=== PATIENT | female | born 1950 | race Caucasian/White ===

== ENCOUNTER 2017-06-19 20:39 | Emergency (ER) | payer MEDICARE ==
[~2017-06-19] VITALS: Ht 167.6 cm; Wt 98.0 kg
[2017-06-19 20:50] VITALS: BP 155/84
[2017-06-19] MEDS ORDERED: LACTATED RINGERS 1,000 ML IV ONE (21:12)
[2017-06-19] MEDS ORDERED: KETOROLAC 30 MG/ML VIAL IVP ONE (21:15)
[2017-06-19] MEDS ORDERED: ONDANSETRON 4 MG/2 ML (SDV) Z0FRAN IVP ONE (21:15)
--- NOTE | 2017-06-19 21:28 | ED Back Pain ---
General Chief Complaint: Back Problems Stated Complaint: MUSCLE SPASMS IN BACK Nursing Triage Note: PT REPORTS MUSCLE SPASMS TO R POSTERIOR RIBS THAT IS WORSE WITH INSPIRATION. SHE DENIES ANY INJURY OR ANY OTHER S/S. SHE STATES SHE TOOK 400 MG IBUPROFEN AND 5 MG FLEXERIL AT APPROX 1500 WITH NO RELIEF. Nursing Sepsis Screen: No Definite Risk Source of Information: Patient Exam Limitations: No Limitations History of Present Illness Date Seen by Provider: Jun 19, 2017 Time Seen by Provider: 21:00 Initial Comments Patient presents to the ER by private conveyance with her significant other and a chief complaint that this morning she started having some back pain in the right low back that is radiating around to her right flank. She does not have dysuria or fever she has had some chills. She has a little nausea but no vomiting. No diarrhea skin rash. She's never had kidney stones before. She has had multiple surgeries on her abdomen including gallbladder or appendix hysterectomy. She used 2 tablets of ibuprofen and a cyclobenzaprine 5 mg and it did not help her pain. Several years ago she had a kyphoplasty. She has no recent trauma to her back. Allergies and Home Medications Allergies Coded Allergies: lincomycin (Verified Allergy, Unknown, 06/19/17) nitrofurantoin (Unverified Allergy, Unknown, 06/19/17) propoxyphene (Unverified Allergy, Unknown, 06/19/17) Uncoded Allergies: "PRECIOUS" (Allergy, Unknown, 06/19/17) PENICILLIN (Allergy, Unknown, 06/19/17) SULFA (Allergy, Unknown, 06/19/17) Patient Home Medication List Home Medication List Reviewed: Yes Constitutional: chills, No diaphoresis, No fever, No malaise EENTM: No hearing loss, No ear pain Respiratory: No cough, No phlegm Cardiovascular: No chest pain, No palpitations Gastrointestinal: No abdominal pain, No constipation, No diarrhea, nausea Genitourinary: No discharge, No dysuria, No hematuria : No Musculoskeletal: see HPI, back pain Past Tacwloy-Anpowy-Jmqbtq Hx Patient Social History Alcohol Use: Denies Use Recreational Drug Use: No Smoking Status: Never a Smoker 2nd Hand Smoke Exposure: No Recent Foreign Travel: No Contact w/Someone Who Travel: No Recent Infectious Disease Expo: No Recent Hopitalizations: No Seasonal Allergies Seasonal Allergies: No Surgeries History of Surgeries: Yes (KYPHOPLASTY) Surgeries: Adenoidectomy, Appendectomy, Eye Surgery, Gallbladder, Joint Replacement, Orthopedic, Tonsillectomy, Tubal Ligation Respiratory History of Respiratory Disorde: No Cardiovascular History of Cardiac Disorders: Yes Cardiac Disorders: High Cholesterol Neurological History of Neurological Disord: No Genitourinary History of Genitourinary Disor: Yes Gastrointestinal History of Gastrointestinal Di: No Musculoskeletal History of Musculoskeletal Dis: No Endocrine History of Endocrine Disorders: Yes Endocrine Disorders: Hypothyroidsim HEENT History of HEENT Disorders: No Cancer History of Cancer: No Psychosocial History of Psychiatric Problem: Yes Behavioral Health Disorders: Sleep Difficulties, Anxiety, Depression Physical Exam Vital Signs Vital Signs - First Documented 06/19/17 20:50 Temp 98.1 Pulse 74 Resp 16 B/P (MAP) 155/84 (107) Pulse Ox 96 O2 Delivery Room Air Capillary Refill : Less Than 3 Seconds General Appearance: Mild Distress, Obese HEENT: PERRL/EOMI, Pharynx Normal (oral mucosa is dry) Neck: Full Range of Motion, Supple Cardiovascular: Regular Rate, Rhythm, No Murmur, Normal Peripheral Pulses Respiratory: Chest Non Tender, Lungs Clear, Normal Breath Sounds Peripheral Pulses: 2+ Radial Pulses (R), 2+ Radial Pulses (L) Gastrointestinal: Normal Bowel Sounds, Non Tender, Soft Back: Normal Inspection, CVA Tenderness (R), Vertebral Tenderness (low back right side) Extremity: Normal Capillary Refill, Normal Inspection Neurologic/Psychiatric: Alert, Oriented x3, No Motor/Sensory Deficits Skin: Normal Color, Warm/Dry Progress/Results/Core Measures Results/Orders Lab Results Laboratory Tests Test 06/19/17 21:36 06/19/17 21:38 Range/Units White Blood Count 8.1 4.3-11.0 10^3/uL Red Blood Count 4.98 4.35-5.85 10^6/uL Hemoglobin 15.4 11.5-16.0 G/DL Hematocrit 45 35-52 % Mean Corpuscular Volume 91 80-99 FL Mean Corpuscular Hemoglobin 31 25-34 PG Mean Corpuscular Hemoglobin Concent 34 32-36 G/DL Red Cell Distribution Width 13.0 10.0-14.5 % Platelet Count 276 130-400 10^3/uL Mean Platelet Volume 9.6 7.4-10.4 FL Neutrophils (%) (Auto) 54 42-75 % Lymphocytes (%) (Auto) 31 12-44 % Monocytes (%) (Auto) 11 0-12 % Eosinophils (%) (Auto) 4 0-10 % Basophils (%) (Auto) 1 0-10 % Neutrophils # (Auto) 4.4 1.8-7.8 X 10^3 Lymphocytes # (Auto) 2.5 1.0-4.0 X 10^3 Monocytes # (Auto) 0.9 0.0-1.0 X 10^3 Eosinophils # (Auto) 0.3 0.0-0.3 10^3/uL Basophils # (Auto) 0.1 0.0-0.1 10^3/uL Sodium Level 140 135-145 MMOL/L Potassium Level 4.0 3.6-5.0 MMOL/L Chloride Level 105 98-107 MMOL/L Carbon Dioxide Level 26 21-32 MMOL/L Anion Gap 9 5-14 MMOL/L Blood Urea Nitrogen 20 H 7-18 MG/DL Creatinine 0.92 0.60-1.30 MG/DL Estimat Glomerular Filtration Rate > 60 BUN/Creatinine Ratio 22 Glucose Level 97 70-105 MG/DL Calcium Level 9.3 8.5-10.1 MG/DL Total Bilirubin 0.4 0.1-1.0 MG/DL Aspartate Amino Transf (AST/SGOT) 20 5-34 U/L Alanine Aminotransferase (ALT/SGPT) 35 0-55 U/L Alkaline Phosphatase 62 40-136 U/L Total Protein 7.3 6.4-8.2 GM/DL Albumin 4.3 3.2-4.5 GM/DL Urine Color YELLOW Urine Clarity SLIGHTLY CLOUDY Urine pH 6 5-9 Urine Specific [place] 1.020 1.016-1.022 Urine Protein NEGATIVE NEGATIVE Urine Glucose (UA) NEGATIVE NEGATIVE Urine Ketones NEGATIVE NEGATIVE Urine Nitrite NEGATIVE NEGATIVE Urine Bilirubin NEGATIVE NEGATIVE Urine Urobilinogen 1 NORMAL MG/DL Urine Leukocyte Esterase 1+ H NEGATIVE Urine RBC (Auto) NEGATIVE NEGATIVE Urine RBC NONE /HPF Urine WBC 0-2 /HPF Urine Squamous Epithelial Cells 0-5 /HPF Urine Crystals NONE /LPF Urine Bacteria NEGATIVE /HPF Urine Casts NONE /LPF Urine Mucus SMALL H /LPF Urine Culture Indicated NO My Orders Orders - ANA PICKARD Cbc With Automated Diff (3/10/18 21:12) Comprehensive Metabolic Panel (06/19/17 21:12) Ua Culture If Indicated (06/19/17 21:12) Saline Lock/Iv-Start (06/19/17 21:12) Lactated Ringers (Lr 1000 Ml Iv Solution (06/19/17 21:12) Ketorolac Injection (Toradol Injection) (06/19/17 21:15) Ondansetron Injection (Zofran Injectio (06/19/17 21:15) Fentanyl Injection (Sublimaze Injection (06/19/17 22:00) Ct Abd/Pelvis Wo(Kidney Stone) (06/19/17 22:14) Fentanyl Injection (Sublimaze Injection (06/19/17 22:30) Medications Given in ED Current Medications Medications Dose Ordered Sig/Heather Route Start Time Stop Time Status Last Admin Dose Admin Fentanyl Citrate 50 mcg ONCE ONCE IVP 06/19/17 22:00 06/19/17 22:01 DC 06/19/17 21:59 50 MCG Fentanyl Citrate 50 mcg ONCE ONCE IVP 06/19/17 22:30 06/19/17 22:31 DC 06/19/17 22:28 50 MCG Ketorolac Tromethamine 15 mg ONCE ONCE IVP 06/19/17 21:15 06/19/17 21:18 DC 06/19/17 21:25 15 MG Lactated Ringer's 1,000 ml @ 0 mls/hr Q0M ONCE IV 06/19/17 21:12 06/19/17 21:17 DC 06/19/17 21:25 0 MLS/HR Ondansetron HCl 4 mg ONCE ONCE IVP 06/19/17 21:15 06/19/17 21:18 DC 06/19/17 21:25 4 MG Vital Signs/I&O Vital Sign - Last 12Hours 06/19/17 20:50 Temp 98.1 Pulse 74 Resp 16 B/P (MAP) 155/84 (107) Pulse Ox 96 O2 Delivery Room Air Blood Pressure Mean: 107 Progress Note : Time: 21:30 Progress Note Concern for kidney stone versus other. Possible pyelonephritis or just lumbago. Diagnostic Imaging Diagonstic Imaging: CT Plain Films/CT/US/NM/MRI: abdomen, pelvis Comments No acute findings there is some L4-L5 grade 1 anterolisthesis secondary to bilateral L4 pars defect. The kyphoplasty changes present at T11. No kidney stones noted. No free air or free fluid. Reviewed: Reviewed Night Hawk Study, Reviewed by Me Departure Impression Impression: Primary Impression: Lumbago Qualified Codes: M54.5 - Low back pain Disposition: 01 HOME, SELF-CARE Condition: Improved Departure-Patient Inst. Decision time for Depature: 00:03 Referrals: NO,LOCAL PHYSICIAN (PCP) Primary Care Physician Patient Instructions: Low Back Pain (DC) Add. Discharge Instructions: Establish care with a primary care physician to consider further workup and management of your back pain. Use ibuprofen 800 mg every 8 hours as needed as well as Tylenol 1000 mg every 6 hours. You can use icy hot or similar creams. Use heating pads and obtain a back brace to wear on the days that it helps with your posture. No lifting over 20 pounds for the next 2 weeks. If your pain is intolerable despite these interventions you can use one tablet of the hydrocodone every 6 hours to help take the edge off. If is not improving over the next few weeks he should follow-up with your primary care physician and look into physical therapy or other management. All discharge instructions reviewed with patient and/or family. Voiced understanding. Scripts Hydrocodone Bit/Acetaminophen (Hydrocodone/Acetaminophen 5/325mg Tablet) 1 Tab Tab 1-2 EACH PO Q6H Y for BREAKTHROUGH PAIN, #15 TAB 0 Refills Prov: ANA PICKARD 06/20/17 ANA PICKARD Jun 19, 2017 21:28
[2017-06-19 21:44] LABS: BILIRUBIN,URINE NEGATIVE (NEGATIVE); CLARITY,URINE SLIGHTLY CLOUDY; COLOR,URINE YELLOW; GLUCOSE, URINE (UA) NEGATIVE (NEGATIVE); KETONES,URINE NEGATIVE (NEGATIVE); LEUKOCYTE ESTERASE ,URINE 1+ (NEGATIVE); NITRITE,URINE NEGATIVE (NEGATIVE); PH,URINE 6 (5-9); PROTEIN,URINE NEGATIVE (NEGATIVE); UROBILINOGEN,URINE 1 MG/DL (NORMAL)
[2017-06-19 21:45] LABS: BASOPHILS # (AUTO) 0.1 10^3/uL (0.0-0.1); BASOPHILS % (AUTO) 1 % (0-10); EOSINOPHILS # (AUTO) 0.3 10^3/uL (0.0-0.3); EOSINOPHILS % (AUTO) 4 % (0-10); HEMATOCRIT 45 % (35-52); HEMOGLOBIN 15.4 G/DL (11.5-16.0); LYMPHOCYTES # (AUTO) 2.5 X 10^3 (1.0-4.0); LYMPHOCYTES % (AUTO) 31 % (12-44); MEAN CORPUSCULAR HEMOGLOBIN 31 PG (25-34); MEAN CORPUSCULAR HGB CONC 34 G/DL (32-36); MEAN CORPUSCULAR VOLUME 91 FL (80-99); MEAN PLATELET VOLUME 9.6 FL (7.4-10.4); MONOCYTES # (AUTO) 0.9 X 10^3 (0.0-1.0); MONOCYTES % (AUTO) 11 % (0-12); NEUTROPHILS # (AUTO) 4.4 X 10^3 (1.8-7.8); NEUTROPHILS % (AUTO) 54 % (42-75); PLATELET COUNT 276 10^3/uL (130-400); RED BLOOD COUNT 4.98 10^6/uL (4.35-5.85); WHITE BLOOD COUNT 8.1 10^3/uL (4.3-11.0)
[2017-06-19] MEDS ORDERED: fentaNYL INJECTION 100 MCG/2 ML AMP IVP ONE ×2 (22:00→22:30)
[2017-06-19 22:01] LABS: ALANINE AMINOTRANSFERASE 35 U/L (0-55); ALBUMIN 4.3 GM/DL (3.2-4.5); ALKALINE PHOSPHATASE 62 U/L (40-136); BILIRUBIN,TOTAL 0.4 MG/DL (0.1-1.0); BUN/CREATININE RATIO 22; CALCIUM 9.3 MG/DL (8.5-10.1); CARBON DIOXIDE 26 MMOL/L (21-32); CHLORIDE 105 MMOL/L (98-107); CREATININE SERUM 0.92 MG/DL (0.60-1.30); GFR ESTIMATED > 60; GLUCOSE 97 MG/DL (70-105); SODIUM 140 MMOL/L (135-145); TOTAL PROTEIN 7.3 GM/DL (6.4-8.2)
[2017-06-19 22:07] LABS: BACTERIA,URINE NEGATIVE /HPF; SQUAMOUS EPITHELIAL CELL,UR 0-5 /HPF; WBC,URINE 0-2 /HPF
[2017-06-20] MEDS ORDERED: ACHD5005 PO (00:05)
[2017-06-20] MEDS ORDERED: DEXAMETHASONE 10 MG/ML (DECADRON) 1 ML VIAL IV ONE (00:15)
[2017-06-20] MEDS ORDERED: RX-HYDROCODONE/APAP 5/325 MG #4 TAB PK PO PRN (00:15)
--- NOTE | 2017-06-20 08:44 | Diagnostic Imaging Report ---
PROCEDURE: CT urinary tract, rule out kidney stone. TECHNIQUE: Multiple contiguous axial images were obtained through the abdomen and pelvis without the use of intravenous contrast. INDICATION: Back pain and spasms COMPARISON: None available FINDINGS: The visualized lung bases are clear. The liver is diffusely heterogeneous and hypodense, suggesting underlying fatty infiltration. No definite focal hepatic mass. The unenhanced spleen is unremarkable. The adrenal glands are unremarkable. The pancreas is unremarkable. The gallbladder is not visualized. The unenhanced kidneys and ureters are unremarkable. Mild vascular calcifications without aneurysmal dilatation of the abdominal aorta. Tiny fat-containing umbilical hernia. The urinary bladder is unremarkable. The uterus and adnexal structures are unremarkable for age. No evidence of acute appendicitis. No bowel obstruction or pneumatosis. No significant adenopathy, free air, or free fluid within the abdomen or pelvis. Grade 1 anterolisthesis of L4 on L5 secondary to bilateral pars interarticularis defects of L4. Vertebroplasty changes within the lower thoracic line. Scattered osseous degenerative changes. No acute osseous abnormality. IMPRESSION: No acute abnormality identified. Fatty infiltration of the liver. Grade 1 anterolisthesis of L4 on L5 secondary to bilateral pars interarticularis defects of L4. Additional findings as above. Agree with preliminary interpretation. Dictated by: Dictated on workstation # [id number]
--- OUTSIDE RECORDS SUMMARY | 2017-06-20 14:14 | XMS REPORT | CCD ---
Author Author MAHSA DENT Unknown Address [address] [facility] [address] [place] [address] Care Team Providers Care Private Investigator Surveillance Name Role Phone HERMAN MITCHELL, SONU Casas Attphys E., NICHOL NASST G., RICKEY NASST B., AKASH NASST S., MJ ROSA NASST F., SUSIE NASST M., MARY Wood NASST S., RON NASST F., MARQUISE Robles NASST K., JESSE Wood NASST O., JOANA Reid NASST G., LALY NASST Allergies Allergy Code Allergy Type Reaction Status PCN (penicillin) 0 Drug allergy RASH Active PRECIOUS {Clinical monitoring unavailable} 0 Drug allergy BRUISING/SWELLING Active DARVON {Clinical monitoring unavailable} 0 Drug allergy NAUSEA Active SULFA (sulfonamide) 0 Drug allergy NAUSEA Active MACRODANTIN 964347 Drug allergy KNOT AT INJECTION SITE. Active LIDOCAINE 9063 Drug allergy KNOT AT INJECTION SITE. Active Active Medications Medication Code Dose Units Frequency Route Modification Start Date/Time Aspirin Low Dose 81MG Oral Tablet [id number] 81 MILLIGRAMS DAILY ORAL 08/06/2016 07:26 Prescription Detail 81 MILLIGRAMS ORAL DAILY Boniva 150MG Oral Tablet [id number] 150 MILLIGRAMS MONTHLY ORAL 08/06/2016 07:26 Prescription Detail 150 MILLIGRAMS ORAL MONTHLY buPROPion Hydrochloride SR 150MG Oral Tablet, Extended Release, 12 HR [id number] 150 MILLIGRAMS TWO TIMES A DAY ORAL 08/06/2016 07:26 Prescription Detail 150 MILLIGRAMS ORAL TWO TIMES A DAY Calcium 1200 w/Vitamin D 600 MG-100 IU Oral Capsule, Liquid Filled [id number] 1 EACH DAILY ORAL 2016 07:26 Prescription Detail 1 EACH ORAL DAILY Multivitamin Oral Tablet 7671391 1 EACH DAILY ORAL 08/06/2016 07:26 Prescription Detail 1 EACH ORAL DAILY Niacin 500MG Oral Tablet [id number] 500 MILLIGRAMS DAILY ORAL 08/06/2016 07:26 Prescription Detail 500 MILLIGRAMS ORAL DAILY Outpatient Therapy 0 1 <OTHER> WEEKLY <OTHER > 08/06/2016 07:26 Prescription Detail 3 times WEEKLY. NWB to LEFT UE. Total Shoulder Protocol, Modalities prnDx: s/p Lt. TSA Oxybutynin Chloride 5MG Oral Tablet, Extended Release [id number] 5 MILLIGRAMS DAILY ORAL 08/06/2016 07:26 Prescription Detail 5 MILLIGRAMS ORAL DAILY oxyCODONE HCl 5MG Oral Tablet 5985078 1 TABLET NEEDED EVERY 4 HR BY MOUTH FOR PAIN 08/06/2016 07:26 Prescription Detail 1 TABLET BY MOUTH NEEDED EVERY 4 HR FOR PAIN SLOW-FE 0 1 EACH DAILY ORAL 08/06/2016 07:26 Prescription Detail 1 EACH ORAL DAILY Synthroid 137MCG Oral Tablet 769392 137 MCG DAILY ORAL 08/06/2016 07:26 Prescription Detail 137 MCG ORAL DAILY Vitamin C 500MG Oral Tablet 055174 500 MILLIGRAMS DAILY ORAL 08/06/2016 07:26 Prescription Detail 500 MILLIGRAMS ORAL DAILY VITAMIN D 0 3000 INTERNATIONAL UNIT DAILY ORAL 08/06/2016 07:26 Prescription Detail 3000 INTERNATIONAL UNIT ORAL DAILY Vitamin E 400IU Oral Capsule, Liquid Filled 457758 400 INTERNATIONAL UNITS DAILY ORAL 08/06/2016 07:26 Prescription Detail 400 INTERNATIONAL UNITS ORAL DAILY Zetia 10MG Oral Tablet 060046 10 MILLIGRAMS AT BEDTIME ORAL 08/06/2016 07:26 Prescription Detail 10 MILLIGRAMS ORAL AT BEDTIME Zolpidem 10MG Oral Tablet 567966 10 MILLIGRAMS AT BEDTIME ORAL 08/06/2016 07:26 Prescription Detail 10 MILLIGRAMS ORAL AT BEDTIME Problems Problem Code Start Date Resolved Date Status Primary osteoarthritis of left shoulder [id number] Active Post op pain 410349239 08/04/2016 Active Status post shoulder replacement 13273286 08/04/2016 Active Procedures Procedure Code Procedure Type Date Replacement of Left Shoulder Joint with Synthetic Substitute, Open Approac [id number] ICD-10 PCS 08/04/2016 OT THERAPEUTIC EXERCISES [address] 2016 OT ADL TRAINING/POSITIONING EA 15MIN 122890406 SNOMED CT 08/06/2016 OT THERAPEUTIC EXERCISES [address] 2016 PT GAIT TRAINING/STAIRS EA [address] 08/05 OT ADL TRAINING/POSITIONING EA 15MIN 260898101 SNOMED CT 08/05/2016 OT THERAPEUTIC EXERCISES [address] 2016 OT THERAPEUTIC ACT. ONE ON ONE EA [address] 08/05/2016 OT EVAL; LOW 329908127 SNOMED CT 08/05/2016 PT THERAPEUTIC ACT. ONE ON ONE EA [address] 08/04/2016 PT EVALUATION; LOW 782095868 SNOMED CT 08/04/2016 SHOULDER [address] 08/04/2016 BASIC METABOLIC PANEL 002424222 SNOMED CT 08/06/2016 BASIC METABOLIC PANEL 254297780 SNOMED CT 08/05/2016 CBC W/ AUTO DIFF (RFLX MAN DIFF IF IND) 0315458 SNOMED CT 08/06/2016 CBC W/ AUTO DIFF (RFLX MAN DIFF IF IND) 1349577 SNOMED CT 08/05/2016 INCENTIVE SPIROMETRY EA [address] ^CBC W/AUTO DIFF 4604880 SNOMED CT 08/06/2016 ^CBC W/AUTO DIFF 6865137 SNOMED CT 08/05/2016 BAN AERO ECLIPSE TREATMENT 09647724 SNOMED CT 08/06/2016 BAN AERO ECLIPSE TREATMENT 53035770 SNOMED CT 08/05/2016 BAN AERO ECLIPSE TREATMENT 51579774 SNOMED CT 08/05/2016 BAN AERO ECLIPSE TREATMENT 13552153 SNOMED CT 08/05/2016 BAN AERO ECLIPSE TREATMENT 73627467 SNOMED CT 08/04/2016 BAN AERO ECLIPSE TREATMENT 34463478 SNOMED CT 08/04/2016 Results BASIC METABOLIC PANEL - Collect Date/Time: 08/06/2016 05:45 Test Name Code Test Result Test Units Test Ref Range GLUCOSE 2345-7 84 MG/DL L=70 H=100 SODIUM 2951-2 139 MEQ/L L=135 H=148 POTASSIUM 2823-3 4.4 MEQ/L L=3.5 H=5.3 CHLORIDE 2075-0 105 MEQ/L L=96 H=110 CO2 2028-9 25 MEQ/L L=22 H=29 BUN 3094-0 15 MG/DL L=8 H=22 CREATININE 2160-0 0.7 MG/DL L=0.6 H=1.6 CALCIUM 69345-1 8.7 MG/DL L=8.2 H=10.6 AGE 9[birth year]-1 66 yrs GFR NonAA 13681-3 83 GFR AA 80382-6 101 eGFR 43286-6 >60 N/A eGFR AA* 64904-5 >60 N/A BASIC METABOLIC PANEL - Collect Date/Time: 08/05/2016 06:20 Test Name Code Test Result Test Units Test Ref Range GLUCOSE 2345-7 121 MG/DL L=70 H=100 SODIUM 2951-2 138 MEQ/L L=135 H=148 POTASSIUM 2823-3 4.4 MEQ/L L=3.5 H=5.3 CHLORIDE 2075-0 107 MEQ/L L=96 H=110 CO2 2028-9 22 MEQ/L L=22 H=29 BUN 3094-0 16 MG/DL L=8 H=22 CREATININE 2160-0 0.7 MG/DL L=0.6 H=1.6 CALCIUM 78019-8 8.7 MG/DL L=8.2 H=10.6 AGE 92427-9 66 yrs GFR NonAA 89279-9 83 GFR AA 56317-5 101 eGFR 66745-8 >60 N/A eGFR AA* 16465-7 >60 N/A CBC W/ AUTO DIFF (RFLX MAN DIFF IF IND) - Collect Date/Time: 08/06/2016 05:45 Test Name Code Test Result Test Units Test Ref Range WBC 25115-1 8.3 TH/CMM L=4.5 H=10.8 RBC 789-8 4.08 ML/CMM L=4.20 H=5.40 HGB 718-7 12.4 G/DL L=12.0 H=16.0 HCT 4544-3 38.6 % L=37.0 H=47.0 MCV 55539-7 95 FL L=81 H=99 MCH 50753-6 30.4 PG L=27.0 H=33.0 MCHC 78506-3 32.1 G/DL L=31.0 H=36[place]0 [place] [address]-1 44 FL L=36 H=50 [place] [address]-1 12.8 % L=0.0 H=14.8 MPV 47256-4 9.8 FL L=9.3 H=12.5 PLT 777-3 258 TH/CMM L=130 H=440 NRBC# 83847-1 0.00 TH/CMM L=0.00 H=0.00 NRBC% 44681-0 0.0 /100WBC L=0.0 H=2.0 %NEUT 23399-4 55.8 % %LYMP 92297-8 27.3 % %MONO 68490-2 8.4 % %EOS 61848-3 6.8 % %BASO 66483-2 1.1 % #NEUT 78913-9 4.61 TH/CMM L=2.10 H=8.20 #LYMP 58959-9 2.25 TH/CMM L=0.90 H=5.20 #MONO 51054-5 0.69 TH/CMM L=0.16 H=1.00 #EOS 93978-8 0.56 TH/CMM L=0.00 H=0.80 #BASO 05282-9 0.09 TH/CMM L=0.00 H=0.20 MANUAL DIFF 90476-8 NOT IND N/A CBC W/ AUTO DIFF (RFLX MAN DIFF IF IND) - Collect Date/Time: 08/05/2016 06:20 Test Name Code Test Result Test Units Test Ref Range WBC 60953-2 11.0 TH/CMM L=4.5 H=10.8 RBC 789-8 3.58 ML/CMM L=4.20 H=5.40 HGB 718-7 11.1 G/DL L=12.0 H=16.0 HCT 4544-3 33.5 % L=37.0 H=47.0 MCV 05845-0 94 FL L=81 H=99 MCH 24133-1 31.0 PG L=27.0 H=33.0 MCHC 80042-4 33.1 G/DL L=31.0 H=36[place]0 [place] [address]-9 44 FL L=36 H=50 [place] [address]-3 12.7 % L=0.0 H=14.8 MPV 93757-3 9.6 FL L=9.3 H=12.5 PLT 777-3 224 TH/CMM L=130 H=440 NRBC# 15122-3 0.00 TH/CMM L=0.00 H=0.00 NRBC% 92113-5 0.0 /100WBC L=0.0 H=2.0 %NEUT 53616-9 78.3 % %LYMP 99954-6 12.2 % %MONO 67960-6 8.8 % %EOS 53824-9 0.1 % %BASO 33531-1 0.2 % #NEUT 35804-3 8.60 TH/CMM L=2.10 H=8.20 #LYMP 06498-9 1.34 TH/CMM L=0.90 H=5.20 #MONO 42573-6 0.97 TH/CMM L=0.16 H=1.00 #EOS 72080-3 0.01 TH/CMM L=0.00 H=0.80 #BASO 02318-6 0.02 TH/CMM L=0.00 H=0.20 MANUAL DIFF 31376-4 NOT IND N/A Function Status Unknown or Not Available. History of Immunizations Immunization Code Date influenza, split (incl. purified surface antigen) 15 03/19/2005 influenza, split (incl. purified surface antigen) 15 03/10/2006 influenza, split (incl. purified surface antigen) 15 02/25/2007 Novel [id number] 127 03/27/2009 Plan of Treatment Unknown or Not Available. Social History Smoking Status Code Start Date End Date Never smoker [id number] Vital Signs Vital Sign Value Unit Date/Time Recent/Initial? BP Systolic 147 mm[Hg] 07/06/2016 10:50 Initial VS BP Diastolic 81 mm[Hg] 07/06/2016 10:50 Initial VS Respiratory Rate 16 /min 07/06/2016 10:50 Initial VS Heart Rate 80 /min 07/06/2016 10:50 Initial VS O2 % BldC Oximetry 98 % 07/06/2016 10:50 Initial VS BMI (Body Mass Index) 45.19 kg/m2 07/09/2016 10:23 Initial VS Weight Measured 280 [lb_av] 07/09/2016 10:23 Initial VS Height 66 [in_i] 07/09/2016 10:23 Initial VS BSA (Body Surface Area) 2.43 m2 07/09/2016 10:23 Initial VS Body Temperature 96.2 [degF] 08/04/2016 11:10 Initial VS BP Systolic 138 mm[Hg] 08/06/2016 11:11 Most Recent VS BP Diastolic 84 mm[Hg] 08/06/2016 11:11 Most Recent VS Respiratory Rate 20 /min 08/06/2016 11:11 Most Recent VS Heart Rate 90 /min 08/06/2016 11:11 Most Recent VS O2 % BldC Oximetry 98 % 08/06/2016 11:11 Most Recent VS Body Temperature 98.1 [degF] 08/06/2016 11:11 Most Recent VS Function Status Unknown or Not Available. Goals Unknown or Not Available. ASSESSMENTS Unknown or Not Available. Health Concerns Section Unknown or Not Available.
--- OUTSIDE RECORDS SUMMARY | 2017-06-20 14:15 | XMS REPORT ---
Author Author Gladys Angeles Organization [facility] Address [address] [place], [place] [address] Care Team Providers Care Package Crimper Name Role Phone Gladys Angeles PCP Unavailable Allergies and Adverse Reactions Name Reaction Notes PENICILLINS rash Macrodantin Darvon nausea SULFA (SULFONAMIDES) nausea Lidocaine knot at injection Plan of Treatment Not available. Medications Active Name Start Date Estimated Completion Date SIG Comments Boniva 150 mg oral tablet Synthroid 137 mcg oral tablet take 1 tablet (137 mcg) by oral route once daily bupropion HCl 150 mg oral tablet extended release 24 hr take 1 tablet ( 150 mg) by oral route once daily Oxytrol 3.9 mg/24 hr transdermal patch semiweekly Zetia 10 mg oral tablet take 1 tablet (10 mg) by oral route once daily zolpidem 10 mg oral tablet take 1 tablet (10 mg) by oral route once daily at bedtime Aspir-81 81 mg oral tablet,delayed release (DR/EC) take 1 tablet (81 mg ) by oral route once daily Puja-D 12 Hour 60-120 mg oral tablet extended release 12 hr 09/02/2015 take 1 tablet by oral route 2 times per day Flonase Allergy Relief 50 mcg/actuation nasal spray,suspension 09/02/2015 inhale 1 spray (50 mcg) in each nostril by intranasal route once daily Problem List Not available. Vital Signs Date Time BP-Sys(mm[Hg] BP-Alondra(mm[Hg]) HR(bpm) RR(rpm) Temp WT HT HC BMI BSA BMI Percentile O2 Sat(%) 09/02/2015 1:38:00 PM 136 mmHg 74 mmHg 86 bpm 18 rpm 98.6 F 295.125 lbs 66 in 47.63 kg/m2 2.50 m2 97 % Social History Name Description Comments denies alcohol use Tobacco Never smoker 09/02/2015 - History of Procedures Date Ordered Description Order Status 09/02/2015 12:00 AM Decadron, Per 1 Mg [facility]# [id number] Reviewed 09/02/2015 12:00 AM Depo-Medrol 40mg Reviewed Results Summary Not available. History Of Immunizations Not available. History of Past Illness Name Date of Onset Comments Acute maxillary sinusitis, recurrence not specified Sep 02 2015 1:41PM Payers Insurance Name Company Name Plan Name Plan Number Policy Number Policy Group Number Start Date Medicare Part A Medicare RHC [id number] Tuesday, 2013 AARP AARP [id number] Tuesday, 2013 Medicare Part A Medicare - Lab/Xray [id number] Tuesday, March 12, 2013 [facility] [id number] Monday, March 122012 Medicare Part B Medicare Of [place] [id number] N/A AAR AARP [id number] N/A History of Encounters Visit Date Visit Type Provider 09/02/2015 Office visit Gladys Angeles JUNIOR BUYER 06/04/2014 [facility] Aziza Villegas MD
--- OUTSIDE RECORDS SUMMARY | 2017-06-20 14:15 | XMS REPORT | Continuity of Care Document ---
Author Author [facility] Organization [facility] Address Unknown Phone Unavailable Allergies There is no data. Medications There is no data. Problems There is no data. Procedures There is no data. Results There is no data. Encounters ACCT No. Visit Date/Time Discharge Status Pt. Type Provider Facility Loc./Unit Complaint [id number] 09/16/2016 16:17:34 09/16/2016 23:59:59 CLS Outpatient Aziza Villegas [id number] 11/19/2014 21:44:55 11/19/2014 23:59:59 CLS Outpatient Aziza Villegas
== END 2017-06-20 00:20 | disposition home or self-care (01) ==
LOC: EDUNIT# 20:39 → ER 20:42
DX: M54.5 Low back pain (principal); F41.9 Anxiety disorder, unspecified; F32.9 Major depressive disorder, single episode, unspecified; E03.9 Hypothyroidism, unspecified; G47.9 Sleep disorder, unspecified; E78.00 Pure hypercholesterolemia, unspecified; Z90.49 Acquired absence of other specified parts of digestive tract; Z98.51 Tubal ligation status; Z88.0 Allergy status to penicillin; Z88.1 Allergy status to other antibiotic agents; Z88.2 Allergy status to sulfonamides; Z88.6 Allergy status to analgesic agent
CPT/HCPCS: 36415; 74176; 80053; 81000; 85025

== ENCOUNTER 2019-01-14 09:56 | Inpatient (IN) | payer MEDICARE ==
[~2019-01-14] VITALS: Ht 167.7 cm; Wt 127.0 kg
[~2019-01-14 09:56] MED LIST: ACHD5005 PO
--- NOTE | 2019-01-14 10:24 | ED Trauma-Vehiclar ---
General Chief Complaint: Trauma-Non Activation Stated Complaint: FALL Time Seen by MD: 10:14 Source: patient Exam Limitations: no limitations History of Present Illness Date Seen by Provider: Jan 14, 2019 Time Seen by Provider: 10:21 Initial Comments To ER with reports of a fall at the [employer] game this morning. She was what new tennis shoes that somehow got caught up using her to trip. Her right knee which was replaced in 2014 was twisted awkwardly and is now painful,, she complains of some pain beneath the left breast. She did not hit her head, no neck pain. No upper extremity pain no hip pain. Her only complaints of pain are behind the left breast and left knee. Occurred: just prior to arrival Severity: moderate Injury/Pain Location: chest, lower extremity Modifying Factors: Worse With Movement Loss of Consciousness: no loss of consciousness Allergies and Home Medications Allergies Coded Allergies: lincomycin (Verified Allergy, Unknown, 06/19/17) nitrofurantoin (Unverified Allergy, Unknown, 06/19/17) propoxyphene (Unverified Allergy, Unknown, 06/19/17) Uncoded Allergies: "PRECIOUS" (Allergy, Unknown, 06/19/17) PENICILLIN (Allergy, Unknown, 06/19/17) SULFA (Allergy, Unknown, 06/19/17) Home Medications Hydrocodone Bit/Acetaminophen 1 Tab Tab, 1-2 EACH PO Q6H PRN for BREAKTHROUGH PAIN Prescribed by: ANA PICKARD on 06/20/17 0005 Patient Home Medication List Home Medication List Reviewed: Yes Review of Systems Review of Systems Constitutional: see HPI Eyes: No Symptoms Reported Ears: No Symptoms Reported Nose: No Symptoms Reported Mouth: No Symptoms Reported Throat: No Symptoms to Report Respiratory: no symptoms reported Cardiovascular: No Symptoms Reported Genitourinary: no symptoms reported Musculoskeletal: see HPI Skin: no symptoms reported Psychiatric/Neurological: No Symptoms Reported Past Ekwmaks-Babqrx-Ckidbe Hx Patient Social History 2nd Hand Smoke Exposure: No Recent Hopitalizations: No Seasonal Allergies Seasonal Allergies: No Past Medical History Surgeries: Yes (KYPHOPLASTY) Adenoidectomy, Appendectomy, Eye Surgery, Gallbladder, Joint Replacement, Orthopedic, Tonsillectomy, Tubal Ligation Respiratory: No Cardiac: Yes High Cholesterol Neurological: No Genitourinary: Yes Gastrointestinal: No Musculoskeletal: No Endocrine: Yes Hypothyroidsim HEENT: No Cancer: No Psychosocial: Yes Sleep Difficulties, Anxiety, Depression Physical Exam Vital Signs Vital Signs - First Documented 01/14/19 09:56 Temp 36.2 Pulse 82 Resp 18 B/P (MAP) 120/82 (95) Capillary Refill : Height, Weight, BMI Height: 5'6.00" Weight: 216lbs. oz. 97.366167ho; BMI Method:Stated General Appearance: WD/WN, no apparent distress, obese HEENT: PERRL/EOMI, normal ENT inspection Respiratory: no respiratory distress, no accessory muscle use Gastrointestinal: normal bowel sounds, non tender, soft Extremities: other (left knee is difficult to evaluate for any swelling due to body habitus. He is no abrasion laceration or erythema. Dorsalis pedis pulse is +2 in strength bilaterally.) Neurologic/Psychiatric: alert, normal mood/affect, oriented x 3 Skin: normal color, warm/dry Justine Coma Score Best Eye Response: (4) Open Spontaneously Best Verbal Response: (5) Oriented Best Motor Response: (6) Obeys Commands Lakin Total: 15 Progress/Results/Core Measures Results/Orders Lab Results Laboratory Tests Test 01/14/19 11:20 Range/Units My Orders Orders - HEATH ALMENDAREZ APRN Fentanyl Injection (Sublimaze Injection (01/14/19 10:30) Knee, Right, 3 Views (01/14/19 10:20) Chest Pa/Lat (2 View) (01/14/19 10:20) Ct Chest Wo (01/14/19 10:32) Fentanyl Injection (Sublimaze Injection (01/14/19 10:45) Cbc With Automated Diff (01/14/19 10:58) Comprehensive Metabolic Panel (01/14/19 10:58) Ua Culture If Indicated (01/14/19 10:58) Berg Cath (01/14/19 10:58) Protime With Inr (01/14/19 10:58) Partial Thromboplastin Time (01/14/19 10:58) Hydromorphone Injection (Dilaudid Inject (01/14/19 11:15) Knee Immobilizer (01/14/19 11:11) Femur, Right, 2 Views (01/14/19 11:12) Medications Given in ED Current Medications Medications Dose Ordered Sig/Heather Route Start Time Stop Time Status Last Admin Dose Admin Fentanyl Citrate 50 mcg ONCE ONCE IVP 01/14/19 10:30 01/14/19 10:31 DC 01/14/19 10:22 50 MCG Fentanyl Citrate 50 mcg ONCE ONCE IVP 01/14/19 10:45 01/14/19 10:46 DC 01/14/19 11:01 50 MCG Hydromorphone HCl 1 mg ONCE ONCE IV 01/14/19 11:15 01/14/19 11:16 DC 01/14/19 11:23 1 MG Vital Signs/I&O 01/14/19 09:56 Temp 36.2 Pulse 82 Resp 18 B/P (MAP) 120/82 (95) Diagnostic Imaging Diagonstic Imaging: CT Comments NAME: RADHA NAJERA MED REC#: [id number] PT STATUS: REG ER : 1950 PHYSICIAN: HEATH ALMENDAREZ APRN ADMIT DATE: 01/14/19/ER Draft Date of Exam:01/14/19 CT CHEST WO PROCEDURE: CT chest without contrast. TECHNIQUE: Multiple contiguous axial images were obtained through the chest without the use of intravenous contrast. Auto Exposure Controls were utilized during the CT exam to meet ALARA standards for radiation dose reduction. INDICATION: Anterior left chest pain after a fall on bleachers this morning, dyspnea. COMPARISON: None. DISCUSSION: Anterior nondisplaced left 4th and 5th rib fractures. No pneumothorax. No focal consolidation. T11 cement augmentation. No other acute compression fracture identified. The sternum is intact. 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 No focal consolidation or suspicious pulmonary lesion. Normal heart size. No pleural or pericardial fluid. The upper abdomen is unremarkable. No pathologically enlarged lymph nodes are identified. IMPRESSION: 1. Nondisplaced anterior left 4th and 5th rib fractures. No pneumothorax. Dictated on workstation # [id number] Dict: 01/14/19 1100 Trans: 01/14/19 1104 [facility] [id number] Interpreted by: MARQUES HORNER MD Electronically signed by: Departure Communication (Admissions) [id number]-discussed the case with Dr. Bassett who is on-call for orthopedics here, recommends discussing with Dr. Mclean who did the patient's initial knee replacement in 2014, if Dr. Mclean is able to take care of this patient should be transferred there. I then spoke with on-call orthopedist from [place] who is actually Dr. Quesada, recommends keeping the patient here. Dr. Bassett updated, we'll admit to medicine consult him. 11:15-discussed the case with Dr. Bonilla on-call for trauma today since this patient has more than 2 fractures. He agrees to consult. Impression Primary Impression: Femoral distal fracture Qualified Codes: S72.401A - Unspecified fracture of lower end of right femur, initial encounter for closed fracture Disposition: ADMITTED INPATIENT Condition: Stable Admissions Decision to Admit Reason: Admit from ER (General) Decision to Admit/Date: Jan 14, 2019 Time/Decision to Admit Time: 10:56 Departure-Patient Inst. Referrals: NO,LOCAL PHYSICIAN (PCP/Family) Primary Care Physician Images Torso/Trunk 1 - HEATH ALMENDAREZ APRN Jan 14, 2019 10:24
[2019-01-14] MEDS ORDERED: fentaNYL INJECTION 100 MCG/2 ML AMP IVP ONE ×2 (10:30→10:45)
--- NOTE | 2019-01-14 11:04 | Diagnostic Imaging Report ---
PROCEDURE: CT chest without contrast. TECHNIQUE: Multiple contiguous axial images were obtained through the chest without the use of intravenous contrast. Auto Exposure Controls were utilized during the CT exam to meet ALARA standards for radiation dose reduction. INDICATION: Anterior left chest pain after a fall on bleachers this morning, dyspnea. COMPARISON: None. DISCUSSION: Anterior nondisplaced left 4th and 5th rib fractures. No pneumothorax. No focal consolidation. T11 cement augmentation. No other acute compression fracture identified. The sternum is intact. 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 No focal consolidation or suspicious pulmonary lesion. Normal heart size. No pleural or pericardial fluid. The upper abdomen is unremarkable. No pathologically enlarged lymph nodes are identified. IMPRESSION: 1. Nondisplaced anterior left 4th and 5th rib fractures. No pneumothorax. Dictated by: Dictated on workstation # [id number]
--- NOTE | 2019-01-14 11:10 | Diagnostic Imaging Report ---
Indication: Fall with right knee pain. Comparison: None. Discussion: Three views of the right knee were obtained. Total right knee arthroplasty is present. There is a comminuted displaced fracture involving the distal shaft of the right femur, incompletely viewed on the lateral view. There is foreshortening and displacement medially and laterally of the fracture fragments. The knee joint remains normally located. There is soft tissue swelling present. Impression: 1. Significantly comminuted foreshortened fracture of the distal shaft of the right femur. Dictated by: Dictated on workstation # [id number]
[2019-01-14] MEDS ORDERED: HYDROmorphone 2 MG/ML VIAL (DILAUDID) IV ONE ×2 (11:15→12:15)
[2019-01-14 11:29] LABS: BASOPHILS % (AUTO) 0 % (0-10); EOSINOPHILS # (AUTO) 0.1 10^3/uL (0.0-0.3); EOSINOPHILS % (AUTO) 1 % (0-10); HEMATOCRIT 43 % (35-52); HEMOGLOBIN 14.5 G/DL (11.5-16.0); LYMPHOCYTES # (AUTO) 0.9 X 10^3 (1.0-4.0); LYMPHOCYTES % (AUTO) 8 % (12-44); MEAN CORPUSCULAR HEMOGLOBIN 30 PG (25-34); MEAN CORPUSCULAR HGB CONC 34 G/DL (32-36); MEAN CORPUSCULAR VOLUME 89 FL (80-99); MEAN PLATELET VOLUME 9.9 FL (7.4-10.4); MONOCYTES # (AUTO) 0.6 X 10^3 (0.0-1.0); MONOCYTES % (AUTO) 5 % (0-12); NEUTROPHILS # (AUTO) 10.4 X 10^3 (1.8-7.8); NEUTROPHILS % (AUTO) 86 % (42-75); PLATELET COUNT 219 10^3/uL (130-400); RED CELL DISTRIBUTION WIDTH 13.1 % (10.0-14.5); WHITE BLOOD COUNT 12.1 10^3/uL (4.3-11.0)
[2019-01-14 11:42] LABS: INR 1.1 (0.8-1.4); PROTHROMBIN TIME PATIENT 14.2 SEC (12.2-14.7)
[2019-01-14 11:48] LABS: ALANINE AMINOTRANSFERASE 28 U/L (0-55); ALBUMIN 4.3 GM/DL (3.2-4.5); ALKALINE PHOSPHATASE 56 U/L (40-136); BILIRUBIN,TOTAL 0.6 MG/DL (0.1-1.0); BUN/CREATININE RATIO 24; CALCIUM 8.9 MG/DL (8.5-10.1); CARBON DIOXIDE 23 MMOL/L (21-32); CHLORIDE 106 MMOL/L (98-107); CREATININE SERUM 0.71 MG/DL (0.60-1.30); GFR ESTIMATED > 60; GLUCOSE 109 MG/DL (70-105); POTASSIUM 4.3 MMOL/L (3.6-5.0); SODIUM 139 MMOL/L (135-145); TOTAL PROTEIN 7.3 GM/DL (6.4-8.2)
[2019-01-14] MEDS ORDERED: LEVO137T2 PO (12:04)
[2019-01-14] MEDS ORDERED: SERT50TA9 PO (12:04)
[2019-01-14] MEDS ORDERED: ZOLP10TA5 PO (12:04)
[2019-01-14] MEDS ORDERED: EZET10TA49 PO (12:04)
[2019-01-14 12:05] LABS: BAND NEUTROPHILS 4 %; EOSINOPHILS % (MANUAL) 2 %; LYMPHOCYTES % (MANUAL) 9 %; MONOCYTES % (MANUAL) 8 %; NEUTROPHILS % (MANUAL) 77 %
[2019-01-14 12:06] LABS: RBC MORPH NORMAL
--- NOTE | 2019-01-14 12:31 | Diagnostic Imaging Report ---
Indication: Follow-up right femoral fracture. Comparison: Right knee earlier today. Discussion: Five views of the right femur were obtained. Exam is somewhat limited due to patient body habitus. There is a comminuted fracture involving the distal shaft of the right femur with fracture line extending to the right knee arthroplasty. There are several fragments displaced medially and laterally. There is foreshortening of the femoral shaft of at least 4-5 cm. Soft tissue swelling is noted. Impression: 1. Comminuted foreshortened fracture of the distal right femur. Dictated by: Dictated on workstation # [id number]
--- NOTE | 2019-01-14 12:52 | NUR ---
KNEE IMMOBLIZER TO SMALLTO PLACE ON PATIENT R LEG SPLINT MADE TO SUPUPORT IN PLACE OF KNEE IMMOBLIZER CHECKED BY Shavon ALMENDAREZ APRN AND OK
[2019-01-14 12:58] LABS: BILIRUBIN,URINE NEGATIVE (NEGATIVE); CLARITY,URINE CLEAR; COLOR,URINE YELLOW; GLUCOSE, URINE (UA) NEGATIVE (NEGATIVE); KETONES,URINE 1+ (NEGATIVE); LEUKOCYTE ESTERASE ,URINE 1+ (NEGATIVE); NITRITE,URINE NEGATIVE (NEGATIVE); PH,URINE 6.5 (5-9); PROTEIN,URINE 2+ (NEGATIVE); UROBILINOGEN,URINE 4 MG/DL (NORMAL)
[2019-01-14 13:08] LABS: BACTERIA,URINE FEW /HPF
--- NOTE | 2019-01-14 13:26 | History & Physical-Surgical ---
[facility]ERNIE [facility]ED[facility] 01/14/19 1326: History of Present Illness History of Present Illness Reason for visit/HPI Fracture distal femur, Fractured 2 ribs, Fall Patient was walking up stairs when she tripped, causing her to fall onto fence. She states that her right leg was twisted and had pain in her upper anterior left chest. She could not move her ankle. She did not hit her head. Did not lose consciousness. Deep breaths make her chest pain worse. Has not eaten today. Chest and abdomen CT showed nondisplaced anterior left 4th and 5th rib fractures. No pneumothorax. Femur x-ray showed distal comminuted femur fracture. Date of Admission Jan 14, 2019 at 11:00 Date Seen by a Provider: Jan 14, 2019 Time Seen by a Provider: 13:00 I consulted on this patient on 01/14/19 13:20 Attending Physician Myrna Wolfe MD Admitting Physician No,Local Physician Consult Allergies and Home Medications Allergies Coded Allergies: lincomycin (Verified Allergy, Unknown, 06/19/17) nitrofurantoin (Unverified Allergy, Unknown, 06/19/17) propoxyphene (Unverified Allergy, Unknown, 06/19/17) Uncoded Allergies: "PRECIOUS" (Allergy, Unknown, 06/19/17) PENICILLIN (Allergy, Unknown, 06/19/17) SULFA (Allergy, Unknown, 06/19/17) Home Medications Hydrocodone Bit/Acetaminophen 1 Tab Tab, 1-2 EACH PO Q6H PRN for BREAKTHROUGH PAIN Prescribed by: ANA PICKARD on 06/20/17 0005 Past Ypskeju-Wgpocy-Frwtyw Hx Patient Social History Alcohol Use: Denies Use Recreational Drug Use: No Smoking Status: Never a Smoker 2nd Hand Smoke Exposure: No Recent Foreign Travel: No Contact w/Someone Who Travel: No Recent Infectious Disease Expo: No Recent Hopitalizations: No Seasonal Allergies Seasonal Allergies: No Surgeries History of Surgeries: Yes (KYPHOPLASTY) Surgeries: Adenoidectomy, Appendectomy, Eye Surgery, Gallbladder, Joint Replacement, Orthopedic, Tonsillectomy, Tubal Ligation Respiratory History of Respiratory Disorde: No Cardiovascular History of Cardiac Disorders: Yes Cardiac Disorders: High Cholesterol Neurological History of Neurological Disord: No Genitourinary History of Genitourinary Disor: Yes Gastrointestinal History of Gastrointestinal Di: No Musculoskeletal History of Musculoskeletal Dis: No Endocrine History of Endocrine Disorders: Yes Endocrine Disorders: Hypothyroidsim HEENT History of HEENT Disorders: No Cancer History of Cancer: No Psychosocial History of Psychiatric Problem: Yes Behavioral Health Disorders: Sleep Difficulties, Anxiety, Depression Review of Systems Constitutional: No chills, No fever Respiratory: No cough, No short of breath; other (Pain on Inhalation) Cardiovascular: No chest pain, No palpitations Gastrointestinal: No abdominal pain Musculoskeletal: see HPI; No back pain, No neck pain Physical Exam Vital Signs Vital Signs - First Documented 01/14/19 01/14/19 01/14/19 09:56 12:09 13:10 Temp 36.2 Pulse 82 Resp 18 B/P (MAP) 120/82 (95) Pulse Ox 100 O2 Delivery Nasal Cannula O2 Flow Rate 2.00 Capillary Refill : Less Than 3 Seconds Height, Weight, BMI Height: 5'6.00" Weight: 216lbs. oz. 97.968825qb; 43.00 BMI Method:Stated General Appearance: No Apparent Distress Eyes: Bilateral Eye Normal Inspection HEENT: Normal ENT Inspection, Pharynx Normal, Other (Dry mucos membranes) Respiratory: No Accessory Muscle Use, No Respiratory Distress, Other (Chest tender on the left side with inhalation.) Extremity: Other (Right lower extremitiy tender to palpation and movement.) Neurologic/Psychiatric: Alert, Oriented x3, No Motor/Sensory Deficits, film spooler II- XII Norm as Tested Comments 2/4 dorsalis pedis pulse b/l. Data Review Labs Laboratory Tests 01/14/19 11:20: White Blood Count 12.1H, Red Blood Count 4.82, Hemoglobin 14.5, Hematocrit 43, Mean Corpuscular Volume 89, Mean Corpuscular Hemoglobin 30, Mean Corpuscular Hemoglobin Concent 34, Red Cell Distribution Width 13.1, Platelet Count 219, Mean Platelet Volume 9.9, Neutrophils (%) (Auto) 86H, Lymphocytes (%) (Auto) 8L, Monocytes (%) (Auto) 5, Eosinophils (%) (Auto) 1, Basophils (%) (Auto) 0, Neutrophils # (Auto) 10.4H, Lymphocytes # (Auto) 0.9L, Monocytes # (Auto) 0.6, Eosinophils # (Auto) 0.1, Basophils # (Auto) 0.0, Neutrophils % (Manual) 77, Lymphocytes % (Manual) 9, Monocytes % (Manual) 8, Eosinophils % (Manual) 2, Band Neutrophils 4, Blood Morphology Comment NORMAL, Prothrombin Time 14.2, INR Comment 1.1, Activated Partial Thromboplast Time 28, Sodium Level 139, Potassium Level 4.3, Chloride Level 106, Carbon Dioxide Level 23, Anion Gap 10, Blood Urea Nitrogen 17, Creatinine 0.71, Estimat Glomerular Filtration Rate > 60, BUN/Creatinine Ratio 24, Glucose Level 109H, Calcium Level 8.9, Corrected Calcium 8.7, Total Bilirubin 0.6, Aspartate Amino Transf (AST/SGOT) 24, Alanine Aminotransferase (ALT/SGPT) 28, Alkaline Phosphatase 56, Total Protein 7.3, Albumin 4.3 01/14/19 12:37: Urine Color YELLOW, Urine Clarity CLEAR, Urine pH 6.5, Urine Specific Warren 1.015L, Urine Protein 2+H, Urine Glucose (UA) NEGATIVE, Urine Ketones 1+H, Urine Nitrite NEGATIVE, Urine Bilirubin NEGATIVE, Urine Urobilinogen 4H, Urine Leukocyte Esterase 1+H, Urine RBC (Auto) NEGATIVE, Urine RBC NONE, Urine WBC NONE, Urine Crystals NONE, Urine Bacteria FEWH, Urine Casts NONE, Urine Mucus NEGATIVE, Urine Culture Indicated NO Assessment/Plan Assessment/Plan Admission Diagonsis Right femur fracture. Left 4th and 5th rib fracture Assessment/Plan Right femur fracture Left 4th and 5th rib fracture osteoporosis Obesity Pain control for bone pain Consult Orthopedic surgery for distal femur fracture Use incentive spirometer to prevent pneumonia. Final Diagnosis Fracture of the right femur with fractures in the left 4th and 5th rib MARCEL PARKER DO 01/14/191950: History of Present Illness History of Present Illness Reason for visit/HPI CC: FAll, seen and evaluated in ED. Patient is a 68 year old female who was walking up bleachers earlier today when the sole of her shoe caused her right lower extremity to twist causing her to fall down a few stairs and striking her left chest on the rail. She was having pain to the left chest and right lower extremity. She did not strike her head or have any loss of consciousness. Patient having moderate to severe pain, with her right leg and left chest. Deep breath makes worse. Not moving makes a little better. Patient had ct chest/abd demonstrating left 4/5 anterior nondisplaced fractures. She also had right femur x rays showing distal femur fracture and right knee xrays demonstrating femur fractures as well. Allergies and Home Medications Allergies Coded Allergies: lincomycin (Verified Allergy, Unknown, 06/19/17) nitrofurantoin (Unverified Allergy, Unknown, 06/19/17) propoxyphene (Unverified Allergy, Unknown, 06/19/17) Uncoded Allergies: "PRECIOUS" (Allergy, Unknown, 06/19/17) PENICILLIN (Allergy, Unknown, 06/19/17) SULFA (Allergy, Unknown, 06/19/17) Home Medications Hydrocodone Bit/Acetaminophen 1 Tab Tab, 1-2 EACH PO Q6H PRN for BREAKTHROUGH PAIN Prescribed by: ANA PICKARD on 06/20/17 0005 Patient Home Medication List Home Medication List Reviewed: Yes Past Xtbmlxa-Ilmzwn-Xdbezw Hx Patient Social History Alcohol Use: Denies Use Smoking Status: Never a Smoker Surgeries Surgeries: Adenoidectomy, Appendectomy, Eye Surgery, Gallbladder, Joint Replacement, Orthopedic, Tonsillectomy, Tubal Ligation Cardiovascular Cardiac Disorders: High Cholesterol Endocrine Endocrine Disorders: Hypothyroidsim Psychosocial Behavioral Health Disorders: Sleep Difficulties, Anxiety, Depression Family Medical History Significant Family History: No Pertinent Family Hx Review of Systems Constitutional: no symptoms reported EENTM: no symptoms reported Respiratory: see HPI Gastrointestinal: no symptoms reported Genitourinary: no symptoms reported Musculoskeletal: see HPI Skin: no symptoms reported Psychiatric/Neurological: No Symptoms Reported Physical Exam General Appearance: No Apparent Distress (laying in bed) HEENT: PERRL/EOMI, Normal ENT Inspection, Pharynx Normal Neck: Full Range of Motion, Normal Inspection, Non Tender, Supple Respiratory: No Accessory Muscle Use, No Respiratory Distress, Other (Chest tender on the left side chest wall) Cardiovascular: Regular Rate, Rhythm Gastrointestinal: No Organomegaly, No Pulsatile Mass, Non Tender, Soft Back: Normal Inspection, No CVA Tenderness Extremity: Other (Right lower extremitiy tender to palpation and movement in brace with slihgt deformity, distal extremity palpable pulses b/l) Neurologic/Psychiatric: Alert, Oriented x3, No Motor/Sensory Deficits, film spooler II- XII Norm as Tested Skin: Normal Color, Warm/Dry Lymphatic: No Adenopathy Assessment/Plan Assessment/Plan Admission Diagonsis fall right distal femur fracture left 4 and 5 nondisplaced rib fracture consult Dr. Wolfe for medical management consult Dr. Bassett for Orthopaedic Pain control likely to OR tomorrow with Dr. Bassett for surgical intervention Admission Status: Inpatient Order (span 2 midnights) Reason for Inpatient Admission: patient with fall and several injuries, will need surgical intervention by Ortho and postoperative care this will exceed 2 midnights Assessment/Plan fall right distal femur fracture left 4 and 5 nondisplaced rib fracture consult Dr. Wolfe for medical management consult Dr. Bassett for Orthopaedic Pain control likely to OR tomorrow with Dr. Bassett for surgical intervention IS Supervisory-Addendum Brief Verification & Attestation Participated in pt care: history, MDM, physical Personally performed: exam, history, MDM, supervision of care Care discussed with: Medical Student Procedures: n/a Results interpretation: Verified all documentation Verification and Attestation of Medical Student E/M Service A medical student performed and documented this service in my presence. I reviewed and verified all information documented by the medical student and made modifications to such information, when appropriate. I personally performed the physical exam and medical decision making. Marcel Parker, Jan 14, 2019,19:57 [facility] Jan 14, 2019 13:26 MARCEL PARKER DO Jan 14, 2019 19:51
[2019-01-14 13:31] VITALS: BP 97/67
[2019-01-14] MEDS ORDERED: ONDANSETRON 4 MG/2 ML (SDV) Z0FRAN IVP PRN (14:45)
[2019-01-14] MEDS ORDERED: METOCLOPRAMIDE INJ 10 MG/2 ML (REGLAN) IVP PRN (14:45)
[2019-01-14] MEDS ORDERED: diphenhydrAMINE 50 MG/ML INJ (BENADRYL) IVP PRN (14:45)
[2019-01-14] MEDS: LACTATED RINGERS 1,000 ML IV SCH ×2 (15:00→23:37)
[2019-01-14] MEDS: fentaNYL PCA 1,000 MCG/NS 80 ML (TOTAL VOLUME 100 ML) INJ SCH ×2 (15:04)
[2019-01-14 16:00] VITALS: BP 128/79
[2019-01-14] MEDS ORDERED: BISACODYL 5 MG (DULCOLAX) TABLET PO PRN (18:15)
[2019-01-14] MEDS ORDERED: MELATONIN 3 MG TABLET PO PRN (18:15)
[2019-01-14] MEDS ORDERED: ONDANSETRON 4 MG (ZOFRAN) ORAL DISSOLVE TAB PO PRN (18:15)
[2019-01-14] MEDS ORDERED: POLYETHYLENE GLYCOL 17 GM (MIRALAX) PACK PO PRN (18:15)
[2019-01-14] MEDS ORDERED: ACETAMINOPHEN 325 MG TABLET PO PRN (18:15)
--- NOTE | 2019-01-14 18:20 | Consultation - Hospitalist ---
HPI History of Present Illness: HPI/Chief Complaint Lupe Branch is a 68yoF with PMH hypothyroidism, osteoarthritis s/p right total knee arthroplasty, depression, insomnia, hyperlipidemia, who presented with a mechanical fall down stairs. She fell while climbing the bleachers at [employer]. She went down about four stairs. She hit her left side on the rail. She twisted her leg when she fell. She denies any recent fever, chills, chest pain, dyspnea, cough, abdominal pain, nausea, vomiting, diarrhea, constipation, or dysuria. Source: patient Exam Limitations: no limitations Date Seen 01/14/19 Attending Physician Myrna Berman MD PCP No,Local Physician Referring Physician Date of Admission Jan 14, 2019 at 11:00 Home Medications & Allergies Home Medications Reviewed patient Home Medication Reconciliation performed by pharmacy medication reconciliations field service technician poultry and/or nursing. Patients Allergies have been reviewed. Allergies Allergies Coded Allergies lincomycin (Verified Allergy, Unknown, 06/19/17) nitrofurantoin (Unverified Allergy, Unknown, 06/19/17) propoxyphene (Unverified Allergy, Unknown, 06/19/17) Uncoded Allergies "PRECIOUS" ( Allergy, Unknown, 06/19/17) PENICILLIN ( Allergy, Unknown, 06/19/17) SULFA ( Allergy, Unknown, 06/19/17) Past Nxlxlnt-Mksiqb-Rftlsi Hx Past Med/Social Hx: Reviewed Nursing Past Med/Soc Hx Patient Social History Alcohol Use: Denies Use Recreational Drug Use: No Smoking Status: Never a Smoker 2nd Hand Smoke Exposure: No Recent Foreign Travel: No Contact w/other who traveled: No Recent Hopitalizations: No Recent Infectious Disease Expo: No Seasonal Allergies Seasonal Allergies: No Past Medical History Surgeries: Adenoidectomy, Appendectomy, Eye Surgery, Gallbladder, Joint Replacement, Orthopedic, Tonsillectomy, Tubal Ligation Cardiac: High Cholesterol Endocrine: Hypothyroidsim Psychosocial: Sleep Difficulties, Anxiety, Depression Review of Systems Constitutional: no symptoms reported, see HPI EENTM: no symptoms reported Respiratory: no symptoms reported Cardiovascular: chest pain Gastrointestinal: no symptoms reported Genitourinary: no symptoms reported Musculoskeletal: joint pain (right knee) Skin: no symptoms reported Psychiatric/Neurological: No Symptoms Reported Physical Exam Physical Exam Vital Signs Vital Signs - First Documented 01/14/19 01/14/19 01/14/19 09:56 12:09 13:10 Temp 36.2 Pulse 82 Resp 18 B/P (MAP) 120/82 (95) Pulse Ox 100 O2 Delivery Nasal Cannula O2 Flow Rate 2.00 Capillary Refill : Less Than 3 Seconds Height, Weight, BMI Height: 5'6.00" Weight: 216lbs. oz. 97.196630bi; 45.15 BMI Method:Stated General Appearance: No Apparent Distress, WD/WN, Obese Eyes: Bilateral Eye Normal Inspection HEENT: PERRL/EOMI, Pharynx Normal Neck: Normal Inspection, Supple Respiratory: No Chest Non Tender; Lungs Clear, Normal Breath Sounds, No Respiratory Distress Cardiovascular: Regular Rate, Rhythm, No Edema, No Murmur Gastrointestinal: Normal Bowel Sounds, Non Tender, Soft Extremity: No Pedal Edema, Other (Right knee tenderness) Neurologic/Psychiatric: Alert, Oriented x3, No Motor/Sensory Deficits, Normal Mood/Affect Skin: Normal Color, Warm/Dry Lymphatic: No Adenopathy Results Results/Procedures Labs Laboratory Tests 01/14/19 11:20 Patient resulted labs reviewed. Imaging: Reviewed Imaging Report Assessment/Plan Assessment and Plan Assess & Plan/Chief Complaint Comminuted fracture of right distal femur Rib fractures Fall down stairs -XR revealed femur fracture -CT showed left rib fractures -Trauma Surgery primary -Orthopedic Surgery consulted, Dr. Bassett planning for surgery tomorrow -Pain regimen ordered -Bowel regimen ordered -Incentive spirometer ordered -NPO at midnight -Hold DVT prophylaxis for surgery -PT/OT following surgery Hypothyroidism -Continue levothyroxine HLD -Hold Zetia Depression -Continue sertraline Insomnia -Continue zolpidem Diagnosis/Problems Diagnosis/Problems (1) Fracture of femur, right, closed Status: Acute Qualifiers: Encounter type: initial encounter Femur location: shaft Fracture morphology: comminuted (2) Rib fractures Status: Acute Qualifiers: Encounter type: initial encounter Rib fracture type: multiple ribs Fracture type: closed Laterality: left Qualified Codes: S22.42XA - Multiple fractures of ribs, left side, initial encounter for closed fracture (3) Hypothyroidism Status: Chronic (4) Depression Status: Chronic (5) Insomnia Status: Chronic (6) HLD (hyperlipidemia) Status: Chronic (7) Fall down stairs Status: Acute Qualifiers: Encounter type: initial encounter Qualified Codes: W10.8XXA - Fall (on) (from) other stairs and steps, initial encounter MYRNA BERMAN MD Jan 14, 2019 18:20
[2019-01-14] MEDS: DOCUSATE SODIUM 100 MG (COLACE) CAP PO SCH (20:18)
[2019-01-14 20:20] VITALS: BP 121/69
[2019-01-14] MEDS ORDERED: ZOLPIDEM 5 MG (AMBIEN) TAB PO SCH (21:00)
[2019-01-15] VITALS (13 sets, daily range): BP systolic 110–157; BP diastolic 59–87
[2019-01-15] MEDS: LEVOTHYROXINE 25 MCG (LEVOTHROID) TAB PO SCH (05:29)
[2019-01-15] MEDS: LACTATED RINGERS 1,000 ML IV SCH ×2 (07:52→14:46)
[2019-01-15] MEDS ORDERED: ONDANSETRON 4 MG/2 ML (SDV) Z0FRAN IVP PRN (08:15)
[2019-01-15] MEDS ORDERED: fentaNYL INJECTION 100 MCG/2 ML AMP IVP ONE (08:15)
[2019-01-15] MEDS ORDERED: MEPERIDINE (DEMEROL) INJ 50 MG/ML IVP ONE (08:15)
[2019-01-15] MEDS ORDERED: morphine INJ 10 MG/ML 1ML (SYR OR VIAL) IVP ONE (08:15)
[2019-01-15] MEDS: SENNA W/DOCUSATE (SENOKOT S) TABLET PO SCH (08:27)
[2019-01-15] MEDS: SERTRALINE 50 MG (ZOLOFT) TABLET PO SCH (08:27)
[2019-01-15] MEDS: DOCUSATE SODIUM 100 MG (COLACE) CAP PO SCH ×2 (08:27→21:05)
[2019-01-15] MEDS ORDERED: MIDAZOLAM 2 MG/2 ML (VERSED) VIAL ONE (08:34)
[2019-01-15] MEDS ORDERED: LACTATED RINGERS 1,000 ML IV PRN (09:21)
[2019-01-15] MEDS: LACTATED RINGERS 1,000 ML IV PRN ×2 (09:24→11:15)
[2019-01-15] MEDS ORDERED: ceFAZolin INJECTION 0 MG ONE (09:30)
--- NOTE | 2019-01-15 09:33 | Consultation ---
History of Present Illness History of Present Illness Patient Consulted On(vicky/time) 01/15/19 09:27 Date Seen by Provider: Jan 15, 2019 Time Seen by Provider: 09:27 Reason for Visit: Right leg injury History of Present Illness Patient a 68 y/o female that presents with CC of acute onset of severe Right leg pain that began subsequent to a GLF. Imaging of the Right femur demonstrated a displaced, comminuted periprosthetic fracture of the distal femur. Orthopedic service consulted for definitive management of her injury. She denies head trauma/LOC, denies neck pain, denies other associated musculoskeletal injuries. She has no additional complaints. Allergies and Home Medications Allergies Coded Allergies: lincomycin (Verified Allergy, Unknown, 06/19/17) nitrofurantoin (Unverified Allergy, Unknown, 06/19/17) propoxyphene (Unverified Allergy, Unknown, 06/19/17) Uncoded Allergies: "PRECIOUS" (Allergy, Unknown, 06/19/17) PENICILLIN (Allergy, Unknown, 06/19/17) SULFA (Allergy, Unknown, 06/19/17) Home Medications Hydrocodone Bit/Acetaminophen 1 Tab Tab, 1-2 EACH PO Q6H PRN for BREAKTHROUGH PAIN Prescribed by: ANA PICKARD on 06/20/17 0005 Patient Home Medication List Home Medication List Reviewed: Yes Past Uvitigt-Sfqbev-Brsbkc Hx Past Med/Social Hx: Reviewed Nursing Past Med/Soc Hx Patient Social History Alcohol Use: Denies Use Recreational Drug Use: No Smoking Status: Never a Smoker 2nd Hand Smoke Exposure: No Recent Foreign Travel: No Contact w/Someone Who Travel: No Recent Infectious Disease Expo: No Recent Hopitalizations: No Immunizations Up To Date Date of Pneumonia Vaccine: Jul 15, 2018 Date of Influenza Vaccine: Jan 09, 2019 Seasonal Allergies Seasonal Allergies: No Past Medical History Surgeries: Yes (KYPHOPLASTY) Adenoidectomy, Appendectomy, Eye Surgery, Gallbladder, Joint Replacement, Orthopedic, Tonsillectomy, Tubal Ligation Respiratory: No Cardiac: Yes High Cholesterol Neurological: No Genitourinary: Yes Gastrointestinal: No Musculoskeletal: No Endocrine: Yes Hypothyroidsim HEENT: No Cancer: No Psychosocial: Yes Sleep Difficulties, Anxiety, Depression Family Medical History No Pertinent Family Hx Review of Systems-General Constitutional: no symptoms reported EENTM: no symptoms reported Respiratory: no symptoms reported Cardiovascular: no symptoms reported Gastrointestinal: no symptoms reported Genitourinary: no symptoms reported Musculoskeletal: joint pain Skin: no symptoms reported Psychiatric/Neurological: No Symptoms Reported Physical Exam-General Problems Physical Exam Vital Signs Vital Signs - First Documented 01/14/19 01/14/19 01/14/19 09:56 12:09 13:10 Temp 36.2 Pulse 82 Resp 18 B/P (MAP) 120/82 (95) Pulse Ox 100 O2 Delivery Nasal Cannula O2 Flow Rate 2.00 Capillary Refill : NONELess Than 3 Seconds Eyes: Bilateral Eye Normal Inspection, Bilateral Eye PERRL, Bilateral Eye EOMI HEENT: PERRL/EOMI, normal ENT inspection Neck: non-tender, full range of motion, supple, normal inspection Respiratory: chest non-tender, no respiratory distress, no accessory muscle use Cardiovascular: normal peripheral pulses, regular rate, rhythm, no edema Peripheral Pulses: 2+ Dorsalis Pedis (R), 2+ Left Dors-Pedis (L) Gastrointestinal: non tender, soft, no organomegaly Extremities: no pedal edema, no calf tenderness, normal capillary refill, other (RLE: +edema Right knee, motor/sensation grossly intact, skin intact, no open wounds, foot well perfused, all compartments soft) Neurologic/Psychiatric: personal injury law specialist II-XII nml as tested, no motor/sensory deficits, alert, normal mood/affect, oriented x 3 Skin: normal color, warm/dry Assessment/Plan Assessment/Plan Admission Diagnosis/Plan Displaced, comminuted periprosthetic fracture Right distal femur. Plan for ORIF today. All questions addressed/answered. Informed written consent obtained. Admission Status: Inpatient Order (span 2 midnights) Vitals Signs Source: Temporal, Heart Rate: 84, Respiratory Rate: 20, BP: 110/77, Pulse Oximetry: 95, Weight: 127.0 Laboratory Tests 01/14/19 11:20 Clinical Quality Measures DVT/VTE Risk/Contraindication: Risk Factor Score Per Nursin RFS Level Per Nursing on Admit: 4+=Very High MAGUE CABALLERO DO Jan 15, 2019 09:33
--- NOTE | 2019-01-15 09:37 | NUR ---
patient to surgery with surgical staff at this time, via cart. Addendum: 01/15/19 at 0938 by MARISA ARNETT RN [employer] ABATEMENT WORKER disconnected prior to leaving 4th floor per surgical staff request.
[2019-01-15] MEDS ORDERED: CLINDAMYCIN 900 MG/50 ML IVPB 50 ML IV ONE (10:00)
[2019-01-15] MEDS ORDERED: proPOfol 200 MG/20 ML (DIPRIVAN) VIAL IV ONE (10:09)
[2019-01-15] MEDS ORDERED: ROCURONIUM 10 MG/ML 5 ML SYRINGE IV ONE ×2 (10:09→11:37)
[2019-01-15] MEDS ORDERED: diphenhydrAMINE 50 MG/ML INJ (BENADRYL) ONE (10:09)
[2019-01-15] MEDS ORDERED: LIDOCAINE PF 2% 5 ML (XYLOCAINE) VIAL ONE (10:09)
[2019-01-15] MEDS ORDERED: PHENYLEPHRINE 100 MCG/ML 10 ML (ANESTHESIA) SYR ONE (10:09)
[2019-01-15] MEDS ORDERED: SUCCINYLCHOLINE INJ 100 MG/5 ML SYR ONE (10:09)
[2019-01-15] MEDS ORDERED: SEVOFLURANE (ULTANE) 15 ML INHAL SOLN ONE ×12 (10:09→14:15)
--- NOTE | 2019-01-15 10:22 | Progress Note - Surgery ---
Subjective Date Seen by a Provider: Jan 15, 2019 Time Seen by a Provider: 10:19 Subjective/Events-last exam Patient pain controlled. NPO. Planning surgery today for right femur. Breathing okay. Denies n/v fever sweats chills shortness of breath or chest painn. No new complaints. Objective Exam Vital Signs Date Time Temp Pulse Resp B/P (MAP) Pulse Ox O2 Delivery O2 Flow Rate FiO2 01/15/19 08:08 36.6 84 20 110/77 (88) 95 Room Air 01/15/19 07:00 78 01/15/19 04:12 36.3 77 20 116/64 (81) 94 Room Air 01/15/19 01:00 79 01/15/19 00:20 36.9 74 20 112/65 (81) 95 Room Air 01/14/19 21:45 Room Air 01/14/19 20:20 36.9 81 20 121/69 (86) 95 Room Air 01/14/19 20:00 Room Air 01/14/19 19:00 78 01/14/19 16:00 36.7 65 20 128/79 (95) 93 Room Air 01/14/19 14:37 72 01/14/19 13:31 36.4 64 18 97/67 (77) 98 Room Air 01/14/19 13:31 36.4 64 18 97/67 98 Room Air 01/14/19 13:10 68 18 125/66 100 Nasal Cannula 2.00 01/14/19 12:09 Nasal Cannula 2.00 I & O 01/15/19 07:00 Intake Total 1620 ml Output Total 1400 ml Balance 220 ml Capillary Refill : NONELess Than 3 Seconds General Appearance: No Apparent Distress (laying in bed) HEENT: PERRL/EOMI, Normal ENT Inspection, Pharynx Normal Neck: Full Range of Motion, Normal Inspection, Non Tender, Supple Respiratory: No Accessory Muscle Use, No Respiratory Distress, Other (Chest tender on the left side chest wall) Cardiovascular: Regular Rate, Rhythm Peripheral Pulses: 2+ Dorsalis Pedis (R), 2+ Left Dors-Pedis (L) Gastrointestinal: non tender, soft, no organomegaly Extremity: Other (Right lower extremitiy tender to palpation and movement in brace with slight deformity, distal extremity palpable pulses b/l) Neurologic/Psychiatric: Alert, Oriented x3, No Motor/Sensory Deficits, sanitation supervisor II- XII Norm as Tested Skin: Normal Color, Warm/Dry Lymphatic: No Adenopathy Results Lab Laboratory Tests 01/14/19 11:20: White Blood Count 12.1H, Red Blood Count 4.82, Hemoglobin 14.5, Hematocrit 43, Mean Corpuscular Volume 89, Mean Corpuscular Hemoglobin 30, Mean Corpuscular Hemoglobin Concent 34, Red Cell Distribution Width 13.1, Platelet Count 219, Mean Platelet Volume 9.9, Neutrophils (%) (Auto) 86H, Lymphocytes (%) (Auto) 8L, Monocytes (%) (Auto) 5, Eosinophils (%) (Auto) 1, Basophils (%) (Auto) 0, Neutrophils # (Auto) 10.4H, Lymphocytes # (Auto) 0.9L, Monocytes # (Auto) 0.6, Eosinophils # (Auto) 0.1, Basophils # (Auto) 0.0, Neutrophils % (Manual) 77, Lymphocytes % (Manual) 9, Monocytes % (Manual) 8, Eosinophils % (Manual) 2, Band Neutrophils 4, Blood Morphology Comment NORMAL, Prothrombin Time 14.2, INR Comment 1.1, Activated Partial Thromboplast Time 28, Sodium Level 139, Potassium Level 4.3, Chloride Level 106, Carbon Dioxide Level 23, Anion Gap 10, Blood Urea Nitrogen 17, Creatinine 0.71, Estimat Glomerular Filtration Rate > 60, BUN/Creatinine Ratio 24, Glucose Level 109H, Calcium Level 8.9, Corrected Calcium 8.7, Total Bilirubin 0.6, Aspartate Amino Transf (AST/SGOT) 24, Alanine Aminotransferase (ALT/SGPT) 28, Alkaline Phosphatase 56, Total Protein 7.3, Albumin 4.3 01/14/19 12:37: Urine Color YELLOW, Urine Clarity CLEAR, Urine pH 6.5, Urine Specific [place] 1.015L, Urine Protein 2+H, Urine Glucose (UA) NEGATIVE, Urine Ketones 1+H, Urine Nitrite NEGATIVE, Urine Bilirubin NEGATIVE, Urine Urobilinogen 4H, Urine Leukocyte Esterase 1+H, Urine RBC (Auto) NEGATIVE, Urine RBC NONE, Urine WBC NONE, Urine Crystals NONE, Urine Bacteria FEWH, Urine Casts NONE, Urine Mucus NEGATIVE, Urine Culture Indicated NO Assessment/Plan Assessment/Plan Assessment/Plan Displaced, comminuted periprosthetic fracture Right distal femur. left 4 and 5 nondisplaced rib fractures Plan for ORIF today. Continue to use IS Discussed with Dr. Wolfe will transfer to his service. will sign off call if needed. Clinical Quality Measures DVT/VTE Risk/Contraindication: Risk Factor Score Per Nursin RFS Level Per Nursing on Admit: 4+=Very High MARCEL PARKER DO Jan 15, 2019 10:22
--- NOTE | 2019-01-15 10:28 | Progress Note - Surgery ---
Subjective Date Seen by a Provider: Jan 15, 2019 Time Seen by a Provider: 08:40 Subjective/Events-last exam Patient is doing fine. Will be going to surgery this morning. Does still complain of pain while breathing. Consulted patient on continued use of incentive spirometer. After surgery, will need DVT prevention and continued pneumonia and/or atelectasis prevention. Will transfer care to Dr. Wolfe. Review of Systems General: No Chills, No Other (Fever) Pulmonary: No Cough; Other (Chest Pain during respiration) Gastrointestinal: No: Nausea, Vomiting, Abdominal Pain Musculoskeletal: leg pain (Right Femur Pain); No: neck pain, back pain Objective Exam Vital Signs Date Time Temp Pulse Resp B/P (MAP) Pulse Ox O2 Delivery O2 Flow Rate FiO2 01/15/19 08:08 36.6 84 20 110/77 (88) 95 Room Air 01/15/19 07:00 78 01/15/19 04:12 36.3 77 20 116/64 (81) 94 Room Air 01/15/19 01:00 79 01/15/19 00:20 36.9 74 20 112/65 (81) 95 Room Air 01/14/19 21:45 Room Air 01/14/19 20:20 36.9 81 20 121/69 (86) 95 Room Air 01/14/19 20:00 Room Air 01/14/19 19:00 78 01/14/19 16:00 36.7 65 20 128/79 (95) 93 Room Air 01/14/19 14:37 72 01/14/19 13:31 36.4 64 18 97/67 (77) 98 Room Air 01/14/19 13:31 36.4 64 18 97/67 98 Room Air 01/14/19 13:10 68 18 125/66 100 Nasal Cannula 2.00 01/14/19 12:09 Nasal Cannula 2.00 I & O 01/15/19 07:00 Intake Total 1620 ml Output Total 1400 ml Balance 220 ml General Appearance: No Apparent Distress (laying in bed) HEENT: PERRL/EOMI, Normal ENT Inspection, Pharynx Normal Neck: Full Range of Motion, Normal Inspection, Non Tender, Supple Respiratory: No Accessory Muscle Use, No Respiratory Distress, Other (Chest tender on the left side chest wall) Cardiovascular: Regular Rate, Rhythm Peripheral Pulses: 2+ Dorsalis Pedis (R), 2+ Left Dors-Pedis (L) Gastrointestinal: non tender, soft, no organomegaly Extremity: Other (Right lower extremitiy tender to palpation and movement in br kathy with slihgt deformity, distal extremity palpable pulses b/l) Neurologic/Psychiatric: Alert, Oriented x3, No Motor/Sensory Deficits, design supervisor II- XII Norm as Tested Skin: Normal Color, Warm/Dry Lymphatic: No Adenopathy Results Lab Laboratory Tests 01/14/19 11:20: White Blood Count 12.1H, Red Blood Count 4.82, Hemoglobin 14.5, Hematocrit 43, Mean Corpuscular Volume 89, Mean Corpuscular Hemoglobin 30, Mean Corpuscular Hemoglobin Concent 34, Red Cell Distribution Width 13.1, Platelet Count 219, Mean Platelet Volume 9.9, Neutrophils (%) (Auto) 86H, Lymphocytes (%) (Auto) 8L, Monocytes (%) (Auto) 5, Eosinophils (%) (Auto) 1, Basophils (%) (Auto) 0, Neutrophils # (Auto) 10.4H, Lymphocytes # (Auto) 0.9L, Monocytes # (Auto) 0.6, Eosinophils # (Auto) 0.1, Basophils # (Auto) 0.0, Neutrophils % (Manual) 77, Lymphocytes % (Manual) 9, Monocytes % (Manual) 8, Eosinophils % (Manual) 2, Band Neutrophils 4, Blood Morphology Comment NORMAL, Prothrombin Time 14.2, INR Comment 1.1, Activated Partial Thromboplast Time 28, Sodium Level 139, Potassium Level 4.3, Chloride Level 106, Carbon Dioxide Level 23, Anion Gap 10, Blood Urea Nitrogen 17, Creatinine 0.71, Estimat Glomerular Filtration Rate > 60, BUN/Creatinine Ratio 24, Glucose Level 109H, Calcium Level 8.9, Corrected Calcium 8.7, Total Bilirubin 0.6, Aspartate Amino Transf (AST/SGOT) 24, Alanine Aminotransferase (ALT/SGPT) 28, Alkaline Phosphatase 56, Total Protein 7.3, Albumin 4.3 01/14/19 12:37: Urine Color YELLOW, Urine Clarity CLEAR, Urine pH 6.5, Urine Specific [place] 1.015L, Urine Protein 2+H, Urine Glucose (UA) NEGATIVE, Urine Ketones 1+H, Urine Nitrite NEGATIVE, Urine Bilirubin NEGATIVE, Urine Urobilinogen 4H, Urine Leukocyte Esterase 1+H, Urine RBC (Auto) NEGATIVE, Urine RBC NONE, Urine WBC NONE, Urine Crystals NONE, Urine Bacteria FEWH, Urine Casts NONE, Urine Mucus NEGATIVE, Urine Culture Indicated NO Assessment/Plan Assessment/Plan Assessment/Plan Displaced, comminuted periprosthetic fracture Right distal femur. ORIF of Right Distal Femur Jan 15 with consent. All questions addressed/answered. Transfer care to Dr. Wolfe Begin DVT prophylaxis after surgery Continue Use of Incentive Spirometry for prevention of pneumonia or atelectasis Clinical Quality Measures DVT/VTE Risk/Contraindication: Risk Factor Score Per Nursin RFS Level Per Nursing on Admit: 4+=Very High FERNIE MEREDITH MED STUDEN Jan 15, 2019 10:28
[2019-01-15] MEDS ORDERED: morphine INJ 10 MG/ML 1ML (SYR OR VIAL) ONE ×2 (10:31→13:22)
[2019-01-15] MEDS ORDERED: BUPIVACAINE 0.25% 30 ML (SENSORCAINE) VIAL ONE ×2 (11:06→14:07)
[2019-01-15] MEDS ORDERED: GLYCOPYRROLATE 0.2 MG/ML (ROBINUL) 2 ML VIAL ONE (13:17)
[2019-01-15] MEDS ORDERED: NEOSTIGMINE 3 MG/3 ML VIAL ONE (13:17)
--- NOTE | 2019-01-15 13:44 | Progress Note - Hospitalist ---
Subjective HPI/CC On Admission Date Seen by Provider: Jan 15, 2019 Time Seen by Provider: 13:39 fall down stairs Subjective/Events-last exam She was seen in recovery. She is still sedated. According to anesthesia, the procedure went as expected without complications. Objective Exam Vital Signs Vital Signs Date Time Temp Pulse Resp B/P (MAP) Pulse Ox O2 Delivery O2 Flow Rate FiO2 01/15/19 08:08 36.6 84 20 110/77 (88) 95 Room Air 01/14/19 13:10 2.00 Capillary Refill : NONELess Than 3 Seconds General Appearance: No Apparent Distress, WD/WN, Obese Respiratory: Lungs Clear, Normal Breath Sounds, No Respiratory Distress Cardiovascular: Regular Rate, Rhythm, No Edema, No Murmur Gastrointestinal: Normal Bowel Sounds, Soft Extremity: Other (brace in place on right lower extremity) Neurologic/Psychiatric: Other (lethargic) Skin: Normal Color, Warm/Dry Results/Procedures Lab Patient resulted labs reviewed. Imaging: Reviewed Imaging Report Assessment/Plan Assessment and Plan Assess & Plan/Chief Complaint Comminuted fracture of right distal femur Rib fractures Fall down stairs -XR revealed femur fracture -CT showed left rib fractures -Orthopedic Surgery consulted, Dr. Bassett took to surgery this morning -Pain regimen ordered -Bowel regimen ordered -Incentive spirometer ordered -DVT prophylaxis held for surgery, resume when ok with Ortho -PT/OT ordered Hypothyroidism -Continue levothyroxine HLD -Hold Zetia Depression -Continue sertraline Insomnia -Continue zolpidem DVT Prophylaxis: SCDs Diagnosis/Problems Diagnosis/Problems (1) Fracture of femur, right, closed Status: Acute Qualifiers: Encounter type: initial encounter Femur location: shaft Fracture morphology: comminuted (2) Rib fractures Status: Acute Qualifiers: Encounter type: initial encounter Rib fracture type: multiple ribs Fracture type: closed Laterality: left Qualified Codes: S22.42XA - Multiple fractures of ribs, left side, initial encounter for closed fracture (3) Hypothyroidism Status: Chronic (4) Depression Status: Chronic (5) Insomnia Status: Chronic (6) HLD (hyperlipidemia) Status: Chronic (7) Fall down stairs Status: Acute Qualifiers: Encounter type: initial encounter Qualified Codes: W10.8XXA - Fall (on) (from) other stairs and steps, initial encounter Clinical Quality Measures DVT/VTE Risk/Contraindication: Risk Factor Score Per Nursin RFS Level Per Nursing on Admit: 4+=Very High LORRAINE BERMAN MD Jan 15, 2019 13:44
--- NOTE | 2019-01-15 13:59 | Diagnostic Imaging Report ---
INDICATION: Fracture. Fluoroscopy is utilized, 234 seconds during ORIF of comminuted femoral fractures. IMPRESSION: Fluoroscopy utilized during orthopedic surgery. Dictated by: Dictated on workstation # [id number]
[2019-01-15] MEDS ORDERED: NS IV 1000 ML 1,000 ML IV SCH (14:25)
--- NOTE | 2019-01-15 14:25 | Progress Note-Post Operative ---
Post-Operative Progess Note Surgeon (s)/Puppy Walker (s) Surgeon MAGUE CABALLERO DO Puppy Walker: None Pre-Operative Diagnosis Periprosthetic fracture Right distal femur Post-Operative Diagnosis Same Procedure & Operative Findings Date of Procedure 01/15/19 Procedure Performed/Findings ORIF periprosthetic fracture Right distal femur Stable prosthesis Substantial extraarticular comminution Poor bone quality Anesthesia Type GETA Estimated Blood Loss Estimated blood loss (mL): 300mL Specimens/Packing Specimens Removed None Packing: No packing Drains: none Complications: none Disposition: tolerated the procedure well; transferred to PACU in stable condition MAGUE CABALLERO DO Jan 15, 2019 14:25
[2019-01-15] MEDS: KETOROLAC 30 MG/ML VIAL IV SCH ×2 (18:16→23:39)
[2019-01-15] MEDS: ENOXAPARIN 40 MG/0.4 ML (LOVENOX) SYR SC SCH (21:05)
[2019-01-15] MEDS: ZOLPIDEM 5 MG (AMBIEN) TAB PO PRN (22:58)
[2019-01-16 00:17] VITALS: BP 116/56
[2019-01-16] MEDS ORDERED: VANCOMYCIN INJECTION 1,000 MG in NS (IVPB) 250 ML IV NR (02:30)
[2019-01-16] MEDS: morphine INJ 4 MG/ML 1 ML (VIAL/SYRINGE) IVP PRN ×3 (03:34→14:59)
[2019-01-16 04:35] VITALS: BP 118/68
[2019-01-16 06:05] LABS: BASOPHILS % (AUTO) 1 % (0-10); EOSINOPHILS # (AUTO) 0.1 10^3/uL (0.0-0.3); EOSINOPHILS % (AUTO) 2 % (0-10); HEMATOCRIT 27 % (35-52); HEMOGLOBIN 8.8 G/DL (11.5-16.0); LYMPHOCYTES # (AUTO) 1.4 X 10^3 (1.0-4.0); LYMPHOCYTES % (AUTO) 21 % (12-44); MEAN CORPUSCULAR HEMOGLOBIN 30 PG (25-34); MEAN CORPUSCULAR HGB CONC 32 G/DL (32-36); MEAN CORPUSCULAR VOLUME 93 FL (80-99); MEAN PLATELET VOLUME 10.2 FL (7.4-10.4); MONOCYTES # (AUTO) 0.9 X 10^3 (0.0-1.0); MONOCYTES % (AUTO) 13 % (0-12); NEUTROPHILS # (AUTO) 4.2 X 10^3 (1.8-7.8); NEUTROPHILS % (AUTO) 63 % (42-75); PLATELET COUNT 175 10^3/uL (130-400); RED CELL DISTRIBUTION WIDTH 12.8 % (10.0-14.5); WHITE BLOOD COUNT 6.6 10^3/uL (4.3-11.0)
[2019-01-16] MEDS: fentaNYL PCA 1,000 MCG/NS 80 ML (TOTAL VOLUME 100 ML) INJ SCH ×2 (06:13)
[2019-01-16] MEDS: KETOROLAC 30 MG/ML VIAL IV SCH ×2 (06:19→12:18)
[2019-01-16] MEDS: LEVOTHYROXINE 25 MCG (LEVOTHROID) TAB PO SCH (06:22)
[2019-01-16] MEDS: LACTATED RINGERS 1,000 ML IV SCH ×2 (06:22→19:41)
[2019-01-16 06:36] LABS: BUN/CREATININE RATIO 14; CARBON DIOXIDE 25 MMOL/L (21-32); CHLORIDE 103 MMOL/L (98-107); CREATININE SERUM 0.73 MG/DL (0.60-1.30); POTASSIUM 4.1 MMOL/L (3.6-5.0); SODIUM 134 MMOL/L (135-145)
[2019-01-16 06:37] LABS: CALCIUM 7.7 MG/DL (8.5-10.1); GFR ESTIMATED > 60; GLUCOSE 117 MG/DL (70-105)
--- NOTE | 2019-01-16 06:45 | Anesthesia-General Post-Op ---
General Patient Condition Mental Status/LOC: Same as Preop Cardiovascular: Satisfactory Nausea/Vomiting: Absent Respiratory: Satisfactory Pain: Controlled Complications: Absent Post Op Complications Complications None Follow Up Care/Instructions Patient Instructions None needed. Anesthesia/Patient Condition Patient Condition Patient is doing well, no complaints, stable vital signs, no apparent adverse anesthesia problems. No complications reported per nursing. LALA MILLER CRNA Jan 16, 2019 06:45
[2019-01-16 08:00] VITALS: BP 105/57
[2019-01-16] MEDS ORDERED: COLE1TAB PO (08:37)
[2019-01-16] MEDS ORDERED: BUPR150T14 PO (08:37)
[2019-01-16] MEDS ORDERED: HYDR453.3 TOP (08:37)
[2019-01-16] MEDS ORDERED: VALA500T PO (08:37)
[2019-01-16] MEDS ORDERED: OXYB5TAB9 PO (08:37)
[2019-01-16] MEDS ORDERED: MELO15TA39 PO (08:37)
[2019-01-16] MEDS: DOCUSATE SODIUM 100 MG (COLACE) CAP PO SCH ×2 (08:41→21:38)
[2019-01-16] MEDS ORDERED: ASPI-983 PO (08:41)
[2019-01-16] MEDS ORDERED: VITA400C60 PO (08:41)
[2019-01-16] MEDS: SENNA W/DOCUSATE (SENOKOT S) TABLET PO SCH (08:41)
[2019-01-16] MEDS ORDERED: MULT1TAB69 PO (08:41)
[2019-01-16] MEDS ORDERED: ASCO-262 PO (08:41)
[2019-01-16] MEDS ORDERED: FERR160T6 PO (08:41)
[2019-01-16] MEDS ORDERED: CHOL10007 PO (08:41)
[2019-01-16] MEDS: SERTRALINE 50 MG (ZOLOFT) TABLET PO SCH (08:41)
[2019-01-16] MEDS ORDERED: TIZA4TAB4 PO (08:41)
[2019-01-16] MEDS: ENOXAPARIN 40 MG/0.4 ML (LOVENOX) SYR SC SCH ×2 (08:41→21:37)
--- NOTE | 2019-01-16 08:43 | NUR ---
SPOKE WITH THE PATIENT ABOUT HER MEDICATIONS. SHE HAD A LIST WITH HER, WE ALSO WENT OVER THE EXT MED HX AND SHE VERIFIED HOW SHE TAKES THEM. OTC MEDS: SLO IRON DAILY VITAMIN E DAILY MTV DAILY VITAMIN C DAILY VITAMIN D DAILY ASPIRIN 81MG DAILY
--- NOTE | 2019-01-16 10:42 | NUR ---
CM/SS spoke with the patient about next steps after surgery. The patient states that she was independent before the fall. The patient states that she is to be non weight bearing on her leg for a duration of 6 weeks. The patient states that the care plan is to go to a rehab facility for her leg or other skilled facility. The patient states that she is the primary field care advocate for her at this time and may possibly be getting him OT. Will continue to follow. Addendum: 01/16/19 at 1106 by CHEMA GRIFFIN Visited patient with student, reviewed/approved.
--- NOTE | 2019-01-16 12:04 | Physical Therapy Evaluation ---
PT Evaluation-General Medical Diagnosis Admission Date Jan 14, 2019 at 11:00 Medical Diagnosis: right distal femur fracture Onset Date: Jan 14, 2019 Therapy Diagnosis Therapy Diagnosis: debility/weakness Height/Weight Height (Feet): 5 Height (Inches): 6.00 Weight (Pounds): 216 Precautions Precautions/Isolations: Fall Prevention, Standard Precautions Weight Bear Status Right Lower Extremity: Right Non Weight Bearing Left Lower Extremity: Left Full Weight Bearing NWB right shoulder per patient report Referral Physician: Serjio Reason for Referral: Evaluation/Treatment Medical History Pertinent Medical History: Hypothroidism Additional Medical History right TKR/morbid obesity Current History fall at ball game/ s/p ORIF Reviewed History: Yes Social History Home: Single Level Current Living Status: Spouse Prior Prior Level of Function Therapy Quality Codes: 6 Independent with activity with or without an assistive device 5 Patient requires set up or clean up by helper. Patient completes activity by themselves 4 Supervision or touching assist (CGA). [place] provide cues , steadying assist 3 The helper provides less than half the effort to complete the activity 2 The helper provides more than half the effort to complete the activity 1 Dependent. The helper does all the effort to complete an activity 7 Patient refused to complete or attempt activity 9 The patient did not perform the activity before the current illness or injury 88 Not attempted due to Medical conditions or safety concerns Bed Mobility: 6 Transfers (B,C,W/C): 6 Gait: 6 Indoor Mobility (Ambulation): Independent Prior Devices Use: None PT Evaluation-Current Subjective Patient agrees to PT. Pain Numeric Pain Scale: 5-Moderate Pain Location: Right, Distal Location Body Site: Knee (distal femur) Pain Description: Acute Objective Patient Orientation: Normal For Age Problem Solving: Fair Attachments: IV ROM/Strength ROM Lower Extremities right LE immobilized in hinged knee brace locked in extension/left LE WFL Strength Lower Extremities right LE NT/left 3-/5 grossly Integumentary/Posture Integumentary refer to nursing notes Bowel Incontinence: No Bladder Incontinence: No Posture trunk flexed posture Neuromuscular (Tone, Coordination, Reflexes) grossly intact Sensory Vision: Functional Hearing: Functional Sensation Right Lower Extremit: Intact Sensation Left Lower Extremity: Intact Transfers Roll Left to Right (QC): 1 Sit to Lying (QC): 1 Lying to Sitting/Side of Bed(Q: 1 Sit to Stand (QC): 1 Chair/Rom-hu-Wqcod Xfer(QC): 1 Gait Anticipated Mode of Locomotion: Wheelchair Balance Sitting Static: Fair Sitting Dynamic: Fair Standing Static: Poor Standing Dynamic: Poor Assessment/Needs 68 y.o. female,will benefit from skilled PT to address functional strength and mobility. Patient is NWB right LE and UE and is dependent assist x 2 with all bed mobility and SPT bed to commode to recliner. From a PT standpoint, patient will require extended time to heal and extended time to recover fully and would benefit from extended care facility. Rehab Potential: Fair PT Fpc Goals Fpc Goals PT Fpc Goals Time Frame: Feb 04, 2019 Sit to Lying (QC): 3 Lying-Sitting on Side/Bed(QC): 3 Sit to Stand (QC): 2 Roll Left to Right (QC): 3 Chair/Yys-ti-Xewod Xfer(): 2 PT Plan Problem List Problem List: Activity Tolerance, Functional Strength, Balance, Transfer, Bed Mobility Treatment/Plan Treatment Plan: Continue Plan of Care Treatment Plan: Bed Mobility, Education, Functional Activity Mabel, Functional Strength, Safety, Therapeutic Exercise, Transfers Treatment Duration: Feb 04, 2019 Frequency: 11 times per week Estimated Hrs Per Day: .5 hour per day Patient and/or Family Agrees t: Yes Discharge Recommendations Therapy Discharge Recommendati: Other, See Comments (senior care facility for extended care due to NWB right LE and UE) Time/GCodes Time In: 1055 Time Out: 1128 Total Billed Treatment Time: 33 Total Billed Treatment 1 visit EVModC 20 min FA 13 min NAY BARRERA PT Jan 16, 2019 12:04
--- NOTE | 2019-01-16 12:59 | Progress Note - Hospitalist ---
Subjective HPI/CC On Admission Date Seen by Provider: Jan 16, 2019 Time Seen by Provider: 12:54 fall down stairs Subjective/Events-last exam Pt reports doing well. Pain controlled. Objective Exam Vital Signs Vital Signs Date Time Temp Pulse Resp B/P (MAP) Pulse Ox O2 Delivery O2 Flow Rate FiO2 01/16/19 09:00 Room Air 01/16/19 08:00 36.8 102 20 105/57 (73) 93 01/15/19 14:48 3 Capillary Refill : NONELess Than 3 Seconds General Appearance: No Apparent Distress, WD/WN, Obese Cardiovascular: Regular Rate, Rhythm, No Murmur Gastrointestinal: Normal Bowel Sounds, Non Tender, Soft Neurologic/Psychiatric: Alert, Oriented x3 Results/Procedures Lab Laboratory Tests 01/16/19 05:30 Patient resulted labs reviewed. Imaging: Reviewed Imaging Report Assessment/Plan Assessment and Plan Assess & Plan/Chief Complaint Comminuted fracture of right distal femur Rib fractures Fall down stairs -Orthopedic Surgery consulted -POD #1 -On [employer]- pain well controlled -Bowel regimen ordered -Incentive spirometer ordered -DVT prophylaxis: Lovenox- weight based dosing -PT/OT ordered -IRU consulted Hypothyroidism -Continue levothyroxine HLD -Hold Zetia Depression -Continue sertraline Insomnia -Continue zolpidem DVT Prophylaxis: Lovenox Diagnosis/Problems Diagnosis/Problems (1) Fracture of femur, right, closed Status: Acute Qualifiers: Encounter type: initial encounter Femur location: shaft Fracture morphology: comminuted (2) HLD (hyperlipidemia) Status: Chronic (3) Rib fractures Status: Acute Qualifiers: Encounter type: initial encounter Rib fracture type: multiple ribs Frac ture type: closed Laterality: left Qualified Codes: S22.42XA - Multiple fractures of ribs, left side, initial encounter for closed fracture (4) Hypothyroidism Status: Chronic (5) Depression Status: Chronic (6) Insomnia Status: Chronic Clinical Quality Measures DVT/VTE Risk/Contraindication: Risk Factor Score Per Nursin RFS Level Per Nursing on Admit: 4+=Very High VENKAT DALLAS MD Jan 16, 2019 12:59
--- NOTE | 2019-01-16 13:23 | Physician Query Clarification ---
PQ-Further Specificity Admission/Discharge Admission Date: Jan 14, 2019 at 11:00 Discharge Date: The medical record reflects the following clinical scenario: History/Risk Factors: Fall down bleacher steps Osteoporosis Poor bone quality documented on post op note. Clinical Findings:Comminuted displaced fracture involving the distal shaft of the right femur and anterior nondisplaced left 4th and 5th rib fractures. Treatment:ORIF periprosthetic fracture right distal femur. Question: Can you further specify the etiology of the fractures per the clinical indicators above? Please document a response in the Progress Notes or Discharge Summary. 1. Comminuted displaced fracture of the distal shaft of the right femur and anterior nondisplaced left 4th and 5th rib fractures pathologic due to osteoporosis. 2. Comminuted displaced fracture of the distal shaft of the right femur and anterior nondisplaced left 4th and 5th rib fractures traumatic due to fall. 3. Other, with explanation of the clinical findings. 4. Clinically undetermined, no explanation for the clinical findings. PHYSICIAN RESPONSE Can you specify per above: 2 Please remember a lack of response to the above will prompt a phone page by CDI/Coding staff. In responding to this query, please exercise your independent professional judgment. The purpose of this communication is to more accurately reflect the complexity of your patients condition. The fact that a question is asked does not imply that any particular answer is desired or expected. Thank you for your timely response to this clarification. Requestors name: Rosario Davis [facility] Phone # ext [phone] or [phone] THIS PHYSICIAN QUERY FORM IS A PERMANENT PART OF THE MEDICAL RECORD ROSARIO DAVIS Jan 16, 2019 13:23 MAGUE CABALLERO DO Jan 16, 2019 21:16
--- NOTE | 2019-01-16 13:50 | NUR ---
Pastoral Care Visit.
--- NOTE | 2019-01-16 13:57 | Physical Therapy Daily Note ---
PT Daily Note-Current Subjective Patient request return to bed. Pain Numeric Pain Scale: 5-Moderate Pain Location: Right Location Body Site: Thigh Pain Description: Acute Mental Status Patient Orientation: Normal For Age Attachments: IV Transfers SCALE: Activities may be completed with or without assistive devices. 3-Rjhorxjooe-bxrzfla completes the activity by him/herself with no assistance from a helper. 5-Set-up or Clean-up Assistance-helper sets up or cleans up; patient completes activity. [place] assists only prior to or following the activity. 4-Supervision or Touching Assistance-helper provides verbal cues and/or touching/steadying and/or contact guard assistance as patient completes activity. Assistance may be provided throughout the activity or intermittently. 3-Partial/Moderate Assistance-helper does LESS THAN HALF the effort. [place] lifts, holds or supports trunk or limbs, but provides less than half the effort. 2-Substantial/Maximal Assistance-helper does MORE THAN HALF the effort. [place] lifts or holds trunk or limbs and provides more than half the effort. 3-Andzlzigw-qyciak does ALL the effort. Patient does none of the effort to complete the activity. Or, the assistance of 2 or more helpers is required for the patient to complete the activity. If activity was not attempted, code reason: 7-Patient Refused. 9-Not Applicable-not attempted and the patient did not perform the activity before the current illness, exacerbation or injury. 10-Not Attempted due to Environmental Limitations-(lack of equipment, weather restraints, etc.). 88-Not Attempted due to Medical Conditions or Safety Concerns. Roll Left to Right (QC): 1 Sit to Lying (QC): 1 Sit to Stand (QC): 1 Chair/Zdk-jc-Kdwlc Xfer(QC): 1 Bed to/from Chair: 1 dependent assist x 2 with sit to stand with lift chair and gait belt/patient unable to pivot requiring dependent assist x 2 with this task and with all bed mobility. Weight Bearing Right Lower Extremity: Right Non Weight Bearing Left Lower Extremity: Left Full Weight Bearing NWB right shoulder per patient report Exercises Supine Ex: Ankle pumps, Quad Set, Heel Slides, Straight leg raise Supine Reps: 10 (left LE only) Assessment Patient tolerates minimal activity and returned to bed with needs met. PT to increase activity as tolerated by patient. PT Halfway Goals Halfway Goals PT Halfway Goals Time Frame: Feb 04, 2019 Sit to Lying (QC): 3 Lying-Sitting on Side/Bed(QC): 3 Sit to Stand (QC): 2 Roll Left to Right (QC): 3 Chair/Sce-hh-Raazi Xfer(QC): 2 PT Plan Treatment/Plan Treatment Plan: Continue Plan of Care Treatment Plan: Bed Mobility, Education, Functional Activity Mabel, Functional Strength, Safety, Therapeutic Exercise, Transfers Treatment Duration: Feb 04, 2019 Frequency: 11 times per week Estimated Hrs Per Day: .5 hour per day Patient and/or Family Agrees t: Yes Time/GCodes Time In: 1310 Time Out: 1323 Total Billed Treatment Time: 13 Total Billed Treatment 1 visit FA 13 min NAY BARRERA PT Jan 16, 2019 13:57
[2019-01-16 16:00] VITALS: BP 117/66
--- NOTE | 2019-01-16 16:09 | Occupational Therapy Eval ---
OT Evaluation-General/PLF Medical Diagnosis Admission Date Jan 14, 2019 at 11:00 Medical Diagnosis: right distal femur fracture/ORIF Onset Date: Jan 14, 2019 Therapy Diagnosis Therapy Diagnosis: Weakness Height/Weight Height (Feet): 5 Height (Inches): 6.00 Weight (Pounds): 216 Precautions Precautions/Isolations: Fall Prevention, Standard Precautions Safety Interventions: None Weight Bear Status Weight Bearing Restriction: Non Weight Bearing Location Restriction: R LE Brace locked in extension at all times. Referral Physician: Serjio Referral Reason: Activity Tolerance, Self Care, Evaluation/Treatment, Strengthening/ROM Medical History Pertinent Medical History: Hypothroidism Additional Medical History bilateral shoulder replacement, kyphoplasty, eye surgery. Current History Pt. fell in bleachers at [employer]. Reviewed History: Yes Social History Home: Single Level Current Living Status: Spouse Entry Into Home: Level Entry ADL-Prior Level of Function SCALE: Activities may be completed with or without assistive devices. 9-Gxugnrcveo-wkcgqhg completes the activity by him/herself with no assistance from a helper. 5-Set-up or Clean-up Assistance-helper sets up or cleans up; patient completes activity. [place] assists only prior to or following the activity. 4-Supervision or Touching Assistance-helper provides verbal cues and/or touching/steadying and/or contact guard assistance as patient completes activity. Assistance may be provided throughout the activity or intermittently. 3-Partial/Moderate Assistance-helper does LESS THAN HALF the effort. [place] li fts, holds or supports trunk or limbs, but provides less than half the effort. 2-Substantial/Maximal Assistance-helper does MORE THAN HALF the effort. [place] lifts or holds trunk or limbs and provides more than half the effort. 1-Cipsqadat-llnmdy does ALL the effort. Patient does none of the effort to complete the activity. Or, the assistance of 2 or more helpers is required for the patient to complete the activity. If activity was not attempted, code reason: 7-Patient Refused. 9-Not Applicable-not attempted and the patient did not perform the activity before the current illness, exacerbation or injury. 10-Not Attempted due to Environmental Limitations-(lack of equipment, weather restraints, etc.). 88-Not Attempted due to Medical Conditions or Safety Concerns. ADL PLOF Comments Pt. was independent with daily tasks prior to this hospitalization. Self Care: Independent Functional Cognition: Independent DME/Equipment: Bath Chair, Shower DME/Equipment Comments Pt. has walker. 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 does not report pain at this time. Appearance Pt. is up in chair. Has just transferred with PT. Mental Status/Objective Patient Orientation: Person, Place, Time, Situation Current Upper Extremity ROM Pt. has limited shoulder ROM. Has had both shoulders replaced. Had surgery for acromial fx in right shoulder. Pt. reports that she has a "screw loose" in shoulder and is to not put weight through it. Upper Extremity Coordination intact Upper Extremity Sensation intact ADL-Treatment Eating (QC): 6 Lower Body Dressing (QC): 2 On/Off Footwear (QC): 2 Other Treatments Pt. has just transferred to chair from bed. States that she needed a lot of assist and declines standing at this time. Unable to doff socks at chair level. Pt. is educated regarding OT goals and ADL equipment. Pt. has questions regarding brace. OT answers questions. Pt.'s meal arrives and pt. is able to set tray up. All needs met up in chair. Education OT Patient Education: Correct positioning, Modified ADL techniques, Progress toward Goal/Update tx plan, Purpose of tx/functional activities, Reviewed precautions, Rehab process, Transfer techniques, Use of adapted equipment Teaching Recipient: Patient Teaching Methods: Demonstration, Discussion Response to Teaching: Verbalize Understanding, Return Demonstration OT Short Term Goals Short Term Goals Time Frame: Jan 30, 2019 Eating(FIM): 6 Grooming(FIM): 5 Bathing(FIM): 4 Upper Body Dressing(FIM): 5 Lower Body Dressing(FIM): 4 Toileting(FIM): 5 Transfers (B,C,W/C) (FIM): 4 Toilet/Commode Transfer(FIM): 4 Shower Transfer(FIM): 3 Additional Short Term Goals: 1-Demonstrate ADL Tasks, 2-Verbalize Understanding, 3-ImproveStrength/Mabel 1=Demonstrate adherence to instructed precautions during ADL tasks. 2=Patient will verbalize/demonstrate understanding of assistive devices/modifications for ADL. 3=Patient will improve strength/tolerance for activity to enable patient to perform ADL's. OT Detention Goals Detention Goals Time Frame: Feb 06, 2019 Eating (QC): 6 Oral Hygiene (QC): 6 Shower/Bathe Self (QC): 5 Upper Body Dressing (QC): 6 Lower Body Dressing (QC): 6 On/Off Footwear (QC): 6 Toileting Hygiene (QC): 6 Toilet/Commode Transfer (QC): 6 Additional Goals: 1-Demonstrate ADL Tasks, 2-Verbalize Understanding, 3- ImproveStrength/Mabel 1=Demonstrate adherence to instructed precautions during ADL tasks. 2=Patient will verbalize/demonstrate understanding of assistive devices/modifications for ADL. 3=Patient will improve strength/tolerance for activity to enable patient to perform ADL's. OT Education/Plan Problem List/Assessment Assessment: Decreased Activ Tolerance, Decreased UE Strength, Dependent Transfers, Impaired Bed Mobility, Impaired Funct Balance, Impaired I ADL's, Impaired Self-Care Skills, Restricted Funct UE ROM Discharge Recommendations Plan/Recommendations: Continue POC Therapy Discharge Recommendati: Post Acute OT Comment Equipment needs and discharge location to be determined. Treatment Plan/Plan of Care Treatment,Training & Education: Yes Patient would benefit from OT for education, treatment and training to promote independence in ADL's, mobility, safety and/or upper extremity function for ADL's. Plan of Care: ADL Retraining, Functional Mobility, UE Funct Exercise/Act Treatment Duration: Feb 06, 2019 Frequency: 5 times per week Estimated Hrs Per Day: .5 hour per day Agreement: Yes Rehab Potential: Fair Time/GCodes Start Time: 11:40 Stop Time: 12:03 Total Time Billed (hr/min): 23 Billed Treatment Time 1, EVH x 10minutes, ADL x 13minutes SONALI HAYWOOD OT Jan 16, 2019 16:09
--- NOTE | 2019-01-16 21:21 | Progress Note ---
Standard Progress Note Progress Notes/Assess & Plan Time Seen by a Provider: 00:00 Progress/Assessment & Plan POD #1 s/p ORIF Right distal femur fracture. Continue PT/OT, strict NWB RLE; hinged brace Right knee locked in extension at all times. Lovenox/SCDs. Current pain control regimen. OK to d/c to inpatient rehab from ortho standpoint. Vitals Signs Source: Temporal, Heart Rate: 82, Respiratory Rate: 18, BP: 117/66, Pulse Oximetry: 91, Weight: 127.0 Laboratory Tests 01/16/19 05:30 MAGUE CABALLERO DO Jan 16, 2019 21:21
[2019-01-16] MEDS: OXYBUTYNIN (DITROPAN) 5 MG TAB PO SCH (21:37)
[2019-01-16] MEDS: buPROPion SR 150 MG (WELLBUTRIN SR) TAB PO SCH (21:38)
[2019-01-16] MEDS: ZOLPIDEM 5 MG (AMBIEN) TAB PO PRN (22:57)
[2019-01-17] VITALS: BP 126/58
[2019-01-17] MEDS ORDERED: LEVOTHYROXINE 112 MCG (LEVOTHROID) TAB PO SCH (06:30)
[2019-01-17] MEDS ORDERED: LEVOTHYROXINE 25 MCG (LEVOTHROID) TAB PO SCH (06:30)
[2019-01-17 06:39] LABS: BASOPHILS % (AUTO) 1 % (0-10); EOSINOPHILS # (AUTO) 0.1 10^3/uL (0.0-0.3); EOSINOPHILS % (AUTO) 1 % (0-10); HEMATOCRIT 23 % (35-52); HEMOGLOBIN 7.4 G/DL (11.5-16.0); LYMPHOCYTES # (AUTO) 1.2 X 10^3 (1.0-4.0); LYMPHOCYTES % (AUTO) 19 % (12-44); MEAN CORPUSCULAR HEMOGLOBIN 30 PG (25-34); MEAN CORPUSCULAR HGB CONC 32 G/DL (32-36); MEAN CORPUSCULAR VOLUME 92 FL (80-99); MONOCYTES # (AUTO) 0.7 X 10^3 (0.0-1.0); MONOCYTES % (AUTO) 12 % (0-12); NEUTROPHILS # (AUTO) 4.3 X 10^3 (1.8-7.8); NEUTROPHILS % (AUTO) 68 % (42-75); PLATELET COUNT 175 10^3/uL (130-400); RED CELL DISTRIBUTION WIDTH 12.9 % (10.0-14.5); WHITE BLOOD COUNT 6.3 10^3/uL (4.3-11.0)
[2019-01-17 06:54] LABS: BUN/CREATININE RATIO 11; CALCIUM 7.9 MG/DL (8.5-10.1); CARBON DIOXIDE 26 MMOL/L (21-32); CHLORIDE 104 MMOL/L (98-107); CREATININE SERUM 0.63 MG/DL (0.60-1.30); GFR ESTIMATED > 60; GLUCOSE 108 MG/DL (70-105); POTASSIUM 4.2 MMOL/L (3.6-5.0); SODIUM 137 MMOL/L (135-145)
[2019-01-17 08:00] VITALS: BP 117/70
[2019-01-17] MEDS ORDERED: VALACYCLOVIR 500 MG TAB (VALTREX) PO SCH (09:45)
[2019-01-17] MEDS: LACTATED RINGERS 1,000 ML IV SCH ×2 (09:48→10:18)
[2019-01-17] MEDS: SERTRALINE 50 MG (ZOLOFT) TABLET PO SCH (10:05)
[2019-01-17] MEDS: ENOXAPARIN 40 MG/0.4 ML (LOVENOX) SYR SC SCH (10:05)
[2019-01-17] MEDS: DOCUSATE SODIUM 100 MG (COLACE) CAP PO SCH (10:05)
[2019-01-17] MEDS: buPROPion SR 150 MG (WELLBUTRIN SR) TAB PO SCH (10:05)
[2019-01-17] MEDS: OXYBUTYNIN (DITROPAN) 5 MG TAB PO SCH (10:05)
[2019-01-17] MEDS: SENNA W/DOCUSATE (SENOKOT S) TABLET PO SCH (10:05)
--- NOTE | 2019-01-17 10:14 | Discharge Inst-Simple/Standard ---
Discharge Inst-Standard Patient Instructions/Follow Up Plan of Care/Instructions/FU: Please continue to take your medications as written. Activity as Tolerated: Yes Discharge Diet: No Restrictions VENKAT DALLAS MD Jan 17, 2019 10:14
--- NOTE | 2019-01-17 10:19 | Discharge Summary ---
Diagnosis/Chief Complaint Date of Admission Jan 14, 2019 at 11:00 Date of Discharge Discharge Date: Jan 17, 2019 Primary Care No,Local Physician Discharge Diagnosis (1) Fracture of femur, right, closed Status: Acute (2) HLD (hyperlipidemia) Status: Chronic (3) Rib fractures Status: Acute (4) Hypothyroidism Status: Chronic (5) Depression Status: Chronic (6) Insomnia Status: Chronic Discharge Summary Procedures/Consulations Dr Bassett- Ortho Discharge Physical Exam Allergies: Coded Allergies: Penicillins (Unverified Allergy, Unknown, 01/17/19) Sulfa (Sulfonamide Antibiotics) (Unverified Allergy, Unknown, 01/17/19) lincomycin (Verified Allergy, Unknown, 06/19/17) nitrofurantoin (Unverified Allergy, Unknown, 06/19/17) propoxyphene (Unverified Allergy, Unknown, 06/19/17) Uncoded Allergies: "PRECIOUS" (Allergy, Unknown, 06/19/17) Vitals & I&Os Vital Signs Date Time Temp Pulse Resp B/P (MAP) Pulse Ox O2 Delivery O2 Flow Rate FiO2 01/17/19 08:00 38.0 92 18 117/70 (86) 92 Room Air General Appearance: No Apparent Distress, WD/WN, Obese Cardiovascular: Regular Rate, Rhythm, No Murmur Neurologic/Psychiatric: Alert, Oriented x3, Normal Mood/Affect Hospital Course Pt is a 68CF who was admitted due to a right femur fracture after a fall at a local football game. She underwent operative repair and did well postoperatively with pain control and PT/OT. She was evaluated by ARU and was discharged there for continued intensive therapy to assist with recovery. Labs (last 24 hrs) Microbiology 01/15/19 MRSA Screen - Final, Complete MRSA not isolated Patient resulted labs reviewed. Pending Labs Imaging: Reviewed Imaging Report Discussion & Recommendations Discharge Planning: <30 minutes discharge planning Discharge Home Medications: Active Scripts Active Reported Aspirin EC (Aspirin) 81 Mg Tablet.dr 81 Mg PO DAILY Vitamin D3 (Cholecalciferol (Vitamin D3)) 1,000 Unit Capsule 1,000 Unit PO DAILY Vitamin C (Ascorbate Calcium) 500 Mg Tablet 500 Mg PO DAILY Multivitamins (Multivitamin) 1 Each Tablet 1 Tab PO DAILY Vitamin E (Vitamin E Acetate) 400 Unit Capsule 400 Unit PO DAILY Slow Release Iron (Ferrous Sulfate, Dried) 160 Mg Tablet.er 160 Mg PO DAILY Tizanidine HCl 4 Mg Tablet 2-4 Mg PO TID PRN TAKES 1/2 TO 1 (4MG) TABLET Valacyclovir (Valacyclovir HCl) 500 Mg Tablet 500 Mg PO BID PRN Bupropion HCl Sr (Bupropion HCl) 150 Mg Tablet.er 150 Mg PO BID Meloxicam 15 Mg Tablet 15 Mg PO DAILY Oxybutynin Chloride 5 Mg Tablet 5 Mg PO BID Hydrocortisone 453.6 Gm Cream..g. TOP BID Colestipol HCl 1 Gm Tablet 1 Gm PO BID PRN Sertraline HCl 50 Mg Tablet 50 Mg PO DAILY Zolpidem Tartrate 10 Mg Tablet 10 Mg PO HS Ezetimibe 10 Mg Tablet 10 Mg PO HS Levothyroxine Sodium 137 Mcg Tablet 137 Mcg PO DAILY Instructions to patient/family Please see electronic discharge instructions given to patient. Clinical Quality Measures DVT/VTE Risk/Contraindication: Risk Factor Score Per Nursin RFS Level Per Nursing on Admit: 4+=Very High Problem Qualifiers (1) Fracture of femur, right, closed: Encounter type: initial encounter Femur location: shaft Fracture morphology: comminuted (2) HLD (hyperlipidemia): Hyperlipidemia type: mixed hyperlipidemia Qualified Codes: E78.2 - Mixed hyperlipidemia (3) Rib fractures: Encounter type: initial encounter Rib fracture type: multiple ribs Fracture type: closed Laterality: left Qualified Codes: S22.42XA - Multiple fract ures of ribs, left side, initial encounter for closed fracture (4) Hypothyroidism: Hypothyroidism type: unspecified Qualified Codes: E03.9 - Hypothyroidism, unspecified (5) Depression: Depression Type: unspecified Qualified Codes: F32.9 - Major depressive disorder, single episode, unspecified (6) Insomnia: Insomnia type: unspecified Qualified Codes: G47.00 - Insomnia, unspecified VENKAT DALLAS MD Jan 17, 2019 10:19
--- NOTE | 2019-01-17 10:34 | Physical Therapy Progress Note ---
Therapy Progress Note Patient declined PT this a.m. stating, "I just don't feel like it. I'm exhausted and its easier to stay in bed. I hurt all over." PT attempted to educate patient on importance of participating with therapy to prevent possible negative side effects, however, patient continued to decline. Physician notified. 1 ref ([phone]) NAY BARRERA PT Jan 17, 2019 10:34
[2019-01-18] MEDS ORDERED: VALACYCLOVIR 500 MG TAB (VALTREX) PO SCH (09:00)
--- NOTE | 2019-01-20 18:43 | OPERATIVE REPORT ---
DATE OF SERVICE: 01/15/2019 PREPROCEDURE DIAGNOSIS: Closed, comminuted, extraarticular periprosthetic fracture of right distal femur. POSTPROCEDURE DIAGNOSIS: Closed, comminuted, extraarticular periprosthetic fracture of right distal femur. PROCEDURE: Open reduction and internal fixation of periprosthetic fracture of right distal femur. FINDINGS: 1. Stable total knee prosthesis. 2. Substantial extraarticular distal femoral comminution. 3. Poor bone quality. IMPLANT: DePuy Synthes variable angle periarticular distal femur plate, 14-hole. ATTENDING SURGEON: Mague Caballero MD ANESTHESIA: General endotracheal. ESTIMATED BLOOD LOSS: 250 mL. COMPLICATIONS: None. SPECIMENS: None. DRAINS: None. FLUIDS: Per anesthesia record. BRIEF HISTORY AND INDICATIONS: The patient is a pleasant 68-year-old female who sustained a mechanical ground level fall, landing on her right knee on 01/14/2019. She subsequently had severe right knee pain and an inability to bear weight or ambulate on her right lower extremity. She was subsequently transferred to the [facility] Emergency Department for evaluation and treatment. Upon presentation, plain radiographs of the patient's right knee and femur demonstrated a displaced, comminuted periprosthetic fracture of the right distal femur. Orthopedic service was consulted for definitive management of her injury. The patient denied having sustained additional associated musculoskeletal injuries, she denied head trauma, loss of consciousness, syncope, neck pain or other complaints. On exam, the patient's right lower extremity was otherwise stable, all compartments were soft and compressible, the skin was intact, there were no open wounds, motor and sensory function was grossly intact and the foot was well perfused. Given the nature of her injury, I explained to the patient that surgical fixation was indicated. I discussed the treatment plan with the patient in detail including the risks, benefits, potential complications, expected outcomes, indications and alternatives. The risks that were discussed included, but were not limited to significant bleeding, infection, damage to surrounding neurovascular and soft tissue structures, hardware irritation and/or failure, nonunion, malunion, potential serious reactions to anesthesia, and potential need for secondary surgical procedures. The patient gave informed written consent to proceed as planned after all of her questions were addressed and answered to her satisfaction. PROCEDURE NOTE: After correctly identifying the patient in the preoperative holding area and after her right lower extremity was appropriately marked, she was transferred to the operating room. Once in the operating room, she had successful induction of general endotracheal anesthesia and she was transferred to a radiolucent OR table and placed in the supine position. All bony prominences were meticulously padded. A soft bump was placed underneath the ipsilateral right hip to maintain neutral rotation of the extremity. The right leg was then prepped and draped in the routine sterile fashion. Prior to beginning the case, we completed an operating room timeout with all parties involved in the case and agreement and verified appropriate infusion of prophylactic antibiotics. In order to maintain adequate length and rotation of the fracture, a temporary knee spanning external fixator was applied to beginning of the case. A 5 mm self-drilling, self-tapping Schanz pin was applied to the proximal femoral shaft as well as to the mid tibial shaft. This was followed by constructing a uniplanar external fixator in standard fashion. Manual traction was then applied to the extremity so as to achieve appropriate length of the fracture and this was followed by tightening of the external fixator in standard fashion in order to maintain that length and rotation throughout the remainder of the case. A standard lateral incision over the distal femur was then completed after infusion of local anesthetic, incising through the skin and subcutaneous tissue with a 10 blade scalpel. This incision was approximately 8 cm in length. Bovie cautery was then used to dissect through the lateral portion of the IT band and the capsule as well as the fascia of the vastus lateralis. The fracture was then encountered and debrided in standard fashion using blunt and sharp techniques so as to minimize periosteal stripping. Of note, there was a significant amount of extraarticular metadiaphyseal comminution at the fracture site. The main medial distal fragment was reduced anatomically and this was followed by placement of a 3.5 mm cortical lag screw to achieve primary fixation of this fragment to stabilize the distal block. At this point, an appropriate sized Synthes variable angle distal femoral periarticular plate was applied submuscularly and placed on the lateral femur into the appropriate position so as to span and bridge the metadiaphyseal comminution. Once C-arm fluoroscopy confirmed that the fracture was acceptably reduced in the AP and lateral planes and that the plate was confirmed to be in an appropriate position, temporary fixation was applied through the plate in standard fashion with the guide pins both distally and proximally. Once again AP and lateral C-arm fluoroscopy confirmed that the fracture was acceptably aligned and reduced and the plate was in appropriate position, fixation was then applied through the plate in standard fashion with a series of locking screws distally and locking screws proximally in a minimally invasive way using the external aiming arm. Once fixation was applied to the plate, AP and lateral C-arm fluoroscopy once again confirmed that the fracture was acceptably aligned in both the AP and lateral planes and that the hardware was in appropriate position. This completed our fixation. The wound was then irrigated with copious amounts of sterile saline and meticulous hemostasis was achieved prior to closure. Closure was completed using Stratafix suture for the knee capsule and IT band followed by 0 Vicryl for the deeper subcutaneous tissue, 2-0 Vicryl for the more superficial subcutaneous tissue and susu for the skin. The patient then had a sterile dressing applied followed by a hinged knee brace locked in extension. She was then awakened and extubated in the operating room without incident and then transferred to the PACU in stable condition. She tolerated the procedure quite well without complications. All counts were correct at the end of the case. Job ID: [id number] DocumentID: [id number] Dictated Date: 01/20/2019 10:31:17 Oracle Technical Architect Date: 01/20/2019 18:42:05 Dictated By: MAGUE CABALLERO
== END 2019-01-17 11:00 | DRG 481 ==
LOC: EDUNIT# 09:56 → ER 09:57 → 4TH 11:00
PROVIDERS: ADMIT Internal Medicine; ATTEND Internal Medicine
PROC: 0QSB04Z Reposition Right Lower Femur with Internal Fixation Device, Open Approach (ICD-10-PCS; principal; 2019-01-15 09:29)
DX: S72.351A Displaced comminuted fracture of shaft of right femur, initial encounter for closed fracture (principal); M97.11XA Periprosthetic fracture around internal prosthetic right knee joint, initial encounter; S22.42XA Multiple fractures of ribs, left side, initial encounter for closed fracture; Z68.42 Body mass index [BMI] 45.0-49.9, adult; M81.0 Age-related osteoporosis without current pathological fracture; M19.91 Primary osteoarthritis, unspecified site; G47.00 Insomnia, unspecified; E66.9 Obesity, unspecified; E78.2 Mixed hyperlipidemia; E03.9 Hypothyroidism, unspecified; F41.9 Anxiety disorder, unspecified; F32.9 Major depressive disorder, single episode, unspecified; W10.8XXA Fall (on) (from) other stairs and steps, initial encounter; Y93.82 Activity, spectator at an event; Y92.39 Other specified sports and athletic area as the place of occurrence of the external cause
CPT/HCPCS: 29515; 36415; 51702; 71250; 73552; 73562; 80048; 80053; 81000; 83735; 85007; 85025; 85027; 85610; 85730; 87081; 94664; 96374; 96375; 96376

== ENCOUNTER 2019-01-17 10:43 | Inpatient (IN) | payer MEDICARE ==
[~2019-01-17] VITALS: Ht 176 cm; Wt 127.9 kg
[~2019-01-17 10:43] MED LIST changes: +ASCO-262 PO; +ASPI-983 PO; +BUPR150T14 PO; +CHOL10007 PO; +COLE1TAB PO; +EZET10TA49 PO; +FERR160T6 PO; +HYDR453.3 TOP; +LEVO137T2 PO; +MELO15TA39 PO; +MULT1TAB69 PO; +OXYB5TAB9 PO; +SERT50TA9 PO; +TIZA4TAB4 PO; +VALA500T PO; +VITA400C60 PO; +ZOLP10TA5 PO
--- NOTE | 2019-01-17 11:14 | NUR ---
RADHA MAGDYAUBREE admitted to room 223, with an admitting diagnosis of FRACTURE OF FEMUR, RIGHT, CLOSED, on 01/17/19 from MED/SURG via WHEELCHAIR, accompanied by PHYSICAL THERAPY STAFF. RADHA NAJERA introduced to surroundings, call light, bed controls, phone, TV, temperature control, lights, meal times, smoking policy, visitor policy, side rail policy, bathrooms and showers. Patient Rights given to patient in the handbook.RADHA NAJERA verbalizes understanding that [facility] is not responsible for the loss or damage to any personal effects or valuables that are kept in the patients possession during their hospitalization. The following Patient Care Plans were discussed with the PATIENT: Discharge Planning, FRACTURE, PHYSICAL/OCCUPATIONAL THERAPY, and KNOWLEDGE DEFICIT. RADHA NAJERA verbalizes understanding of Interdisciplinary Patient Education. Patient and/or family were informed about the Rapid Response Team and its purpose. Patient received Patient Rights Booklet, which includes Privacy Act Statement and Data Collection Information Summary.
[2019-01-17] MEDS ORDERED: IRON SUCROSE 200 MG/10 ML (VENOFER) VIAL IV NR (11:15)
[2019-01-17] MEDS ORDERED: SENNA W/DOCUSATE (SENOKOT S) TABLET PO SCH (11:15)
[2019-01-17 11:30] VITALS: BP 116/95
[2019-01-17] MEDS ORDERED: CATHETER FLUSH 10 ML SYR IV PRN (11:30)
--- NOTE | 2019-01-17 11:49 | Physical Therapy Evaluation ---
PT Evaluation-General Medical Diagnosis Admission Date Jan 17, 2019 at 11:14 Medical Diagnosis: right distal femur fracture Onset Date: Jan 14, 2019 Therapy Diagnosis Therapy Diagnosis: impaired mobility, strength, endurance Height/Weight Height (Feet): 5 Height (Inches): 6.00 Weight (Pounds): 216 Weight Bear Status Right Lower Extremity: Right Non Weight Bearing Left Lower Extremity: Left Full Weight Bearing Patient states she is not supposed to bear weight on her right arm due to shoulder issues. 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 She states that she doesn't know when asked if she will have any assistance available for her at home. Prior Prior Level of Function SCALE: Activities may be completed with or without assistive devices. 2-Wgvabsblew-jsltccf completes the activity by him/herself with no assistance from a helper. 5-Set-up or Clean-up Assistance-helper sets up or cleans up; patient completes activity. [place] assists only prior to or following the activity. 4-Supervision or Touching Assistance-helper provides verbal cues and/or touching/steadying and/or contact guard assistance as patient completes activity. Assistance may be provided throughout the activity or intermittently. 3-Partial/Moderate Assistance-helper does LESS THAN HALF the effort. [place] lifts, holds or supports trunk or limbs, but provides less than half the effort. 2-Substantial/Maximal Assistance-helper does MORE THAN HALF the effort. [place] lifts or holds trunk or limbs and provides more than half the effort. 2-Evekewfxa-beppnz does ALL the effort. Patient does none of the effort to complete the activity. Or, the assistance of 2 or more helpers is required for the patient to complete the activity. If activity was not attempted, code reason: 7-Patient Refused. 9-Not Applicable-not attempted and the patient did not perform the activity before the current illness, exacerbation or injury. 10-Not Attempted due to Environmental Limitations-(lack of equipment, weather restraints, etc.). 88-Not Attempted due to Medical Conditions or Safety Concerns. Bed Mobility: 6 Transfers (B,C,W/C): 6 Gait: 6 Indoor Mobility (Ambulation): Independent Prior Device Use: none PT Evaluation-Current Subjective Patient in bed pre tx, has pain of 8/10 in right leg, agrees to PT, going to rehab, will be co-treating with OT due to poor patient mobility, only 2 available limbs that can bear weight, poor strength, endurance, the need to unit coordinator rdinate UE and LE during activity. Pt/Family Goals to be independent at home Objective Patient Orientation: Normal For Age right knee immobilizer ROM/Strength ROM Lower Extremities limited generally in BLE due to morbid obesity and knee immobilizer on the right side Strength Lower Extremities LLE 3/5 gross Sensory Vision: Functional Hearing: Functional Sensation Right Lower Extremit: Intact Sensation Left Lower Extremity: Intact Transfers Roll Left to Right (QC): 1 Sit to Lying (QC): 1 Lying to Sitting/Side of Bed(Q: 1 Sit to Stand (QC): 1 Chair/Kii-uu-Dksjz Xfer(QC): 1 Car Transfer (QC): 88 Patient is dependent for bed mobility and supine <-> sit and sit <-> stand and transfers. Patient needs cues for hand placement and positioning and safety. Gait Does the Patient Walk?: No and Walking Goal NOT indicated Mode of Locomotion: Wheelchair Anticipated Mode of Locomotion: Wheelchair Walk 10 feet (QC): 88 Walk 50 ft with 2 Turns(QC): 88 Walk 150 ft (QC): 88 Walking 10ft/uneven surface-QC: 88 Wheelchair Training Does the Pt Use a Wheelchair?: Yes Wheel 50 ft with 2 turns (QC): 1 Wheel 150 ft (QC): 1 Type of Wheelchair: Manual Stairs 1 Step (curb) (QC): 88 4 Steps (QC): 88 12 Steps (QC): 88 Balance Sitting Static: Fair Sitting Dynamic: Fair Standing Static: Poor Standing Dynamic: Poor Treatment Patient was transferred to [facility] from the wheelchair to urinate (dependent for wiping which OT did), and then transferred to bed. She had to roll several times to each side for placing pads beneath her. Assessment/Needs Patient has impaired mobility, strength, endurance. She cannot bear weight on her right leg and arm. She cannot stand using her left leg and arm due to weakness and morbid obesity and she has a hard time propelling a manual wheelchair due to her size. Patient will most likely be dependent for mobility until her weight bearing status changes and she will be WC dependent. Rehab Potential: Poor PT Short Term Goals Short Term Goals Time Frame: Jan 24, 2019 Wheelchair Distance: 50' Wheelchair Level of Assist: 5 Additional Short Term Goals bed mobility mod assist PT Catering Truck Driver Goals Catering Truck Driver Goals PT Custodial Goals Time Frame: Feb 07, 2019 Sit to Lying (QC): 3 (min assist) Lying-Sitting on Side/Bed(QC): 3 (min assist) Sit to Stand (QC): 3 (mod assist) Roll Left to Right (QC): 3 (min assist) Chair/Kum-ry-Coktr Xfer(QC): 3 (mod assist) Car Transfer (QC): 3 (mod assist) Distance: 150' Wheel 50 feet with 2 turns (QC: 4 (SBA) PT Plan Problem List Problem List: Activity Tolerance, Functional Strength, Safety, Balance, Gait, Transfer, Bed Mobility, ROM Treatment/Plan Treatment Plan: Continue Plan of Care Treatment Plan: Bed Mobility, Concurrent Therapy, Education, Functional Activity Mabel, Functional Strength, Group Therapy, Safety, Therapeutic Exerci se, Transfers Treatment Duration: Feb 07, 2019 Frequency: At least 5 of 7 days/Wk (IRF) Estimated Hrs Per Day: 1.5 hours per day Patient and/or Family Agrees t: Yes Safety Risks/Education Patient Education: Transfer Techniques, Correct Positioning, W/C Management, Safety Issues Teaching Recipient: Patient Teaching Methods: Demonstration, Discussion Response to Teaching: Reinforcement Needed Discharge Recommendations Plan Patient will perform bed mobility and transfer training, balance and endurance training, functional strengthening, WC mobility training, and education, to improve functional mobility and independence at home. Therapy Discharge Recommendati: Other, See Comments (home with family or NH) Time/GCodes Time In: 1055 Time Out: 1140 Total Billed Treatment Time: 35 Total Billed Treatment 1 visit EVM 10' FA 25' PT eval from 2956-9155, OT eval from 2746-1251, co-treat from [id number]. PT performed bed mobility and transfers and assist with rolling and positioning, OT worked on UE positioning, assist with transfers, changed bedding and cleaned patient. ANTONI TRAORE PT Jan 17, 2019 11:48
--- NOTE | 2019-01-17 11:56 | Occupational Therapy Eval ---
OT Evaluation-General/PLF Medical Diagnosis Admission Date Jan 17, 2019 at 11:14 Medical Diagnosis: R distal femur fracture/ ORIF Onset Date: Jan 14, 2019 Therapy Diagnosis Therapy Diagnosis: decreased functional mobility, pain, decreased ADL function Height/Weight Height (Feet): 5 Height (Inches): 6.00 Weight (Pounds): 216 Precautions Precautions/Isolations: Fall Prevention, Standard Precautions Safety Interventions: None Weight Bear Status Weight Bearing Restriction: Non Weight Bearing Location Restriction: RT FOOT, R LE WBS (Ord/Comment): RT boot to stay on/extended at all times. Pt states screw loose within R shoulder; NWB R shoulder. Referral Physician: Donita Cardenas DO Referral Reason: Activity Tolerance, Self Care, Evaluation/Treatment, Strengthening/ROM Medical History Pertinent Medical History: Hypothroidism Additional Medical History High cholesterol, gall bladder disease, hypothyroidism, sleep difficulties, anxiety, depression. Current History Per H&P: Fracture distal femur, Fractured 2 ribs, Fall Patient was walking up stairs when she tripped, causing her to fall onto fence. She states that her right leg was twisted and had pain in her upper anterior left chest. She could not move her ankle. She did not hit her head. Did not lose consciousness. Deep breaths make her chest pain worse. Has not eaten today. Chest and abdomen CT showed nondisplaced anterior left 4th and 5th rib fractures. No pneumothorax. Femur x-ray showed distal comminuted femur fracture. Reviewed History: Yes Social History Home: Single Level Current Living Status: Spouse Entry Into Home: Level Entry Steps Into Home: 0 Steps Inside Home: 0 Pt's roles include caregiver to pt's living at home. Pt states he had HI within past year and she completes LB dressing tasks for him, and completes all IADLs outside the home. Pt's daughter passed ~1 year ago. Pt's grandson (15 y/o) living with pt and spouse. Pt states he is able to help around the house in her absence. ADL-Prior Level of Function SCALE: Activities may be completed with or without assistive devices. 6-Kipjnvsarc-qwsrcuu completes the activity by him/herself with no assistance from a helper. 5-Set-up or Clean-up Assistance-helper sets up or cleans up; patient completes activity. [place] assists only prior to or following the activity. 4-Supervision or Touching Assistance-helper provides verbal cues and/or touching/steadying and/or contact guard assistance as patient completes activity. Assistance may be provided throughout the activity or intermittently. 3-Partial/Moderate Assistance-helper does LESS THAN HALF the effort. [place] lifts, holds or supports trunk or limbs, but provides less than half the effort. 2-Substantial/Maximal Assistance-helper does MORE THAN HALF the effort. [place] lifts or holds trunk or limbs and provides more than half the effort. 2-Jxsvkvakl-qarmvg does ALL the effort. Patient does none of the effort to complete the activity. Or, the assistance of 2 or more helpers is required for the patient to complete the activity. If activity was not attempted, code reason: 7-Patient Refused. 9-Not Applicable-not attempted and the patient did not perform the activity b efore the current illness, exacerbation or injury. 10-Not Attempted due to Environmental Limitations-(lack of equipment, weather restraints, etc.). 88-Not Attempted due to Medical Conditions or Safety Concerns. ADL PLOF Comments IND without AE Self Care: Independent Functional Cognition: Independent DME/Equipment: Bath Chair DME/Equipment Comments Pt has bath chair within walk-in shower with glass sliding door. Pt has FWW at home, though she states she did not use it prior to hospitalization. Pt states IND within I/ADLs without use of AE for ambulation. 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 Pt has fractured 4th/5th ribs. Unrated pain by pt. Pt agreeable to OT evaluation/ treat. Pt transferred by OT/PT by w/c to ARU. Mental Status/Objective Patient Orientation: Person, Place, Time, Situation, Normal For Age Attachments: IV (removed prior to moving to ARU), Knee Immobilizer (brace locked in ext at all times.) Current Glasses/Contacts: Yes Hearing Aids: No Dentures/Partials: No Hand Dominance: Right Upper Extremity ROM BUE: limited due to pain (R) and weakness/ decreased ROM (L) Pt able to reach lower back and back of head with BUE. Upper Extremity Coordination WFL Upper Extremity Sensation WFL, no paresthesias noted bilaterally. Upper Extremity Strength Impaired bilaterally. OT evaluation from 7343-2778. Pt oriented x4. Pt dependent in transfers; non-weight bearing R LE, R UE (screw loose per pt.), decreased UE strength bilaterally, decreased ROM, and obesity. Due to pt's advanced physical needs, OT/PT co-treat from 7769-1360. Pt requires assist rolling in bed, assist in bed mobility x2 to sit EOB, pt requires total assist x2 to complete squat pivot transfer from EOB to w/c. Pt unable to reposition self in w/c due to weakness/ pain. Pt covered with blanket and transferred by w/c to ARU. Pt requires assist during commode transfer (TD x2), requires max A for nichol hygiene in sit due to decreased ROM/ decreased abilities to stand. Pt squat pivot to bed (TDx2), completes bed mob with assist. Pt rolls bilaterally to place shari pads under bottom, requires assist rolling bilaterally. Pt c/o pain in chest "under boob" due to rib fractures during bed mobility. Pt demonstrates SOB during activities. Pt repositioned with pillows, all needs met, call light in reach. ADL-Treatment Eating (QC): 6 On/Off Footwear (QC): 1 (TD L sock) Admitting QC's to follow. Other Treatments Pt seen in room. Education OT Patient Education: Correct positioning, Modified ADL techniques, Purpose of tx/functional activities, Reviewed precautions, Rehab process, Safety issues, Transfer techniques, Use of adapted equipment Teaching Recipient: Patient Teaching Methods: Demonstration, Discussion Response to Teaching: Verbalize Understanding, Return Demonstration OT Short Term Goals Short Term Goals Grooming(FIM): 4 Upper Body Dressing(FIM): 3 Lower Body Dressing(FIM): 2 Transfers (B,C,W/C) (FIM): 2 Additional Short Term Goals: 1-Demonstrate ADL Tasks, 2-Verbalize Underst anding, 3-ImproveStrength/Mabel 1=Demonstrate adherence to instructed precautions during ADL tasks. 2=Patient will verbalize/demonstrate understanding of assistive devices/modifications for ADL. 3=Patient will improve strength/tolerance for activity to enable patient to perform ADL's. OT Chcf Goals Chcf Goals Eating (QC): 6 Oral Hygiene (QC): 6 Shower/Bathe Self (QC): 5 Upper Body Dressing (QC): 5 Lower Body Dressing (QC): 3 On/Off Footwear (QC): 3 Toileting Hygiene (QC): 3 Toilet/Commode Transfer (QC): 3 Additional Goals: 1-Demonstrate ADL Tasks, 2-Verbalize Understanding, 3- ImproveStrength/Mabel 1=Demonstrate adherence to instructed precautions during ADL tasks. 2=Patient will verbalize/demonstrate understanding of assistive devices/modifications for ADL. 3=Patient will improve strength/tolerance for activity to enable patient to perform ADL's. OT Education/Plan Problem List/Assessment Assessment: Decreased Activ Tolerance, Decreased UE Strength, Dependent Transfers, Impaired Bed Mobility, Impaired Coordination, Impaired Funct Balance, Impaired I ADL's, Impaired Self-Care Skills, Restricted Funct UE ROM Discharge Recommendations Plan/Recommendations: Continue POC Therapy Discharge Recommendati: Scheduled Assistance Equpiment Recommendations-D/C: Extended Shower Sprayer, Feed Adviser, Sock Aide, Dressing Stick Treatment Plan/Plan of Care Treatment,Training & Education: Yes Patient would benefit from OT for education, treatment and training to promote independence in ADL's, mobility, safety and/or upper extremity function for ADL's. Plan of Care: ADL Retraining, Caregiver Training, Concurrent Therapy, Functional Mobility, Group Exercise/Act as Ind, Orthotic Fitting/Training, UE Funct Exercise/Act, W/C Management Training Treatment Duration: Jan 31, 2019 Frequency: At least 5 of 7 days/Wk (IRF) Estimated Hrs Per Day: 1.5 hours per day Agreement: Yes Rehab Potential: Guarded Time/GCodes Start Time: 10:55 Stop Time: 11:40 Total Time Billed (hr/min): 35 Billed Treatment Time 1, EVM (10) ADL 2 (25) PT eval from [id number], OT eval from 3485-2805, co-treat from [id number]. OT worked on functional mobility and ADL performance. PT performed bed mobility and assist with positioning. Total: 35 KIT SWANSON OTR Jan 17, 2019 11:56
--- NOTE | 2019-01-17 12:38 | PM&R H&P / Post Admit Assess ---
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 Hogan at [place] who presented to the ER after sustaining a fall at home, apparently she was walking up the stairs outside and caused her to fall into a fence, stated that her right leg was twisted and had pain in her upper left chest, could not move her leg, did not hit her head and did not lose consciousness, but was brought to the ER. Chest/a bdomen CT showed non-displaced anterior left fourth and fifth rib fractures, no pneumothorax and femur on the right revealed distal femur fracture. 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 Pt denies any significant heart or lung problems otherwise. Pt had prior level of functioning of independence without use of assistive device so we will admit to inpatient rehab, since she is so fatigued today we will do a 15/7 slow start but begin aggressive bowel movement treatment in addition to IV iron infusion since Hgb has decreased to 7.8 today and will initiated inpatient rehab protocol. Source: patient, RN/MD, old records Date Seen 01/17/19 Time Seen by a Provider: 11:30 Attending Physician Donita Cardenas DO PCP No,Local Physician Referring Physician Date of Admission Jan 17, 2019 at 11:14 Home Medications & Allergies Home Medications Reviewed patient Home Medication Reconciliation performed by pharmacy medication reconciliations physical therapist technician and/or nursing. Patients Allergies have been reviewed. 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[employer]) Alcohol Use: Denies Use Recreational Drug Use: No Smoking Status: Never a Smoker 2nd Hand Smoke Exposure: No Physical Abuse Screen: No Sexual Abuse: No Recent Foreign Travel: No Contact w/other who traveled: No Recent Hopitalizations: No Recent Infectious Disease Expo: No Immunizations Up To Date Pediatric: Yes Date of Pneumonia Vaccine: Jul 15, 2018 Date of Influenza Vaccine: Jan 09, 2019 Seasonal Allergies Seasonal Allergies: No Past Medical History Surgeries: Adenoidectomy, Appendectomy, Eye Surgery, Gallbladder, Joint Replacement, Orthopedic, Tonsillectomy, Tubal Ligation Respiratory: Sleep Apnea Currently Using CPAP: Yes Cardiac: High Cholesterol Sexually Transmitted Disease: No HIV/AIDS: No OAB Gastrointestinal: Chronic Constipation, Gall Bladder Disease Endocrine: Hypothyroidsim Psychosocial: Sleep Difficulties, Anxiety, Depression History of Blood Disorders: No Family History Completed stroke 19 MOTHER Hypercholesterolemia 19 MOTHER maternal grandmother Myocardial infarction maternal grandmother Neoplasm maternal grandfather (LUNG CANCER) paternal grandfather (LUNG CANCER) No Pertinent Family Hx Review of Systems Constitutional: see HPI, weakness EENTM: no symptoms reported Respiratory: no symptoms reported Cardiovascular: no symptoms reported Gastrointestinal: constipation Genitourinary: frequency Musculoskeletal: joint pain Skin: no symptoms reported Psychiatric/Neurological: Anxiety, Depressed All Other Systems Reviewed Negative Unless Noted: Yes Physical Exam Exam Vital Signs Vital Signs Date Time Temp Pulse Resp B/P (MAP) Pulse Ox O2 Delivery O2 Flow Rate FiO2 01/17/19 18:00 37.2 82 18 124/68 (86) 97 Room Air Capillary Refill : General Appearance: No Apparent Distress, WD/WN, Chronically ill, Obese HEENT: PERRL/EOMI, Normal ENT Inspection, Pharynx Normal, Moist Mucous Membranes Neck: Full Range of Motion, Normal Inspection, Non Tender, Supple Respiratory: Chest Non Tender, Lungs Clear, Normal Breath Sounds, No Accessory Muscle Use, No Respiratory Distress Cardiovascular: Regular Rate, Rhythm, No Edema, No Gallop, No JVD, No Murmur Gastrointestinal: Normal Bowel Sounds, No Organomegaly, No Pulsatile Mass, Non Tender, Soft Back: Normal Inspection, No CVA Tenderness, No Vertebral Tenderness Extremity: Normal Capillary Refill, Normal Inspection, Normal Range of Motion (except right leg and bilateral shoulders L>R in deficit), Non Tender, No Calf Tenderness, No Pedal Edema Neurologic/Psychiatric: Alert, Oriented x3, No Motor/Sensory Deficits, Normal Mood/Affect Skin: Normal Color, Warm/Dry Lymphatic: No Adenopathy Results Results/Procedures Labs Patient resulted labs reviewed. Assessment/Plan Assessment and Plan Assess & Plan/Chief Complaint Assessment: s/p repair distal right femur fracture TODD on CPAP Post op anemia with severely low iron so started iron infusions HLP Hypothyroidism Post op constipation OAB Plan: BM regimen Home meds Iron infusions Pain control Lovenox for DVT PPx (1) Fracture of femur, right, closed Status: Acute (2) Fall down stairs Status: Acute (3) HLD (hyperlipidemia) Status: Chronic Qualifiers: Hyperlipidemia type: mixed hyperlipidemia Qualified Codes: E78.2 - Mixed hyperlipidemia (4) Rib fractures Status: Acute Qualifiers: Encounter type: subsequent encounter Rib fracture type: multiple ribs Fracture type: closed Laterality: left (5) Hypothyroidism Status: Chronic Qualifiers: Hypothyroidism type: acquired Qualified Codes: E03.9 - Hypothyroidism, unspecified (6) Depression Status: Chronic Qualifiers: Depression Type: unspecified Qualified Codes: F32.9 - Major depressive disorder, single episode, unspecified (7) Insomnia Status: Chronic (8) Femoral distal fracture Status: Acute Post Admission Physician Asses Date seen by provider: Jan 17, 2019 Time seen by provider: 11:30 Admisison Dx: (1) Fracture of femur, right, closed Status: Acute The preadmission screen agrees with the post admission assessment that the patient is a good candidate for inpatient rehabilitation. The patient will have a comprehensive program of inpatient rehabilitation with a goal of maximizing level of functional independence prior to discharge home with family. The patient will have PT/OT ninety minutes per day, each discipline, five days a week for gait, strengthening, conditioning, balance, ADLs, any patient/family/caregiver training as necessary. Speech therapy to do cognitive assessment and treat as indicated. Rehabilitation nursing to assist with bowel, bladder, skin, wound care, medication administration, pain management. Community Marketing Coordinator to assist with discharge planning, community reentry. SCD's for DVT prophylaxis. She appears to be well motivated to participate in three hours of therapy a day. She should be able to tolerate three hours of therapy a day from a medical standpoint. She should benefit from the three hours of therapy a day. She has a reasonable discharge plan, reasonable discharge rehabilitation goals and a supportive family. She has various comorbidities that need to be closely monitored with medications and treatments adjusted on a daily basis as needed. These include: see list Barriers to discharge for this patient who had been independent prior to this are for her to be modified independent to supervision for ADLs and mobility skills prior to discharge home with family, so as to lessen the burden of the caregivers. Risks for this patient include: 1. Fall 2. Fracture 3. DVT 4. Pulmonary embolism 5. Wound infection 6. Skin breakdown 7. Contractures 8. Poorly controlled pain 9. Urinary retention 10. UTI 11. Respiratory infection 12. Aspiration Estimated Length of Stay: 14 days Prognosis: Rehab prognosis appears good for goal of discharge home with family modified independent to supervision for ADLs and mobility skills. DONITA CARDENSA DO Jan 17, 2019 12:38
[2019-01-17] MEDS ORDERED: METOCLOPRAMIDE INJ 10 MG/2 ML (REGLAN) IVP PRN (12:45)
[2019-01-17] MEDS ORDERED: morphine INJ 4 MG/ML 1 ML (VIAL/SYRINGE) IVP PRN (12:45)
[2019-01-17] MEDS ORDERED: BISACODYL 5 MG (DULCOLAX) TABLET PO PRN (12:45)
[2019-01-17] MEDS ORDERED: MELATONIN 3 MG TABLET PO PRN (12:45)
[2019-01-17] MEDS ORDERED: ONDANSETRON 4 MG/2 ML (SDV) Z0FRAN IVP PRN (12:45)
[2019-01-17] MEDS ORDERED: POLYETHYLENE GLYCOL 17 GM (MIRALAX) PACK PO PRN (12:45)
[2019-01-17] MEDS ORDERED: ONDANSETRON 4 MG (ZOFRAN) ORAL DISSOLVE TAB PO PRN (12:45)
[2019-01-17] MEDS ORDERED: LACTATED RINGERS 1,000 ML IV PRN (12:45)
[2019-01-17] MEDS ORDERED: diphenhydrAMINE 50 MG/ML INJ (BENADRYL) IVP PRN (12:45)
[2019-01-17] MEDS: POLYETHYLENE GLYCOL 17 GM (MIRALAX) PACK PO SCH ×2 (12:55→21:26)
[2019-01-17] MEDS: LACTULOSE SYRUP 10GM/15ML (ENULOSE) 30ML UDC PO SCH ×2 (12:55→21:26)
--- NOTE | 2019-01-17 12:56 | NUR ---
STOOLS SOFTENERS NOT ADMINISTERED. THEY ARE ORDERED BID AND WERE GIVEN AT 1005 THIS MORNING.
--- NOTE | 2019-01-17 13:25 | NUR ---
REVIEWED MED REC IT WAS REPORTED UPON ADMISSION TO 4TH FLOOR. NO CHANGES WERE MADE WHEN THE PATIENT DISCHARGED TO REHAB.
[2019-01-17] MEDS: CATHETER FLUSH 10 ML SYR IV SCH ×2 (14:17→20:42)
--- NOTE | 2019-01-17 14:21 | Occupational Ther Daily Note ---
OT Current Status-Daily Note Subjective Pt seen in bed, agreeable to OT/ PT treatment session. Pt grimaces during movements due to pain in ribs/ RLE. Unrated pain. Mental Status/Objective Patient Orientation: Normal For Age ADL-Treatment Therapy Code Descriptions/Definitions Functional [place] Measure: 0=Not Assessed/NA 4=Minimal Assistance 1=Total Assistance 5=Supervision or Setup 2=Maximal Assistance 6=Modified [place] 3=Moderate Assistance 7=Complete IndependenceSCALE: Activities may be completed with or without assistive devices. 3-Icvbzbjdlo-qlljgmr completes the activity by him/herself with no assistance from a helper. 5-Set-up or Clean-up Assistance-helper sets up or cleans up; patient completes activity. [place] assists only prior to or following the activity. 4-Supervision or Touching Assistance-helper provides verbal cues and/or touching/steadying and/or contact guard assistance as patient completes activity. Assistance may be provided throughout the activity or intermittently. 3-Partial/Moderate Assistance-helper does LESS THAN HALF the effort. [place] lifts, holds or supports trunk or limbs, but provides less than half the effort. 2-Substantial/Maximal Assistance-helper does MORE THAN HALF the effort. [place] lifts or holds trunk or limbs and provides more than half the effort. 2-Aaimmycij-vfcpou does ALL the effort. Patient does none of the effort to complete the activity. Or, the assistance of 2 or more helpers is required for the patient to complete the activity. If activity was not attempted, code reason: 7-Patient Refused. 9-Not Applicable-not attempted and the patient did not perform the activity before the current illness, exacerbation or injury. 10-Not Attempted due to Environmental Limitations-(lack of equipment, weather restraints, etc.). 88-Not Attempted due to Medical Conditions or Safety Concerns. Eating (QC): 6 Shower/Bathe Self (QC): 2 (Pt completes sponge bath EOB, pt requires intermittent breaks due to fatigue. Pt able to complete UE and chest/ abdomen cleansing. Pt required assist with back, bottom, nichol area, and LLE. Pt unable to reach foot. Pt completes drying self, requires assist with LE and back drying.) Upper Body Dressing (QC): 3 (Pt dons gown. pt requires assist threading RUE due to fatigue. ) Lower Body Dressing (QC): 1 (Pt TD with sock doff/donning wihtout AE) Other Treatment OT/PT cotreat due to pt's functional abilities and safety. OT focused on ADL, safety, and functional mobility, PT focused on sitting balance EOB, LE movement, functional transfers. Pt states she is "fizzled out" and has no energy. Pt agreeable to sponge bath EOB, pt states she does not want to don UB/ LB clothing as "even the gown is pulling on (R) shoulder". Pt agrees to place new gown on. Pt demonstrates decreased energy, stabilizes self with bed rail and commode placed in front of pt while in seated position. Pt demonstrates SOB intermittently. Pt agreeable to sit in recliner chair to eat, requires max Ax2 to complete squat-pivot to recliner chair placed beside bed. Pt adjusts self in chair, able to eat without assist. Pt left in chair, all needs met, call light in reach, pt's present end of session. Education OT Patient Education: Modified ADL techniques, Purpose of tx/functional activities, Reviewed precautions, Safety issues, Transfer techniques Teaching Recipient: Patient Teaching Methods: Demonstration, Discussion Response to Teaching: Verbalize Understanding, Return Demonstration OT Short Term Goals Short Term Goals Grooming(FIM): 4 Upper Body Dressing(FIM): 3 Lower Body Dressing(FIM): 2 Transfers (B,C,W/C) (FIM): 2 Additional Short Term Goals: 1-Demonstrate ADL Tasks, 2-Verbalize Understanding, 3-ImproveStrength/Mabel 1=Demonstrate adherence to instructed precautions during ADL tasks. 2=Patient will verbalize/demonstrate understanding of assistive devices/modifications for ADL. 3=Patient will improve strength/tolerance for activity to enable patient to perform ADL's. OT Correction Goals Correction Goals Eating (QC): 6 Oral Hygiene (QC): 6 Shower/Bathe Self (QC): 5 Upper Body Dressing (QC): 5 Lower Body Dressing (QC): 3 On/Off Footwear (QC): 3 Toileting Hygiene (QC): 3 Toilet/Commode Transfer (QC): 3 Additional Goals: 1-Demonstrate ADL Tasks, 2-Verbalize Understanding, 3- ImproveStrength/[place]abel 1=Demonstrate adherence to instructed precautions during ADL tasks. 2=Patient will verbalize/demonstrate understanding of assistive devices/modifications for ADL. 3=Patient will improve strength/tolerance for activity to enable patient to perform ADL's. OT Education/Plan Problem List/Assessment Assessment: Decreased Activ Tolerance, Decreased UE Strength, Dependent Transfers, Impaired Bed Mobility, Impaired Funct Balance, Impaired I ADL's, Impaired Self-Care Skills, Restricted Funct UE ROM Discharge Recommendations Plan/Recommendations: Continue POC Treatment Plan/Plan of Care Treatment,Training & Education: Yes Patient would benefit from OT for education, treatment and training to promote independence in ADL's, mobility, safety and/or upper extremity function for ADL's. Plan of Care: ADL Retraining, Caregiver Training, Concurrent Therapy, Functional Mobility, Group Exercise/Act as Ind, Orthotic Fitting/Training, UE Funct Exercise/Act, W/C Management Training Treatment Duration: Jan 31, 2019 Frequency: At least 5 of 7 days/Wk (IRF) Estimated Hrs Per Day: 1.5 hours per day Agreement: Yes Rehab Potential: Guarded Time/GCodes Start Time: 13:30 Stop Time: 14:10 Total Time Billed (hr/min): 40 Billed Treatment Time 1 ADLx3 (40) KIT SWANSON OTR Jan 17, 2019 14:21
--- NOTE | 2019-01-17 14:29 | Physical Therapy Daily Note ---
PT Daily Note-Current Subjective Patient in bed pre tx, agrees to PT, has unrated pain in right leg. Will be co- treating with OT due to poor patient mobility, strength, endurance, inability to bear weight on right arm or leg, the need to coordinate UE and LE during activity. Appearance Patient in recliner post tx with nurse call, phone, tray, all needs met, legs elevated. Mental Status Patient Orientation: Normal For Age right knee immobilizer Transfers SCALE: Activities may be completed with or without assistive devices. 8-Knucyfsicu-oeiided completes the activity by him/herself with no assistance from a helper. 5-Set-up or Clean-up Assistance-helper sets up or cleans up; patient completes activity. [place] assists only prior to or following the activity. 4-Supervision or Touching Assistance-helper provides verbal cues and/or touching/steadying and/or contact guard assistance as patient completes activity. Assistance may be provided throughout the activity or intermittently. 3-Partial/Moderate Assistance-helper does LESS THAN HALF the effort. [place] lifts, holds or supports trunk or limbs, but provides less than half the effort. 2-Substantial/Maximal Assistance-helper does MORE THAN HALF the effort. [place] lifts or holds trunk or limbs and provides more than half the effort. 7-Rwujdpfru-puufqw does ALL the effort. Patient does none of the effort to complete the activity. Or, the assistance of 2 or more helpers is required for the patient to complete the activity. If activity was not attempted, code reason: 7-Patient Refused. 9-Not Applicable-not attempted and the patient did not perform the activity before the current illness, exacerbation or injury. 10-Not Attempted due to Environmental Limitations-(lack of equipment, weather restraints, etc.). 88-Not Attempted due to Medical Conditions or Safety Concerns. Transfers (B, C, W/C): 1 Roll Left to Right (QC): 1 Sit to Lying (QC): 1 Sit to Stand (QC): 1 Chair/Geq-lm-Fueez Xfer(QC): 1 Patient performed supine to sit, bathed (needed some trunk control during bathing), transferred to recliner. Weight Bearing Right Lower Extremity: Right Non Weight Bearing Left Lower Extremity: Left Full Weight Bearing Patient states she is not supposed to bear weight on her right arm due to shoulder issues. Treatments bed mobility and transfers, bathing Assessment Current Status: Poor Progress dependent for mobility. PT performed bed mobility and transfers, assist with trunk control and seated balance during bathing, OT worked on bathing assist with transfers. PT Short Term Goals Short Term Goals Time Frame: Jan 24, 2019 Wheelchair Distance: 50' Wheelchair Level of Assist: 5 PT Superannuation Funds Manager Goals Superannuation Funds Manager Goals PT Custodial Goals Time Frame: Feb 07, 2019 Sit to Lying (QC): 3 (min assist) Lying-Sitting on Side/Bed(QC): 3 (min assist) Sit to Stand (QC): 3 (mod assist) Roll Left to Right (QC): 3 (min assist) Chair/Cgt-bu-[place]azyr Xfer(QC): 3 (mod assist) Car Transfer (QC): 3 (mod assist) Distance: 150' Wheel 50 feet with 2 turns (QC: 4 (SBA) PT Plan Problem List Problem List: Activity Tolerance, Functional Strength, Safety, Balance, Gait, T ransfer, Bed Mobility, ROM Treatment/Plan Treatment Plan: Continue Plan of Care Treatment Plan: Bed Mobility, Concurrent Therapy, Education, Functional Activity [place], Functional Strength, Group Therapy, Safety, Therapeutic Exercise, Transfers Treatment Duration: Feb 07, 2019 Frequency: At least 5 of 7 days/Wk (IRF) Estimated Hrs Per Day: 1.5 hours per day Patient and/or Family Agrees t: Yes Safety Risks/Education Patient Education: Transfer Techniques, Correct Positioning, Safety Issues Teaching Recipient: Patient Teaching Methods: Demonstration, Discussion Response to Teaching: Reinforcement Needed Time/GCodes Time In: 1330 Time Out: 1410 Total Billed Treatment Time: 40 Total Billed Treatment 1 visit FA 40' ANTONI TRAORE PT Jan 17, 2019 14:28
--- NOTE | 2019-01-17 14:56 | NUR ---
CALLED DR LEWIS REGARDING ACYCLOVIR THAT WAS REPORTED TO BE MISSED THIS MORNING ON MED/SURG, PHARMACY SAID A LOADING DOSE WAS ORDERED TODAY BY DR DALLAS. THIS RN IS NOT SURE WHY IT WAS ORDERED I DID NOT SEE ANY REFERENCE TO IT THE ORDERS FROM [address]. PER DR LEWIS "RESTART VALTREX THEN FIRST NOW"
--- NOTE | 2019-01-17 15:01 | NUR ---
Met with patient to complete initial assessment. Patient admitted to ARU on 01/17/19. Patient suffered a fall on 01/14/19 while at a baseball game in [place], resulting in nondisplaced anterior left 4th and 5th rib fractures and fracture of the distal shaft of the right femur. Patient underwent ORIF of right distal femur fracture on 01/15/[address] Bassett and is currently NWB to [facility]. Per patient report, she is also NWB through right shoulder. Prior to hospitalization the patient was living at home with her spouse in a single story home with level entry. Patient reported she assists her with LE dressing and other ADLs as needed, as well as completing all IADs outside the home. She reported she was independent with ADLs and functional mobility and was not using any adaptive equipment. Patient reported she does have a bath chair and FWW at home. Patient reported her primary contact is her spouse, Morales Branch. His phone number is . Patient reported her PCP is Coby Hogan in [place], [place]. Patient's preferred pharmacy is [facility] in [place], [place]. Patient confirmed primary insurance as Medicare with [employer]. The purpose of the weekly team conference was discussed and patient verbalized understanding.
[2019-01-17] MEDS: VALACYCLOVIR 500 MG TAB (VALTREX) PO SCH ×2 (15:16→20:41)
[2019-01-17] MEDS: ACETAMINOPHEN 325 MG TABLET PO PRN (17:46)
--- NOTE | 2019-01-17 17:50 | NUR ---
DR CABALLERO HERE TO SEE PATIENT. HE CHANGED THE ISLAND DRESSING ON THE INCISIONS.
[2019-01-17 18:00] VITALS: BP 124/68
--- NOTE | 2019-01-17 18:38 | Progress Note ---
Standard Progress Note Progress Notes/Assess & Plan Date Seen by a Provider: Jan 17, 2019 Time Seen by a Provider: 17:00 Progress/Assessment & Plan Pt CARMEN, pain controlled, no overnight issues to report, does c/o Left-sided rib pain, no other complaints. VSSAF RLE: dressings changed, incisions c/d/i, all compartments soft/compressible, motor/sensation grossly intact, foot well perfused. S/P ORIF periprosthetic fracture Right distal femur, POD #2 Orthopedically stable Continue PT/OT, strict NWB RLE, hinged brace locked in extension at all times Lovenox/SCDs Current pain control regimen F/U outpatient in 2 weeks MAGUE CABALLERO DO Jan 17, 2019 18:38
--- NOTE | 2019-01-17 18:43 | Discharge Inst-Surgical ---
Discharge Inst-Surgical Reconcile Patient Problems Problems Reviewed?: Yes Depart Medication/Instructions Patient Instructions Please take 325mg enteric coated aspirin once daily for 4 weeks; stop taking lovenox at time of discharge Consults/Follow Up Goal/Follow Up Appt.: Please follow up with Dr. Bassett at [address], [place] in 2 weeks; please call the office to confirm your appointment. Activity Strict non-weight bearing on your Right leg; please wear hinged brace locked in extension at all times; may remove for bathing only Walking Assistive Device: Walker Activity Instructions: Avoid Stress to Incision Driving Instructions: No Driving/Refer to Dr. Kaur Discharge Diet: No Restrictions Skin/Wound Care Infection Signs and Symptoms: Increased Redness, Foul Odor of Wound, Increased Drainage, Increased Swelling, Temperature Above 101 F Wound Care Comment: Keep incision clean and dry; you may remove your dressings in 4 days and shower; no baths or soaking tubs Bathing Instructions: Shower Operative Area Clean and Dry: Keep Incision Clean/Dry Stitches/[place] Dis: Care of MAGUE Novoa DO Jan 17, 2019 18:43
[2019-01-17] MEDS: DOCUSATE SODIUM 100 MG (COLACE) CAP PO SCH (20:40)
[2019-01-17] MEDS: buPROPion SR 150 MG (WELLBUTRIN SR) TAB PO SCH (20:40)
[2019-01-17] MEDS: ENOXAPARIN 40 MG/0.4 ML (LOVENOX) SYR SC SCH (20:41)
[2019-01-17] MEDS: OXYBUTYNIN (DITROPAN) 5 MG TAB PO SCH (20:41)
[2019-01-17] MEDS: ZOLPIDEM 5 MG (AMBIEN) TAB PO PRN (20:41)
[2019-01-17] MEDS ORDERED: VALACYCLOVIR 500 MG TAB (VALTREX) PO SCH (21:00)
[2019-01-17] MEDS: BISACODYL 10 MG SUPP (DULCOLAX) PR SCH (21:26)
[2019-01-18] MEDS ORDERED: LEVOTHYROXINE 112 MCG (LEVOTHROID) TAB ONE (01:43)
[2019-01-18] MEDS ORDERED: LEVOTHYROXINE 25 MCG (LEVOTHROID) TAB ONE (01:43)
[2019-01-18] MEDS: LEVOTHYROXINE 112 MCG (LEVOTHROID) TAB PO SCH (01:46)
[2019-01-18] MEDS: LEVOTHYROXINE 25 MCG (LEVOTHROID) TAB PO SCH (01:46)
[2019-01-18 05:25] VITALS: BP 132/72
[2019-01-18] MEDS: CATHETER FLUSH 10 ML SYR IV SCH ×3 (06:14→20:57)
[2019-01-18 06:51] LABS: BASOPHILS % (AUTO) 1 % (0-10); EOSINOPHILS # (AUTO) 0.3 10^3/uL (0.0-0.3); EOSINOPHILS % (AUTO) 5 % (0-10); HEMATOCRIT 23 % (35-52); HEMOGLOBIN 7.3 G/DL (11.5-16.0); LYMPHOCYTES # (AUTO) 1.4 X 10^3 (1.0-4.0); LYMPHOCYTES % (AUTO) 22 % (12-44); MEAN CORPUSCULAR HEMOGLOBIN 30 PG (25-34); MEAN CORPUSCULAR HGB CONC 32 G/DL (32-36); MEAN CORPUSCULAR VOLUME 94 FL (80-99); MEAN PLATELET VOLUME 9.5 FL (7.4-10.4); MONOCYTES # (AUTO) 0.6 X 10^3 (0.0-1.0); MONOCYTES % (AUTO) 10 % (0-12); NEUTROPHILS # (AUTO) 3.9 X 10^3 (1.8-7.8); NEUTROPHILS % (AUTO) 63 % (42-75); PLATELET COUNT 210 10^3/uL (130-400); RED CELL DISTRIBUTION WIDTH 13.2 % (10.0-14.5); WHITE BLOOD COUNT 6.2 10^3/uL (4.3-11.0)
[2019-01-18 07:12] LABS: ALANINE AMINOTRANSFERASE 34 U/L (0-55); ALKALINE PHOSPHATASE 42 U/L (40-136); BILIRUBIN,TOTAL 0.6 MG/DL (0.1-1.0); BUN/CREATININE RATIO 10; CALCIUM 7.9 MG/DL (8.5-10.1); CARBON DIOXIDE 28 MMOL/L (21-32); CHLORIDE 105 MMOL/L (98-107); GFR ESTIMATED > 60; GLUCOSE 99 MG/DL (70-105); POTASSIUM 4.1 MMOL/L (3.6-5.0); SODIUM 139 MMOL/L (135-145); TOTAL PROTEIN 5.4 GM/DL (6.4-8.2)
[2019-01-18] MEDS: LACTULOSE SYRUP 10GM/15ML (ENULOSE) 30ML UDC PO SCH ×2 (07:33→20:54)
[2019-01-18] MEDS: POLYETHYLENE GLYCOL 17 GM (MIRALAX) PACK PO SCH ×2 (07:34→20:54)
[2019-01-18] MEDS: BISACODYL 10 MG SUPP (DULCOLAX) PR SCH ×2 (07:34→20:55)
[2019-01-18] MEDS: buPROPion SR 150 MG (WELLBUTRIN SR) TAB PO SCH ×2 (08:08→20:54)
[2019-01-18] MEDS: OXYBUTYNIN (DITROPAN) 5 MG TAB PO SCH ×2 (08:08→20:54)
[2019-01-18] MEDS: SERTRALINE 50 MG (ZOLOFT) TABLET PO SCH (08:08)
[2019-01-18] MEDS: VALACYCLOVIR 500 MG TAB (VALTREX) PO SCH ×2 (08:08→20:54)
[2019-01-18] MEDS: DOCUSATE SODIUM 100 MG (COLACE) CAP PO SCH ×2 (08:08→20:53)
[2019-01-18] MEDS: ENOXAPARIN 40 MG/0.4 ML (LOVENOX) SYR SC SCH ×2 (08:08→20:55)
[2019-01-18] MEDS: SENNA W/DOCUSATE (SENOKOT S) TABLET PO SCH (08:08)
--- NOTE | 2019-01-18 08:57 | PM&R Progress Note ---
Subjective HPI/CC On Admission Date Seen by Provider: Jan 18, 2019 Time Seen by Provider: 08:30 Chief complaint: s/p right femur fracture HPI: This is a 68yoWF clinic Pt of Dr. Hogan at [facility] who presented to the ER after sustaining a fall at home, apparently she was walking up the stairs outside and caused her to fall into a fence, stated that her right leg was twisted and had pain in her upper left chest, could not move her leg, did not hit her head and did not lose consciousness, but was brought to the ER. Shira st/abdomen CT showed non-displaced anterior left fourth and fifth rib fractures, no pneumothorax and femur on the right revealed distal femur fracture. 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 Pt denies any significant heart or lung problems otherwise. Pt had prior level of functioning of independence without use of assistive device so we will admit to inpatient rehab, since she is so fatigued today we will do a 15/7 slow start but begin aggressive bowel movement treatment in addition to IV iron infusion since Hgb has decreased to 7.8 today and will initiated inpatient rehab protocol. Subjective/Events-last exam Pt settling in Very fatigued She remains non weight-bearing No BM since 01/14 but Colace and prunes will be initiated Right shoulder can't really be used so will reach out to Orthopedic surgery where she had her surgery before and evaluate the limitation so n that because the could delay her recovery Brace has rubbed a blister on her right leg so will provide support to that area Lovenox maintained even though her Hgb at 7.3 from acute blood loss anemia from surgery but she is high risk because she is nonweightbearing immobile so she will remain on Lovenox and we will transfuse if necessary Iron infusions tolerated Conferred with RN Reviewed therapy notes Checked meds and labs Review of Systems General: Fatigue Musculoskeletal: leg pain Objective Exam Vital Signs Vital Signs Date Time Temp Pulse Resp B/P (MAP) Pulse Ox O2 Delivery O2 Flow Rate FiO2 01/18/19 18:00 37.2 84 18 126/80 (95) 94 Room Air Capillary Refill : Less Than 3 Seconds General Appearance: No Apparent Distress, WD/WN, Chronically ill, Obese HEENT: PERRL/EOMI, Normal ENT Inspection, Pharynx Normal, Moist Mucous Membranes Neck: Full Range of Motion, Normal Inspection, Non Tender, Supple Respiratory: Chest Non Tender, Lungs Clear, Normal Breath Sounds, No Accessory Muscle Use, No Respiratory Distress Cardiovascular: Regular Rate, Rhythm, No Edema, No Gallop, No JVD, No Murmur Gastrointestinal: Normal Bowel Sounds, No Organomegaly, No Pulsatile Mass, Non Tender, Soft Back: Normal Inspection, No CVA Tenderness, No Vertebral Tenderness Extremity: Normal Capillary Refill, Normal Inspection, Normal Range of Motion (except right leg and bilateral shoulders L>R in deficit), Non Tender, No Calf Tenderness, No Pedal Edema Neurologic/Psychiatric: Alert, Oriented x3, No Motor/Sensory Deficits, Normal Mood/Affect Skin: Normal Color, Warm/Dry Lymphatic: No Adenopathy Results/Procedures Lab Laboratory Tests 01/18/19 06:35 Patient resulted labs reviewed. FIM Transfers Therapy Code Descriptions/Definitions Functional [place] Measure: 0=Not Assessed/NA 4=Minimal Assistance 1=Total Assistance 5=Supervision or Setup 2=Maximal Assistance 6=Modified [place] 3=Moderate Assistance 7=Complete IndependenceSCALE: Activities may be completed with or without assistive devices. 6-Yktawmiveb-cadxqog completes the activity by him/herself with no assistance from a helper. 5-Set-up or Clean-up Assistance-helper sets up or cleans up; patient completes activity. [place] assists only prior to or following the activity. 4-Supervision or Touching Assistance-helper provides verbal cues and/or touching/steadying and/or contact guard assistance as patient completes activity. Assistance may be provided throughout the activity or intermittently. 3-Partial/Moderate Assistance-helper does LESS THAN HALF the effort. [place] lifts, holds or supports trunk or limbs, but provides less than half the effort. 2-Substantial/Maximal Assistance-helper does MORE THAN HALF the effort. [place] lifts or holds trunk or limbs and provides more than half the effort. 2-Tvqtsnwmf-ojmvsc does ALL the effort. Patient does none of the effort to complete the activity. Or, the assistance of 2 or more helpers is required for t he patient to complete the activity. If activity was not attempted, code reason: 7-Patient Refused. 9-Not Applicable-not attempted and the patient did not perform the activity before the current illness, exacerbation or injury. 10-Not Attempted due to Environmental Limitations-(lack of equipment, weather restraints, etc.). 88-Not Attempted due to Medical Conditions or Safety Concerns. Transfers (B, C, W/C) (FIM): 1 Roll Left to Right (QC): 1 Sit to Lying (QC): 1 Sit to Stand (QC): 1 Chair/Yck-jr-Yqcqw Xfer(QC): 1 Car Transfer (QC): 88 Gait Training Does the Patient Walk?: No and Walking Goal NOT indicated Walk 10 feet (QC): 88 Walk 50 ft with 2 Turns(QC): 88 Walk 150 ft (QC): 88 Walking 10ft/uneven surface-QC: 88 Wheelchair Training Does the Pt Use a Wheelchair?: Yes Distance: 50' Wheel 50 ft with 2 turns (QC): 1 Wheel 150 ft (QC): 1 Type of Wheelchair: Manual Stair Training 1 Step (curb) (QC): 88 4 Steps (QC): 88 12 Steps (QC): 88 ADL-Treatment Eating (QC): 6 Shower/Bathe Self (QC): 2 (Pt completes sponge bath EOB, pt requires intermittent breaks due to fatigue. Pt able to complete UE and chest/ abdomen cleansing. Pt required assist with back, bottom, nichol area, and LLE. Pt unable to reach foot. Pt completes drying self, requires assist with LE and back drying.) Upper Body Dressing (QC): 3 (Pt dons gown. pt requires assist threading RUE due to fatigue. ) Lower Body Dressing (QC): 1 (Pt TD with sock doff/donning wihtout AE) On/Off Footwear (QC): 1 (TD L sock) Assessment/Plan Assessment and Plan Assess & Plan/Chief Complaint Assessment: s/p repair distal right femur fracture TODD on CPAP Post op anemia with severely low iron so started iron infusions HLP Hypothyroidism Post op constipation placed on meds OAB Plan: BM regimen Home meds Iron infusions Pain control Lovenox for DVT PPx (1) Fracture of femur, right, closed Status: Acute (2) Insomnia Status: Chronic (3) Fall down stairs Status: Acute (4) Depression Status: Chronic Qualifiers: Depression Type: unspecified Qualified Codes: F32.9 - Major depressive disorder, single episode, unspecified (5) Hypothyroidism Status: Chronic Qualifiers: Hypothyroidism type: acquired Qualified Codes: E03.9 - Hypothyroidism, unspecified (6) Rib fractures Status: Acute Qualifiers: Encounter type: subsequent encounter Rib fracture type: multiple ribs Fracture type: closed Laterality: left (7) HLD (hyperlipidemia) Status: Chronic Qualifiers: Hyperlipidemia type: mixed hyperlipidemia Qualified Codes: E78.2 - Mixed hyperlipidemia (8) Postoperative anemia (9) Iron deficiency RAJESH LEWIS DO Jan 18, 2019 08:57
--- NOTE | 2019-01-18 09:34 | Physical Therapy Daily Note ---
PT Daily Note-Current Subjective Patient in bed pre tx, agrees to PT, has no complaints of pain at rest, will be co-treating with OT due to poor patient mobility, strength, endurance, ROM, the inability to stand, NWB on the right UE and LE, the need to coordinate UE and LE during activity. Appearance Patient in bed post tx with nurse call, phone, tray, all needs met. Patient's brace was rubbing a spot on her right leg, nurse notified and is taking care of it, a knee immobilizer was put on her in order to try to reduce the pressure on the back of her leg. Mental Status Patient Orientation: Normal For Age Transfers SCALE: Activities may be completed with or without assistive devices. 2-Wmyrslhslh-opazqnh completes the activity by him/herself with no assistance from a helper. 5-Set-up or Clean-up Assistance-helper sets up or cleans up; patient completes activity. [place] assists only prior to or following the activity. 4-Supervision or Touching Assistance-helper provides verbal cues and/or touching/steadying and/or contact guard assistance as patient completes activity. Assistance may be provided throughout the activity or intermittently. 3-Partial/Moderate Assistance-helper does LESS THAN HALF the effort. [place] lifts, holds or supports trunk or limbs, but provides less than half the effort. 2-Substantial/Maximal Assistance-helper does MORE THAN HALF the effort. [place] lifts or holds trunk or limbs and provides more than half the effort. 4-Cyzvcpdmy-nwchol does ALL the effort. Patient does none of the effort to complete the activity. Or, the assistance of 2 or more helpers is required for the patient to complete the activity. If activity was not attempted, code reason: 7-Patient Refused. 9-Not Applicable-not attempted and the patient did not perform the activity before the current illness, exacerbation or injury. 10-Not Attempted due to Environmental Limitations-(lack of equipment, weather restraints, etc.). 88-Not Attempted due to Medical Conditions or Safety Concerns. Transfers (B, C, W/C): 1 Roll Left to Right (QC): 1 Sit to Lying (QC): 1 Sit to Stand (QC): 1 Chair/Zst-ej-Tqtxt Xfer(QC): 1 Patient was transferred to sitting from supine, transferred to shower chair, taken to shower, showered, dried off, dressed, take to her room, transferred back to bed, right leg positioned and knee immobilizer put on. Weight Bearing Right Lower Extremity: Right Non Weight Bearing Left Lower Extremity: Left Full Weight Bearing Patient states she is not supposed to bear weight on her right arm due to shoulder issues. Assessment Current Status: Poor Progress no change in mobility PT Short Term Goals Short Term Goals Time Frame: Jan 24, 2019 Wheelchair Distance: 50' Wheelchair Level of Assist: 5 PT Bank Worker Goals Fpc Goals PT Fpc Goals Time Frame: Feb 07, 2019 Sit to Lying (QC): 3 (min assist) Lying-Sitting on Side/Bed(QC): 3 (min assist) Sit to Stand (QC): 3 (mod assist) Roll Left to Right (QC): 3 (min assist) Chair/Src-qz-Ruaye Xfer(QC): 3 (mod assist) Car Transfer (QC): 3 (mod assist) Distance: 150' Wheel 50 feet with 2 turns (QC: 4 (SBA) PT Plan Problem List Problem List: Activity Tolerance, Functional Strength, Safety, Balance, Gait, Transfer, Bed Mobility, ROM Treatment/Plan Treatment Plan: Continue Plan of Care Treatment Plan: Bed Mobility, Concurrent Therapy, Education, Functional Activity Mabel, Functional Strength, Group Therapy, Safety, Therapeutic Exercise, Transfers Treatment Duration: Feb 07, 2019 Frequency: At least 5 of 7 days/Wk (IRF) Estimated Hrs Per Day: 1.5 hours per day Patient and/or Family Agrees t: Yes Safety Risks/Education Patient Education: Transfer Techniques, Correct Positioning, Safety Issues Teaching Recipient: Patient Teaching Methods: Demonstration, Discussion Response to Teaching: Reinforcement Needed Time/GCodes Time In: 0800 Time Out: 09 Total Billed Treatment Time: 90 Total Billed Treatment 1 visit FA 90' Co-treated for 90 min, PT performed bed mobility and transfers and assist with positioning during shower and don/doff leg brace, OT worked on shower , dressing, grooming, assist with transfers. ANTONI TRAORE PT Jan 18, 2019 09:34
--- NOTE | 2019-01-18 09:58 | Occupational Ther Daily Note ---
OT Current Status-Daily Note Subjective Pt in bed upon entry, food placed in front of pt. Pt educated on therapy process; pt does not rate pain, states R leg "feels raw." Nursing notified of pt statement, nursing states shower without brace and shower with dressings. Pt agreeable to OT/PT cotreatment. Co treat necessary due to pt's NWB status to R LE and R UE, poor mobility, poor endurance and restricted UE ROM and strength. Mental Status/Objective Patient Orientation: Normal For Age ADL-Treatment Therapy Code Descriptions/Definitions Functional [place] Measure: 0=Not Assessed/NA 4=Minimal Assistance 1=Total Assistance 5=Supervision or Setup 2=Maximal Assistance 6=Modified [place] 3=Moderate Assistance 7=Complete IndependenceSCALE: Activities may be completed with or without assistive devices. 0-Npadufvdhd-vauwgoj completes the activity by him/herself with no assistance from a helper. 5-Set-up or Clean-up Assistance-helper sets up or cleans up; patient completes activity. [place] assists only prior to or following the activity. 4-Supervision or Touching Assistance-helper provides verbal cues and/or touching/steadying and/or contact guard assistance as patient completes activity. Assistance may be provided throughout the activity or intermittently. 3-Partial/Moderate Assistance-helper does LESS THAN HALF the effort. [place] lifts, holds or supports trunk or limbs, but provides less than half the effort. 2-Substantial/Maximal Assistance-helper does MORE THAN HALF the effort. [place] lifts or holds trunk or limbs and provides more than half the effort. 8-Eahzmyqct-asvutt does ALL the effort. Patient does none of the effort to complete the activity. Or, the assistance of 2 or more helpers is required for the patient to complete the activity. If activity was not attempted, code reason: 7-Patient Refused. 9-Not Applicable-not attempted and the patient did not perform the activity before the current illness, exacerbation or injury. 10-Not Attempted due to Environmental Limitations-(lack of equipment, weather restraints, etc.). 88-Not Attempted due to Medical Conditions or Safety Concerns. Eating (QC): 6 Oral Hygiene (QC): 6 Shower/Bathe Self (QC): 3 (Pt requires assist with bottom, back and bilateral feet without AE. Pt able to reach top portion of back and tops of feet with long handled sponge. Pt completes on shower chair in shower room. ) Upper Body Dressing (QC): 3 (Pt requires assist bringing bra down on back due to restricted UE motion and high-back shower chair. Pt able to manipulate fastener. Pt requires assist doffing bra, difficult to maintain strength to doff through L arm. Pt able to doff over R arm with use of L.) Lower Body Dressing (QC): 2 (Pt requires max A with LB dressing including socks and breif while laying supine in bed. Pt able to lift L foot for easier donning and use L leg to bridge bottom to don breif under bottom. ) Toileting Hygiene (QC): 2 (Pt attempts to lean side to side for wiping, unable to complete. Pt utilizes long handled sponge for cleansing, requires max A to cleanse thoroughly. ) Toilet Transfer (QC): 1 (TDx2) Footwear on/off TD (QC 1) Other Treatment OT/PT co-treat from [id number] due to pt's decreased activity tolerance, NWB status on RLE/UE, and dependent transfers. PT focused on transfers, balance, and functional mobility. OT focused on ADL activity, environmental modifications, and UE use. Pt transfers bed to shower chair with TD x2. Pt completes showering with assist, pt c/o "burning sensation" under R leg. Nursing notified. Pt returns to bed, OT/PT assist nursing with positioning during dressing changes for nursing. Pt reclined in bed, states she is worn out. Pt completes hair grooming with gel and founder chairman and chief creative officer with modified placement of materials for higher IND. Pt completes with mod I. Pt left in bed with call light in reach, all needs met. Education OT Patient Education: Correct positioning, Energy conservation, Modified ADL techniques, Purpose of tx/functional activities, Reviewed precautions, Rehab process, Safety issues, Transfer techniques, Use of adapted equipment ([employer] utilized within room for greater IND) Teaching Recipient: Patient Teaching Methods: Demonstration, Discussion Response to Teaching: Verbalize Understanding, Return Demonstration OT Short Term Goals Short Term Goals Grooming(FIM): 4 Upper Body Dressing(FIM): 3 (met) Lower Body Dressing(FIM): 2 (met) Transfers (B,C,W/C) (FIM): 2 Additional Short Term Goals: 1-Demonstrate ADL Tasks, 2-Verbalize Understanding, 3-ImproveStrength/Mabel 1=Demonstrate adherence to instructed precautions during ADL tasks. 2=Patient will verbalize/demonstrate understanding of assistive devices/modifications for ADL. 3=Patient will improve strength/tolerance for activity to enable patient to perform ADL's. OT Longterm Goals Tea Tree Farmer Goals Eating (QC): 6 Oral Hygiene (QC): 6 Shower/Bathe Self (QC): 5 Upper Body Dressing (QC): 5 Lower Body Dressing (QC): 3 On/Off Footwear (QC): 3 Toileting Hygiene (QC): 3 Toilet/Commode Transfer (QC): 3 Additional Goals: 1-Demonstrate ADL Tasks, 2-Verbalize Understanding, 3- ImproveStrength/Mabel 1=Demonstrate adherence to instructed precautions during ADL tasks. 2=Patient will verbalize/demonstrate understanding of assistive devices/modifications for ADL. 3=Patient will improve strength/tolerance for activity to enable patient to perform ADL's. OT Education/Plan Problem List/Assessment Assessment: Decreased Activ Tolerance, Decreased UE Strength, Dependent Transfers, Impaired Bed Mobility, Impaired Funct Balance, Impaired I ADL's, Impaired Self-Care Skills, Restricted Funct UE ROM Discharge Recommendations Plan/Recommendations: Continue POC Treatment Plan/Plan of Care Treatment,Training & Education: Yes Patient would benefit from OT for education, treatment and training to promote independence in ADL's, mobility, safety and/or upper extremity function for ADL's. Plan of Care: ADL Retraining, Caregiver Training, Concurrent Therapy, Functional Mobility, Group Exercise/Act as Ind, Orthotic Fitting/Training, UE Funct Exercise/Act, W/C Management Training Treatment Duration: Jan 31, 2019 Frequency: At least 5 of 7 days/Wk (IRF) Estimated Hrs Per Day: 1.5 hours per day Agreement: Yes Rehab Potential: Guarded Time/GCodes Start Time: 08:00 Stop Time: 09:30 Total Time Billed (hr/min): 90 Billed Treatment Time 1 ADLx6 (90) OT/PT co-treat from [id number] due to pt's decreased activity tolerance, NWB status on RLE/UE, and dependent transfers. PT focused on transfers, balance, and functional mobility. OT focused on ADL activity, environmental modifications, and UE use. KIT SWANSON OTR Jan 18, 2019 09:58
--- NOTE | 2019-01-18 10:42 | ST Cognitive Linguistic Eval ---
Speech Evaluation-General Medical Diagnosis R distal femur fracture/ ORIF Onset Date: Jan 14, 2019 Therapy Diagnosis Therapy Diagnosis: Cognitive-communication Precautions Precautions: Fall Precautions/Isolations: Fall Prevention, Standard Precautions Referral Referring Physician: Dr. Cardenas Reason for Referral: Evaluation/Treatment Medical History Pertinent Medical History: Hypothroidism Hypothyroidism Current History R distal femur fracture/ORIF Reviewed History: Yes Social History Home: Multilevel Current Living Status: Spouse Speech PLF-Current Status Prior Level of Function Patient lived at home with her where she was independent for her daily needs. Subjective The patient was pleasant and cooperative with the cognitive assessment. Language Eval: Auditory Comprehends Simple Yes/No Ques: Functional Indent/Objects Multiple [place]: Functional Ident/Pics in Multiple [place]: Functional Follows 1-Step Commands: Functional Follows Complex Directions: Functional Follows General Conversations: Functional Language Eval: Verbal Language Completes Spontaneous Greeting: Functional Produces Auto, Serial Info: Functional Imitates Simple Words/Phrases: Functional Word Finding: Functional Requests Basic Needs: Functional States Basic Personal Info: Functional Expresses Complex Ideas: Functional Objective Cognitive Domain Attention: WNL Memory: Mild Problem Solving: Functional Executive Functions: WNL Visuospatial Skills: WNL Composite Severity Rating: WNL Clock Drawing Severity Rating: WNL Objective Formal/Standardized Tests [facility] Mental Status ([facility]) Results 29/30, within normal range of function. Oral Motor/Speech Production Within Normal Limits Impression Patient is a pleasant 68 year old woman who was admitted to the ARU s/p fall which resulted in fractures. The patient was given the SLUMS at bedside. Score is within the normal range of function at 29/30. The patient does not require skilled ST services at this time. Speech Patient Assess Expression of Ideas/Wants: Expression (4) Understanding Verbal Content: Understands (4) Brief Interview-Mental Status: Yes Repetition of Three Words: Three (3) Temporal Orientation: Year: Correct (3) Temporal Orientation: Month: Accurate within 5 days(2) Temporal Orientation: Day: Correct (1) Recall : Wear to say "Sock": Yes, no cue required (2) Recall : Color: Yes, no cue required (2) Recall : Bed: Yes,after cueing (1) Memory/Recall Ability: Current season, Staff names and faces, That he or she is in a hsp/hsp unit Speech-Plan Patient/Family Goals Patient/Family Goals: Patient plans on returning to her home post rehab. Treatment Plan Speech Therapy Treatment Plan: Discontinue ST Patient does not require skilled ST at this time. Treatment Duration: Jan 18, 2019 Frequency: 1 time per week Estimated Hrs Per Day: .25 hour per day Rehab Potential: Guarded Barriers to Learning: None identified Pt/Family Agrees to Plan: Yes Safety Risks/Education Teaching Recipient: Patient Teaching Methods: Discussion Response to Teaching: Verbalize Understanding Education Topics Provided: Safety within her room and communication of wants/needs Time Speech Therapy Time In: 10:00 Speech Therapy Time Out: 10:15 Total Billed Time: 15 Billed Treatment Time 1, SPSNDCOMP ISABELLE Malik Jan 18, 2019 10:42
--- NOTE | 2019-01-18 11:28 | NUR ---
RD ASSESSMENT PMHx: hypercholesterolemia; chronic constipation; hypothyroidism PT INTERACTION: Pt was awake and pleasant for nutrition assessment. Pt states current appetite is "so-so" and has been since admit. Pt states following a regular diet at home, but tries to avoid high CHO items as is a diabetic. Pt states no issues with n/v at this time. Pt states some issues with constipation and last BM was this AM. Pt states no recent weight changes. Note unable to determine recet wt hx, per chart review. ABNORMAL NUTRITION-RELATED LAB VALUES: Hgb 7.3 (L); Hct 23 (L); BUN 6 (L); Ca 7.9 (L); Pro 5.4 (L); alb 3.0 (L) Est. kcal needs: 7496-7892 kcal (15-18 kcal/kg) Est. Pro needs: 109-137 g Pro (0.8-1.0 g Pro/kg) PES STATEMENT: Inadequate oral intake related to loss of appetite as evidenced by pt interview INTERVENTION: Continue with current diet order of regular diet. Encouraged pt to eat when able. Pt may benefit from nutrition supplementation if po intake declines. MONITOR/EVALUATE: PO Intake; Plan of Care; Weight Status; Hydration Status; Lab Values Florinda Duron, MS, RD, LD [phone]
--- NOTE | 2019-01-18 15:14 | NUR ---
Weekly Team Conference Discussed weekly team conference with patient. Patient is agreeable to team's recommendation of reevaluating progress and medical status next 01/25/19. Patient stated she was willing to stay on the rehab unit and do whatever she needed to do to get stronger. Patient is cooperative and appears motivated to participate with therapies. Continue plan of care.
[2019-01-18 18:00] VITALS: BP 126/80
--- NOTE | 2019-01-18 20:17 | Individualized Plan of Care ---
Individualized Plan of Care Rehab Nursing IPOC Order Admission Date Jan 17, 2019 at 11:14 Current Orders Orders Admission Order(Inpt,Obs,Sdc) (01/17/19 11:02) Vital Signs: Per Unit Policy ( 08,16,00 (01/17/19 11:02) Fabricator Foam Rubber-Inpt Rehab Con (01/17/19 11:02) Rehab Nursing Orders-Ipoc (01/17/19 11:02) Physical Therapy Rehab Orders (01/17/19 11:02) Occupational Therapy Rehab Ord (01/17/19 11:02) Speech Therapy Rehab Orders (01/17/19 11:02) Intake & Output 06,14,22 (01/17/19 11:02) Weight Bearing Status (01/17/19 11:02) Precautions (Aru) (01/17/19 11:02) Weekly Weight WEEK (01/17/19 11:02) Rehab-Intensity Of Therapy (01/17/19 11:02) Initiate Admission Nursing Pro .admission (01/17/19 11:02) Initiate Admission Nursing Pro .admission (01/17/19 11:02) Bisacodyl Suppository (Dulcolax Supposit (01/17/19 21:00) Lactulose Oral Solution (Enulose Oral So (01/17/19 11:15) Polyethylene Glycol Powder Pkt (Miralax (01/17/19 11:15) Senna S Tablet (Senokot S Tablet) (01/17/19 11:15) Iron Test (Fe) (01/17/19 11:05) Iron Sucrose Injection (Venofer Injectio (01/19/19 09:00) Iron Sucrose Injection (Venofer Injectio (01/17/19 11:15) Transfer - Bed/Room/Location (01/17/19 11:14) Sodium Chloride Flush (Catheter Flush Sy (01/17/19 14:00) Sodium Chloride Flush (Catheter Flush Sy (01/17/19 11:30) General/Regular (01/17/19 Lunch) Code/Resuscitation (01/17/19 12:32) Incentive Spirometry (Nursing) Q2H (01/17/19 12:32) Sequential Compression Device Q4H (01/17/19 12:32) Armand Hose 09,21 (01/17/19 12:32) General/Regular (01/17/19 Dinner) Acetaminophen Tablet/Caplet (Tylenol T (01/17/19 12:45) Bisacodyl Tablet (Dulcolax Tablet) (01/17/19 12:45) Docusate Sodium Capsule (Colace Capsule) (01/17/19 21:00) Enoxaparin Injection (Lovenox Injection) (01/17/19 21:00) Lactated Ringers (Lr 1000 Ml Iv Solution (01/17/19 12:45) Levothyroxine Tablet (Synthroid Tablet) (01/18/19 06:30) Levothyroxine Tablet (Synthroid Tablet) (01/18/19 06:30) Melatonin Tablet (Melatonin Tablet) (01/17/19 12:45) Metoclopramide Injection (Reglan Injecti (01/17/19 12:45) Ondansetron Injection (Zofran Injectio (01/17/19 12:45) Ondansetron Oral Dissolve Tab (Zofran (01/17/19 12:45) Oxybutynin Tablet (Ditropan Tablet) (01/17/19 21:00) Polyethylene Glycol Powder Pkt (Miralax (01/17/19 12:45) Senna S Tablet (Senokot S Tablet) (01/18/19 09:00) Sertraline Tablet (Zoloft Tablet) (01/18/19 09:00) Valacyclovir Tablet (Valtrex Tablet) (01/17/19 21:00) Zolpidem Tablet (Ambien Tablet) (01/17/19 12:45) Bupropion Sr 12 Hr Tablet (Wellbutrin Sr (01/17/19 21:00) Diphenhydramine Injection (Benadryl Inje (01/17/19 12:45) Morphine Injection (Morphine Injection (01/17/19 12:45) Oxycodone Immediate Rel Tablet (Oxyir Ta (01/17/19 12:45) Case Management Consult (01/17/19 12:32) Consult General Surgery (01/17/19 12:32) Consult Physician (01/17/19 12:32) Incentive Spirometry Initial (01/17/19 12:32) Pt Evaluate/Treat Request (01/17/19 12:32) Request Ot Evaluate & Treat (01/17/19 12:32) Knee Immobilizer (01/17/19 12:32) Catheter(Urinary) Discontinue (01/17/19 12:32) Ice: Apply To Affected Area (01/17/19 12:32) Incentive Spirometry (Nursing) Q2H (01/17/19 12:32) Cbc With Automated Diff (01/18/19 06:00) Comprehensive Metabolic Panel (01/18/19 06:00) Ambulate 08,12,20 (01/17/19 12:43) Sequential Compression Device Q4H (01/17/19 12:43) Dvt/Vte Risk - Notifiy Physici Q4H (01/17/19 12:43) Valacyclovir Tablet (Valtrex Tablet) (01/17/19 15:00) Patient Visit (01/17/19 ) Pt Eval Moderate Complexity (01/17/19 ) Functional Activities, Ea 15 (01/17/19 ) Levothyroxine Tablet (Synthroid Tablet) (01/18/19 01:43) Levothyroxine Tablet (Synthroid Tablet) (01/18/19 01:43) Patient Visit (01/18/19 ) Functional Activities, Ea 15 (01/18/19 ) Patient Visit (01/18/19 ) Speech Sound Lang Comp (01/18/19 ) Rehab Nursing Orders: Ongoing Assess. of Function Status, Bladder Management, Bladder Scan, Bowel Training, Disease Management & Educaiton, DVT Prophylaxis, Fall Prevention, Fluid/Electrolyte/Nutrition Mgmt, Infection Prevention, Medication Management & Education, Management of Risks & Complications, Management of Skin Intergrity, Nutrition Management, Pain Management, Patient/Family Support, Safety Management, Weight Bearing Precaution Intensity of Therapy to be met Patient to be seen: 15 hrs over 7 cons. days PT IPOC Problem List: Activity Tolerance, Functional Strength, Safety, Balance, Gait, Transfer, Bed Mobility, ROM Treatment Plan: Continue Plan of Care Bed Mobility, Concurrent Therapy, Education, Functional Activity Mabel, Funct ional Strength, Group Therapy, Safety, Therapeutic Exercise, Transfers Treatment Duration: Feb 07, 2019 Frequency: At least 5 of 7 days/Wk (IRF) Estimated Hrs Per Day: 1.5 hours per day OT IPOC Problems: Decreased Activ Tolerance, Decreased UE Strength, Dependent Transfers, Impaired Bed Mobility, Impaired Funct Balance, Impaired I ADL's, Impaired Self-Care Skills, Restricted Funct UE ROM OT Treatment, Training and Edu: Yes Plan of Care: ADL Retraining, Caregiver Training, Concurrent Therapy, Functional Mobility, Group Exercise/Act as Ind, Orthotic Fitting/Training, UE Funct Exercise/Act, W/C Management Training Treatment Duration: Jan 31, 2019 Frequency: At least 5 of 7 days/Wk (IRF) Estimated Hrs Per Day: 1.[address] IPOC Speech Therapy Treatment Plan: Discontinue ST Treatment Duration: Jan 18, 2019 Frequency: 1 time per week Estimated Hrs Per Day: .25 hour per day Fabricator [employer]ber/Case Mgmt Fabricator Fo[employer] Rubber/Case Managemen: Discharge Planning Dietitian/Crime Scene Photographer Dietitian/Crime Scene Photographer to monitor nutritional status and make changes and/or recommendations as needed and work with speech pathology on dietary upgrades as the occur. Physician IPOC Medical Issues being managed closely and that require the 24 hour availability of a physician: Rib fractures with right non-weight bearing distal femur fracture with TODD is at high risk for decompensation Medical Issues: Bowel/Bladder Function, DVT Prophylaxis, Falls Precautions, Fluid/Electrolyte/Nutrition Balance, Infection Protection, Pain Management, Weight Bearing Precautions, Wound Care Brief Synthesis of Preadmission Screen, Post-Admission Evaluation, and Therapy Evaluations: PT will hep transfers and increase ability to mobilize with non-weight bearing right leg OT will focus on regaining independent ADL's Medical Prognosis: Good Anticipated Length of Stay: 14 days RAJESH LEWIS DO Jan 18, 2019 20:17
[2019-01-18] MEDS: ZOLPIDEM 5 MG (AMBIEN) TAB PO PRN (22:04)
[2019-01-19] MEDS: ACETAMINOPHEN 325 MG TABLET PO PRN ×3 (01:22→22:54)
[2019-01-19] MEDS: LEVOTHYROXINE 112 MCG (LEVOTHROID) TAB PO SCH (05:10)
[2019-01-19] MEDS: LEVOTHYROXINE 25 MCG (LEVOTHROID) TAB PO SCH (05:10)
[2019-01-19] MEDS: CATHETER FLUSH 10 ML SYR IV SCH ×3 (05:10→22:00)
[2019-01-19 05:16] VITALS: BP 120/64
[2019-01-19 08:00] VITALS: BP 134/69
--- NOTE | 2019-01-19 08:16 | PM&R Progress Note ---
Subjective HPI/CC On Admission Date Seen by Provider: Jan 19, 2019 Time Seen by Provider: 08:30 Chief complaint: s/p right femur fracture HPI: This is a 68yoWF clinic Pt of Dr. Hogan at [facility] who presented to the ER after sustaining a fall at home, apparently she was walking up the stairs outside and caused her to fall into a fence, stated that her right leg was twisted and had pain in her upper left chest, could not move her leg, did not hit her head and did not lose consciousness, but was brought to the ER. Chest/abdomen CT showed non-displaced anterior left fourth and fifth rib fractures, no pneumothorax and femur on the right revealed distal femur fracture. 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 Pt denies any significant heart or lung problems otherwise. Pt had prior level of functioning of independence without use of assistive device so we will admit to inpatient rehab, since she is so fatigued today we will do a 15/7 slow start but begin aggressive bowel movement treatment in addition to IV iron infusion since Hgb has decreased to 7.8 today and will initiated inpatient rehab protocol. Subjective/Events-last exam Pt very difficult to motivate, will keep on trying. Will reach out to orthopedic surgery to evaluate her limitations with her shoulder since that could preclude intense therapy sessions. Suppository and soap suds enema will be offered because the bowels must move today. She does not appear to be understanding the importance of that. Rib fractures are causing a lot of pain. Using IS. Overall very debilitated, more on a chronic basis now, very debilitated. Lovenox maintained even though her Hgb at 7.3 from acute blood loss anemia from surgery but she is high risk because she is nonweightbearing immobile so she will remain on Lovenox and we will transfuse if necessary Iron infusions tolerated Conferred with RN Reviewed therapy notes Checked meds and labs Review of Systems General: Fatigue Musculoskeletal: arm pain, leg pain, foot pain Objective Exam Vital Signs Vital Signs Date Time Temp Pulse Resp B/P (MAP) Pulse Ox O2 Delivery O2 Flow Rate FiO2 01/19/19 18:01 36.2 78 20 126/69 (88) 95 Room Air Capillary Refill : Less Than 3 Seconds General Appearance: No Apparent Distress, WD/WN, Chronically ill, Obese HEENT: PERRL/EOMI, Normal ENT Inspection, Pharynx Normal, Moist Mucous Membranes Neck: Full Range of Motion, Normal Inspection, Non Tender, Supple Respiratory: Chest Non Tender, Lungs Clear, Normal Breath Sounds, No Accessory Muscle Use, No Respiratory Distress Cardiovascular: Regular Rate, Rhythm, No Edema, No Gallop, No JVD, No Murmur Gastrointestinal: Normal Bowel Sounds, No Organomegaly, No Pulsatile Mass, Non Tender, Soft Back: Normal Inspection, No CVA Tenderness, No Vertebral Tenderness Extremity: Normal Capillary Refill, Normal Inspection, Normal Range of Motion (except right leg and bilateral shoulders L>R in deficit), Non Tender, No Calf Tenderness, No Pedal Edema Neurologic/Psychiatric: Alert, Oriented x3, No Motor/Sensory Deficits, Normal Mood/Affect Skin: Normal Color, Warm/Dry Lymphatic: No Adenopathy Results/Procedures Lab Patient resulted labs reviewed. FIM Transfers Therapy Code Descriptions/Definitions Functional [place] Measure: 0=Not Assessed/NA 4=Minimal Assistance 1=Total Assistance 5=Supervision or Setup 2=Maximal Assistance 6=Modified [place] 3=Moderate Assistance 7=Complete IndependenceSCALE: Activities may be completed with or without assistive devices. 1-Psxnxzwrrg-bpessrh completes the activity by him/herself with no assistance from a helper. 5-Set-up or Clean-up Assistance-helper sets up or cleans up; patient completes activity. [place] assists only prior to or following the activity. 4-Supervision or Touching Assistance-helper provides verbal cues and/or touching/steadying and/or contact guard assistance as patient completes activity. Assistance may be provided throughout the activity or intermittently. 3-Partial/Moderate Assistance-helper does LESS THAN HALF the effort. [place] lifts, holds or supports trunk or limbs, but provides less than half the effort. 2-Substantial/Maximal Assistance-helper does MORE THAN HALF the effort. [place] lifts or holds trunk or limbs and provides more than half the effort. 3-Ahavppiwt-uymysr does ALL the effort. Patient does none of the effort to complete the activity. Or, the assistance of 2 or more helpers is required for the patient to complete the activity. If activity was not attempted, code reason: 7-Patient Refused. 9-Not Applicable-not attempted and the patient did not perform the activity before the current illness, exacerbation or injury. 10-Not Attempted due to Environmental Limitations-(lack of equipment, weather restraints, etc.). 88-Not Attempted due to Medical Conditions or Safety Concerns. Transfers (B, C, W/C) (FIM): 1 Roll Left to Right (QC): 1 Sit to Lying (QC): 1 Sit to Stand (QC): 1 Chair/Yfk-cc-Hagkc Xfer(QC): 1 Car Transfer (QC): 88 Gait Training Does the Patient Walk?: No and Walking Goal NOT indicated Walk 10 feet (QC): 88 Walk 50 ft with 2 Turns(QC): 88 Walk 150 ft (QC): 88 Walking 10ft/uneven surface-QC: 88 Wheelchair Training Does the Pt Use a Wheelchair?: Yes Distance: 50' Wheel 50 ft with 2 turns (QC): 1 Wheel 150 ft (QC): 1 Type of Wheelchair: Manual Stair Training 1 Step (curb) (QC): 88 4 Steps (QC): 88 12 Steps (QC): 88 ADL-Treatment Eating (QC): 6 Oral Hygiene (QC): 6 Shower/Bathe Self (QC): 3 (Pt requires assist with bottom, back and bilateral feet without AE. Pt able to reach top portion of back and tops of feet with long handled sponge. Pt completes on shower chair in shower room. ) Upper Body Dressing (QC): 3 (Pt requires assist bringing bra down on back due to restricted UE motion and high-back shower chair. Pt able to manipulate fastener. Pt requires assist doffing bra, difficult to maintain strength to doff through L arm. Pt able to doff over R arm with use of L.) Lower Body Dressing (QC): 2 (Pt requires max A with LB dressing including socks and breif while laying supine in bed. Pt able to lift L foot for easier donning and use L leg to bridge bottom to don breif under bottom. ) On/Off Footwear (QC): 1 (TD L sock) Toileting Hygiene (QC): 2 (Pt attempts to lean side to side for wiping, unable to complete. Pt utilizes long handled sponge for cleansing, requires max A to cleanse thoroughly. ) Toilet Transfer (QC): 1 (TDx2) Assessment/Plan Assessment and Plan Assess & Plan/Chief Complaint Assessment: s/p repair distal right femur fracture Chronic shoulder pain and limitation of activity that could limit recovery TODD on CPAP Post op anemia with severely low iron so started iron infusions HLP Hypothyroidism Post op constipation placed on meds OAB Plan: BM regimen Home meds Iron infusions Pain control Lovenox for DVT PPx Ortho evaluation of shoulder limitations (1) Fracture of femur, right, closed Status: Acute (2) Insomnia Status: Chronic (3) Fall down stairs Status: Acute (4) Depression Status: Chronic Qualifiers: Depression Type: unspecified Qualified Codes: F32.9 - Major depressive disorder, single episode, unspecified (5) Hypothyroidism Status: Chronic Qualifiers: Hypothyroidism type: acquired Qualified Codes: E03.9 - Hypothyroidism, unspecified (6) Rib fractures Status: Acute Qualifiers: Encounter type: subsequent encounter Rib fracture type: multiple ribs Fracture type: closed Laterality: left (7) HLD (hyperlipidemia) Status: Chronic Qualifiers: Hyperlipidemia type: mixed hyperlipidemia Qualified Codes: E78.2 - Mixed hyperlipidemia (8) Postoperative anemia (9) Iron deficiency RAJESH LEWIS DO Jan 19, 2019 08:16
[2019-01-19] MEDS: VALACYCLOVIR 500 MG TAB (VALTREX) PO SCH ×2 (09:27→20:55)
[2019-01-19] MEDS: buPROPion SR 150 MG (WELLBUTRIN SR) TAB PO SCH ×2 (09:27→20:55)
[2019-01-19] MEDS: SERTRALINE 50 MG (ZOLOFT) TABLET PO SCH (09:27)
[2019-01-19] MEDS: SENNA W/DOCUSATE (SENOKOT S) TABLET PO SCH (09:28)
[2019-01-19] MEDS: DOCUSATE SODIUM 100 MG (COLACE) CAP PO SCH ×2 (09:28→20:56)
[2019-01-19] MEDS: OXYBUTYNIN (DITROPAN) 5 MG TAB PO SCH ×2 (09:28→20:55)
[2019-01-19] MEDS: ENOXAPARIN 40 MG/0.4 ML (LOVENOX) SYR SC SCH ×2 (09:28→20:55)
[2019-01-19] MEDS: IRON SUCROSE 200 MG/10 ML (VENOFER) VIAL IV SCH (09:29)
--- NOTE | 2019-01-19 09:31 | Physical Therapy Daily Note ---
PT Daily Note-Current Subjective Patient in bed pre tx, agrees to PT, has 8/10 pain in right flank and 6/10 pain in right leg. Will be co-treating with OT due to poor patient mobility, strength, endurance, balance, the need to coordinate UE and LE during activity, being NWB on the right UE and LE. Appearance Patient in recliner post tx with nurse call, phone, tray, all needs met, legs elevated. Mental Status Patient Orientation: Normal For Age right knee immobilizer Transfers SCALE: Activities may be completed with or without assistive devices. 5-Tdozzafyhj-gmxcpcn completes the activity by him/herself with no assistance from a helper. 5-Set-up or Clean-up Assistance-helper sets up or cleans up; patient completes activity. [place] assists only prior to or following the activity. 4-Supervision or Touching Assistance-helper provides verbal cues and/or touching/steadying and/or contact guard assistance as patient completes activity. Assistance may be provided throughout the activity or intermittently. 3-Partial/Moderate Assistance-helper does LESS THAN HALF the effort. [place] lifts, holds or supports trunk or limbs, but provides less than half the effort. 2-Substantial/Maximal Assistance-helper does MORE THAN HALF the effort. [place] lifts or holds trunk or limbs and provides more than half the effort. 9-Coqdqdnak-xriyen does ALL the effort. Patient does none of the effort to compl ete the activity. Or, the assistance of 2 or more helpers is required for the patient to complete the activity. If activity was not attempted, code reason: 7-Patient Refused. 9-Not Applicable-not attempted and the patient did not perform the activity before the current illness, exacerbation or injury. 10-Not Attempted due to Environmental Limitations-(lack of equipment, weather restraints, etc.). 88-Not Attempted due to Medical Conditions or Safety Concerns. Roll Left to Right (QC): 1 Sit to Lying (QC): 1 Chair/Zny-pa-Svdfe Xfer(QC): 2 Patient performed a sliding board transfer with max assist twice. Weight Bearing Right Lower Extremity: Right Non Weight Bearing Left Lower Extremity: Left Full Weight Bearing Patient states she is not supposed to bear weight on her right arm due to shoulder issues. Wheelchair Training Does the Pt Use a Wheelchair?: Yes Distance: 50'x2 Wheel 50 ft with 2 turns (QC): 3 Type of Wheelchair: Manual Min assist, patient fatigues quickly, has a very hard time due to her obesity and resultant lack of ROM Exercises practicing the beginning of sit to stand from the wheelchair at the parallel bars using her left leg and left arm, she is not able to lift her bottom from the chair, did 3 sets of 10 Treatments bed mobility, transfers, practiced sit to stand, WC mobiltiy, patient was also dressed and brushed teeth and practiced sock aide Assessment Current Status: Fair Progress patient is max assist to transfer with a sliding board PT Short Term Goals Short Term Goals Time Frame: Jan 24, 2019 Wheelchair Distance: 50' Wheelchair Level of Assist: 5 PT Cook Supervisor Goals Mcc Goals PT Cook Supervisor Goals Time Frame: Feb 07, 2019 Sit to Lying (QC): 3 (min assist) Lying-Sitting on Side/Bed(QC): 3 (min assist) Sit to Stand (QC): 3 (mod assist) Roll Left to Right (QC): 3 (min assist) Chair/Ewz-tg-Ehneq Xfer(QC): 3 (mod assist) Car Transfer (QC): 3 (mod assist) Distance: 150' Wheel 50 feet with 2 turns (QC: 4 (SBA) PT Plan Problem List Problem List: Activity Tolerance, Functional Strength, Safety, Balance, Transfer, Bed Mobility, ROM Treatment/Plan Treatment Plan: Continue Plan of Care Treatment Plan: Bed Mobility, Concurrent Therapy, Education, Functional Activity Mabel, Functional Strength, Group Therapy, Safety, Therapeutic Exercise, Transfers Treatment Duration: Feb 07, 2019 Frequency: At least 5 of 7 days/Wk (IRF) Estimated Hrs Per Day: 1.5 hours per day Patient and/or Family Agrees t: Yes Safety Risks/Education Patient Education: Transfer Techniques, Reviewed Precautions, Correct Positioning, W/C Management, Safety Issues Teaching Recipient: Patient Teaching Methods: Demonstration, Discussion Response to Teaching: Reinforcement Needed Time/GCodes Time In: 0800 Time Out: 09 Total Billed Treatment Time: 90 Total Billed Treatment 1 visit [facility] 30' FA 60' Co-treated with OT for 90 min. PT performed WC mobility, exercise, bed mobility and transfers, OT performed grooming, dressing, assist with transfers. ANTONI TRAORE PT Jan 19, 2019 09:30
[2019-01-19] MEDS: LACTULOSE SYRUP 10GM/15ML (ENULOSE) 30ML UDC PO SCH ×2 (09:37→20:56)
[2019-01-19] MEDS: POLYETHYLENE GLYCOL 17 GM (MIRALAX) PACK PO SCH ×2 (09:42→20:57)
[2019-01-19] MEDS: BISACODYL 10 MG SUPP (DULCOLAX) PR SCH ×2 (09:42→20:57)
--- NOTE | 2019-01-19 10:14 | NUR ---
Left a message for MARIELENA Roblero for Dr. Zamora, to clarify patient's weight-bearing status to RUE.
--- NOTE | 2019-01-19 12:45 | Occupational Ther Daily Note ---
OT Current Status-Daily Note Subjective Pt seen in bed, states ~7/10 pain in L ribs and 5/10 pain in R leg. Pt agreeable to OT/ PT co-treat. Mental Status/Objective Patient Orientation: Normal For Age ADL-Treatment Therapy Code Descriptions/Definitions Functional [place] Measure: 0=Not Assessed/NA 4=Minimal Assistance 1=Total Assistance 5=Supervision or Setup 2=Maximal Assistance 6=Modified [place] 3=Moderate Assistance 7=Complete IndependenceSCALE: Activities may be completed with or without assistive devices. 5-Ttezpfuxnk-tbjtpjf completes the activity by him/herself with no assistance from a helper. 5-Set-up or Clean-up Assistance-helper sets up or cleans up; patient completes activity. [place] assists only prior to or following the activity. 4-Supervision or Touching Assistance-helper provides verbal cues and/or to uching/steadying and/or contact guard assistance as patient completes activity. Assistance may be provided throughout the activity or intermittently. 3-Partial/Moderate Assistance-helper does LESS THAN HALF the effort. [place] lifts, holds or supports trunk or limbs, but provides less than half the effort. 2-Substantial/Maximal Assistance-helper does MORE THAN HALF the effort. [place] lifts or holds trunk or limbs and provides more than half the effort. 3-Yiiamxpsr-fpjbpm does ALL the effort. Patient does none of the effort to complete the activity. Or, the assistance of 2 or more helpers is required for the patient to complete the activity. If activity was not attempted, code reason: 7-Patient Refused. 9-Not Applicable-not attempted and the patient did not perform the activity before the current illness, exacerbation or injury. 10-Not Attempted due to Environmental Limitations-(lack of equipment, weather restraints, etc.). 88-Not Attempted due to Medical Conditions or Safety Concerns. Eating (QC): 6 Oral Hygiene (QC): 5 (Pt requires s/u due to pt's inability to navigate with w/c at current point within small spaces. Pt was handed materials in w/c as pt unable to reach sink at this point. ) Upper Body Dressing (QC): 3 (Min A to adjust back of shirt.) Lower Body Dressing (QC): 2 (Pt utilizes stave planer tender to dress L leg, demonstrates competence through success. Pt requires assist with threading R leg with brace on. Pt rolls from side to side to enable pants pulled up. Pt unable to assist in pulling up as she maintains BUE in reaching position when rolling.) Other Treatment OT/PT cotreatment due to pt's decreased functional mobility, dependent transfe rs, obesity, and safety. OT treatment focused on functional mobility, EOB/ bed ADL tasks, adaptive equipment training and functional ADL activities. PT treatment consisted of w/c mobility, slide board transfer training, LE and gross motor movement, and balance. Pt seen in room. pt completes donning LB dressing in bed, UB dressing EOB with good static sitting and limited c/o pain. Pt transferred with slide board, requires max cues and CGA during transfer. Pt transfers EOB to w/c, requires max cues and physical cues to sit towards back of w/c. Pt demonstrates decreased endurance and strength, SOB during exertion. Pt completes oral hygiene at sink. Pt educated on use of sock aide and dressing stick. Pt states understanding. Pt completes w/c mobility with cues for positioning and decreased strength/ endurance; pt able to utilize L hand for primary strength and R to guide w/c. Pt requires additional cues to continue w/c mobility as she states she is tired. Pt positioned at standing bars, utilizes L UE and LLE at bars to elevate buttocks from chair with increasing angles. Pt completes 5 sets of 10 repetitions. Pt completes stave planer tender exercises with red theraband in between repetitions; pt trained in stave planer tender use and able to thread tied theraband on each leg, utilizes learned PT techniques to raise buttocks from chair with LLE and LUE to bring theraband to hip. Pt completes 4 sets of 1 theraband don/doffing exercise. Pt returns to room in w/c, utilizes slide board to transfer w/c to chair. pt educated on breathing techniques, importance of sitting up during the day, demonstrates-back diaphoramic breathing to increase air flow for decreased pneumonia risk and increase pain management. Pt positioned in chair to comfort. Pt left with call light in reach, all needs met. Education OT Patient Education: Correct positioning, Energy conservation, Exercise program, Modified ADL techniques, Purpose of tx/functional activities, Reviewed precautions, Rehab process, Safety issues, Transfer techniques, Use of adapted equipment, W/C management Teaching Recipient: Patient Teaching Methods: Demonstration, Discussion Response to Teaching: Verbalize Understanding, Return Demonstration OT Short Term Goals Short Term Goals Grooming(FIM): 4 Upper Body Dressing(FIM): 3 (met) Lower Body Dressing(FIM): 2 (met) Transfers (B,C,W/C) (FIM): 2 Additional Short Term Goals: 1-Demonstrate ADL Tasks, 2-Verbalize Understanding, 3-ImproveStrength/Mabel 1=Demonstrate adherence to instructed precautions during ADL tasks. 2=Patient will verbalize/demonstrate understanding of assistive devices/modifications for ADL. 3=Patient will improve strength/tolerance for activity to enable patient to perform ADL's. OT Mcc Goals Drug Enforcement Administration Agent Goals Eating (QC): 6 (met) Oral Hygiene (QC): 6 Shower/Bathe Self (QC): 5 Upper Body Dressing (QC): 5 Lower Body Dressing (QC): 3 On/Off Footwear (QC): 3 Toileting Hygiene (QC): 3 Toilet/Commode Transfer (QC): 3 Additional Goals: 1-Demonstrate ADL Tasks, 2-Verbalize Understanding, 3- ImproveStrength/Mabel 1=Demonstrate adherence to instructed precautions during ADL tasks. 2=Patient will verbalize/demonstrate understanding of assistive devices/modifications for ADL. 3=Patient will improve strength/tolerance for activity to enable patient to perform ADL's. OT Education/Plan Problem List/Assessment Assessment: Decreased Activ Tolerance, Decreased UE Strength, Dependent Transfers, Impaired Bed Mobility, Impaired Funct Balance, Impaired I ADL's, Impaired Self-Care Skills, Restricted Funct UE ROM Discharge Recommendations Plan/Recommendations: Continue POC Equpiment Recommendations-D/C: Cosmetic Sales, Sock Aide, Dressing Stick Treatment Plan/Plan of Care Treatment,Training & Education: Yes Patient would benefit from OT for education, treatment and training to promote independence in ADL's, mobility, safety and/or upper extremity function for ADL's. Plan of Care: ADL Retraining, Caregiver Training, Concurrent Therapy, Functional Mobility, Group Exercise/Act as Ind, Orthotic Fitting/Training, UE Funct Exercise/Act, W/C Management Training Treatment Duration: Jan 31, 2019 Frequency: At least 5 of 7 days/Wk (IRF) Estimated Hrs Per Day: 1.5 hours per day Agreement: Yes Rehab Potential: Guarded Time/GCodes Start Time: 08:00 Stop Time: 09:30 Total Time Billed (hr/min): 90 Billed Treatment Time 1 ADl x2 (30), EX 2 (15), FA 3(45) OT/ PT co-treat 90 minutes ([id number]) KIT SWANSON OTR Jan 19, 2019 12:45
--- NOTE | 2019-01-19 14:10 | NUR ---
Lidocaine patch ordered per conversation with pt re: lidocaine allergy, pt states, "I just bruise a lot with lidocaine when receiving dental treatment. He uses preservative free so I don't bruise. I'm ok with bruising from the patch, as long as it helps with the pain."
--- NOTE | 2019-01-19 14:31 | NUR ---
Initial visit with the pt and two women from her [place] who were visiting. The pt demonstrates positive coping with humor and maintaining strong, meaningful relationships. I engaged in rapport building and offered empathic listening as the pt shared about her injury. I offered to let them visit together. The pt thanked me for visiting and welcomed me to return as able.
[2019-01-19 18:01] VITALS: BP 126/69
[2019-01-19] MEDS: ZOLPIDEM 5 MG (AMBIEN) TAB PO PRN (22:55)
[2019-01-20] MEDS: LEVOTHYROXINE 112 MCG (LEVOTHROID) TAB PO SCH (05:04)
[2019-01-20] MEDS: LEVOTHYROXINE 25 MCG (LEVOTHROID) TAB PO SCH (05:04)
[2019-01-20] MEDS: CATHETER FLUSH 10 ML SYR IV SCH ×3 (05:11→20:44)
[2019-01-20 05:31] VITALS: BP 105/65
--- NOTE | 2019-01-20 08:14 | PM&R Progress Note ---
Subjective HPI/CC On Admission Date Seen by Provider: Jan 20, 2019 Time Seen by Provider: 08:30 Chief complaint: s/p right femur fracture HPI: This is a 68yoWF clinic Pt of Dr. Hogan at [place] who presented to the ER after sustaining a fall at home, apparently she was walking up the stairs outside and caused her to fall into a fence, stated that her right leg was twisted and had pain in her upper left chest, could not move her leg, did not hit her head and did not lose consciousness, but was brought to the ER. Chest/abdomen CT showed non-displaced anterior left fourth and fifth rib fractures, no pneumothorax and femur on the right revealed distal femur fracture. 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 Pt denies any significant heart or lung problems otherwise. Pt had prior level of functioning of independence without use of assistive device so we will admit to inpatient rehab, since she is so fatigued today we will do a 15/7 slow start but begin aggressive bowel movement treatment in addition to IV iron infusion since Hgb has decreased to 7.8 today and will initiated inpatient rehab protocol. Subjective/Events-last exam Shoulder limitation with Dr. Gomez is still pending Bowels are moving now Is a four person lift Lidocaine patch on the ribs will be attempted Overall really having difficulty participating and if she continues at this rate she will need a usp placement Using IS. Overall very debilitated, more on a chronic basis now, very debilitated. Lovenox maintained even though her Hgb at 7.3 from acute blood loss anemia from surgery but she is high risk because she is nonweightbearing immobile so she will remain on Lovenox and we will transfuse if necessary Iron infusions tolerated Conferred with RN Reviewed therapy notes Checked meds and labs Review of Systems General: Fatigue Musculoskeletal: arm pain, leg pain Objective Exam Vital Signs Vital Signs Date Time Temp Pulse Resp B/P (MAP) Pulse Ox O2 Delivery O2 Flow Rate FiO2 01/20/19 18:13 36.8 83 18 144/66 (92) 95 Room Air Capillary Refill : Less Than 3 Seconds General Appearance: No Apparent Distress, WD/WN, Chronically ill, Obese HEENT: PERRL/EOMI, Normal ENT Inspection, Pharynx Normal, Moist Mucous Membranes Neck: Full Range of Motion, Normal Inspection, Non Tender, Supple Respiratory: Chest Non Tender, Lungs Clear, Normal Breath Sounds, No Accessory Muscle Use, No Respiratory Distress Cardiovascular: Regular Rate, Rhythm, No Edema, No Gallop, No JVD, No Murmur Gastrointestinal: Normal Bowel Sounds, No Organomegaly, No Pulsatile Mass, Non Tender, Soft Back: Normal Inspection, No CVA Tenderness, No Vertebral Tenderness Extremity: Normal Capillary Refill, Normal Inspection, Normal Range of Motion (except right leg and bilateral shoulders L>R in deficit), Non Tender, No Calf Tenderness, No Pedal Edema Neurologic/Psychiatric: Alert, Oriented x3, No Motor/Sensory Deficits, Normal M ood/Affect Skin: Normal Color, Warm/Dry Lymphatic: No Adenopathy Results/Procedures Lab Patient resulted labs reviewed. FIM Transfers Therapy Code Descriptions/Definitions Functional [place] Measure: 0=Not Assessed/NA 4=Minimal Assistance 1=Total Assistance 5=Supervision or Setup 2=Maximal Assistance 6=Modified [place] 3=Moderate Assistance 7=Complete IndependenceSCALE: Activities may be completed with or without assistive devices. 1-Cfmmsrhnrk-uxzrdwp completes the activity by him/herself with no assistance from a helper. 5-Set-up or Clean-up Assistance-helper sets up or cleans up; patient completes activity. [place] assists only prior to or following the activity. 4-Supervision or Touching Assistance-helper provides verbal cues and/or touching/steadying and/or contact guard assistance as patient completes activity. Assistance may be provided throughout the activity or intermittently. 3-Partial/Moderate Assistance-helper does LESS THAN HALF the effort. [place] lifts, holds or supports trunk or limbs, but provides less than half the effort. 2-Substantial/Maximal Assistance-helper does MORE THAN HALF the effort. [place] lifts or holds trunk or limbs and provides more than half the effort. 4-Zmshytjrw-vfhlij does ALL the effort. Patient does none of the effort to complete the activity. Or, the assistance of 2 or more helpers is required for the patient to complete the activity. If activity was not attempted, code reason: 7-Patient Refused. 9-Not Applicable-not attempted and the patient did not perform the activity before the current illness, exacerbation or injury. 10-Not Attempted due to Environmental Limitations-(lack of equipment, weather restraints, etc.). 88-Not Attempted due to Medical Conditions or Safety Concerns. Transfers (B, C, W/C) (FIM): 1 Roll Left to Right (QC): 1 Sit to Lying (QC): 1 Sit to Stand (QC): 1 Chair/Wsx-un-Xxxhd Xfer(QC): 2 Car Transfer (QC): 88 Gait Training Does the Patient Walk?: No and Walking Goal NOT indicated Walk 10 feet (QC): 88 Walk 50 ft with 2 Turns(QC): 88 Walk 150 ft (QC): 88 Walking 10ft/uneven surface-QC: 88 Wheelchair Training Does the Pt Use a Wheelchair?: Yes Distance: 50'x2 Wheel 50 ft with 2 turns (QC): 3 Wheel 150 ft (QC): 1 Type of Wheelchair: Manual Stair Training 1 Step (curb) (QC): 88 4 Steps (QC): 88 12 Steps (QC): 88 ADL-Treatment Eating (QC): 6 Oral Hygiene (QC): 5 (Pt requires s/u due to pt's inability to navigate with w/c at current point within small spaces. Pt was handed materials in w/c as pt unable to reach sink at this point. ) Shower/Bathe Self (QC): 3 (Pt requires assist with bottom, back and bilateral feet without AE. Pt able to reach top portion of back and tops of feet with long handled sponge. Pt completes on shower chair in shower room. ) Upper Body Dressing (QC): 3 (Min A to adjust back of shirt.) Lower Body Dressing (QC): 2 (Pt utilizes electric fan assembler to dress L leg, demonstrates competence through success. Pt requires assist with threading R leg with brace on. Pt rolls from side to side to enable pants pulled up. Pt unable to assist in pulling up as she maintains BUE in reaching position when rolling.) On/Off Footwear (QC): 1 (TD L sock) Toileting Hygiene (QC): 2 (Pt attempts to lean side to side for wiping, unable to complete. Pt utilizes long handled sponge for cleansing, requires max A to cleanse thoroughly. ) Toilet Transfer (QC): 1 (TDx2) Assessment/Plan Assessment and Plan Assess & Plan/Chief Complaint Assessment: s/p repair distal right femur fracture Chronic shoulder pain and limitation of activity that could limit recovery TODD on CPAP Post op anemia with severely low iron so started iron infusions HLP Hypothyroidism Post op constipation placed on meds OAB Plan: BM regimen Home meds Iron infusions Pain control Lovenox for DVT PPx Ortho evaluation of shoulder limitations Monitor for lidocaine toleration (1) Fracture of femur, right, closed Status: Acute (2) Insomnia Status: Chronic (3) Fall down stairs Status: Acute (4) Depression Status: Chronic Qualifiers: Depression Type: unspecified Qualified Codes: F32.9 - Major depressive disorder, single episode, unspecified (5) Hypothyroidism Status: Chronic Qualifiers: Hypothyroidism type: acquired Qualified Codes: E03.9 - Hypothyroidism, unspecified (6) Rib fractures Status: Acute Qualifiers: Encounter type: subsequent encounter Rib fracture type: multiple ribs Fracture type: closed Laterality: left (7) HLD (hyperlipidemia) Status: Chronic Qualifiers: Hyperlipidemia type: mixed hyperlipidemia Qualified Codes: E78.2 - Mixed hyperlipidemia (8) Postoperative anemia (9) Iron deficiency RAJESH LEWIS DO Jan 20, 2019 08:14
[2019-01-20] MEDS: OXYBUTYNIN (DITROPAN) 5 MG TAB PO SCH ×2 (08:40→20:35)
[2019-01-20] MEDS: SERTRALINE 50 MG (ZOLOFT) TABLET PO SCH (08:40)
[2019-01-20] MEDS: buPROPion SR 150 MG (WELLBUTRIN SR) TAB PO SCH ×2 (08:40→20:35)
[2019-01-20] MEDS: SENNA W/DOCUSATE (SENOKOT S) TABLET PO SCH (08:41)
[2019-01-20] MEDS: VALACYCLOVIR 500 MG TAB (VALTREX) PO SCH ×2 (08:41→20:35)
[2019-01-20] MEDS: DOCUSATE SODIUM 100 MG (COLACE) CAP PO SCH ×2 (08:41→20:34)
[2019-01-20] MEDS: ENOXAPARIN 40 MG/0.4 ML (LOVENOX) SYR SC SCH ×2 (08:42→20:35)
[2019-01-20] MEDS: LIDOCAINE 4% (SALONPAS) PATCH TOP SCH (08:43)
[2019-01-20] MEDS: LACTULOSE SYRUP 10GM/15ML (ENULOSE) 30ML UDC PO SCH ×2 (08:43→20:41)
--- NOTE | 2019-01-20 09:00 | NUR ---
QC Clarification Discussed admission QC with interdisciplinary team: PT, OT and nursing. Admission QC for "Picking Up an Object" is 88.
--- NOTE | 2019-01-20 09:00 | NUR ---
QC Clarification Discussed QC with interdisciplinary team: PT, OT and nursing. Admit QC for "Picking up an object" is 88.
--- NOTE | 2019-01-20 09:29 | Physical Therapy Daily Note ---
PT Daily Note-Current Subjective Patient in bed pre tx, agrees to PT, has pain in ribs pre tx, nurse gives meds and pain patch. Will be co-treating with OT due to poor patient mobility, strength, endurance, balance, the need to coordinate UE and LE during activity, NWB on right UE and right LE. Appearance Patient in bed post tx with nurse call, phone, tray, all needs met. Mental Status Patient Orientation: Normal For Age right knee immobilizer Transfers SCALE: Activities may be completed with or without assistive devices. 3-Mxpstukiaz-vjwghay completes the activity by him/herself with no assistance from a helper. 5-Set-up or Clean-up Assistance-helper sets up or cleans up; patient completes activity. [place] assists only prior to or following the activity. 4-Supervision or Touching Assistance-helper provides verbal cues and/or touching/steadying and/or contact guard assistance as patient completes activity. Assistance may be provided throughout the activity or intermittently. 3-Partial/Moderate Assistance-helper does LESS THAN HALF the effort. [place] lifts, holds or supports trunk or limbs, but provides less than half the effort. 2-Substantial/Maximal Assistance-helper does MORE THAN HALF the effort. [place] lifts or holds trunk or limbs and provides more than half the effort. 3-Kayffsjfq-kkiuzg does ALL the effort. Patient does none of the effort to complete the activity. Or, the assistance of 2 or more helpers is required for the patient to complete the activity. If activity was not attempted, code reason: 7-Patient Refused. 9-Not Applicable-not attempted and the patient did not perform the activity before the current illness, exacerbation or injury. 10-Not Attempted due to Environmental Limitations-(lack of equipment, weather restraints, etc.). 88-Not Attempted due to Medical Conditions or Safety Concerns. Transfers (B, C, W/C): 2 Roll Left to Right (QC): 2 Sit to Lying (QC): 2 Chair/Ghf-fm-Hjvsx Xfer(QC): 2 Slightly improved bed mobility and transfers, needs cues for hand placement and positioning. Patient transferred to shower chair, undressed, taken to shower room, showered, taken back to her room and transferred to bed, dressed, groomed, LE and UE exercises. Weight Bearing Right Lower Extremity: Right Non Weight Bearing Left Lower Extremity: Left Full Weight Bearing Patient states she is not supposed to bear weight on her right arm due to shoulder issues. Exercises Supine Ex: Ankle pumps, Quad Set, Glut sets, Heel Slides (LLE) Supine Reps: 15 Assessment Current Status: Fair Progress slightly improved bed mobility and transfers, stand pivot transfer max assist PT Short Term Goals Short Term Goals Time Frame: Jan 24, 2019 Wheelchair Distance: 50'x2 Wheelchair Level of Assist: 5 PT [facility] Goals Sheet Metal Welder Goals PT Sheet Metal Welder Goals Time Frame: Feb 07, 2019 Sit to Lying (QC): 3 (min assist) Lying-Sitting on Side/Bed(QC): 3 (min assist) Sit to Stand (QC): 3 (mod assist) Roll Left to Right (QC): 3 (min assist) Chair/Vkk-ba-Rksxc Xfer(QC): 3 (mod assist) Car Transfer (QC): 3 (mod assist) Distance: 150' Wheel 50 feet with 2 turns (QC: 4 (SBA) PT Plan Problem List Problem List: Activity Tolerance, Functional Strength, Safety, Balance, Gait, Transfer, Bed Mobility, ROM Treatment/Plan Treatment Plan: Continue Plan of Care Treatment Plan: Bed Mobility, Concurrent Therapy, Education, Functional Activity Mabel, Functional Strength, Group Therapy, Safety, Therapeutic Exercise, Transfers Treatment Duration: Feb 07, 2019 Frequency: At least 5 of 7 days/Wk (IRF) Estimated Hrs Per Day: 1.5 hours per day Patient and/or Family Agrees t: Yes Safety Risks/Education Patient Education: Transfer Techniques, Correct Positioning, Safety Issues Teaching Recipient: Patient Teaching Methods: Demonstration, Discussion Response to Teaching: Reinforcement Needed Time/GCodes Time In: 0800 Time Out: 09 Total Billed Treatment Time: 90 Total Billed Treatment 1 visit EX 15' FA 75' Co-treated for the whole 90 min. PT worked on bed mobility and transfers, assist with dressing and bathing, OT worked on dressing and bathing, assist with transfers. ANTONI TRAORE PT Jan 20, 2019 09:29
--- NOTE | 2019-01-20 09:42 | Occupational Ther Daily Note ---
OT Current Status-Daily Note Subjective Pt seen supine in bed, states minimal pain in ribs this morning. Pt agreeable to OT/PT co-treatment on this date. Mental Status/Objective Patient Orientation: Normal For Age ADL-Treatment Therapy Code Descriptions/Definitions Functional [place] Measure: 0=Not Assessed/NA 4=Minimal Assistance 1=Total Assistance 5=Supervision or Setup 2=Maximal Assistance 6=Modified [place] 3=Moderate Assistance 7=Complete IndependenceSCALE: Activities may be completed with or without assistive devices. 7-Bxugecopwo-ekuxbgu completes the activity by him/herself with no assistance from a helper. 5-Set-up or Clean-up Assistance-helper sets up or cleans up; patient completes activity. [place] assists only prior to or following the activity. 4-Supervision or Touching Assistance-helper provides verbal cues and/or touching/steadying and/or contact guard assistance as patient completes activity. Assistance may be provided throughout the activity or intermittently. 3-Partial/Moderate Assistance-helper does LESS THAN HALF the effort. [place] lifts, holds or supports trunk or limbs, but provides less than half the effort. 2-Substantial/Maximal Assistance-helper does MORE THAN HALF the effort. [place] lifts or holds trunk or limbs and provides more than half the effort. 7-Cdwzlhrxb-kfuxam does ALL the effort. Patient does none of the effort to complete the activity. Or, the assistance of 2 or more helpers is required for the patient to complete the activity. If activity was not attempted, code reason: 7-Patient Refused. 9-Not Applicable-not attempted and the patient did not perform the activity before the current illness, exacerbation or injury. 10-Not Attempted due to Environmental Limitations-(lack of equipment, weather restraints, etc.). 88-Not Attempted due to Medical Conditions or Safety Concerns. Eating (QC): 6 Shower/Bathe Self (QC): 3 (Pt transferred from bed to shower chair with max Ax2 stand pivot. Min assist with bottom hygiene and bottom/ back drying. Pt completes on shower chair. ) Upper Body Dressing (QC): 4 (Min A with bra situating on back for comfort. ) On/ off footwear: QC 4. Pt completes sock donning onto sock aide. Pt completes sock aide donning, able to bend down to BLE to adjust socks with c/o pain in back of RLE. Pt completes donning with CGA/ intermittent assist. Other Treatment OT/PT co-treat due to decreased mobility, obesity, and NWB status. OT addresses ADL and adaptive techniques and UE strength. PT addresses functional transfers, LE strength, and balance/ gross motor. Pt given drop-arm commode for easier slide board transfers to and from bed. Based on clinical judgement, pt will be unable to stand without max A to doff pants, will address another day. Pt completes showering tasks; transfers shower chair to bed with max Ax2. Pt states she does not desire to place pants on due to discomfort of ribs and rolling dififculty. Pt does not wear pants, placed in bed with sheet over pt. Pt completes grooming tasks in bed with modified placement of tools. Due to pt's stated NWB status of RUE, pt educated on LUE theraband exercises with therabands wrapped around bed rails. Bands adjusted to pt's AROM and strength. Pt educated and demonstrates back 15 reps of 5 exercises to address UE strength and endurance to encourage greater IND level. Nursing notified of pt's in bed status; pt left in bed with call light in reach and all needs met. Education OT Patient Education: Correct positioning, Energy conservation, Exercise prog wiley, Home exercise program, Modified ADL techniques, Purpose of tx/functional activities, Rehab process, Safety issues, Transfer techniques, Use of adapted equipment Teaching Recipient: Patient Teaching Methods: Demonstration, Discussion Response to Teaching: Verbalize Understanding, Return Demonstration OT Short Term Goals Short Term Goals Grooming(FIM): 4 (met) Upper Body Dressing(FIM): 3 (met) Lower Body Dressing(FIM): 2 (met) Transfers (B,C,W/C) (FIM): 2 Additional Short Term Goals: 1-Demonstrate ADL Tasks, 2-Verbalize Understanding, 3-ImproveStrength/Mabel 1=Demonstrate adherence to instructed precautions during ADL tasks. 2=Patient will verbalize/demonstrate understanding of assistive devices/modifications for ADL. 3=Patient will improve strength/tolerance for activity to enable patient to perform ADL's. OT Tape Sewer Goals Tape Sewer Goals Eating (QC): 6 (met) Oral Hygiene (QC): 6 Shower/Bathe Self (QC): 5 Upper Body Dressing (QC): 5 Lower Body Dressing (QC): 3 On/Off Footwear (QC): 3 Toileting Hygiene (QC): 3 Toilet/Commode Transfer (QC): 3 Additional Goals: 1-Demonstrate ADL Tasks, 2-Verbalize Understanding, 3- ImproveStrength/Mabel 1=Demonstrate adherence to instructed precautions during ADL tasks. 2=Patient will verbalize/demonstrate understanding of assistive devices/modifications for ADL. 3=Patient will improve strength/tolerance for activity to enable patient to perform ADL's. OT Education/Plan Problem List/Assessment Assessment: Decreased Activ Tolerance, Decreased UE Strength, Dependent Transfers, Impaired Bed Mobility, Impaired Coordination, Impaired Funct Balance, Impaired I ADL's, Impaired Self-Care Skills, Restricted Funct UE ROM Discharge Recommendations Plan/Recommendations: Continue POC Treatment Plan/Plan of Care Treatment,Training & Education: Yes Patient would benefit from OT for education, treatment and training to promote independence in ADL's, mobility, safety and/or upper extremity function for ADL's. Plan of Care: ADL Retraining, Caregiver Training, Concurrent Therapy, Functional Mobility, Group Exercise/Act as Ind, Orthotic Fitting/Training, UE Funct Exercise/Act, W/C Management Training Treatment Duration: Jan 31, 2019 Frequency: At least 5 of 7 days/Wk (IRF) Estimated Hrs Per Day: 1.5 hours per day Agreement: Yes Rehab Potential: Guarded Time/GCodes Start Time: 08:00 Stop Time: 09:30 Total Time Billed (hr/min): 90 Billed Treatment Time 1 ADLx5 (75), EX (15)= 90 OT/ PT co-treat from [id number] KIT SWANSON OTR Jan 20, 2019 09:42
[2019-01-20] MEDS: BISACODYL 10 MG SUPP (DULCOLAX) PR SCH ×2 (10:06→20:36)
[2019-01-20] MEDS: POLYETHYLENE GLYCOL 17 GM (MIRALAX) PACK PO SCH ×2 (10:06→20:36)
[2019-01-20] MEDS: BACLOFEN 10 MG (LIORESAL) TAB PO PRN ×2 (14:37→20:38)
[2019-01-20 18:13] VITALS: BP 144/66
[2019-01-20] MEDS: LIDOCAINE PATCH REMOVAL TP SCH (20:37)
[2019-01-20] MEDS: ZOLPIDEM 5 MG (AMBIEN) TAB PO PRN (22:37)
[2019-01-21] MEDS: CATHETER FLUSH 10 ML SYR IV SCH ×3 (05:34→22:06)
[2019-01-21] MEDS: LEVOTHYROXINE 25 MCG (LEVOTHROID) TAB PO SCH (05:35)
[2019-01-21] MEDS: LEVOTHYROXINE 112 MCG (LEVOTHROID) TAB PO SCH (05:35)
[2019-01-21 05:46] VITALS: BP 113/69
[2019-01-21] MEDS: BACLOFEN 10 MG (LIORESAL) TAB PO PRN ×3 (07:08→21:24)
[2019-01-21 09:24] VITALS: BP 124/72
[2019-01-21] MEDS: LIDOCAINE 4% (SALONPAS) PATCH TOP SCH (09:30)
[2019-01-21] MEDS: OXYBUTYNIN (DITROPAN) 5 MG TAB PO SCH ×2 (09:30→21:24)
[2019-01-21] MEDS: SERTRALINE 50 MG (ZOLOFT) TABLET PO SCH (09:30)
[2019-01-21] MEDS: VALACYCLOVIR 500 MG TAB (VALTREX) PO SCH ×2 (09:30→21:24)
[2019-01-21] MEDS: ENOXAPARIN 40 MG/0.4 ML (LOVENOX) SYR SC SCH ×2 (09:31→21:25)
[2019-01-21] MEDS: buPROPion SR 150 MG (WELLBUTRIN SR) TAB PO SCH ×2 (09:31→21:24)
[2019-01-21] MEDS: IRON SUCROSE 200 MG/10 ML (VENOFER) VIAL IV SCH (09:31)
[2019-01-21] MEDS: DOCUSATE SODIUM 100 MG (COLACE) CAP PO SCH ×3 (09:31→21:26)
[2019-01-21] MEDS: SENNA W/DOCUSATE (SENOKOT S) TABLET PO SCH (09:31)
--- NOTE | 2019-01-21 11:56 | Physical Therapy Daily Note ---
PT Daily Note-Current Subjective Pt. in bed upon arrival and states initially she doesnt want to get up but agrees to sit up at EOB. Pt. then asks to take a mini bed bath sitting EOB then requests on BSC for BM etc. min c/o pain in RLE hip area with TRF back in to bed. Pain Numeric Pain Scale: 3 Location: Right Location Body Site: Hip Pain Description: Pressure Mental Status Patient Orientation: Normal For Age Attachments: Other-See Comments (immoblizer right LE and pure wick device) Transfers SCALE: Activities may be completed with or without assistive devices. 0-Yrdesxnlyn-flwywti completes the activity by him/herself with no assistance f rom a helper. 5-Set-up or Clean-up Assistance-helper sets up or cleans up; patient completes activity. [place] assists only prior to or following the activity. 4-Supervision or Touching Assistance-helper provides verbal cues and/or touching/steadying and/or contact guard assistance as patient completes activity. Assistance may be provided throughout the activity or intermittently. 3-Partial/Moderate Assistance-helper does LESS THAN HALF the effort. [place] lifts, holds or supports trunk or limbs, but provides less than half the effort. 2-Substantial/Maximal Assistance-helper does MORE THAN HALF the effort. [place] lifts or holds trunk or limbs and provides more than half the effort. 1-Ltclcxucc-vvhmgk does ALL the effort. Patient does none of the effort to complete the activity. Or, the assistance of 2 or more helpers is required for the patient to complete the activity. If activity was not attempted, code reason: 7-Patient Refused. 9-Not Applicable-not attempted and the patient did not perform the activity before the current illness, exacerbation or injury. 10-Not Attempted due to Environmental Limitations-(lack of equipment, weather restraints, etc.). 88-Not Attempted due to Medical Conditions or Safety Concerns. Transfers (B, C, W/C): 3 Roll Left to Right (QC): 4 Sit to Lying (QC): 4 (puts head of bed up all the way) Bed to/from Chair: 3 (sld brd bed to BSC) pt. demonstrated ability to pull/push self up in bed with bed flat and using left U&L extremity only indep , pt. rolls to right SBA but required mod to min assist to left side using pad. TRF sitting EOB to BSC was managed with bed height set for gravity assist and pt. using IVVI&L extremity only, as soon as pt. got nichol area squared over toilet her RLE was rested on trash can turned upside down. Pt. was able to have BM and urinate on BSC , pt. then rolled/turned to extreme right for max assist to clean nichol area. for TRF back to bed pt. manually lifted her right butt cheek and (for lack of better term) sprawled it across toward bed then brought left butt cheek as close to right cheek as possible making slow migration back to bed as close as possible then actually rolled to right side and then prone onto bed . Pt then continued to roll and ended up on left side , rested then scooted using L U&L extremity to pull up and adjust in to supine position. All pillows and supports placed with heels floating as well as immoblizer unstrapped and replaced in better position as pt. had c/o it was slipping down and twisted. Pt. with call deleon and needs met Weight Bearing Right Lower Extremity: Right Non Weight Bearing Left Lower Extremity: Left Full Weight Bearing Patient states she is not supposed to bear weight on her right arm due to shoulder issues. Exercises Supine Ex: Ankle pumps, Quad Set, Rolling, Glut sets, Heel Slides (left only), Short Arc Quads (left only), Scooting, Straight leg raise (LLE indep, ), Hip abd/add (bilat) Supine Reps: 12 Assessment Current Status: Good Progress precarious TRF situation but pt. did not wt bear through the R U&L extremity during TRF. PT Short Term Goals Short Term Goals Time Frame: Jan 24, 2019 Wheelchair Distance: 50'x2 Wheelchair Level of Assist: 5 PT Production Team Advisor Goals Production Team Advisor Goals PT Jail Goals Time Frame: Feb 07, 2019 Sit to Lying (QC): 3 (min assist) Lying-Sitting on Side/Bed(QC): 3 (min assist) Sit to Stand (QC): 3 (mod assist) Roll Left to Right (QC): 3 (min assist) Chair/Owi-vh-Dvhmq Xfer(QC): 3 (mod assist) Car Transfer (QC): 3 (mod assist) Distance: 150' Wheel 50 feet with 2 turns (QC: 4 (SBA) PT Plan Treatment/Plan Treatment Plan: Continue Plan of Care Treatment Plan: Bed Mobility, Concurrent Therapy, Education, Functional Activity Mabel, Functional Strength, Group Therapy, Safety, Therapeutic Exercise, Transfers Treatment Duration: Feb 07, 2019 Frequency: At least 5 of 7 days/Wk (IRF) Estimated Hrs Per Day: 1.5 hours per day Patient and/or Family Agrees t: Yes Safety Risks/Education Patient Education: Transfer Techniques, Correct Positioning, Disease Process, Safety Issues Teaching Recipient: Patient Teaching Methods: Demonstration, Discussion Response to Teaching: Verbalize Understanding, Return Demonstration, Reinforcement Needed Time/GCodes Time In: 1055 Time Out: 1155 Total Billed Treatment Time: 60 Total Billed Treatment 1,EX15m,FA45m CHARLENE PALMA WARDROBE STYLIST Jan 21, 2019 11:56
[2019-01-21] MEDS: BISACODYL 10 MG SUPP (DULCOLAX) PR SCH ×2 (12:42→21:00)
[2019-01-21] MEDS: LACTULOSE SYRUP 10GM/15ML (ENULOSE) 30ML UDC PO SCH ×2 (12:45→21:00)
[2019-01-21] MEDS: POLYETHYLENE GLYCOL 17 GM (MIRALAX) PACK PO SCH ×2 (12:45→21:00)
--- NOTE | 2019-01-21 12:59 | PM&R Progress Note ---
Subjective HPI/CC On Admission Date Seen by Provider: Jan 21, 2019 Time Seen by Provider: 11:00 Chief complaint: s/p right femur fracture HPI: This is a 68yoWF clinic Pt of Dr. Hogan at [facility] who presented to the ER after sustaining a fall at home, apparently she was walking up the stairs outside and caused her to fall into a fence, stated that her right leg was twisted and had pain in her upper left chest, could not move her leg, did not hit her head and did not lose consciousness, but was brought to the ER. Chest/abdomen CT showed non-displaced anterior left fourth and fifth rib fractures, no pneumothorax and femur on the right revealed distal femur fracture. 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 Pt denies any significant heart or lung problems otherwise. Pt had prior level of functioning of independence without use of assistive device so we will admit to inpatient rehab, since she is so fatigued today we will do a 15/7 slow start but begin aggressive bowel movement treatment in addition to IV iron infusion since Hgb has decreased to 7.8 today and will initiated inpatient rehab protocol. Subjective/Events-last exam Shoulder limitation with Dr. Gomez is still pending and multiple phone calls to his office did not result in any type of answer Bowels are moving now very well Is a four person lift affect continue she will need snf Lidocaine patch on the ribs has been successful Using IS. Using CPAP at night Overall very debilitated, more on a chronic basis now, very debilitated. Lovenox maintained even though her Hgb at 7.3 from acute blood loss anemia from surgery but she is high risk because she is nonweightbearing immobile so she will remain on Lovenox and we will transfuse if necessary Iron infusions tolerated Conferred with RN Reviewed therapy notes Checked meds and labs Review of Systems Musculoskeletal: arm pain, back pain, leg pain Objective Exam Vital Signs Vital Signs Date Time Temp Pulse Resp B/P (MAP) Pulse Ox O2 Delivery O2 Flow Rate FiO2 01/21/19 09:24 36.6 79 20 124/72 (89) 98 Room Air Capillary Refill : Less Than 3 Seconds General Appearance: No Apparent Distress, WD/WN, Chronically ill, Obese HEENT: PERRL/EOMI, Normal ENT Inspection, Pharynx Normal, Moist Mucous Membranes Neck: Full Range of Motion, Normal Inspection, Non Tender, Supple Respiratory: Chest Non Tender, Lungs Clear, Normal Breath Sounds, No Accessory Muscle Use, No Respiratory Distress Cardiovascular: Regular Rate, Rhythm, No Edema, No Gallop, No JVD, No Murmur Gastrointestinal: Normal Bowel Sounds, No Organomegaly, No Pulsatile Mass, Non Tender, Soft Back: Normal Inspection, No CVA Tenderness, No Vertebral Tenderness Extremity: Normal Capillary Refill, Normal Inspection, Normal Range of Motion (except right leg and bilateral shoulders L>R in deficit), Non Tender, No Calf T enderness, No Pedal Edema Neurologic/Psychiatric: Alert, Oriented x3, No Motor/Sensory Deficits, Normal Mood/Affect Skin: Normal Color, Warm/Dry Lymphatic: No Adenopathy Results/Procedures Lab Patient resulted labs reviewed. FIM Transfers Therapy Code Descriptions/Definitions Functional [place] Measure: 0=Not Assessed/NA 4=Minimal Assistance 1=Total Assistance 5=Supervision or Setup 2=Maximal Assistance 6=Modified [place] 3=Moderate Assistance 7=Complete IndependenceSCALE: Activities may be completed with or without assistive devices. 8-Yzcuphofyu-rawzqwd completes the activity by him/herself with no assistance from a helper. 5-Set-up or Clean-up Assistance-helper sets up or cleans up; patient completes activity. [place] assists only prior to or following the activity. 4-Supervision or Touching Assistance-helper provides verbal cues and/or touching/steadying and/or contact guard assistance as patient completes activity. Assistance may be provided throughout the activity or intermittently. 3-Partial/Moderate Assistance-helper does LESS THAN HALF the effort. [place] lifts, holds or supports trunk or limbs, but provides less than half the effort. 2-Substantial/Maximal Assistance-helper does MORE THAN HALF the effort. [place] lifts or holds trunk or limbs and provides more than half the effort. 0-Nfofaxlha-amswfm does ALL the effort. Patient does none of the effort to complete the activity. Or, the assistance of 2 or more helpers is required for the patient to complete the activity. If activity was not attempted, code reason: 7-Patient Refused. 9-Not Applicable-not attempted and the patient did not perform the activity before the current illness, exacerbation or injury. 10-Not Attempted due to Environmental Limitations-(lack of equipment, weather restraints, etc.). 88-Not Attempted due to Medical Conditions or Safety Concerns. Transfers (B, C, W/C) (FIM): 3 Roll Left to Right (QC): 4 Sit to Lying (QC): 4 (puts head of bed up all the way) Sit to Stand (QC): 1 Chair/Udq-gr-Uydwq Xfer(QC): 2 Bed to/from Chair: 3 (sld brd bed to BSC) Car Transfer (QC): 88 Gait Training Does the Patient Walk?: No and Walking Goal NOT indicated Walk 10 feet (QC): 88 Walk 50 ft with 2 Turns(QC): 88 Walk 150 ft (QC): 88 Walking 10ft/uneven surface-QC: 88 Wheelchair Training Does the Pt Use a Wheelchair?: Yes Distance: 50'x2 Wheel 50 ft with 2 turns (QC): 3 Wheel 150 ft (QC): 1 Type of Wheelchair: Manual Stair Training 1 Step (curb) (QC): 88 4 Steps (QC): 88 12 Steps (QC): 88 ADL-Treatment Eating (QC): 6 Oral Hygiene (QC): 5 (Pt requires s/u due to pt's inability to navigate with w/c at current point within small spaces. Pt was handed materials in w/c as pt unable to reach sink at this point. ) Shower/Bathe Self (QC): 3 (Pt transferred from bed to shower chair with max Ax2 stand pivot. Min assist with bottom hygiene and bottom/ back drying. Pt completes on shower chair. ) Upper Body Dressing (QC): 4 (Min A with bra situating on back for comfort. ) Lower Body Dressing (QC): 2 (Pt utilizes cloth baler to dress L leg, demonstrates competence through success. Pt requires assist with threading R leg with brace on. Pt rolls from side to side to enable pants pulled up. Pt unable to assist in pulling up as she maintains BUE in reaching position when rolling.) On/Off Footwear (QC): 1 (TD L sock) Toileting Hygiene (QC): 2 (Pt attempts to lean side to side for wiping, unable to complete. Pt utilizes long handled sponge for cleansing, requires max A to cleanse thoroughly. ) Toilet Transfer (QC): 1 (TDx2) Assessment/Plan Assessment and Plan Assess & Plan/Chief Complaint Assessment: s/p repair distal right femur fracture Chronic shoulder pain and limitation of activity that could limit recovery TODD on CPAP Post op anemia with severely low iron so started iron infusions HLP Hypothyroidism Post op constipation placed on meds now resolved OAB Plan: BM regimen Home meds Iron infusions Pain control Lovenox for DVT PPx Ortho evaluation of shoulder limitations Monitor for lidocaine toleration Check labs on Wednesday (1) Fracture of femur, right, closed Status: Acute (2) Insomnia Status: Chronic (3) Fall down stairs Status: Acute (4) Depression Status: Chronic Qualifiers: Depression Type: unspecified Qualified Codes: F32.9 - Major depressive disorder, single episode, unspecified (5) Hypothyroidism Status: Chronic Qualifiers: Hypothyroidism type: acquired Qualified Codes: E03.9 - Hypothyroidism, unspecified (6) Rib fractures Status: Acute Qualifiers: Encounter type: subsequent encounter Rib fracture type: multiple ribs Fracture type: closed Laterality: left (7) HLD (hyperlipidemia) Status: Chronic Qualifiers: Hyperlipidemia type: mixed hyperlipidemia Qualified Codes: E78.2 - Mixed h yperlipidemia (8) Postoperative anemia (9) Iron deficiency RAJESH LEWIS DO Jan 21, 2019 12:59
[2019-01-21 18:05] VITALS: BP 128/74
[2019-01-21] MEDS: ZOLPIDEM 5 MG (AMBIEN) TAB PO PRN (21:24)
[2019-01-21] MEDS: LIDOCAINE PATCH REMOVAL TP SCH (21:28)
[2019-01-22] MEDS: BACLOFEN 10 MG (LIORESAL) TAB PO PRN ×4 (03:12→22:42)
[2019-01-22] MEDS: LEVOTHYROXINE 25 MCG (LEVOTHROID) TAB PO SCH (04:51)
[2019-01-22] MEDS: LEVOTHYROXINE 112 MCG (LEVOTHROID) TAB PO SCH (04:51)
[2019-01-22] MEDS: CATHETER FLUSH 10 ML SYR IV SCH ×3 (04:52→20:45)
[2019-01-22 05:22] VITALS: BP 109/68
[2019-01-22] MEDS: SENNA W/DOCUSATE (SENOKOT S) TABLET PO SCH (08:32)
[2019-01-22] MEDS: DOCUSATE SODIUM 100 MG (COLACE) CAP PO SCH ×2 (08:32→20:43)
[2019-01-22] MEDS: VALACYCLOVIR 500 MG TAB (VALTREX) PO SCH ×2 (08:33→20:43)
[2019-01-22] MEDS: BISACODYL 10 MG SUPP (DULCOLAX) PR SCH ×2 (08:33→20:43)
[2019-01-22] MEDS: SERTRALINE 50 MG (ZOLOFT) TABLET PO SCH (08:33)
[2019-01-22] MEDS: buPROPion SR 150 MG (WELLBUTRIN SR) TAB PO SCH ×2 (08:33→20:43)
[2019-01-22] MEDS: POLYETHYLENE GLYCOL 17 GM (MIRALAX) PACK PO SCH ×2 (08:33→20:45)
[2019-01-22] MEDS: OXYBUTYNIN (DITROPAN) 5 MG TAB PO SCH ×2 (08:33→20:43)
[2019-01-22] MEDS: LACTULOSE SYRUP 10GM/15ML (ENULOSE) 30ML UDC PO SCH ×2 (08:34→20:42)
[2019-01-22] MEDS: ENOXAPARIN 40 MG/0.4 ML (LOVENOX) SYR SC SCH ×2 (08:35→20:42)
[2019-01-22] MEDS: LIDOCAINE 4% (SALONPAS) PATCH TOP SCH (08:36)
--- NOTE | 2019-01-22 11:30 | NUR ---
Dressing change to right leg incisions. Incisions are well approximated with susu intact. No redness or drainage noted. Covered with [place] dressings. [place] dressings X2 to posterior thigh where immobilizer has rubbed off top layer of skin.
--- NOTE | 2019-01-22 12:54 | PM&R Progress Note ---
Subjective HPI/CC On Admission Date Seen by Provider: Jan 22, 2019 Time Seen by Provider: 11:15 Chief complaint: s/p right femur fracture HPI: This is a 68yoWF clinic Pt of Dr. Hogan at [facility] who presented to the ER after sustaining a fall at home, apparently she was walking up the stairs outside and caused her to fall into a fence, stated that her right leg was twisted and had pain in her upper left chest, could not move her leg, did not hit her head and did not lose consciousness, but was brought to the ER. Ch est/abdomen CT showed non-displaced anterior left fourth and fifth rib fractures, no pneumothorax and femur on the right revealed distal femur fracture. 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 Pt denies any significant heart or lung problems otherwise. Pt had prior level of functioning of independence without use of assistive device so we will admit to inpatient rehab, since she is so fatigued today we will do a 15/7 slow start but begin aggressive bowel movement treatment in addition to IV iron infusion since Hgb has decreased to 7.8 today and will initiated inpatient rehab protocol. Subjective/Events-last exam Shoulder limitation with Dr. Gomez is still pending and multiple phone calls to his office did not result in any type of answer Bowels are moving now very well Is a four person lift and if this continues she will need [place] [facility] but she seems to be transferring better today Lidocaine patch on the ribs has been successful and we will continue that along with the Baclofen which is working very well for her Using IS. Using CPAP at night Overall very debilitated, more on a chronic basis now, very debilitated. Lovenox maintained even though her Hgb at 7.3 from acute blood loss anemia from surgery but she is high risk because she is nonweightbearing immobile so she will remain on Lovenox and we will transfuse if necessary Iron infusions tolerated Conferred with RN Reviewed therapy notes Checked meds and labs Review of Systems General: Fatigue Musculoskeletal: leg pain Objective Exam Vital Signs Vital Signs Date Time Temp Pulse Resp B/P (MAP) Pulse Ox O2 Delivery O2 Flow Rate FiO2 01/23/19 05:39 36.6 83 16 118/60 (79) 92 Room Air Capillary Refill : Less Than 3 Seconds General Appearance: No Apparent Distress, WD/WN, Chronically ill, Obese HEENT: PERRL/EOMI, Normal ENT Inspection, Pharynx Normal, Moist Mucous Membranes Neck: Full Range of Motion, Normal Inspection, Non Tender, Supple Respiratory: Chest Non Tender, Lungs Clear, Normal Breath Sounds, No Accessory Muscle Use, No Respiratory Distress Cardiovascular: Regular Rate, Rhythm, No Edema, No Gallop, No JVD, No Murmur Gastrointestinal: Normal Bowel Sounds, No Organomegaly, No Pulsatile Mass, Non Tender, Soft Back: Normal Inspection, No CVA Tenderness, No Vertebral Tenderness Extremity: Normal Capillary Refill, Normal Inspection, Normal Range of Motion (except right leg and bilateral shoulders L>R in deficit), Non Tender, No Calf Tenderness, No Pedal Edema Neurologic/Psychiatric: Alert, Oriented x3, No Motor/Sensory Deficits, Normal Mood/Affect Skin: Normal Color, Warm/Dry Lymphatic: No Adenopathy Results/Procedures Lab Laboratory Tests 01/23/19 04:30 Patient resulted labs reviewed. FIM Transfers Therapy Code Descriptions/Definitions Functional [place] Measure: 0=Not Assessed/NA 4=Minimal Assistance 1=Total Assistance 5=Supervision or Setup 2=Maximal Assistance 6=Modified [place] 3=Moderate Assistance 7=Complete IndependenceSCALE: Activities may be completed with or without assistive devices. 6-Zzfkxdhmal-ubbrqxn completes the activity by him/herself with no assistance from a helper. 5-Set-up or Clean-up Assistance-helper sets up or cleans up; patient completes activity. [place] assists only prior to or following the activity. 4-Supervision or Touching Assistance-helper provides verbal cues and/or touching/steadying and/or contact guard assistance as patient completes activity. Assistance may be provided throughout the activity or intermittently. 3-Partial/Moderate Assistance-helper does LESS THAN HALF the effort. [place] lifts, holds or supports trunk or limbs, but provides less than half the effort. 2-Substantial/Maximal Assistance-helper does MORE THAN HALF the effort. [place] lifts or holds trunk or limbs and provides more than half the effort. 3-Ngexfmxvy-zsrxnm does ALL the effort. Patient does none of the effort to complete the activity. Or, the assistance of 2 or more helpers is required for the patient to complete the activity. If activity was not attempted, code reason: 7-Patient Refused. 9-Not Applicable-not attempted and the patient did not perform the activity before the current illness, exacerbation or injury. 10-Not Attempted due to Environmental Limitations-(lack of equipment, weather restraints, etc.). 88-Not Attempted due to Medical Conditions or Safety Concerns. Transfers (B, C, W/C) (FIM): 3 Roll Left to Right (QC): 4 Sit to Lying (QC): 4 (puts head of bed up all the way) Sit to Stand (QC): 1 Chair/Msx-fy-Pplaf Xfer(QC): 2 Bed to/from Chair: 3 (sld brd bed to BSC) Car Transfer (QC): 88 Gait Training Does the Patient Walk?: No and Walking Goal NOT indicated Walk 10 feet (QC): 88 Walk 50 ft with 2 Turns(QC): 88 Walk 150 ft (QC): 88 Walking 10ft/uneven surface-QC: 88 Wheelchair Training Does the Pt Use a Wheelchair?: Yes Distance: 50'x2 Wheel 50 ft with 2 turns (QC): 3 Wheel 150 ft (QC): 1 Type of Wheelchair: Manual Stair Training 1 Step (curb) (QC): 88 4 Steps (QC): 88 12 Steps (QC): 88 ADL-Treatment Eating (QC): 6 Oral Hygiene (QC): 5 (Pt requires s/u due to pt's inability to navigate with w/c at current point within small spaces. Pt was handed materials in w/c as pt unable to reach sink at this point. ) Shower/Bathe Self (QC): 3 (Pt transferred from bed to shower chair with max Ax2 stand pivot. Min assist with bottom hygiene and bottom/ back drying. Pt completes on shower chair. ) Upper Body Dressing (QC): 4 (Min A with bra situating on back for comfort. ) Lower Body Dressing (QC): 2 (Pt utilizes manager sales training to dress L leg, demonstrates competence through success. Pt requires assist with threading R leg with brace on. Pt rolls from side to side to enable pants pulled up. Pt unable to assist in pulling up as she maintains BUE in reaching position when rolling.) On/Off Footwear (QC): 1 (TD L sock) Toileting Hygiene (QC): 2 (Pt attempts to lean side to side for wiping, unable to complete. Pt utilizes long handled sponge for cleansing, requires max A to cleanse thoroughly. ) Toilet Transfer (QC): 1 (TDx2) Assessment/Plan Assessment and Plan Assess & Plan/Chief Complaint Assessment: s/p repair distal right femur fracture Chronic shoulder pain and limitation of activity that could limit recovery TODD on CPAP Post op anemia with severely low iron so started iron infusions HLP Hypothyroidism Post op constipation placed on meds now resolved OAB Plan: BM regimen Home meds Iron infusions Pain control Lovenox for DVT PPx Ortho evaluation of shoulder limitations Monitor for lidocaine toleration Check labs on Wednesday (1) Fracture of femur, right, closed Status: Acute (2) Insomnia Status: Chronic (3) Fall down stairs Status: Acute (4) Depression Status: Chronic Qualifiers: Depression Type: unspecified Qualified Codes: F32.9 - Major depressive disorder, single episode, unspecified (5) Hypothyroidism Status: Chronic Qualifiers: Hypothyroidism type: acquired Qualified Codes: E03.9 - Hypothyroidism, unspecified (6) Rib fractures Status: Acute Qualifiers: Encounter type: subsequent encounter Rib fracture type: multiple ribs Fracture type: closed Laterality: left (7) HLD (hyperlipidemia) Status: Chronic Qualifiers: Hyperlipidemia type: mixed hyperlipidemia Qualified Codes: E78.2 - Mixed hyperlipidemia (8) Postoperative anemia (9) Iron deficiency RAJESH LEWIS DO Jan 22, 2019 12:54
[2019-01-22] MEDS: ACETAMINOPHEN 325 MG TABLET PO PRN (13:22)
[2019-01-22 17:19] VITALS: BP 149/70
[2019-01-22 20:00] VITALS: BP 107/70
[2019-01-22] MEDS: LIDOCAINE PATCH REMOVAL TP SCH (20:43)
[2019-01-22] MEDS: ZOLPIDEM 5 MG (AMBIEN) TAB PO PRN (23:02)
[2019-01-23] MEDS: LEVOTHYROXINE 112 MCG (LEVOTHROID) TAB PO SCH (03:45)
[2019-01-23] MEDS: LEVOTHYROXINE 25 MCG (LEVOTHROID) TAB PO SCH (03:45)
--- NOTE | 2019-01-23 03:45 | NUR ---
PT VERBALLY REQUESTED TO TAKE SYNTHROID 25MCG AND 112MCG NOW SO THAT SHE CAN BE ON AN EMPTY STOMACH.
[2019-01-23 05:14] LABS: BASOPHILS % (AUTO) 1 % (0-10); EOSINOPHILS # (AUTO) 0.4 10^3/uL (0.0-0.3); EOSINOPHILS % (AUTO) 5 % (0-10); HEMATOCRIT 29 % (35-52); HEMOGLOBIN 8.8 G/DL (11.5-16.0); LYMPHOCYTES # (AUTO) 1.8 X 10^3 (1.0-4.0); LYMPHOCYTES % (AUTO) 22 % (12-44); MEAN CORPUSCULAR HEMOGLOBIN 30 PG (25-34); MEAN CORPUSCULAR HGB CONC 31 G/DL (32-36); MEAN CORPUSCULAR VOLUME 98 FL (80-99); MONOCYTES # (AUTO) 0.8 X 10^3 (0.0-1.0); MONOCYTES % (AUTO) 9 % (0-12); NEUTROPHILS # (AUTO) 5.1 X 10^3 (1.8-7.8); NEUTROPHILS % (AUTO) 63 % (42-75); PLATELET COUNT 381 10^3/uL (130-400); RED CELL DISTRIBUTION WIDTH 16.6 % (10.0-14.5); WHITE BLOOD COUNT 8.2 10^3/uL (4.3-11.0)
[2019-01-23] MEDS: BACLOFEN 10 MG (LIORESAL) TAB PO PRN ×4 (05:20→23:05)
[2019-01-23 05:39] VITALS: BP 118/60
[2019-01-23 05:43] LABS: ALANINE AMINOTRANSFERASE 21 U/L (0-55); ALBUMIN 3.2 GM/DL (3.2-4.5); ALKALINE PHOSPHATASE 53 U/L (40-136); BILIRUBIN,TOTAL 0.7 MG/DL (0.1-1.0); BUN/CREATININE RATIO 20; CARBON DIOXIDE 22 MMOL/L (21-32); CHLORIDE 107 MMOL/L (98-107); CREATININE SERUM 0.65 MG/DL (0.60-1.30); GFR ESTIMATED > 60; GLUCOSE 91 MG/DL (70-105); POTASSIUM 3.8 MMOL/L (3.6-5.0); SODIUM 139 MMOL/L (135-145); TOTAL PROTEIN 5.9 GM/DL (6.4-8.2)
[2019-01-23] MEDS: CATHETER FLUSH 10 ML SYR IV SCH ×3 (06:03→20:31)
--- NOTE | 2019-01-23 09:02 | Physical Therapy Daily Note ---
PT Daily Note-Current Subjective Patient in bed pre tx, agrees to PT, has no complaints of pain at rest. Will be co-treating with OT due to poor patient mobility, strength, endurance, the need to coordinate UE and LE during activity, being NWB on the right UE and LE. Appearance Patient sitting EOB post tx with OT, will continue with OT for grooming. Mental Status Patient Orientation: Normal For Age right knee immobilizer Transfers SCALE: Activities may be completed with or without assistive devices. 0-Yigbxruaha-jxalbsv completes the activity by him/herself with no assistance from a helper. 5-Set-up or Clean-up Assistance-helper sets up or cleans up; patient completes activity. [place] assists only prior to or following the activity. 4-Supervision or Touching Assistance-helper provides verbal cues and/or touching/steadying and/or contact guard assistance as patient completes activit y. Assistance may be provided throughout the activity or intermittently. 3-Partial/Moderate Assistance-helper does LESS THAN HALF the effort. [place] lifts, holds or supports trunk or limbs, but provides less than half the effort. 2-Substantial/Maximal Assistance-helper does MORE THAN HALF the effort. [place] lifts or holds trunk or limbs and provides more than half the effort. 5-Brmhwbzuk-vwhzle does ALL the effort. Patient does none of the effort to complete the activity. Or, the assistance of 2 or more helpers is required for the patient to complete the activity. If activity was not attempted, code reason: 7-Patient Refused. 9-Not Applicable-not attempted and the patient did not perform the activity before the current illness, exacerbation or injury. 10-Not Attempted due to Environmental Limitations-(lack of equipment, weather restraints, etc.). 88-Not Attempted due to Medical Conditions or Safety Concerns. Roll Left to Right (QC): 3 Sit to Lying (QC): 3 Sit to Stand (QC): 2 Chair/Fxq-rv-Dylbh Xfer(QC): 2 supine to sit min assist, transfers still max Weight Bearing Right Lower Extremity: Right Non Weight Bearing Left Lower Extremity: Left Full Weight Bearing Patient states she is not supposed to bear weight on her right arm due to shoulder issues. Treatments transferred supine to sit and then stand pivot to shower chair, taken to shower room, showered, taken back to room, transferred to commode, had BM, transferred to bed. Patient performed some dressing of upper Assessment Current Status: Fair Progress improved supine to sit PT Short Term Goals Short Term Goals Time Frame: Jan 24, 2019 Wheelchair Distance: 50'x2 Wheelchair Level of Assist: 5 PT Senior Living Goals Director Of Instruction Goals PT Senior Living Goals Time Frame: Feb 07, 2019 Sit to Lying (QC): 3 (min assist) Lying-Sitting on Side/Bed(QC): 3 (min assist) Sit to Stand (QC): 3 (mod assist) Roll Left to Right (QC): 3 (min assist) Chair/Mnb-fz-Gozqe Xfer(QC): 3 (mod assist) Car Transfer (QC): 3 (mod assist) Distance: 150' Wheel 50 feet with 2 turns (QC: 4 (SBA) PT Plan Problem List Problem List: Activity Tolerance, Functional Strength, Safety, Balance, Gait, Transfer, Bed Mobility, ROM Treatment/Plan Treatment Plan: Continue Plan of Care Treatment Plan: Bed Mobility, Concurrent Therapy, Education, Functional Activity Mabel, Functional Strength, Group Therapy, Safety, Therapeutic Exercise, Transfers Treatment Duration: Feb 07, 2019 Frequency: At least 5 of 7 days/Wk (IRF) Estimated Hrs Per Day: 1.5 hours per day Patient and/or Family Agrees t: Yes Safety Risks/Education Patient Education: Transfer Techniques, Reviewed Precautions, Correct Positioning, Safety Issues Teaching Recipient: Patient Teaching Methods: Demonstration, Discussion Response to Teaching: Reinforcement Needed Time/GCodes Time In: 0800 Time Out: 0900 Total Billed Treatment Time: 60 Total Billed Treatment 1 visit FA 60' Co-treated with OT for the whole 60 min, PT performed bed mobility and transfers, assisted with toileting and dressing, OT performed dressing and bathing, assist with transfers. ANTONI TRAORE PT Jan 23, 2019 09:02
[2019-01-23 09:12] VITALS: BP 96/68
[2019-01-23 09:14] VITALS: BP 106/73
[2019-01-23] MEDS: LIDOCAINE 4% (SALONPAS) PATCH TOP SCH (09:18)
[2019-01-23] MEDS: VALACYCLOVIR 500 MG TAB (VALTREX) PO SCH ×2 (09:18→20:29)
[2019-01-23] MEDS: SERTRALINE 50 MG (ZOLOFT) TABLET PO SCH (09:18)
[2019-01-23] MEDS: SENNA W/DOCUSATE (SENOKOT S) TABLET PO SCH (09:18)
[2019-01-23] MEDS: IRON SUCROSE 200 MG/10 ML (VENOFER) VIAL IV SCH (09:18)
[2019-01-23] MEDS: OXYBUTYNIN (DITROPAN) 5 MG TAB PO SCH ×2 (09:19→20:29)
[2019-01-23] MEDS: buPROPion SR 150 MG (WELLBUTRIN SR) TAB PO SCH ×2 (09:19→20:29)
[2019-01-23] MEDS: BISACODYL 10 MG SUPP (DULCOLAX) PR SCH ×2 (09:19→20:30)
[2019-01-23] MEDS: ENOXAPARIN 40 MG/0.4 ML (LOVENOX) SYR SC SCH ×2 (09:20→20:32)
[2019-01-23] MEDS: DOCUSATE SODIUM 100 MG (COLACE) CAP PO SCH ×2 (09:20→20:28)
[2019-01-23] MEDS: POLYETHYLENE GLYCOL 17 GM (MIRALAX) PACK PO SCH ×2 (09:21→20:30)
[2019-01-23] MEDS: LACTULOSE SYRUP 10GM/15ML (ENULOSE) 30ML UDC PO SCH ×2 (09:21→20:30)
--- NOTE | 2019-01-23 09:35 | Occupational Ther Daily Note ---
OT Current Status-Daily Note Subjective Pt states 7/10 pain in L ribs, pt agreeable to OT/ PT co-treatment on this date. Pt states she did not sleep well and had muscle spasms through the night which hindered sleep. Mental Status/Objective Patient Orientation: Normal For Age ADL-Treatment Therapy Code Descriptions/Definitions Functional [place] Measure: 0=Not Assessed/NA 4=Minimal Assistance 1=Total Assistance 5=Supervision or Setup 2=Maximal Assistance 6=Modified [place] 3=Moderate Assistance 7=Complete IndependenceSCALE: Activities may be completed with or without assistive devices. 2-Nplxsmnhas-xbtkdou completes the activity by him/herself with no assistance from a helper. 5-Set-up or Clean-up Assistance-helper sets up or cleans up; patient completes activity. [place] assists only prior to or following the activity. 4-Supervision or Touching Assistance-helper provides verbal cues and/or touching/steadying and/or contact guard assistance as patient completes activity. Assistance may be provided throughout the activity or intermittently. 3-Partial/Moderate Assistance-helper does LESS THAN HALF the effort. [place] lifts, holds or supports trunk or limbs, but provides less than half the effort. 2-Substantial/Maximal Assistance-helper does MORE THAN HALF the effort. [place] lifts or holds trunk or limbs and provides more than half the effort. 8-Xlmpeqexr-snmntf does ALL the effort. Patient does none of the effort to complete the activity. Or, the assistance of 2 or more helpers is required for the patient to complete the activity. If activity was not attempted, code reason: 7-Patient Refused. 9-Not Applicable-not attempted and the patient did not perform the activity before the current illness, exacerbation or injury. 10-Not Attempted due to Environmental Limitations-(lack of equipment, weather restraints, etc.). 88-Not Attempted due to Medical Conditions or Safety Concerns. Eating (QC): 6 Oral Hygiene (QC): 6 (completes in bed) Shower/Bathe Self (QC): 3 (Pt utilizes LHS to reach feet, back, and nichol area. Pt requires assist washing bottom and drying back and LE thoroughly.) Upper Body Dressing (QC): 4 (Pt requires intermittent assist with donning bra due to damp skin and limited UE ROM. Pt completes shirt donning on shower chair IND.) Lower Body Dressing (QC): 2 (Pt requires assist with donning socks, pt able to doff socks with dressing stick. pt leans side to side to practice pulling pants up on seated surface. Pt leans bilaterally 10x to practice trunk control, ROM, and pain management. Pt able to increase bottom clearance and place washcloths under bottom for drying assist. Pt states she does not want to put pants on today as she is worn out/ did not sleep well. ) Toileting Hygiene (QC): 2 (Pt able to attempt wiping, wipes nichol area, requires assist with wiping bottom thoroughly.) Toilet Transfer (QC): 1 (Pt able to sit EOB without assist, brings bottom forward toward EOB. Pt requires max Ax2 to compelte safe transfer from bed to commode and commode to bed.) Other Treatment OT/PT cotreat due to decreased functional mobility, obesity, and decreased strength. OT focused on showering, adaptive equipment, and UE motions; PT focused on functional transfers, LE movements, and functional balance. OT individual treatment [id number] for ADL/ UE exercises. Pt completes dressing tasks in shower chair. Once in bed, pt completes grooming tasks, TD with splint doff/donning, and completes L UE arm exercises with yellow theraband to encourage strength and increased functional IND of biceps, triceps, internal rotators (x15 reps) and requires mod A to reach above 90* with shoulder flexion without resistance. Pt educated on steps toward greater IND with toileting, pt verbalizes understanding but states she does not want to practice on this date as she is tired. Pt left in bed, call light in reach, nursing present, all needs met. Education OT Patient Education: Correct positioning, Exercise program, Home exercise program, Modified ADL techniques, Purpose of tx/functional activities, Rehab process, Safety issues, Transfer techniques, Use of adapted equipment Teaching Recipient: Patient Teaching Methods: Demonstration, Discussion Response to Teaching: Verbalize Understanding, Return Demonstration OT Short Term Goals Short Term Goals Grooming(FIM): 4 (met) Upper Body Dressing(FIM): 3 (met) Lower Body Dressing(FIM): 2 (met) Transfers (B,C,W/C) (FIM): 2 Additional Short Term Goals: 1-Demonstrate ADL Tasks, 2-Verbalize Understanding, 3-ImproveStrength/[place]abel 1=Demonstrate adherence to instructed precautions during ADL tasks. 2=Patient will verbalize/demonstrate understanding of assistive devices/modifications for ADL. 3=Patient will improve strength/tolerance for activity to enable patient to perform ADL's. OT Fpc Goals Fpc Goals Eating (QC): 6 (met) Oral Hygiene (QC): 6 (met) Shower/Bathe Self (QC): 5 Upper Body Dressing (QC): 5 Lower Body Dressing (QC): 3 On/Off Footwear (QC): 3 Toileting Hygiene (QC): 3 Toilet/Commode Transfer (QC): 3 Additional Goals: 1-Demonstrate ADL Tasks, 2-Verbalize Understanding, 3- ImproveStrength/Mabel 1=Demonstrate adherence to instructed precautions during ADL tasks. 2=Patient will verbalize/demonstrate understanding of assistive devices/modifications for ADL. 3=Patient will improve strength/tolerance for activity to enable patient to perform ADL's. OT Education/Plan Problem List/Assessment Assessment: Decreased Activ Tolerance, Decreased UE Strength, Dependent Transfers, Impaired Bed Mobility, Impaired Funct Balance, Impaired I ADL's, Impaired Self-Care Skills, Restricted Funct UE ROM Discharge Recommendations Plan/Recommendations: Continue POC Treatment Plan/Plan of Care Treatment,Training & Education: Yes Patient would benefit from OT for education, treatment and training to promote independence in ADL's, mobility, safety and/or upper extremity function for ADL's. Plan of Care: ADL Retraining, Caregiver Training, Concurrent Therapy, Functional Mobility, Group Exercise/Act as Ind, Orthotic Fitting/Training, UE Funct Exercise/Act, W/C Management Training Treatment Duration: Jan 31, 2019 Frequency: At least 5 of 7 days/Wk (IRF) Estimated Hrs Per Day: 1.5 hours per day Agreement: Yes Rehab Potential: Guarded Time/GCodes Start Time: 08:00 Stop Time: 09:30 Total Time Billed (hr/min): 60 Billed Treatment Time 1 ADL x6 (90) OT/PT co-treat [id number] OT treatment [id number] KIT SWANSON OTR Jan 23, 2019 09:35
--- NOTE | 2019-01-23 09:37 | PM&R Progress Note ---
Subjective HPI/CC On Admission Date Seen by Provider: Jan 23, 2019 Time Seen by Provider: 08:45 Chief complaint: s/p right femur fracture HPI: This is a 68yoWF clinic Pt of Dr. Hogan at [facility] who presented to the ER after sustaining a fall at home, apparently she was walking up the stairs outside and caused her to fall into a fence, stated that her right leg was twisted and had pain in her upper left chest, could not move her leg, did not hit her head and did not lose consciousness, but was brought to the ER. Chest/abdomen CT showed non-displaced anterior left fourth and fifth rib fractures, no pneumothorax and femur on the right revealed distal femur fracture. 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 Pt denies any significant heart or lung problems otherwise. Pt had prior level of functioning of independence without use of assistive device so we will admit to inpatient rehab, since she is so fatigued today we will do a 15/7 slow start but begin aggressive bowel movement treatment in addition to IV iron infusion since Hgb has decreased to 7.8 today and will initiated inpatient rehab protocol. Subjective/Events-last exam Pt overall doing pretty good having no significant concerns Bowels are moving better Feels much better and her hgb of 8.8 has a factor involved with that improvement Rest of labs looks good Pain is controlled Baclofen will be increased from 5 to 10 to help with muscle spasms in her right leg Maintain on Lovenox for DVT prophylaxis She did have some improved sleep but muscle spasms prevent that from occurring l ast night Pt appearing to be more and more a snf candidate considering limitation with her right shoulder, rib fractures and her non-weight bearing leg Pt very well may need snf and then transition into inpatient rehab when she is weight bearing Iron infusions tolerated Conferred with RN Reviewed therapy notes Checked meds and labs Review of Systems General: Fatigue Musculoskeletal: arm pain, leg pain Objective Exam Vital Signs Vital Signs Date Time Temp Pulse Resp B/P (MAP) Pulse Ox O2 Delivery O2 Flow Rate FiO2 01/24/19 05:12 37.0 75 18 114/67 (83) 94 Room Air Capillary Refill : Less Than 3 Seconds General Appearance: No Apparent Distress, WD/WN, Chronically ill, Obese HEENT: PERRL/EOMI, Normal ENT Inspection, Pharynx Normal, Moist Mucous Membranes Neck: Full Range of Motion, Normal Inspection, Non Tender, Supple Respiratory: Chest Non Tender, Lungs Clear, Normal Breath Sounds, No Accessory Muscle Use, No Respiratory Distress Cardiovascular: Regular Rate, Rhythm, No Edema, No Gallop, No JVD, No Murmur Gastrointestinal: Normal Bowel Sounds, No Organomegaly, No Pulsatile Mass, Non Tender, Soft Back: Normal Inspection, No CVA Tenderness, No Vertebral Tenderness Extremity: Normal Capillary Refill, Normal Inspection, Normal Range of Motion (except right leg and bilateral shoulders L>R in deficit), Non Tender, No Calf Tenderness, No Pedal Edema Neurologic/Psychiatric: Alert, Oriented x3, No Motor/Sensory Deficits, Normal Mood/Affect Skin: Normal Color, Warm/Dry Lymphatic: No Adenopathy Results/Procedures Lab Patient resulted labs reviewed. FIM Transfers Therapy Code Descriptions/Definitions Functional [place] Measure: 0=Not Assessed/NA 4=Minimal Assistance 1=Total Assistance 5=Supervision or Setup 2=Maximal Assistance 6=Modified [place] 3=Moderate Assistance 7=Complete IndependenceSCALE: Activities may be completed with or without assistive devices. 7-Zbejmtxako-jatgaqq completes the activity by him/herself with no assistance from a helper. 5-Set-up or Clean-up Assistance-helper sets up or cleans up; patient completes activity. [place] assists only prior to or following the activity. 4-Supervision or Touching Assistance-helper provides verbal cues and/or touching/steadying and/or contact guard assistance as patient completes activity. Assistance may be provided throughout the activity or intermittently. 3-Partial/Moderate Assistance-helper does LESS THAN HALF the effort. [place] lifts, holds or supports trunk or limbs, but provides less than half the effort. 2-Substantial/Maximal Assistance-helper does MORE THAN HALF the effort. [place] lifts or holds trunk or limbs and provides more than half the effort. 9-Cmeodxfsh-yyxgpa does ALL the effort. Patient does none of the effort to complete the activity. Or, the assistance of 2 or more helpers is required for the patient to complete the activity. If activity was not attempted, code reason: 7-Patient Refused. 9-Not Applicable-not attempted and the patient did not perform the activity before the current illness, exacerbation or injury. 10-Not Attempted due to Environmental Limitations-(lack of equipment, weather restraints, etc.). 88-Not Attempted due to Medical Conditions or Safety Concerns. Transfers (B, C, W/C) (FIM): 3 Roll Left to Right (QC): 3 Sit to Lying (QC): 3 Sit to Stand (QC): 2 Chair/Zdt-xw-Cpszq Xfer(QC): 2 Bed to/from Chair: 3 (sld brd bed to BSC) Car Transfer (QC): 88 Gait Training Does the Patient Walk?: No and Walking Goal NOT indicated Walk 10 feet (QC): 88 Walk 50 ft with 2 Turns(QC): 88 Walk 150 ft (QC): 88 Walking 10ft/uneven surface-QC: 88 Wheelchair Training Does the Pt Use a Wheelchair?: Yes Distance: 50'x2 Wheel 50 ft with 2 turns (QC): 3 Wheel 150 ft (QC): 1 Type of Wheelchair: Manual Stair Training 1 Step (curb) (QC): 88 4 Steps (QC): 88 12 Steps (QC): 88 ADL-Treatment Eating (QC): 6 Oral Hygiene (QC): 6 (completes in bed) Shower/Bathe Self (QC): 3 (Pt utilizes LHS to reach feet, back, and nichol area. Pt requires assist washing bottom and drying back and LE thoroughly.) Upper Body Dressing (QC): 4 (Pt requires intermittent assist with donning bra due to damp skin and limited UE ROM. Pt completes shirt donning on shower chair IND.) Lower Body Dressing (QC): 2 (Pt requires assist with donning socks, pt able to doff socks with dressing stick. pt leans side to side to practice pulling pants up on seated surface. Pt leans bilaterally 10x to practice trunk control, ROM, and pain management. Pt able to increase bottom clearance and place washcloths under bottom for drying assist. Pt states she does not want to put pants on today as she is worn out/ did not sleep well. ) On/Off Footwear (QC): 1 (TD L sock) Toileting Hygiene (QC): 2 (Pt attempts to lean side to side for wiping, unable to complete. Pt utilizes long handled sponge for cleansing, requires max A to cleanse thoroughly. ) Toilet Transfer (QC): 1 (TDx2) Assessment/Plan Assessment and Plan Assess & Plan/Chief Complaint Assessment: s/p repair distal right femur fracture Chronic shoulder pain and limitation of activity that could limit recovery TODD on CPAP Post op anemia with severely low iron so started iron infusions HLP Hypothyroidism Post op constipation placed on meds now resolved OAB Plan: BM regimen Home meds Iron infusions Pain control Lovenox for DVT PPx Ortho evaluation of shoulder limitations Monitor for lidocaine toleration Check labs prn (1) Fracture of femur, right, closed Status: Acute (2) Insomnia Status: Chronic (3) Fall down stairs Status: Acute (4) Depression Status: Chronic Qualifiers: Depression Type: unspecified Qualified Codes: F32.9 - Major depressive disorder, single episode, unspecified (5) Hypothyroidism Status: Chronic Qualifiers: Hypothyroidism type: acquired Qualified Codes: E03.9 - Hypothyroidism, u nspecified (6) Rib fractures Status: Acute Qualifiers: Encounter type: subsequent encounter Rib fracture type: multiple ribs Fracture type: closed Laterality: left (7) HLD (hyperlipidemia) Status: Chronic Qualifiers: Hyperlipidemia type: mixed hyperlipidemia Qualified Codes: E78.2 - Mixed hyperlipidemia (8) Postoperative anemia (9) Iron deficiency RAJESH LEWIS DO Jan 23, 2019 09:37
--- NOTE | 2019-01-23 09:58 | NUR ---
DR. MENDEZ'S OFFICE CALLED TO REMIND PT OF HIS 6 MONTH APPT TOMORROW. PT TOLD THE OFFICE THAT HE WOULDN'T BE ABLE TO MAKE IT, IN HOSPITAL. PT STATES THAT HE SEES DR. MENDEZ FOR PROSTATE PROBLEMS Addendum: 01/23/19 at 1001 by FERNY KEYES RN ERROR...WRONG CHART
--- NOTE | 2019-01-23 10:28 | Progress Note ---
JAYDE SIMON MED STUDENT 01/23/19 1028: Progress Note CC: R femur fracture and L 4th and 5th rib fracture, due to fall Barriers to discharge/return home: * Recently suffered distal R femur fracture, currently cannot bear weight on that leg * Fractures to 4th and 5th ribs on L due to fall, cause pain and limit mobility of arm on that side * History of R shoulder injury, reports acromioclavicular joint injury, with a repair that has a loose screw, reports surgeon instructed her to limit actives with that arm * Due to multiple injuries limiting mobility, has limited options for therapy until injuries heal or are repaired * Limited ability to use wheelchair due to R shoulder injury, also reports wheelchair would not fit in her house * Has had difficulty sleeping due to muscle spasms in her R thigh, reports dose of baclofen has not been controlling spasms * 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 I reviewed and verified all information documented by the medical student and made modifications to such information, when appropriate. I personally performed the physical exam and medical decision making. Donita Lewis, Jan 24, 2019,20:45 JAYDE SIMON MED STUDENT Jan 23, 2019 10:28 DONITA LEWIS DO Jan 24, 2019 20:45
--- NOTE | 2019-01-23 15:26 | Physical Therapy Daily Note ---
PT Daily Note-Current Subjective Pt agreeable to PT. Transfers SCALE: Activities may be completed with or without assistive devices. 9-Fherxffhzt-locxhjw completes the activity by him/herself with no assistance from a helper. 5-Set-up or Clean-up Assistance-helper sets up or cleans up; patient completes activity. [place] assists only prior to or following the activity. 4-Supervision or Touching Assistance-helper provides verbal cues and/or touching/steadying and/or contact guard assistance as patient completes activity. Assistance may be provided throughout the activity or intermittently. 3-Partial/Moderate Assistance-helper does LESS THAN HALF the effort. [place] lifts, holds or supports trunk or limbs, but provides less than half the effort. 2-Substantial/Maximal Assistance-helper does MORE THAN HALF the effort. [place] lifts or holds trunk or limbs and provides more than half the effort. 3-Wyejgrptd-npipls does ALL the effort. Patient does none of the effort to complete the activity. Or, the assistance of 2 or more helpers is required for the patient to complete the activity. If activity was not attempted, code reason: 7-Patient Refused. 9-Not Applicable-not attempted and the patient did not perform the activity before the current illness, exacerbation or injury. 10-Not Attempted due to Environmental Limitations-(lack of equipment, weather restraints, etc.). 88-Not Attempted due to Medical Conditions or Safety Concerns. Worked on functional bed mobiltiy and transfers to include scooting, rolling and positioning in bed. Sup to from sit with CGA and skilled cues for sequencing and task segmentation. Weight Bearing Right Lower Extremity: Right Non Weight Bearing Left Lower Extremity: Left Full Weight Bearing Patient states she is not supposed to bear weight on her right arm due to shoulder issues. Exercises Supine Ex: Ankle pumps, Quad Set, Glut sets Supine Reps: 15 Seated Therapy Exercises: Ankle pumps, Long arc quads, Hip flexion Seated Reps: 15 Treatments Pt in bed post treatment with needs met. Assessment Current Status: Good Progress Functional transfers progressing. Strength improving. PT Short Term Goals Short Term Goals Time Frame: Jan 24, 2019 Wheelchair Distance: 50'x2 Wheelchair Level of Assist: 5 PT Alf Goals Customer Contact Sales Associate Goals PT Customer Contact Sales Associate Goals Time Frame: Feb 07, 2019 Sit to Lying (QC): 3 (min assist) Lying-Sitting on Side/Bed(QC): 3 (min assist) Sit to Stand (QC): 3 (mod assist) Roll Left to Right (QC): 3 (min assist) Chair/Css-gx-Xyblm Xfer(QC): 3 (mod assist) Car Transfer (QC): 3 (mod assist) Distance: 150' Wheel 50 feet with 2 turns (QC: 4 (SBA) PT Plan Problem List Problem List: Activity Tolerance, Functional Strength, Safety, Balance, Transfer, Bed Mobility Treatment/Plan Treatment Plan: Continue Plan of Care Treatment Plan: Bed Mobility, Concurrent Therapy, Education, Functional Activit y Mabel, Functional Strength, Group Therapy, Safety, Therapeutic Exercise, Transfers Treatment Duration: Feb 07, 2019 Frequency: At least 5 of 7 days/Wk (IRF) Estimated Hrs Per Day: 1.5 hours per day Patient and/or Family Agrees t: Yes Safety Risks/Education Patient Education: Transfer Techniques, Safety Issues Teaching Recipient: Patient Teaching Methods: Demonstration, Discussion Response to Teaching: Reinforcement Needed Discharge Recommendations Therapy Discharge Recommendati: Post Acute PT Time/GCodes Time In: 1325 Time Out: 1355 Total Billed Treatment Time: 30 Total Billed Treatment visit EX 15 FA 15 JORGE COLÓN PT Jan 23, 2019 15:26
[2019-01-23 16:21] VITALS: BP 123/77
[2019-01-23] MEDS: LIDOCAINE PATCH REMOVAL TP SCH (20:31)
[2019-01-23] MEDS: ZOLPIDEM 5 MG (AMBIEN) TAB PO PRN (23:05)
[2019-01-24] MEDS: LEVOTHYROXINE 112 MCG (LEVOTHROID) TAB PO SCH (02:37)
[2019-01-24] MEDS: LEVOTHYROXINE 25 MCG (LEVOTHROID) TAB PO SCH (02:37)
[2019-01-24 05:12] VITALS: BP 114/67
[2019-01-24] MEDS: CATHETER FLUSH 10 ML SYR IV SCH ×3 (06:00→22:06)
[2019-01-24] MEDS: POLYETHYLENE GLYCOL 17 GM (MIRALAX) PACK PO SCH ×2 (08:54→21:31)
[2019-01-24] MEDS: LACTULOSE SYRUP 10GM/15ML (ENULOSE) 30ML UDC PO SCH ×2 (08:54→21:27)
[2019-01-24] MEDS: LIDOCAINE 4% (SALONPAS) PATCH TOP SCH (08:54)
[2019-01-24] MEDS: VALACYCLOVIR 500 MG TAB (VALTREX) PO SCH (08:55)
[2019-01-24] MEDS: SENNA W/DOCUSATE (SENOKOT S) TABLET PO SCH (08:55)
[2019-01-24] MEDS: SERTRALINE 50 MG (ZOLOFT) TABLET PO SCH (08:55)
[2019-01-24] MEDS: buPROPion SR 150 MG (WELLBUTRIN SR) TAB PO SCH ×2 (08:55→21:26)
[2019-01-24] MEDS: DOCUSATE SODIUM 100 MG (COLACE) CAP PO SCH ×2 (08:55→21:26)
[2019-01-24] MEDS: BISACODYL 10 MG SUPP (DULCOLAX) PR SCH ×2 (08:56→21:31)
[2019-01-24] MEDS: ENOXAPARIN 40 MG/0.4 ML (LOVENOX) SYR SC SCH ×2 (08:56→21:28)
--- NOTE | 2019-01-24 08:59 | Physical Therapy Daily Note ---
PT Daily Note-Current Subjective Patient in bed pre tx, agrees to PT, has no complaints of pain at rest, will be co-treating with OT due to poor patient mobility, strength, endurance, NWB on right upper and lower extremity, the need to coordinate UE and LE during activity. Appearance Patient in bed post tx, will continue with OT for ADL's Mental Status Patient Orientation: Normal For Age Transfers SCALE: Activities may be completed with or without assistive devices. 7-Dcnpnikpla-swnsryh completes the activity by him/herself with no assistance from a helper. 5-Set-up or Clean-up Assistance-helper sets up or cleans up; patient completes activity. [place] assists only prior to or following the activity. 4-Supervision or Touching Assistance-helper provides verbal cues and/or touching/steadying and/or contact guard assistance as patient completes activity. Assistance may be provided throughout the activity or intermittently. 3-Partial/Moderate Assistance-helper does LESS THAN HALF the effort. [place] lifts, holds or supports trunk or limbs, but provides less than half the effort. 2-Substantial/Maximal Assistance-helper does MORE THAN HALF the effort. [place] lifts or holds trunk or limbs and provides more than half the effort. 3-Hgeogmqrz-uvjsom does ALL the effort. Patient does none of the effort to complete the activity. Or, the assistance of 2 or more helpers is required for the patient to complete the activity. If activity was not attempted, code reason: 7-Patient Refused. 9-Not Applicable-not attempted and the patient did not perform the activity before the current illness, exacerbation or injury. 10-Not Attempted due to Environmental Limitations-(lack of equipment, weather restraints, etc.). 88-Not Attempted due to Medical Conditions or Safety Concerns. Roll Left to Right (QC): 4 Sit to Lying (QC): 3 Chair/Rrg-ai-Zrbkg Xfer(QC): 3 min assist for supine to sit and sliding board transfer. Patient today needs every transfer and transition explained to her before doing it, she didn't need this in the past. Weight Bearing Right Lower Extremity: Right Non Weight Bearing Left Lower Extremity: Left Full Weight Bearing Patient states she is not supposed to bear weight on her right arm due to shoulder issues. Wheelchair Training Patient refuses to propel a manual wheelchair today due to right shoulder issues Exercises Seated Therapy Exercises: Ankle pumps, Long arc quads (LLE) Seated Reps: 20 seated SLR on the right side x20, attempted sit to stand 2 sets of 10 at the parallel bars using only left arm and leg Treatments dressing, bed mobility and transfers, LE strengthening Assessment Current Status: Fair Progress slightly improved supine to sit and sliding board transfer but patient now refuses to attempt to propel a manual wheelchair PT Short Term Goals Short Term Goals Time Frame: Jan 24, 2019 Wheelchair Distance: 50'x2 Wheelchair Level of Assist: 5 PT Custodial Goals Recreation Program Specialist Goals PT Recreation Program Specialist Goals Time Frame: Feb 07, 2019 Sit to Lying (QC): 3 (min assist) Lying-Sitting on Side/Bed(QC): 3 (min assist) Sit to Stand (QC): 3 (mod assist) Roll Left to Right (QC): 3 (min assist) Chair/Tcr-mk-Yvskx Xfer(QC): 3 (mod assist) Car Transfer (QC): 3 (mod assist) Distance: 150' Wheel 50 feet with 2 turns (QC: 4 (SBA) PT Plan Problem List Problem List: Activity Tolerance, Functional Strength, Safety, Balance, Gait, Transfer, Bed Mobility, ROM Treatment/Plan Treatment Plan: Continue Plan of Care Treatment Plan: Bed Mobility, Concurrent Therapy, Education, Functional Activity Mabel, Functional Strength, Group Therapy, Safety, Therapeutic Exercise, Transfers Treatment Duration: Feb 07, 2019 Frequency: At least 5 of 7 days/Wk (IRF) Estimated Hrs Per Day: 1.5 hours per day Patient and/or Family Agrees t: Yes Safety Risks/Education Patient Education: Transfer Techniques, Reviewed Precautions, Correct Positioning, Safety Issues Teaching Recipient: Patient Teaching Methods: Demonstration, Discussion Response to Teaching: Reinforcement Needed Time/GCodes Time In: 0800 Time Out: 0900 Total Billed Treatment Time: 60 Total Billed Treatment 1 visit EX 30' FA 30' Co-treated for 60'. PT performed bed mobility and transfers, assisted with dressing, LE exercises, OT performed dressing ADL's, assist with transfers ANTONI TRAORE PT Jan 24, 2019 08:59
[2019-01-24] MEDS: OXYBUTYNIN (DITROPAN) 5 MG TAB PO SCH ×2 (09:02→21:26)
--- NOTE | 2019-01-24 09:19 | PM&R Progress Note ---
Subjective HPI/CC On Admission Date Seen by Provider: Jan 24, 2019 Time Seen by Provider: 08:30 Chief complaint: s/p right femur fracture HPI: This is a 68yoWF clinic Pt of Dr. Hogan at [place] who presented to the ER after sustaining a fall at home, apparently she was walking up the stairs outside and caused her to fall into a fence, stated that her right leg was twisted and had pain in her upper left chest, could not move her leg, did not hit her head and did not lose consciousness, but was brought to the ER. Chest/abdomen CT showed non-displaced anterior left fourth and fifth rib fractures, no pneumothorax and femur on the right revealed distal femur fracture. 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 Pt denies any significant heart or lung problems otherwise. Pt had prior level of functioning of independence without use of assistive device so we will admit to inpatient rehab, since she is so fatigued today we will do a 15/7 slow start but begin aggressive bowel movement treatment in addition to IV iron infusion since Hgb has decreased to 7.8 today and will initiated inpatient rehab protocol. Subjective/Events-last exam Pt doing much better. Pt was seen in the gym today. Having some skin concerns with the immobilizer rubbing on her leg. Incision looks good. Participating in all therapy. Unable to obtain any answer with the shoulder issue from Dr. Gomez, after multiple phone calls so will continue on the track that we are since she has been limited with range of motion and use for years since she appears to need to go to nursing facility at discharge anyway. Likely she will need an appointment with Dr. Gomez to have that fully evaluated. Iron infusions tolerated Conferred with RN Reviewed therapy notes Checked meds and labs Review of Systems Musculoskeletal: arm pain, back pain, leg pain Objective Exam Vital Signs Vital Signs Date Time Temp Pulse Resp B/P (MAP) Pulse Ox O2 Delivery O2 Flow Rate FiO2 01/24/19 16:11 36.2 78 16 144/68 (93) 92 Room Air Capillary Refill : Less Than 3 Seconds General Appearance: No Apparent Distress, WD/WN, Chronically ill, Obese HEENT: PERRL/EOMI, Normal ENT Inspection, Pharynx Normal, Moist Mucous Membranes Neck: Full Range of Motion, Normal Inspection, Non Tender, Supple Respiratory: Chest Non Tender, Lungs Clear, Normal Breath Sounds, No Accessory Muscle Use, No Respiratory Distress Cardiovascular: Regular Rate, Rhythm, No Edema, No Gallop, No JVD, No Murmur Gastrointestinal: Normal Bowel Sounds, No Organomegaly, No Pulsatile Mass, Non Tender, Soft Back: Normal Inspection, No CVA Tenderness, No Vertebral Tenderness Extremity: Normal Capillary Refill, Normal Inspection, Normal Range of Motion (except right leg and bilateral shoulders L>R in deficit), Non Tender, No Calf Tenderness, No Pedal Edema Neurologic/Psychiatric: Alert, Oriented x3, No Motor/Sensory Deficits, Normal Mood/Affect Skin: Normal Color, Warm/Dry Lymphatic: No Adenopathy Results/Procedures Lab Patient resulted labs reviewed. FIM Transfers Therapy Code Descriptions/Definitions Functional [place] Measure: 0=Not Assessed/NA 4=Minimal Assistance 1=Total Assistance 5=Supervision or Setup 2=Maximal Assistance 6=Modified [place] 3=Moderate Assistance 7=Complete IndependenceSCALE: Activities may be completed with or without assistive devices. 9-Deuhzixkkx-vocwxdw completes the activity by him/herself with no assistance from a helper. 5-Set-up or Clean-up Assistance-helper sets up or cleans up; patient completes activity. [place] assists only prior to or following the activity. 4-Supervision or Touching Assistance-helper provides verbal cues and/or touching/steadying and/or contact guard assistance as patient completes activity. Assistance may be provided throughout the activity or intermittently. 3-Partial/Moderate Assistance-helper does LESS THAN HALF the effort. [place] lifts, holds or supports trunk or limbs, but provides less than half the effort. 2-Substantial/Maximal Assistance-helper does MORE THAN HALF the effort. [place] lifts or holds trunk or limbs and provides more than half the effort. 7-Oydnubcxb-zqozjm does ALL the effort. Patient does none of the effort to complete the activity. Or, the assistance of 2 or more helpers is required for the patient to complete the activity. If activity was not attempted, code reason: 7-Patient Refused. 9-Not Applicable-not attempted and the patient did not perform the activity before the current illness, exacerbation or injury. 10-Not Attempted due to Environmental Limitations-(lack of equipment, weather restraints, etc.). 88-Not Attempted due to Medical Conditions or Safety Concerns. Transfers (B, C, W/C) (FIM): 3 Roll Left to Right (QC): 4 Sit to Lying (QC): 3 Sit to Stand (QC): 2 Chair/Mof-jn-Ukjwh Xfer(QC): 3 Bed to/from Chair: 3 (sld brd bed to BSC) Car Transfer (QC): 88 Gait Training Does the Patient Walk?: No and Walking Goal NOT indicated Walk 10 feet (QC): 88 Walk 50 ft with 2 Turns(QC): 88 Walk 150 ft (QC): 88 Walking 10ft/uneven surface-QC: 88 Wheelchair Training Does the Pt Use a Wheelchair?: Yes Distance: 50'x2 Wheel 50 ft with 2 turns (QC): 3 Wheel 150 ft (QC): 1 Type of Wheelchair: Manual Stair Training 1 Step (curb) (QC): 88 4 Steps (QC): 88 12 Steps (QC): 88 ADL-Treatment Eating (QC): 6 Oral Hygiene (QC): 6 (completes in bed) Shower/Bathe Self (QC): 3 (Pt utilizes LHS to reach feet, back, and nichol area. Pt requires assist washing bottom and drying back and LE thoroughly.) Upper Body Dressing (QC): 4 (Pt requires intermittent assist with donning bra due to damp skin and limited UE ROM. Pt completes shirt donning on shower chair IND.) Lower Body Dressing (QC): 2 (Pt requires assist with donning socks, pt able to doff socks with dressing stick. pt leans side to side to practice pulling pants up on seated surface. Pt leans bilaterally 10x to practice trunk control, ROM, and pain management. Pt able to increase bottom clearance and place washcloths under bottom for drying assist. Pt states she does not want to put pants on today as she is worn out/ did not sleep well. ) On/Off Footwear (QC): 1 (TD L sock) Toileting Hygiene (QC): 2 (Pt able to attempt wiping, wipes nichol area, requires assist with wiping bottom thoroughly.) Toilet Transfer (QC): 1 (Pt able to sit EOB without assist, brings bottom forward toward EOB. Pt requires max Ax2 to compelte safe transfer from bed to commode and commode to bed.) Assessment/Plan Assessment and Plan Assess & Plan/Chief Complaint Assessment: s/p repair distal right femur fracture Chronic shoulder pain and limitation of activity that could limit recovery TODD on CPAP Post op anemia with severely low iron so started iron infusions HLP Hypothyroidism Post op constipation placed on meds now resolved OAB Plan: BM regimen Home meds Iron infusions Pain control Lovenox for DVT PPx Ortho evaluation of shoulder limitations Monitor for lidocaine toleration Check labs prn (1) Fracture of femur, right, closed Status: Acute (2) Insomnia Status: Chronic (3) Fall down stairs Status: Acute (4) Depression Status: Chronic Qualifiers: Depression Type: unspecified Qualified Codes: F32.9 - Major depressive disorder, single episode, unspecified (5) Hypothyroidism Status: Chronic Qualifiers: Hypothyroidism type: acquired Qualified Codes: E03.9 - Hypothyroidism, unspecified (6) Rib fractures Status: Acute Qualifiers: Encounter type: subsequent encounter Rib fracture type: multiple ribs F racture type: closed Laterality: left (7) HLD (hyperlipidemia) Status: Chronic Qualifiers: Hyperlipidemia type: mixed hyperlipidemia Qualified Codes: E78.2 - Mixed hyperlipidemia (8) Postoperative anemia (9) Iron deficiency RAJESH LEWIS DO Jan 24, 2019 09:19
[2019-01-24] MEDS: BACLOFEN 10 MG (LIORESAL) TAB PO PRN ×3 (09:57→22:05)
--- NOTE | 2019-01-24 10:52 | Progress Note ---
JAYDE SIMON MED STUDENT 01/24/19 1052: Subjective Date Seen by a Provider: Jan 24, 2019 Time Seen by a Provider: 07:45 Subjective/Events-last exam CC: R femur and L 4th and 5th rib fracture * Had good sleep last night after increase in dose in Baclofen, muscle spasms in her R leg did not keep her up * Irritation on her R posterolateral thigh from tape * She reports tremor in her bilateral hands today, her hands shook when she had them outstretched, there was no tremor at rest * Otherwise no changes, still has pain in her fractured ribs with movement and deep breathing, her R leg doesn't cause her pain outside of muscle spasms * Participating in PT, working on improving mobility without aggravating current injuries Review of Systems General: No Chills HEENT: No Head Aches, No Sinus Congestion, No Post Nasal Drip Pulmonary: No Dyspnea, No Cough Cardiovascular: No: Chest Pain, Edema Gastrointestinal: No: Abdominal Pain, Diarrhea, Constipation Genitourinary: No Dysuria, No Frequency Musculoskeletal: other (L rib pain), shoulder pain, leg pain Neurological: No: Numbness Objective Exam Last Set of Vital Signs Vital Signs Date Time Temp Pulse Resp B/P (MAP) Pulse Ox O2 Delivery O2 Flow Rate FiO2 01/24/19 05:12 37.0 75 18 114/67 (83) 94 Room Air Capillary Refill : Less Than 3 Seconds I&O l Intake and Output 01/24/19 00:00 Intake Total 1900 ml Output Total 1600 ml Balance 300 ml Intake Oral 1900 ml Output Urine Total 1600 ml # Bowel Movements 1 General: Alert, Oriented X3 Lungs: Clear to Auscultation, Normal Air Movement Heart: Regular Rate, Normal S1, Normal S2, No Murmurs Extremities: No Edema, Normal Pulses, No Tenderness/Swelling Skin: Other (irritation on R posterolateral thigh from tape) Neuro: Other (tremor in bilateral hands) Assessment/Plan Assessment/Plan Assess & Plan/Chief Complaint Assessment: 1. R femur fracture 2. L 4th and 5th rib fracture 3. Postoperative anemia 4. History of R shoulder injury 5. Hyperlipidemia 6. Hypothyroidism 7. Depression 8. Insomnia 9. TODD 10. Non-weight bearing - DVT risk 11. R leg muscle spasm Plan: 1. Continue postoperative protocol 2. Continue PT/OT 3. Continue iron infusions as needed 4. Continue medications for chronic conditions 5. Continue enoxaparin 40 mg bid 6. Continue CPAP 7. Continue baclofen q6h prn for spasm Clinical Quality Measures DVT/VTE Risk/Contraindication: Risk Factor Score Per Nursin RFS Level Per Nursing on Admit: 4+=Very High DONITA LEWIS DO 01/24/19 2104: Supervisory-Addendum Brief Verification & Attestation Participated in pt care: history, MDM, physical Personally performed: exam, history, MDM, supervision of care Care discussed with: Medical Student Procedures: n/a Results interpretation: Verified all documentation Verification and Attestation of Medical Student E/M Service A medical student performed and documented this service in my presence. I reviewed and verified all information documented by the medical student and made modifications to such information, when appropriate. I personally performed the physical exam and medical decision making. Donita Lewis, Jan 24, 2019,21:04 JAYDE SIMON MED STUDENT Jan 24, 2019 10:52 DONITA LEWIS DO Jan 24, 2019 21:04
--- NOTE | 2019-01-24 11:20 | Occupational Ther Daily Note ---
OT Current Status-Daily Note Subjective Pt seen in bed, pt agreeable to OT treatment session. Pt does not rate pain. OT/PT co-treat due to NWB status to RUE/LE, non ambulatory status, decreased strength and ROM. OT addresses UE strength and endurance and ADL tasks while PT focuses on LE strengthening, balance, gross motor movements. Mental Status/Objective Patient Orientation: Normal For Age ADL-Treatment Therapy Code Descriptions/Definitions Functional [place] Measure: 0=Not Assessed/NA 4=Minimal Assistance 1=Total Assistance 5=Supervision or Setup 2=Maximal Assistance 6=Modified [place] 3=Moderate Assistance 7=Complete IndependenceSCALE: Activities may be completed with or without assistive devices. 7-Hdynkmkuam-jxrfcqd completes the activity by him/herself with no assistance from a helper. 5-Set-up or Clean-up Assistance-helper sets up or cleans up; patient completes activity. [place] assists only prior to or following the activity. 4-Supervision or Touching Assistance-helper provides verbal cues and/or touching/steadying and/or contact guard assistance as patient completes activity. Assistance may be provided throughout the activity or intermittently. 3-Partial/Moderate Assistance-helper does LESS THAN HALF the effort. [place] lifts, holds or supports trunk or limbs, but provides less than half the effort. 2-Substantial/Maximal Assistance-helper does MORE THAN HALF the effort. [place] lifts or holds trunk or limbs and provides more than half the effort. 0-Ggcrmsszf-zysfdu does ALL the effort. Patient does none of the effort to complete the activity. Or, the assistance of 2 or more helpers is required for the patient to complete the activity. If activity was not attempted, code reason: 7-Patient Refused. 9-Not Applicable-not attempted and the patient did not perform the activity before the current illness, exacerbation or injury. 10-Not Attempted due to Environmental Limitations-(lack of equipment, weather restraints, etc.). 88-Not Attempted due to Medical Conditions or Safety Concerns. Eating (QC): 6 Lower Body Dressing (QC): 3 (Pt utilizes table maker to place pants over both feet. Pt requires assist to thread R pants over brace, pt completes donning L LE pant leg. Pt completes rolling with cues to bring pants to waist. ) Other Treatment OT/PT cotreatment [id number]. Pt seen in bed, completes pant donning, requires assist with sock donning. Pt completes bed mob with SBA, pt sits EOB. Pt and OT/PT collaborate for session's purpose, plan to go to gym on this date to address strengthening needs and functional mobility. Environment set-up, w/c placed and slide board initiated with pt. Pt questions where going and that she desires additional cues. OT/ PT inform pt of plan of treatment. PT places slide board under L buttocks, PT asks to go ahead and scoot. Pt states, "Which way? Where do you want me to go?" Pt informed of slide board transfer techniques. Pt completes slide board with CGA from bed to w/c. Pt in w/c, declines need to push self with UE due to NWB status of R UE. Pt explained benefits of self-m obilization, other tactics considered for pt to complete functional mobility with more IND. Pt pushed in w/c to therapy gym. Pt completes threading large, circular theraband around R foot, then L foot, completes leaning bilaterally to bring theraband under bottom and around waist, then completes leaning L/R to take theraband off with moderate cues to practice pant donning/ doffing. Pt completes with decreasing cues 3 additional times. Pt educated on purpose of activity, pt completes donning/ doffing smaller theraband over R foot with emphasis of raising R leg high/ long enough for optimal pant clearance and donning. Pt completes 3x. Pt pushed back to room in w/c. Pt states she needs more direction when set-up for slide board transfer. Pt given first directions, pt was asked to complete directions. Pt gave optimal/ correct directions for correct slide board transfer. OT individual treatment session: [id number] Pt returns to bed, pt completes supine to sit. With direction, pt completes role-play activity of nursing and pt interaction during slide board and squat-pivot transfers to commode. Pt able to state placement of commode, drop arm of commode, and able to give ample instructions for both squat-pivot and slide board without cues. Pt completes writing slide-board transfer instructions on paper with min cues. Pt demonstrates understanding of transfers by verbal and directional instruction. Pt completes LUE exercises with 2# weight in bed. Pt completes AROM of LUE to encourage ROM and continued strength. Pt left with call light in reach, all needs met, pt supine in bed. Education OT Patient Education: Correct positioning, Exercise program, Home exercise program, Modified ADL techniques, Progress toward Goal/Update tx plan, Purpose of tx/functional activities, Reviewed precautions, Rehab process, Safety issues, Transfer techniques, Use of adapted equipment, W/C management Teaching Recipient: Patient Teaching Methods: Demonstration, Handout, Discussion Response to Teaching: Verbalize Understanding, Return Demonstration OT Short Term Goals Short Term Goals Grooming(FIM): 4 (met) Upper Body Dressing(FIM): 3 (met) Lower Body Dressing(FIM): 2 (met) Transfers (B,C,W/C) (FIM): 2 Additional Short Term Goals: 1-Demonstrate ADL Tasks, 2-Verbalize Understanding, 3-ImproveStrength/Mabel 1=Demonstrate adherence to instructed precautions during ADL tasks. 2=Patient will verbalize/demonstrate understanding of assistive devices /modifications for ADL. 3=Patient will improve strength/tolerance for activity to enable patient to perform ADL's. OT Rehabilitation Therapy Technician Goals Rehabilitation Therapy Technician Goals Eating (QC): 6 (met) Oral Hygiene (QC): 6 (met) Shower/Bathe Self (QC): 5 Upper Body Dressing (QC): 5 Lower Body Dressing (QC): 3 (met supine in bed) On/Off Footwear (QC): 3 Toileting Hygiene (QC): 3 Toilet/Commode Transfer (QC): 3 Additional Goals: 1-Demonstrate ADL Tasks, 2-Verbalize Understanding, 3- ImproveStrength/Mabel 1=Demonstrate adherence to instructed precautions during ADL tasks. 2=Patient will verbalize/demonstrate understanding of assistive devices/modifications for ADL. 3=Patient will improve strength/tolerance for activity to enable patient to perform ADL's. OT Education/Plan Problem List/Assessment Assessment: Decreased Activ Tolerance, Decreased UE Strength, Dependent Transfers, Impaired Coordination, Impaired Funct Balance, Impaired I ADL's, Impaired Self-Care Skills, Restricted Funct UE ROM Discharge Recommendations Plan/Recommendations: Continue POC Treatment Plan/Plan of Care Treatment,Training & Education: Yes Patient would benefit from OT for education, treatment and training to promote independence in ADL's, mobility, safety and/or upper extremity function for ADL's. Plan of Care: ADL Retraining, Caregiver Training, Concurrent Therapy, Functional Mobility, Group Exercise/Act as Ind, Orthotic Fitting/Training, UE Funct Exercise/Act, W/C Management Training Treatment Duration: Jan 31, 2019 Frequency: At least 5 of 7 days/Wk (IRF) Estimated Hrs Per Day: 1.5 hours per day Agreement: Yes Rehab Potential: Guarded Time/GCodes Start Time: 08:00 Stop Time: 09:30 Total Time Billed (hr/min): 90 Billed Treatment Time 1, ADL (15), EX 2(30), FA 3 (45)= 90 OT/PT cotreatment from [id number] OT individual treatment [id number] KIT SWANSON OTR Jan 24, 2019 11:20
--- NOTE | 2019-01-24 11:40 | Physical Therapy Daily Note ---
PT Daily Note-Current Subjective Pt in bed pre treatment. Pt agrees to PT. No complaints of pain at rest. Appearance Pt in bed post treatment. PT assisted repositioning for pt comfort. Pt with nurse call light, room phone, bed controls, varnish mixer, and tray table in reach. Mental Status Patient Orientation: Person, Place, Time, Situation Attachments: Knee Immobilizer (R LE throughout treatment.) Pt with pure wick inplace pre & post treatment Transfers SCALE: Activities may be completed with or without assistive devices. 7-Bmudbnotkv-epogowm completes the activity by him/herself with no assistance from a helper. 5-Set-up or Clean-up Assistance-helper sets up or cleans up; patient completes activity. [place] assists only prior to or following the activity. 4-Supervision or Touching Assistance-helper provides verbal cues and/or touching/steadying and/or contact guard assistance as patient completes activity. Assistance may be provided throughout the activity or intermittently. 3-Partial/Moderate Assistance-helper does LESS THAN HALF the effort. [place] lifts, holds or supports trunk or limbs, but provides less than half the effort. 2-Substantial/Maximal Assistance-helper does MORE THAN HALF the effort. [place] lifts or holds trunk or limbs and provides more than half the effort. 1-Hqjfgmbfv-oxhvjj does ALL the effort. Patient does none of the effort to complete the activity. Or, the assistance of 2 or more helpers is required for the patient to complete the activity. If activity was not attempted, code reason: 7-Patient Refused. 9-Not Applicable-not attempted and the patient did not perform the activity before the current illness, exacerbation or injury. 10-Not Attempted due to Environmental Limitations-(lack of equipment, weather restraints, etc.). 88-Not Attempted due to Medical Conditions or Safety Concerns. Weight Bearing Right Lower Extremity: Right Non Weight Bearing Left Lower Extremity: Left Full Weight Bearing Patient states she is not supposed to bear weight on her right arm due to shoulder issues. Exercises Supine Ex: Ankle pumps (B/L), Quad Set (L LE), Glut sets, Heel Slides (L LE), Short Arc Quads (L LE), Hip abd/add (B/L) Supine Reps: 20 (SLR B/L) Treatments BLE exercise Assessment Current Status: Fair Progress Pt jayne bed exercise without c/o pain. Pt required mod assist for R LE SLR, abd/add. PT Short Term Goals Short Term Goals Time Frame: Jan 24, 2019 Wheelchair Distance: 50'x2 Wheelchair Level of Assist: 5 PT Group Home Goals Group Home Goals PT Cloth Cutting Inspector Goals Time Frame: Feb 07, 2019 Sit to Lying (QC): 3 (min assist) Lying-Sitting on Side/Bed(QC): 3 (min assist) Sit to Stand (QC): 3 (mod assist) Roll Left to Right (QC): 3 (min assist) Chair/Xad-iw-Uaoko Xfer(QC): 3 (mod assist) Car Transfer (QC): 3 (mod assist) Distance: 150' Wheel 50 feet with 2 turns (QC: 4 (SBA) PT Plan Problem List Problem List: Activity Tolerance, Functional Strength, Safety, Balance, Gait, Transfer, Bed Mobility, ROM Treatment/Plan Treatment Plan: Continue Plan of Care Treatment Plan: Bed Mobility, Concurrent Therapy, Education, Functional Activity Mabel, Functional Strength, Group Therapy, Safety, Therapeutic Exercise, Transfers Treatment Duration: Feb 07, 2019 Frequency: At least 5 of 7 days/Wk (IRF) Estimated Hrs Per Day: 1.5 hours per day Patient and/or Family Agrees t: Yes Safety Risks/Education Patient Education: Correct Positioning, Safety Issues Teaching Recipient: Patient Teaching Methods: Demonstration, Discussion Response to Teaching: Verbalize Understanding, Return Demonstration, Reinfo rcement Needed Time/GCodes Time In: 1120 Time Out: 1135 Total Billed Treatment Time: 15 Total Billed Treatment 1 visit 15' EX ANTONI TRAORE PT Jan 24, 2019 11:40
[2019-01-24] MEDS ORDERED: diphenhydrAMINE 25 MG TAB (BENADRYL) PO PRN (11:45)
--- NOTE | 2019-01-24 13:05 | NUR ---
RD FOLLOW-UP PMHx: hypercholesterolemia; hypothyroidism; chronic constipation PT INTERACTION: Pt was awake and pleasant during nutrition follow-up. Pt states currently eating well. Note 100% of meals consumed x3d. Pt states no issues with n/v/c/d at this time. ABNORMAL NUTRITION-RELATED LAB VALUES: Hgb 8.8 (L); Hct 29 (L); Ca 8.9 (L); Pro 5.9 (L) Est. kcal needs: 6294-8342 kcal (15-18 kcal/kg) Est. Pro needs: 104-130 g Pro (0.9-1.0 g Pro/kg) PES STATEMENT: No nutrition diagnosis at this time. INTERVENTION: Continue with current diet order of regular diet. From nutrition standpoint, pt is ready for discharge. Will continue to follow. MONITOR/EVALUATE: PO Intake; Plan of Care; Hydration Status; Weight Status; Lab Values Florinda Duron, MS, RD, LD Ext. [phone]
[2019-01-24 16:11] VITALS: BP 144/68
--- NOTE | 2019-01-24 19:16 | NUR ---
bedside report received from KAMINI PEGUERO, assume care of pt
--- NOTE | 2019-01-24 21:26 | NUR ---
pt took Colace & Enulose but refused miralax & Dulcolax suppository
[2019-01-24] MEDS: LIDOCAINE PATCH REMOVAL TP SCH (21:32)
--- NOTE | 2019-01-24 22:05 | NUR ---
pt requesting muscle relaxer given Lioresal 10mg
[2019-01-24] MEDS: ZOLPIDEM 5 MG (AMBIEN) TAB PO PRN (23:00)
--- NOTE | 2019-01-24 23:03 | NUR ---
requesting sleeping pill Ambien 5mg po given
--- NOTE | 2019-01-25 01:14 | NUR ---
c/o pain level 5/10 on numeric scale, oxyir 5mg po given
--- NOTE | 2019-01-25 02:00 | NUR ---
rates pain at 2/10 on numeric scale
[2019-01-25] MEDS: BACLOFEN 10 MG (LIORESAL) TAB PO PRN ×4 (04:00→22:11)
[2019-01-25] MEDS: LEVOTHYROXINE 25 MCG (LEVOTHROID) TAB PO SCH (04:00)
[2019-01-25] MEDS: LEVOTHYROXINE 112 MCG (LEVOTHROID) TAB PO SCH (04:00)
--- NOTE | 2019-01-25 04:00 | NUR ---
requesting muscle relaxer, Lioresal 10mg given
[2019-01-25 05:21] VITALS: BP 116/70
[2019-01-25] MEDS: CATHETER FLUSH 10 ML SYR IV SCH ×3 (06:42→22:12)
--- NOTE | 2019-01-25 07:20 | NUR ---
bedside report given to RYNE PEGUERO
[2019-01-25] MEDS: POLYETHYLENE GLYCOL 17 GM (MIRALAX) PACK PO SCH ×2 (08:36→21:31)
--- NOTE | 2019-01-25 09:23 | PM&R Progress Note ---
Subjective HPI/CC On Admission Date Seen by Provider: Jan 25, 2019 Time Seen by Provider: 08:30 Chief complaint: s/p right femur fracture HPI: This is a 68yoWF clinic Pt of Dr. Hogan at [place] who presented to the ER after sustaining a fall at home, apparently she was walking up the stairs outside and caused her to fall into a fence, stated that her right leg was twisted and had pain in her upper left chest, could not move her leg, did not hit her head and did not lose consciousness, but was brought to the ER. Chest/abdomen CT showed non-displaced anterior left fourth and fifth rib fractures, no pneumothorax and femur on the right revealed distal femur fracture. 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 Pt denies any significant heart or lung problems otherwise. Pt had prior level of functioning of independence without use of assistive device so we will admit to inpatient rehab, since she is so fatigued today we will do a 15/7 slow start but begin aggressive bowel movement treatment in addition to IV iron infusion since Hgb has decreased to 7.8 today and will initiated inpatient rehab protocol. Subjective/Events-last exam Pt doing much better. Pt having BM on commode this morning Having some skin concerns with the immobilizer rubbing on her leg which we are providing skin protection for that friction. Incision looks good. Participating in all therapy. Spoke to Dr. Zamora office and reviewed chart and apparently she had an ORIF of right shoulder due to fracture on 10/06/18 after suffering a fall and suffered another fall so the hardware screw is loose and needs to be removed but cannot for 6 months since the original surgery. She has a 10 pound weight limit of lifting items and can not use her arm to lift herself out of a chair. Iron infusions tolerated Conferred with RN Reviewed therapy notes Checked meds and labs Review of Systems General: Fatigue Musculoskeletal: leg pain Neurological: Weakness, Numbness, Incoordination Objective Exam Vital Signs Vital Signs Date Time Temp Pulse Resp B/P (MAP) Pulse Ox O2 Delivery O2 Flow Rate FiO2 01/25/19 05:21 36.7 78 18 116/70 (85) 97 Room Air Capillary Refill : Less Than 3 Seconds General Appearance: No Apparent Distress, WD/WN, Chronically ill, Obese HEENT: PERRL/EOMI, Normal ENT Inspection, Pharynx Normal, Moist Mucous Membranes Neck: Full Range of Motion, Normal Inspection, Non Tender, Supple Respiratory: Chest Non Tender, Lungs Clear, Normal Breath Sounds, No Accessory Muscle Use, No Respiratory Distress Cardiovascular: Regular Rate, Rhythm, No Edema, No Gallop, No JVD, No Murmur Gastrointestinal: Normal Bowel Sounds, No Organomegaly, No Pulsatile Mass, Non Tender, Soft Back: Normal Inspection, No CVA Tenderness, No Vertebral Tenderness Extremity: Normal Capillary Refill, Normal Inspection, Normal Range of Motion (except right leg and bilateral shoulders L>R in deficit), Non Tender, No Calf Tenderness, No Pedal Edema Neurologic/Psychiatric: Alert, Oriented x3, No Motor/Sensory Deficits, Normal Mood/Affect Skin: Normal Color, Warm/Dry Lymphatic: No Adenopathy Results/Procedures Lab Patient resulted labs reviewed. FIM Transfers Therapy Code Descriptions/Definitions Functional [place] Measure: 0=Not Assessed/NA 4=Minimal Assistance 1=Total Assistance 5=Supervision or Setup 2=Maximal Assistance 6=Modified [place] 3=Moderate Assistance 7=Complete IndependenceSCALE: Activities may be completed with or without assistive devices. 4-Sfuvhcyehz-ohzdsze completes the activity by him/herself with no assistance from a helper. 5-Set-up or Clean-up Assistance-helper sets up or cleans up; patient completes activity. [place] assists only prior to or following the activity. 4-Supervision or Touching Assistance-helper provides verbal cues and/or touching/steadying and/or contact guard assistance as patient completes activity. Assistance may be provided throughout the activity or intermittently. 3-Partial/Moderate Assistance-helper does LESS THAN HALF the effort. [place] lifts, holds or supports trunk or limbs, but provides less than half the effort. 2-Substantial/Maximal Assistance-helper does MORE THAN HALF the effort. [place] lifts or holds trunk or limbs and provides more than half the effort. 3-Hrsppbfzn-bwpurx does ALL the effort. Patient does none of the effort to complete the activity. Or, the assistance of 2 or more helpers is required for the patient to complete the activity. If activity was not attempted, code reason: 7-Patient Refused. 9-Not Applicable-not attempted and the patient did not perform the activity before the current illness, exacerbation or injury. 10-Not Attempted due to Environmental Limitations-(lack of equipment, weather restraints, etc.). 88-Not Attempted due to Medical Conditions or Safety Concerns. Transfers (B, C, W/C) (FIM): 3 Roll Left to Right (QC): 4 Sit to Lying (QC): 3 Sit to Stand (QC): 2 Chair/Xhd-ke-Eazro Xfer(QC): 3 Bed to/from Chair: 3 (sld brd bed to BSC) Car Transfer (QC): 88 Gait Training Does the Patient Walk?: No and Walking Goal NOT indicated Walk 10 feet (QC): 88 Walk 50 ft with 2 Turns(QC): 88 Walk 150 ft (QC): 88 Walking 10ft/uneven surface-QC: 88 Wheelchair Training Does the Pt Use a Wheelchair?: Yes Distance: 50'x2 Wheel 50 ft with 2 turns (QC): 3 Wheel 150 ft (QC): 1 Type of Wheelchair: Manual Stair Training 1 Step (curb) (QC): 88 4 Steps (QC): 88 12 Steps (QC): 88 ADL-Treatment Eating (QC): 6 Oral Hygiene (QC): 6 (completes in bed) Shower/Bathe Self (QC): 3 (Pt utilizes LHS to reach feet, back, and nichol area. Pt requires assist washing bottom and drying back and LE thoroughly.) Upper Body Dressing (QC): 4 (Pt requires intermittent assist with donning bra due to damp skin and limited UE ROM. Pt completes shirt donning on shower chair IND.) Lower Body Dressing (QC): 3 (Pt utilizes admissions evaluator to place pants over both feet. Pt requires assist to thread R pants over brace, pt completes donning L LE pant leg. Pt completes rolling with cues to bring pants to waist. ) On/Off Footwear (QC): 1 (TD L sock) Toileting Hygiene (QC): 2 (Pt able to attempt wiping, wipes nichol area, requires assist with wiping bottom thoroughly.) Toilet Transfer (QC): 1 (Pt able to sit EOB without assist, brings bottom forward toward EOB. Pt requires max Ax2 to compelte safe transfer from bed to commode and commode to bed.) Assessment/Plan Assessment and Plan Assess & Plan/Chief Complaint Assessment: s/p repair distal right femur fracture Chronic shoulder pain and limitation of activity that will limit recovery until hardware removed 04/2019 then will require recovery time for 8-12 weeks thereafter TODD on CPAP Post op anemia with severely low iron so started iron infusions HLP Hypothyroidism Post op constipation placed on meds now resolved OAB Plan: BM regimen Home meds Iron infusions Pain control Lovenox for DVT PPx Ortho evaluation of shoulder limitations Monitor for lidocaine toleration Check labs prn (1) Fracture of femur, right, closed Status: Acute (2) Insomnia Status: Chronic (3) Fall down stairs Status: Acute (4) Depression Status: Chronic Qualifiers: Depression Type: unspecified Qualified Codes: F32.9 - Major depressive disorder, single episode, unspecified (5) Hypothyroidism Status: Chronic Qualifiers: Hypothyroidism type: acquired Qualified Codes: E03.9 - Hypothyroidism, unspecified (6) Rib fractures Status: Acute Qualifiers: Encounter type: subsequent encounter Rib fracture type: multiple ribs Fracture type: closed Laterality: left (7) HLD (hyperlipidemia) Status: Chronic Qualifiers: Hyperlipidemia type: mixed hyperlipidemia Qualified Codes: E78.2 - Mixed hyperlipidemia (8) Postoperative anemia (9) Iron deficiency RAJESH LEWIS DO Jan 25, 2019 09:23
[2019-01-25] MEDS: buPROPion SR 150 MG (WELLBUTRIN SR) TAB PO SCH ×2 (09:40→21:27)
[2019-01-25] MEDS: DOCUSATE SODIUM 100 MG (COLACE) CAP PO SCH ×2 (09:41→21:31)
[2019-01-25] MEDS: SENNA W/DOCUSATE (SENOKOT S) TABLET PO SCH (09:41)
[2019-01-25] MEDS: IRON SUCROSE 200 MG/10 ML (VENOFER) VIAL IV SCH (09:41)
[2019-01-25] MEDS: OXYBUTYNIN (DITROPAN) 5 MG TAB PO SCH ×2 (09:41→21:27)
[2019-01-25] MEDS: ENOXAPARIN 40 MG/0.4 ML (LOVENOX) SYR SC SCH ×2 (09:41→21:28)
[2019-01-25] MEDS: LIDOCAINE 4% (SALONPAS) PATCH TOP SCH (09:41)
[2019-01-25] MEDS: LACTULOSE SYRUP 10GM/15ML (ENULOSE) 30ML UDC PO SCH ×2 (09:41→21:31)
[2019-01-25] MEDS: SERTRALINE 50 MG (ZOLOFT) TABLET PO SCH (09:42)
[2019-01-25] MEDS: BISACODYL 10 MG SUPP (DULCOLAX) PR SCH ×2 (09:42→21:30)
--- NOTE | 2019-01-25 10:12 | Physical Therapy Daily Note ---
PT Daily Note-Current Subjective Pt seen in bed, pt does not rate pain, states there is still "burning sensations" within L ribs. Pt agreeable to OT/ PT cotreat on this date. Co-treat required due to NWB status of R UE/LE, decreased mobility and strength. OT addresses ADL functions, UE strengthening, and functional transfers, PT addresses gross motor movement, LE strengthening, and balance. Pain Numeric Pain Scale: 5-Moderate Pain Pain Description: Ache Comment: Pt reports pain/burning sensation with L rib. Mental Status Patient Orientation: Person, Place, Time, Situation Attachments: IV Transfers SCALE: Activities may be completed with or without assistive devices. 8-Mlgfkadrxz-yvjfusv completes the activity by him/herself with no assistance from a helper. 5-Set-up or Clean-up Assistance-helper sets up or cleans up; patient completes activity. [place] assists only prior to or following the activity. 4-Supervision or Touching Assistance-helper provides verbal cues and/or touching/steadying and/or contact guard assistance as patient completes activity. Assistance may be provided throughout the activity or intermittently. 3-Partial/Moderate Assistance-helper does LESS THAN HALF the effort. [place] lifts, holds or supports trunk or limbs, but provides less than half the effort. 2-Substantial/Maximal Assistance-helper does MORE THAN HALF the effort. [place] lifts or holds trunk or limbs and provides more than half the effort. 3-Hvplazghu-bxqhcz does ALL the effort. Patient does none of the effort to complete the activity. Or, the assistance of 2 or more helpers is required for the patient to complete the activity. If activity was not attempted, code reason: 7-Patient Refused. 9-Not Applicable-not attempted and the patient did not perform the activity before the current illness, exacerbation or injury. 10-Not Attempted due to Environmental Limitations-(lack of equipment, weather restraints, etc.). 88-Not Attempted due to Medical Conditions or Safety Concerns. Roll Left to Right (QC): 4 Sit to Lying (QC): 4 Sit to Stand (QC): 1 Weight Bearing Right Lower Extremity: Right Non Weight Bearing Left Lower Extremity: Left Full Weight Bearing Patient states she is not supposed to bear weight on her right arm due to shoulder issues. Exercises Seated Therapy Exercises: Ankle pumps, Hip flexion Seated Reps: 20 Treatments Pt completes bed mob with min A with RLE mobility, directs commode transfer verbally with accuracy. Pt transferred commode to shower chair with Max A x2. Pt wheeled to shower room, completes shower with min A. Pt dresses shirt with min A and socks with SBA in shower chair, completes BLE socks without AE. Pt does not c/o pain while forward flexing for sock donning. Pt denies need for pants or practicing slide board transfers to/from commode due to pt's expressed concern for holding urine long periods of time. Pt educated on importance of increasing IND, pt states she will attempt on later date. Pt states she would like to focus on strengthening UE/ LE. Pt expresses stress due to 's current ADL function, stating he refuses to receive help outside of family assist. Pt states she is in charge of bills, their [place] spread sheets, cooking, shopping, laundry, etc. Pt educated of healing process. Pt transferred shower chair to EOB, pt completes UE exercises with 2# weight, focusing on biceps, forward flexion of shoulder, and internal/ external rotation as well as LE exercises of AP & Marching. Pt completes bed mob (sit to supine) with min A. Pt asks for pillow under LUE, pt unable to complete task due to decreased ROM, balance during rolling, and decreased strength. Pt positioned to comfort and support of UE. Pt left with nurse in room, call light in reach, all needs met. Assessment Current Status: Good Progress Pain limits participation in some activities. Pt still declining don of pants due to saturation of urine pt is afraid will occur. Pt encouraged independence. PT Short Term Goals Short Term Goals Time Frame: Jan 24, 2019 Wheelchair Distance: 50'x2 Wheelchair Level of Assist: 5 PT Prison Goals Prison Goals PT Prison Goals Time Frame: Feb 07, 2019 Sit to Lying (QC): 3 (min assist) Lying-Sitting on Side/Bed(QC): 3 (min assist) Sit to Stand (QC): 3 (mod assist) Roll Left to Right (QC): 3 (min assist) Chair/Zlp-fd-Zpdsq Xfer(QC): 3 (mod assist) Car Transfer (QC): 3 (mod assist) Distance: 150' Wheel 50 feet with 2 turns (QC: 4 (SBA) PT Plan Problem List Problem List: Activity Tolerance, Functional Strength, Safety, Balance, Gait, Transfer Treatment/Plan Treatment Plan: Continue Plan of Care Treatment Plan: Bed Mobility, Concurrent Therapy, Education, Functional Activity Mabel, Functional Strength, Group Therapy, Safety, Therapeutic Exercise, Transfers Treatment Duration: Feb 07, 2019 Frequency: At least 5 of 7 days/Wk (IRF) Estimated Hrs Per Day: 1.5 hours per day Patient and/or Family Agrees t: Yes Safety Risks/Education Patient Education: Transfer Techniques, Correct Positioning, Safety Issues Teaching Recipient: Patient Teaching Methods: Discussion Response to Teaching: Verbalize Understanding Time/GCodes Time In: 800 Time Out: 930 Total Billed Treatment Time: 90 Total Billed Treatment 1, EX (15m) & FA x5 (75m) Co-treat w/OT for 90m ZARIA HAY DATA ARCHITECT MANAGER Jan 25, 2019 10:12
--- NOTE | 2019-01-25 11:13 | Occupational Ther Daily Note ---
OT Current Status-Daily Note Subjective Pt seen in bed, pt does not rate pain, states there is still "burning sensations" within L ribs. Pt agreeable to OT/ PT cotreat on this date. Co-treat required due to NWB status of R UE/LE, decreased mobility and strength. OT addresses ADL functions, UE strengthening, and functional transfers, PT addresses gross motor movement, LE strengthening, and balance. Mental Status/Objective Patient Orientation: Normal For Age ADL-Treatment Therapy Code Descriptions/Definitions Functional [place] Measure: 0=Not Assessed/NA 4=Minimal Assistance 1=Total Assistance 5=Supervision or Setup 2=Maximal Assistance 6=Modified [place] 3=Moderate Assistance 7=Complete IndependenceSCALE: Activities may be completed with or without assistive devices. 2-Vkdqjivykf-hcolsto completes the activity by him/herself with no assistance from a helper. 5-Set-up or Clean-up Assistance-helper sets up or cleans up; patient completes activity. [place] assists only prior to or following the activity. 4-Supervision or Touching Assistance-helper provides verbal cues and/or touching/steadying and/or contact guard assistance as patient completes activity. Assistance may be provided throughout the activity or intermittently. 3-Partial/Moderate Assistance-helper does LESS THAN HALF the effort. [place] lifts, holds or supports trunk or limbs, but provides less than half the effort. 2-Substantial/Maximal Assistance-helper does MORE THAN HALF the effort. [place] lifts or holds trunk or limbs and provides more than half the effort. 4-Bvbopswmw-zuzcit does ALL the effort. Patient does none of the effort to complete the activity. Or, the assistance of 2 or more helpers is required for the patient to complete the activity. If activity was not attempted, code reason: 7-Patient Refused. 9-Not Applicable-not attempted and the patient did not perform the activity before the current illness, exacerbation or injury. 10-Not Attempted due to Environmental Limitations-(lack of equipment, weather restraints, etc.). 88-Not Attempted due to Medical Conditions or Safety Concerns. Eating (QC): 6 Shower/Bathe Self (QC): 3 (Pt able to reach both feet with long handled sponge and ankles with washcloths. Pt able to lean bilaterally to wash bottom and use long handled sponge for back; Pt requires assist with washing back and bottom for thoroughness.) Upper Body Dressing (QC): 4 (Assist for unraveling shirt in back due to damp skin and limited ROM.) Toileting Hygiene (QC): 2 (Pt requires wiping assist for thoroughness) Toilet Transfer (QC): 1 (Max Ax2 EOB to bedside commode. Squat pivot completed with pt counting and directing movement with accuracy.) Other Treatment Pt completes bed mob with min A with RLE mobility, directs commode transfer verbally with accuracy. Pt transferred commode to shower chair with Max A x2. Pt wheeled to shower room, completes shower with min A. Pt dresses shirt with min A and socks with SBA in shower chair, completes BLE socks without AE. Pt does not c/o pain while forward flexing for sock donning. Pt denies need for pants or practicing slide board transfers to/from commode due to pt's expressed concern for holding urine long periods of time. Pt educated on importance of increasing IND, pt states she will attempt on later date. pt states she would like to focus on strengthening UE/ LE. Pt expresses stress due to 's current ADL function, stating he refuses to receive help outside of family assist. Pt states she is in charge of bills, their [place] spread sheets, cooking, shopping, laundry, etc. Pt educated of healing process. Pt transferred shower chair to EOB, pt completes UE exercises with 2# weight, focusing on biceps, forward flexion of shoulder, and internal/ external rotation. Pt completes bed mob (sit to supine) with min A. Pt asks for pillow under LUE, pt unable to complete task due to decreased ROM, balance during rolling, and decreased strength. pt positioned to comfort and support of UE. Pt left with nurse in room, call light in reach, all needs met. Education OT Patient Education: Correct positioning, Exercise program, Home exercise program, Modified ADL techniques, Purpose of tx/functional activities, Reviewed precautions, Rehab process, Safety issues, Transfer techniques, Use of adapted equipment Teaching Recipient: Patient Teaching Methods: Demonstration, Discussion Response to Teaching: Verbalize Understanding, Return Demonstration OT Short Term Goals Short Term Goals Grooming(FIM): 4 (met) Upper Body Dressing(FIM): 3 (met) Lower Body Dressing(FIM): 2 (met) Transfers (B,C,W/C) (FIM): 2 Additional Short Term Goals: 1-Demonstrate ADL Tasks, 2-Verbalize Understanding, 3-ImproveStrength/Mabel 1=Demonstrate adherence to instructed precautions during ADL tasks. 2=Patient will verbalize/demonstrate understanding of assistive devices/modifications for ADL. 3=Patient will improve strength/tolerance for activity to enable patient to p erform ADL's. OT Label Printing Machinist Goals Label Printing Machinist Goals Eating (QC): 6 (met) Oral Hygiene (QC): 6 (met) Shower/Bathe Self (QC): 5 Upper Body Dressing (QC): 5 Lower Body Dressing (QC): 3 (met supine in bed) On/Off Footwear (QC): 3 (met) Toileting Hygiene (QC): 3 Toilet/Commode Transfer (QC): 3 Additional Goals: 1-Demonstrate ADL Tasks, 2-Verbalize Understanding, 3- ImproveStrength/Mabel 1=Demonstrate adherence to instructed precautions during ADL tasks. 2=Patient will verbalize/demonstrate understanding of assistive devices/modifications for ADL. 3=Patient will improve strength/tolerance for activity to enable patient to perform ADL's. OT Education/Plan Problem List/Assessment Assessment: Decreased Activ Tolerance, Decreased UE Strength, Dependent Transfe rs, Impaired Bed Mobility, Impaired Funct Balance, Impaired I ADL's, Impaired Self-Care Skills, Restricted Funct UE ROM Discharge Recommendations Plan/Recommendations: Continue POC Treatment Plan/Plan of Care Treatment,Training & Education: Yes Patient would benefit from OT for education, treatment and training to promote independence in ADL's, mobility, safety and/or upper extremity function for ADL's. Plan of Care: ADL Retraining, Caregiver Training, Concurrent Therapy, Functional Mobility, Group Exercise/Act as Ind, Orthotic Fitting/Training, UE Funct Exercise/Act, W/C Management Training Treatment Duration: Jan 31, 2019 Frequency: At least 5 of 7 days/Wk (IRF) Estimated Hrs Per Day: 1.5 hours per day Agreement: Yes Rehab Potential: Guarded Time/GCodes Start Time: 08:00 Stop Time: 09:30 Total Time Billed (hr/min): 90 Billed Treatment Time 1, ADL (60), EX (30)= Total 90 OT/PT cotreat from [id number] KIT SWANSON OTR Jan 25, 2019 11:13
--- NOTE | 2019-01-25 14:49 | Progress Note ---
JAYDE SIMON MED STUDENT 01/25/19 1449: Progress Note CC: R femur and L 4th and 5th rib fracture * Admitted 01/17/19 after falling at home, had been walking up the stairs outside and fell onto a fence. Prior to injury she functioned independently without use of assistive device. * Since admission her hemoglobin level has improved, and she has made slight progress in PT/OT, improving her bed mobility. She is limited by her left 4th and 5th rib fractures, as well as recent surgery to right shoulder in need of repair due to loose screw. She is unable to bear 10 pounds using that arm, and cannot have it repaired until 6 months post surgery. * Nursing and therapy reports she seems to have low motivation to perform her ADLs without assistance, and that she could potentially be capable of performing on her own. 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 * Today she reports feeling improved due to improved quality of sleep, and feels like her mobility is improving, although still very limited. * Today she no longer reports lack of sleep due to muscle spasm, still has irritation on right posterolateral thigh due to sensitivity to bandage adhesive, and still reports slight tremor in hands. She reports she has had no issues with bowel movements. * Next Step: Plan to discharge to longer term rehabilitation therapy, discuss with patient wether she would prefer a residential facility or private caregivers. Discharge date possibly early next week. DONITA LEWIS DO 01/26/19 0901: Supervisory-Addendum Brief Verification & Attestation Participated in pt care: history, MDM, physical Personally performed: exam, history, MDM, supervision of care Care discussed with: Medical Student Procedures: n/a Results interpretation: Verified all documentation Verification and Attestation of Medical Student E/M Service A medical student performed and documented this service in my presence. I reviewed and verified all information documented by the medical student and made modifications to such information, when appropriate. I personally performed the physical exam and medical decision making. Donita Lewis, Jan 26, 2019,09:00 JAYDE SIMON MED STUDENT Jan 25, 2019 14:49 DONITA LEWIS DO Jan 26, 2019 09:01
--- NOTE | 2019-01-25 14:55 | Physical Therapy Progress Note ---
Therapy Progress Note Pt laying Supine in bed upon arrival with call light on. Pt asks for assistance to get to BSC and back. Pt transfers at Max A x2 but improvement with independence. Pt returns to bed and is assisted with repositioning. Nurse present at end of Rx. Pt has all needs met, call light in hand. Time in :1435 Time out: 1455 Time: 20m Total Charges: 1, FA (20m) ZARIA HAY MUTUEL CLERK Jan 25, 2019 14:55
--- NOTE | 2019-01-25 15:31 | NUR ---
Weekly Team Conference Discussed weekly team conference and discharge planning with patient. Dr. Cardenas was able to speak with Dr. Zamora regarding restrictions on patient's RUE. Patient is not to lift anything over 10 pounds and patient will not be able to undergo surgical intervention for at least 6 months. Patient is aware of these restrictions and states that due to the restrictions, she is unable to propel a wheelchair. Patient also reports that the bathrooms in her home are not wheelchair accessible. Patient also states that her is not able to provide physical assistance as he is recovering from a heart attack. Patient reports she has been discussing discharge options with her daughter, Samuel Lopez, as she realizes she will not be able to return home from the ARU. Patient reports that Samuel is going to visit [facility]. Patient states she would like to remain in the [place] area as her daughter lives in [place] and it would much easier on her daughter if the patient was in [place]. Tentative discharge date has been set for 01/31/19. Patient verbalizes understanding and states this will give her time to find a facility she is comfortable with. Patient states she will talk with her daughter regarding [facility]. If patient is agreeable to [facility], patient would like a sales representative groceries from the facility to come and talk with her prior to discharge. Continue with discharge planning.
[2019-01-25 18:00] VITALS: BP 117/72
--- NOTE | 2019-01-25 19:11 | NUR ---
bedside report received from RYNE PEGUERO, assume care of pt
--- NOTE | 2019-01-25 21:25 | NUR ---
refused Enulose, miralax, Colace & Dulcolax suppository, had medium formed brown BM earlier this evening, pt states 3rd one today
[2019-01-25] MEDS: LIDOCAINE PATCH REMOVAL TP SCH (21:31)
--- NOTE | 2019-01-25 22:11 | NUR ---
requesting Lioresal 10mg for muscle spasms
--- NOTE | 2019-01-25 22:28 | NUR ---
requesting Ambien 5mg
[2019-01-25] MEDS: ZOLPIDEM 5 MG (AMBIEN) TAB PO PRN (22:30)
--- NOTE | 2019-01-26 00:55 | NUR ---
c/o rib pain level 6/10 on numeric scale, oxyir 5mg po given
--- NOTE | 2019-01-26 01:35 | NUR ---
resting quietly in bed, pain level 0/10 on flacc scale
[2019-01-26] MEDS: BACLOFEN 10 MG (LIORESAL) TAB PO PRN ×4 (03:59→22:40)
[2019-01-26] MEDS: LEVOTHYROXINE 25 MCG (LEVOTHROID) TAB PO SCH (04:00)
[2019-01-26] MEDS: LEVOTHYROXINE 112 MCG (LEVOTHROID) TAB PO SCH (04:00)
[2019-01-26 05:50] VITALS: BP 111/71
[2019-01-26] MEDS: CATHETER FLUSH 10 ML SYR IV SCH ×3 (06:41→22:40)
--- NOTE | 2019-01-26 07:08 | NUR ---
bedside report given to RYNE PEGUERO
--- NOTE | 2019-01-26 08:15 | PM&R Progress Note ---
Subjective HPI/CC On Admission Date Seen by Provider: Jan 26, 2019 Time Seen by Provider: 08:30 Chief complaint: s/p right femur fracture HPI: This is a 68yoWF clinic Pt of Dr. Hogan at [place] who presented to the ER after sustaining a fall at home, apparently she was walking up the stairs outside and caused her to fall into a fence, stated that her right leg was twisted and had pain in her upper left chest, could not move her leg, did not hit her head and did not lose consciousness, but was brought to the ER. Chest/abdomen CT showed non-displaced anterior left fourth and fifth rib fractures, no pneumothorax and femur on the right revealed distal femur fracture. 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 Pt denies any significant heart or lung problems otherwise. Pt had prior level of functioning of independence without use of assistive device so we will admit to inpatient rehab, since she is so fatigued today we will do a 15/7 slow start but begin aggressive bowel movement treatment in addition to IV iron infusion since Hgb has decreased to 7.8 today and will initiated inpatient rehab protocol. Subjective/Events-last exam Pt is okay with going to a prison later next week. Purewick helps the incontinence. Bowels are moving very well on treatment. Pain is doing well. Tolerating iron infusions. Strengthening gradually every day. Iron infusions tolerated Conferred with RN Reviewed therapy notes Checked meds and labs Review of Systems Musculoskeletal: arm pain, leg pain, foot pain Objective Exam Vital Signs Vital Signs Date Time Temp Pulse Resp B/P (MAP) Pulse Ox O2 Delivery O2 Flow Rate FiO2 01/26/19 18:00 36.7 66 20 115/71 (86) 95 Room Air Capillary Refill : Less Than 3 Seconds General Appearance: No Apparent Distress, WD/WN, Chronically ill, Obese HEENT: PERRL/EOMI, Normal ENT Inspection, Pharynx Normal, Moist Mucous Membranes Neck: Full Range of Motion, Normal Inspection, Non Tender, Supple Respiratory: Chest Non Tender, Lungs Clear, Normal Breath Sounds, No Accessory Muscle Use, No Respiratory Distress Cardiovascular: Regular Rate, Rhythm, No Edema, No Gallop, No JVD, No Murmur Gastrointestinal: Normal Bowel Sounds, No Organomegaly, No Pulsatile Mass, Non Tender, Soft Back: Normal Inspection, No CVA Tenderness, No Vertebral Tenderness Extremity: Normal Capillary Refill, Normal Inspection, Normal Range of Motion (except right leg and bilateral shoulders L>R in deficit), Non Tender, No Calf Tenderness, No Pedal Edema Neurologic/Psychiatric: Alert, Oriented x3, No Motor/Sensory Deficits, Normal Mood/Affect Skin: Normal Color, Warm/Dry Lymphatic: No Adenopathy Results/Procedures Lab Patient resulted labs reviewed. FIM Transfers Therapy Code Descriptions/Definitions Functional [place] Measure: 0=Not Assessed/NA 4=Minimal Assistance 1=Total Assistance 5=Supervision or Setup 2=Maximal Assistance 6=Modified [place] 3=Moderate Assistance 7=Complete IndependenceSCALE: Activities may be completed with or without assistive devices. 0-Ghupezjfmn-wjxmnhf completes the activity by him/herself with no assistance from a helper. 5-Set-up or Clean-up Assistance-helper sets up or cleans up; patient completes activity. [place] assists only prior to or following the activity. 4-Supervision or Touching Assistance-helper provides verbal cues and/or touching/steadying and/or contact guard assistance as patient completes activity. Assistance may be provided throughout the activity or intermittently. 3-Partial/Moderate Assistance-helper does LESS THAN HALF the effort. [place] lifts, holds or supports trunk or limbs, but provides less than half the effort. 2-Substantial/Maximal Assistance-helper does MORE THAN HALF the effort. [place] lifts or holds trunk or limbs and provides more than half the effort. 4-Hsfwiiflf-jnywhy does ALL the effort. Patient does none of the effort to complete the activity. Or, the assistance of 2 or more helpers is required for the patient to complete the activity. If activity was not attempted, code reason: 7-Patient Refused. 9-Not Applicable-not attempted and the patient did not perform the activity before the current illness, exacerbation or injury. 10-Not Attempted due to Environmental Limitations-(lack of equipment, weather restraints, etc.). 88-Not Attempted due to Medical Conditions or Safety Concerns. Transfers (B, C, W/C) (FIM): 3 Roll Left to Right (QC): 4 Sit to Lying (QC): 4 Sit to Stand (QC): 1 Chair/Erv-ml-Wqcrt Xfer(QC): 3 Bed to/from Chair: 3 ([place] bed to [facility] Car Transfer (QC): 88 Gait Training Does the Patient Walk?: No and Walking Goal NOT indicated Walk 10 feet (QC): 88 Walk 50 ft with 2 Turns(QC): 88 Walk 150 ft (QC): 88 Walking 10ft/uneven surface-QC: 88 Wheelchair Training Does the Pt Use a Wheelchair?: Yes Distance: 50'x2 Wheel 50 ft with 2 turns (QC): 3 Wheel 150 ft (QC): 1 Type of Wheelchair: Manual Stair Training 1 Step (curb) (QC): 88 4 Steps (QC): 88 12 Steps (QC): 88 ADL-Treatment Eating (QC): 6 Oral Hygiene (QC): 6 (completes in bed) Shower/Bathe Self (QC): 3 (Pt able to reach both feet with long handled sponge and ankles with washcloths. Pt able to lean bilaterally to wash bottom and use long handled sponge for back; Pt requires assist with washing back and bottom for thoroughness.) Upper Body Dressing (QC): 4 (Assist for unraveling shirt in back due to damp skin and limited ROM.) Lower Body Dressing (QC): 3 (Pt utilizes store administrator to place pants over both feet. Pt requires assist to thread R pants over brace, pt completes donning L LE pant leg. Pt completes rolling with cues to bring pants to waist. ) On/Off Footwear (QC): 1 (TD L sock) Toileting Hygiene (QC): 2 (Pt requires wiping assist for thoroughness) Toilet Transfer (QC): 1 (Max Ax2 EOB to bedside commode. Squat pivot completed with pt counting and directing movement with accuracy.) Assessment/Plan Assessment and Plan Assess & Plan/Chief Complaint Assessment: s/p repair distal right femur fracture Chronic shoulder pain and limitation of activity that will limit recovery until hardware removed 04/2019 then will require recovery time for 8-12 weeks thereafter TODD on CPAP Post op anemia with severely low iron so started iron infusions HLP Hypothyroidism Post op constipation placed on meds now resolved OAB Plan: BM regimen Home meds Iron infusions Pain control Lovenox for DVT PPx Ortho evaluation of shoulder limitations Monitor for lidocaine toleration Check labs prn (1) Fracture of femur, right, closed Status: Acute (2) Insomnia Status: Chronic (3) Fall down stairs Status: Acute (4) Depression Status: Chronic Qualifiers: Depression Type: unspecified Qualified Codes: F32.9 - Major depressive disorder, single episode, unspecified (5) Hypothyroidism Status: Chronic Qualifiers: Hypothyroidism type: acquired Qualified Codes: E03.9 - Hypothyroidism, unspecified (6) Rib fractures Status: Acute Qualifiers: Encounter type: subsequent encounter Rib fracture type: multiple ribs Fracture type: closed Laterality: left (7) HLD (hyperlipidemia) Status: Chronic Qualifiers: Hyperlipidemia type: mixed hyperlipidemia Qualified Codes: E78.2 - Mixed hyperlipidemia (8) Postoperative anemia (9) Iron deficiency RAJESH LEWIS DO Jan 26, 2019 08:14
[2019-01-26] MEDS: POLYETHYLENE GLYCOL 17 GM (MIRALAX) PACK PO SCH ×2 (08:42→21:18)
[2019-01-26] MEDS: BISACODYL 10 MG SUPP (DULCOLAX) PR SCH ×2 (08:43→21:19)
[2019-01-26] MEDS: LACTULOSE SYRUP 10GM/15ML (ENULOSE) 30ML UDC PO SCH ×2 (09:50→21:12)
[2019-01-26] MEDS: SENNA W/DOCUSATE (SENOKOT S) TABLET PO SCH (09:50)
[2019-01-26] MEDS: LIDOCAINE 4% (SALONPAS) PATCH TOP SCH (09:51)
[2019-01-26] MEDS: DOCUSATE SODIUM 100 MG (COLACE) CAP PO SCH ×2 (09:51→21:12)
[2019-01-26] MEDS: ENOXAPARIN 40 MG/0.4 ML (LOVENOX) SYR SC SCH ×2 (09:51→21:17)
[2019-01-26] MEDS: OXYBUTYNIN (DITROPAN) 5 MG TAB PO SCH ×2 (09:51→21:12)
[2019-01-26] MEDS: buPROPion SR 150 MG (WELLBUTRIN SR) TAB PO SCH ×2 (09:51→21:12)
[2019-01-26] MEDS: SERTRALINE 50 MG (ZOLOFT) TABLET PO SCH (09:51)
--- NOTE | 2019-01-26 10:24 | NUR ---
Discussed discharge plan with patient. Patient states her preferred SNF provider is [facility]. Will make a referral to [facility] and ask for a sales representative supervisor to come and speak with the patient. Tentative discharge date is 01/31/19.
--- NOTE | 2019-01-26 10:51 | Progress Note ---
JAYDE SIMON MED STUDENT 01/26/19 1051: Progress Note CC: R femur and L 4th and 5th rib fracture * Feeling better today, no new complaints * Reports participated in PT/OT with some progress made in improving mobility, specifically getting from the bed to the commode. Practice bearing weight on one leg. * Reports new swelling today on distal left leg around bruise/hematoma from fall. Noted some swelling on palpation, no warmth. No pain on palpation, no pain to calves on palpation bilaterally, no pedal edema bilaterally, 2+ pedal pulses bilaterally. * Continues to have pain in shoulders that responds to current medication regimen, no spasms in right leg since increase in baclofen dose. * On auscultation, lungs CTAB, heart RRR, no murmurs, clicks, or gallops. * Sister from [place] will be visiting this weekend, will bring things from [place]'s home for her to do (knitting, laptop). * Tentative discharge date of 01/31, she will be deciding wether she is comfortable with [facility] or not. DONITA LEWIS DO 01/26/192051: Supervisory-Addendum Brief Verification & Attestation Participated in pt care: history, MDM, physical Personally performed: exam, history, MDM, supervision of care Care discussed with: Medical Student Procedures: n/a Results interpretation: Verified all documentation Verification and Attestation of Medical Student E/M Service A medical student performed and documented this service in my presence. I reviewed and verified all information documented by the medical student and made modifications to such information, when appropriate. I personally performed the physical exam and medical decision making. Donita Lewis, Jan 26, 2019,20:52 JAYDE SIMON MED STUDENT Jan 26, 2019 10:51 DONITA LEWIS DO Jan 26, 2019 20:52
--- NOTE | 2019-01-26 10:59 | Physical Therapy Daily Note ---
PT Daily Note-Current Subjective Pt laying Supine in bed upon arrival. Pt agrees to PT/OT co-treat. Pain Numeric Pain Scale: 7 Pain Description: Burning Comment: Pt reports ribs burning with movement. Mental Status Patient Orientation: Person, Place, Time, Situation Attachments: Other-See Comments (Periwick when laying.) Transfers SCALE: Activities may be completed with or without assistive devices. 1-Oiyandzldf-hbgnfxg completes the activity by him/herself with no assistance from a helper. 5-Set-up or Clean-up Assistance-helper sets up or cleans up; patient completes activity. [place] assists only prior to or following the activity. 4-Supervision or Touching Assistance-helper provides verbal cues and/or touching/steadying and/or contact guard assistance as patient completes activity. Assistance may be provided throughout the activity or intermittently. 3-Partial/Moderate Assistance-helper does LESS THAN HALF the effort. [place] lifts, holds or supports trunk or limbs, but provides less than half the effort. 2-Substantial/Maximal Assistance-helper does MORE THAN HALF the effort. [place] lifts or holds trunk or limbs and provides more than half the effort. 3-Kodjiebfd-nnxazh does ALL the effort. Patient does none of the effort to complete the activity. Or, the assistance of 2 or more helpers is required for the patient to complete the activity. If activity was not attempted, code reason: 7-Patient Refused. 9-Not Applicable-not attempted and the patient did not perform the activity before the current illness, exacerbation or injury. 10-Not Attempted due to Environmental Limitations-(lack of equipment, weather restraints, etc.). 88-Not Attempted due to Medical Conditions or Safety Concerns. Roll Left to Right (QC): 3 Sit to Lying (QC): 3 Sit to Stand (QC): 1 Chair/Lmy-lh-Alwik Xfer(QC): 1 Bed to/from Chair: 1 Weight Bearing Right Lower Extremity: Right Non Weight Bearing Left Lower Extremity: Left Full Weight Bearing Patient states she is not supposed to bear weight on her right arm due to shoulder issues. Wheelchair Training Does the Pt Use a Wheelchair?: Yes Wheelchair Distance: 4=582-87 ft Distance: 100' Wheel 50 ft with 2 turns (QC): 2 Type of Wheelchair: Manual Exercises Seated Therapy Exercises: Ankle pumps, Long arc quads, Hip flexion, Kicking activity Treatments Co-treat with PT for skills of 2 clinicians due to NWB status of R UE/LE, decreased mobility and strength. OT addresses ADL functions, UE strengthening/AROM, and functional transfers, PT addresses gross motor movement, LE strengthening, standing, transfers and balance. Pt very anxious about transferring to [facility] frequently and wearing pants. SUPERVISOR GROWER discussed with pt and pt agreed to try both. Pt able to complete nichol care in supine and assist needed to cleanse buttocks (supine). Assist to don/doff lower body clothing while in supine. Assist x2 for SPT, 1 person for safety in back and 1 person for main transfer in front. Pt did very well with SPT. Pt worked on standing using parallel bars and completed with mod to min A. Pt completed UE pulleys to increase AROM and strengthening, 3 sets 10 reps. Then completed dowel albert UE exercises for biceps with 1# wt attached, 2 sets 15 reps. Pt then transported back to room via w/c. Transferred to [facility] with mod A x2, cleansed nichol area and assist to cleanse buttocks. Mod A x2 SPT to bed and min A EOB to supine. After therapy, pt lying in bed with call light/phone in reach. All needs met in room. Assessment Current Status: Good Progress Pt fatigues quickly and reports pain limiting Rx. PT Short Term Goals Short Term Goals Time Frame: Jan 24, 2019 Wheelchair Distance: 50'x2 Wheelchair Level of Assist: 5 PT Executive Personal Assistant Goals Executive Personal Assistant Goals PT Detention Goals Time Frame: Feb 07, 2019 Sit to Lying (QC): 3 (min assist) Lying-Sitting on Side/Bed(QC): 3 (min assist) Sit to Stand (QC): 3 (mod assist) Roll Left to Right (QC): 3 (min assist) Chair/Kqk-xp-Donrx Xfer(QC): 3 (mod assist) Car Transfer (QC): 3 (mod assist) Distance: 150' Wheel 50 feet with 2 turns (QC: 4 (SBA) PT Plan Problem List Problem List: Activity Tolerance, Functional Strength, Safety, Balance, Transfer Treatment/Plan Treatment Plan: Continue Plan of Care Treatment Plan: Bed Mobility, Concurrent Therapy, Education, Functional Activity Mabel, Functional Strength, Group Therapy, Safety, Therapeutic Exer cise, Transfers Treatment Duration: Feb 07, 2019 Frequency: At least 5 of 7 days/Wk (IRF) Estimated Hrs Per Day: 1.5 hours per day Patient and/or Family Agrees t: Yes Safety Risks/Education Patient Education: Transfer Techniques, Correct Positioning, Safety Issues Teaching Recipient: Patient Teaching Methods: Discussion Response to Teaching: Verbalize Understanding Time/GCodes Time In: 800 Time Out: 940 Total Billed Treatment Time: 100 Total Billed Treatment 1, EX x2 (35m) & FA x4 (65m) ZARIA HAY SUPERVISOR GROWER Jan 26, 2019 10:59
--- NOTE | 2019-01-26 13:37 | Occupational Ther Daily Note ---
OT Current Status-Daily Note Subjective Pt alert, lying in bed. Pt agrees to therapy. No c/o pain at this time. Mental Status/Objective Patient Orientation: Person, Place, Time, Situation ADL-Treatment Co-treat with PT for skills of 2 clinicians due to NWB status of R UE/LE, decreased mobility and strength. OT addresses ADL functions, UE strengthening/AROM, and functional transfers, PT addresses gross motor movement, LE strengthening, standing, transfers and balance. Pt very anxious about transferring to [facility] frequently and wearing pants. SHIP ENGINEER discussed with pt and pt agreed to try both. Pt able to complete nichol care in supine and assist needed to cleanse buttocks (supine). Assist to don/doff lower body clothing while in supine. Assist x2 for SPT, 1 person for safety in back and 1 person for main transfer in front. Pt did very well with SPT. Pt worked on standing using parallel bars and completed with mod to min A. Pt completed UE pulleys to increase AROM and strengthening, 3 sets 10 reps. Then completed dowel albert UE exercises for biceps with 1# wt attached, 2 sets 15 reps. Pt then transported back to room via w/c. Transferred to [facility] with mod A x2, cleansed nichol area and assist to cleanse buttocks. Mod A x2 SPT to bed and min A EOB to supine. After therapy, pt lying in bed with call light/phone in reach. All needs met in room. Therapy Code Descriptions/Definitions Functional [place] Measure: 0=Not Assessed/NA 4=Minimal Assistance 1=Total Assistance 5=Supervision or Setup 2=Maximal Assistance 6=Modified [place] 3=Moderate Assistance 7=Complete IndependenceSCALE: Activities may be completed with or without assistive devices. 0-Eipnpfbyvp-cwcalgp completes the activity by him/herself with no assistance from a helper. 5-Set-up or Clean-up Assistance-helper sets up or cleans up; patient completes activity. [place] assists only prior to or following the activity. 4-Supervision or Touching Assistance-helper provides verbal cues and/or touching/steadying and/or contact guard assistance as patient completes activity. Assistance may be provided throughout the activity or intermittently. 3-Partial/Moderate Assistance-helper does LESS THAN HALF the effort. [place] lifts, holds or supports trunk or limbs, but provides less than half the effort. 2-Substantial/Maximal Assistance-helper does MORE THAN HALF the effort. [place] lifts or holds trunk or limbs and provides more than half the effort. 7-Hkpckovwi-vkknhm does ALL the effort. Patient does none of the effort to complete the activity. Or, the assistance of 2 or more helpers is required for the patient to complete the activity. If activity was not attempted, code reason: 7-Patient Refused. 9-Not Applicable-not attempted and the patient did not perform the activity before the current illness, exacerbation or injury. 10-Not Attempted due to Environmental Limitations-(lack of equipment, weather restraints, etc.). 88-Not Attempted due to Medical Conditions or Safety Concerns. Lower Body Dressing (QC): 2 Toileting Hygiene (QC): 2 Toilet Transfer (QC): 2 OT Short Term Goals Short Term Goals Grooming(FIM): 4 (met) Upper Body Dressing(FIM): 3 (met) Lower Body Dressing(FIM): 2 (met) Transfers (B,C,W/C) (FIM): 2 Additional Short Term Goals: 1-Demonstrate ADL Tasks, 2-Verbalize Understanding, 3-ImproveStrength/Mabel 1=Demonstrate adherence to instructed precautions during ADL tasks. 2=Patient will verbalize/demonstrate understanding of assistive devices/modifications for ADL. 3=Patient will improve strength/tolerance for activity to enable patient to perform ADL's. OT Bell Maker Goals Mcfp Goals Eating (QC): 6 (met) Oral Hygiene (QC): 6 (met) Shower/Bathe Self (QC): 5 Upper Body Dressing (QC): 5 Lower Body Dressing (QC): 3 (met supine in bed) On/Off Footwear (QC): 3 (met) Toileting Hygiene (QC): 3 Toilet/Commode Transfer (QC): 3 Additional Goals: 1-Demonstrate ADL Tasks, 2-Verbalize Understanding, 3- ImproveStrength/Mabel 1=Demonstrate adherence to instructed precautions during ADL tasks. 2=Patient will verbalize/demonstrate understanding of assistive devices/modifications for ADL. 3=Patient will improve strength/tolerance for activity to enable patient to perform ADL's. OT Education/Plan Problem List/Assessment Assessment: Decreased Activ Tolerance, Decreased UE Strength, Impaired Product Marketing Executive rdination, Impaired Funct Balance, Impaired Self-Care Skills, Restricted Funct UE ROM Discharge Recommendations Plan/Recommendations: Continue POC Treatment Plan/Plan of Care Patient would benefit from OT for education, treatment and training to promote independence in ADL's, mobility, safety and/or upper extremity function for ADL's. Plan of Care: ADL Retraining, Caregiver Training, Concurrent Therapy, Functional Mobility, Group Exercise/Act as Ind, Orthotic Fitting/Training, UE Funct Exercise/Act, W/C Management Training Treatment Duration: Jan 31, 2019 Frequency: At least 5 of 7 days/Wk (IRF) Estimated Hrs Per Day: 1.5 hours per day Agreement: Yes Rehab Potential: Guarded Time/GCodes Start Time: 08:00 Stop Time: 09:40 Total Time Billed (hr/min): 100 Billed Treatment Time 1 visit-ADL 2 (30 min) EX 2 (30 min) FA 3 (40 min) JORGE WELLS Jan 26, 2019 13:36
--- NOTE | 2019-01-26 15:11 | NUR ---
Referral faxed to [facility] with tentative discharge date of 01/31/19 and request for kiosk sales representative from the facility come and speak with the patient prior to discharge.
[2019-01-26 18:00] VITALS: BP 115/71
--- NOTE | 2019-01-26 19:11 | NUR ---
bedside report received from RYNE PEGUERO, assume care of pt
--- NOTE | 2019-01-26 21:12 | NUR ---
pt refused miralax & Dulcolax suppository but took Enulose & Colace, c/o rt leg pain level 8/10 on numeric scale, oxyir 5mg given up to commode to void with 2 person assist & walker
[2019-01-26] MEDS: LIDOCAINE PATCH REMOVAL TP SCH (21:18)
--- NOTE | 2019-01-26 22:00 | NUR ---
rates pain 3/10 on numeric scale
[2019-01-26] MEDS: ZOLPIDEM 5 MG (AMBIEN) TAB PO PRN (22:40)
--- NOTE | 2019-01-26 22:40 | NUR ---
requests muscle relaxer and sleeping pill, Lioresal 10mg & Ambien 5mg given
--- NOTE | 2019-01-27 01:29 | NUR ---
c/o rt knee pain & rib pain level 6/10 on numeric scale, repositioned & given oxyir 5mg
--- NOTE | 2019-01-27 02:05 | NUR ---
rates pain 3/10 on numeric scale
[2019-01-27] MEDS: BACLOFEN 10 MG (LIORESAL) TAB PO PRN ×4 (04:37→22:35)
[2019-01-27] MEDS: LEVOTHYROXINE 112 MCG (LEVOTHROID) TAB PO SCH (04:37)
[2019-01-27] MEDS: LEVOTHYROXINE 25 MCG (LEVOTHROID) TAB PO SCH (04:37)
--- NOTE | 2019-01-27 04:37 | NUR ---
c/o muscle spams, requesting muscle relaxer, Lioresal 10mg given
[2019-01-27 05:45] VITALS: BP 111/76
[2019-01-27 06:12] LABS: HEMOGLOBIN 9.4 G/DL (11.5-16.0); MEAN PLATELET VOLUME 9.4 FL (7.4-10.4)
[2019-01-27] MEDS: CATHETER FLUSH 10 ML SYR IV SCH ×3 (06:43→20:12)
--- NOTE | 2019-01-27 07:18 | NUR ---
bedside report given to RYNE PEGUERO
[2019-01-27] MEDS: LACTULOSE SYRUP 10GM/15ML (ENULOSE) 30ML UDC PO SCH ×2 (08:32→20:11)
[2019-01-27] MEDS: BISACODYL 10 MG SUPP (DULCOLAX) PR SCH ×2 (08:58→20:12)
[2019-01-27] MEDS: POLYETHYLENE GLYCOL 17 GM (MIRALAX) PACK PO SCH ×2 (08:58→20:12)
[2019-01-27] MEDS: SENNA W/DOCUSATE (SENOKOT S) TABLET PO SCH (08:58)
--- NOTE | 2019-01-27 09:00 | Physical Therapy Daily Note ---
PT Daily Note-Current Subjective Pt. agrees to Rx and states she feels she has made progress but the TRFs to and from [facility] are still needing work. Pain Numeric Pain Scale: 6 Location: Right Location Body Site: Hip Pain Description: Ache Comment: ribs as well Mental Status Patient Orientation: Normal For Age Attachments: Other-See Comments (immoblizer RLE ) Transfers SCALE: Activities may be completed with or without assistive devices. 9-Rvinammogq-tjvpwes completes the activity by him/herself with no assistance from a helper. 5-Set-up or Clean-up Assistance-helper sets up or cleans up; patient completes activity. [place] assists only prior to or following the activity. 4-Supervision or Touching Assistance-helper provides verbal cues and/or touching/steadying and/or contact guard assistance as patient completes activity. Assistance may be provided throughout the activity or intermittently. 3-Partial/Moderate Assistance-helper does LESS THAN HALF the effort. [place] lifts, holds or supports trunk or limbs, but provides less than half the effort. 2-Substantial/Maximal Assistance-helper does MORE THAN HALF the effort. [place] lifts or holds trunk or limbs and provides more than half the effort. 4-Zdlvthosa-pfpfad does ALL the effort. Patient does none of the effort to complete the activity. Or, the assistance of 2 or more helpers is required for the patient to complete the activity. If activity was not attempted, code reason: 7-Patient Refused. 9-Not Applicable-not attempted and the patient did not perform the activity before the current illness, exacerbation or injury. 10-Not Attempted due to Environmental Limitations-(lack of equipment, weather restraints, etc.). 88-Not Attempted due to Medical Conditions or Safety Concerns. Transfers (B, C, W/C): 4 Roll Left to Right (QC): 6 Sit to Lying (QC): 5 Sit to Stand (QC): 4 levels were equal, pt. only TRFd toward left , will trial TRF to right this PM Weight Bearing Right Lower Extremity: Right Non Weight Bearing Left Lower Extremity: Left Full Weight Bearing Patient states she is not supposed to bear weight on her right arm due to shoulder issues. Treatments co Rx with OT for TRFs and sit to stand as well as showering and partial dressing secondary to complexity of TRFs as pt. is non wt bearing RU&L extremity and has safety issues, OT leading UE use as well as showering and dressing ans PT leading TRF balance and technique. Assessment Current Status: Good Progress pt. continues limited in TRF skills and mobility as she is limited by RU&L ext use etc PT Short Term Goals Short Term Goals Time Frame: Jan 24, 2019 Wheelchair Distance: 100' Wheelchair Level of Assist: 5 PT Rod Straightener Goals Rod Straightener Goals PT Rod Straightener Goals Time Frame: Feb 07, 2019 Sit to Lying (QC): 3 (min assist) Lying-Sitting on Side/Bed(QC): 3 (min assist) Sit to Stand (QC): 3 (mod assist) Roll Left to Right (QC): 3 (min assist) Chair/Odu-lw-Xrzmo Xfer(QC): 3 (mod assist) Car Transfer (QC): 3 (mod assist) Distance: 150' Wheel 50 feet with 2 turns (QC: 4 (SBA) PT Plan Treatment/Plan Treatment Plan: Continue Plan of Care Treatment Plan: Bed Mobility, Concurrent Therapy, Education, Functional Activity Mabel, Functional Strength, Group Therapy, Safety, Therapeutic Exe rcise, Transfers Treatment Duration: Feb 07, 2019 Frequency: At least 5 of 7 days/Wk (IRF) Estimated Hrs Per Day: 1.5 hours per day Patient and/or Family Agrees t: Yes Safety Risks/Education Patient Education: Transfer Techniques, Correct Positioning, Disease Process, Safety Issues Teaching Recipient: Patient Teaching Methods: Demonstration, Discussion Response to Teaching: Verbalize Understanding, Return Demonstration, Reinforcement Needed Time/GCodes Time In: 800 Time Out: 900 Total Billed Treatment Time: 60 Total Billed Treatment 1,FA60m CHARLENE PALMA ASSEMBLING MOTOR BUILDER Jan 27, 2019 09:00
[2019-01-27] MEDS: buPROPion SR 150 MG (WELLBUTRIN SR) TAB PO SCH ×2 (09:26→20:11)
[2019-01-27] MEDS: DOCUSATE SODIUM 100 MG (COLACE) CAP PO SCH ×2 (09:26→20:11)
[2019-01-27] MEDS: LIDOCAINE 4% (SALONPAS) PATCH TOP SCH (09:26)
[2019-01-27] MEDS: SERTRALINE 50 MG (ZOLOFT) TABLET PO SCH (09:26)
[2019-01-27] MEDS: OXYBUTYNIN (DITROPAN) 5 MG TAB PO SCH ×2 (09:26→20:11)
[2019-01-27] MEDS: ENOXAPARIN 40 MG/0.4 ML (LOVENOX) SYR SC SCH ×2 (09:28→20:11)
--- NOTE | 2019-01-27 09:29 | PM&R Progress Note ---
Subjective HPI/CC On Admission Date Seen by Provider: Jan 27, 2019 Time Seen by Provider: 08:45 Chief complaint: s/p right femur fracture HPI: This is a 68yoWF clinic Pt of Dr. Hogan at [facility] who presented to the ER after sustaining a fall at home, apparently she was walking up the stairs outside and caused her to fall into a fence, stated that her right leg was twisted and had pain in her upper left chest, could not move her leg, did not hit her head and did not lose consciousness, but was brought to the ER. Ch est/abdomen CT showed non-displaced anterior left fourth and fifth rib fractures, no pneumothorax and femur on the right revealed distal femur fracture. 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 Pt denies any significant heart or lung problems otherwise. Pt had prior level of functioning of independence without use of assistive device so we will admit to inpatient rehab, since she is so fatigued today we will do a 15/7 slow start but begin aggressive bowel movement treatment in addition to IV iron infusion since Hgb has decreased to 7.8 today and will initiated inpatient rehab protocol. Subjective/Events-last exam progressing well and contributing more since at a alf she will not have as much help as she is here Continence is maintained now Baclofen is working well now but will add K-pad for muscle spasms when they occur Multiple somatic issues continue Conferred with RN Reviewed therapy notes Checked meds and labs Review of Systems Musculoskeletal: arm pain, leg pain Neurological: Weakness Objective Exam Vital Signs Vital Signs Date Time Temp Pulse Resp B/P (MAP) Pulse Ox O2 Delivery O2 Flow Rate FiO2 01/27/19 08:10 Room Air 01/27/19 05:45 36.4 77 16 111/76 (88) 97 Capillary Refill : Less Than 3 Seconds General Appearance: No Apparent Distress, WD/WN, Chronically ill, Obese HEENT: PERRL/EOMI, Normal ENT Inspection, Pharynx Normal, Moist Mucous Membranes Neck: Full Range of Motion, Normal Inspection, Non Tender, Supple Respiratory: Chest Non Tender, Lungs Clear, Normal Breath Sounds, No Accessory Muscle Use, No Respiratory Distress Cardiovascular: Regular Rate, Rhythm, No Edema, No Gallop, No JVD, No Murmur Gastrointestinal: Normal Bowel Sounds, No Organomegaly, No Pulsatile Mass, Non Tender, Soft Back: Normal Inspection, No CVA Tenderness, No Vertebral Tenderness Extremity: Normal Capillary Refill, Normal Inspection, Normal Range of Motion (except right leg and bilateral shoulders L>R in deficit), Non Tender, No Calf Tenderness, No Pedal Edema Neurologic/Psychiatric: Alert, Oriented x3, No Motor/Sensory Deficits, Normal Mood/Affect Skin: Normal Color, Warm/Dry Lymphatic: No Adenopathy Results/Procedures Lab Laboratory Tests 01/27/19 05:32 Patient resulted labs reviewed. FIM Transfers Therapy Code Descriptions/Definitions Functional [place] Measure: 0=Not Assessed/NA 4=Minimal Assistance 1=Total Assistance 5=Supervision or Setup 2=Maximal Assistance 6=Modified [place] 3=Moderate Assistance 7=Complete IndependenceSCALE: Activities may be completed with or without assistive devices. 9-Yproqjcyyw-osqbqbp completes the activity by him/herself with no assistance from a helper. 5-Set-up or Clean-up Assistance-helper sets up or cleans up; patient completes activity. [place] assists only prior to or following the activity. 4-Supervision or Touching Assistance-helper provides verbal cues and/or touching/steadying and/or contact guard assistance as patient completes activity. Assistance may be provided throughout the activity or intermittently. 3-Partial/Moderate Assistance-helper does LESS THAN HALF the effort. [place] lifts, holds or supports trunk or limbs, but provides less than half the effort. 2-Substantial/Maximal Assistance-helper does MORE THAN HALF the effort. [place] lifts or holds trunk or limbs and provides more than half the effort. 0-Yzrylezlk-nhmdol does ALL the effort. Patient does none of the effort to complete the activity. Or, the assistance of 2 or more helpers is required for the patient to complete the activity. If activity was not attempted, code reason: 7-Patient Refused. 9-Not Applicable-not attempted and the patient did not perform the activity before the current illness, exacerbation or injury. 10-Not Attempted due to Environmental Limitations-(lack of equipment, weather restraints, etc.). 88-Not Attempted due to Medical Conditions or Safety Concerns. Transfers (B, C, W/C) (FIM): 4 Roll Left to Right (QC): 6 Sit to Lying (QC): 5 Sit to Stand (QC): 4 Chair/Miv-hp-[place] Xfer(QC): 1 Bed to/from Chair: 1 Car Transfer (QC): 88 Gait Training Does the Patient Walk?: No and Walking Goal NOT indicated Walk 10 feet (QC): 88 Walk 50 ft with 2 Turns(QC): 88 Walk 150 ft (QC): 88 Walking 10ft/uneven surface-QC: 88 Wheelchair Training Does the Pt Use a Wheelchair?: Yes Wheelchair Distance: 7=597-71 ft Distance: 100' Wheel 50 ft with 2 turns (QC): 2 Wheel 150 ft (QC): 1 Type of Wheelchair: Manual Stair Training 1 Step (curb) (QC): 88 4 Steps (QC): 88 12 Steps (QC): 88 ADL-Treatment Eating (QC): 6 Oral Hygiene (QC): 6 (completes in bed) Shower/Bathe Self (QC): 3 (Pt able to reach both feet with long handled sponge and ankles with washcloths. Pt able to lean bilaterally to wash bottom and use long handled sponge for back; Pt requires assist with washing back and bottom for thoroughness.) Upper Body Dressing (QC): 4 (Assist for unraveling shirt in back due to damp skin and limited ROM.) Lower Body Dressing (QC): 2 On/Off Footwear (QC): 1 (TD L sock) Toileting Hygiene (QC): 2 Toilet Transfer (QC): 2 Assessment/Plan Assessment and Plan Assess & Plan/Chief Complaint Assessment: s/p repair distal right femur fracture Chronic shoulder pain and limitation of activity that will limit recovery until hardware removed 04/2019 then will require recovery time for 8-12 weeks thereafter TODD on CPAP Post op anemia with severely low iron so started iron infusions HLP Hypothyroidism Post op constipation placed on meds now resolved OAB Plan: BM regimen Home meds Iron infusions Pain control Lovenox for DVT PPx Ortho evaluation of shoulder limitations Monitor for lidocaine toleration K-pad (1) Fracture of femur, right, closed Status: Acute (2) Insomnia Status: Chronic (3) Fall down stairs Status: Acute (4) Depression Status: Chronic Qualifiers: Depression Type: unspecified Qualified Codes: F32.9 - Major depressive disorder, single episode, unspecified (5) Hypothyroidism Status: Chronic Qualifiers: Hypothyroidism type: acquired Qualified Codes: E03.9 - Hypothyroidism, unspecified (6) Rib fractures Status: Acute Qualifiers: Encounter type: subsequent encounter Rib fracture type: multiple ribs Fra cture type: closed Laterality: left (7) HLD (hyperlipidemia) Status: Chronic Qualifiers: Hyperlipidemia type: mixed hyperlipidemia Qualified Codes: E78.2 - Mixed hyperlipidemia (8) Postoperative anemia (9) Iron deficiency RAJESH LEWIS DO Jan 27, 2019 09:29
[2019-01-27] MEDS: IRON SUCROSE 200 MG/10 ML (VENOFER) VIAL IV SCH (09:59)
--- NOTE | 2019-01-27 10:02 | Progress Note ---
JAYDE SIMON MED STUDENT 01/27/19 1002: Progress Note CC: R femur and L 4th and 5th rib fracture * Feeling more tired today, had interrupted sleep due to muscle spasms in right leg. First spasms since increase in dose of baclofen, attributes spasms to increase use of legs in PT/OT * Labs show anemia that has improved, RBC 3.01, Hgb 9.4, Hct 30. Cr 0.66. * Reports participated in PT/OT with continued progress made in improving mobility, specifically getting from the bed to the commode, but still needing more practice. Continues to practice bearing weight on one leg. * Continued swelling today on distal left leg around bruise/hematoma from fall. Noted some swelling on palpation, no warmth. * Reports feeling as if there is a nodule underneath one of her bandages on her R posterolateral thigh, which cover rash/irritation caused by splint. No nodule noted on palpation, mild tenderness to palpation. * No pain on palpation, no pain to calves on palpation bilaterally, no pedal edema bilaterally, 2+ pedal pulses bilaterally. * Continues to have pain in shoulders that responds to current medication regimen * On auscultation, lungs CTAB, heart RRR, no murmurs, clicks, or gallops. * Tentative discharge date of 01/31, she will be deciding wether she is comfortable with [facility] [employer] or not. DONITA LEWIS DO 01/27/19 1709: Supervisory-Addendum Brief Verification & Attestation Participated in pt care: history, MDM, physical Personally performed: exam, history, MDM, supervision of care Care discussed with: Medical Student Procedures: n/a Results interpretation: Verified all documentation Verification and Attestation of Medical Student E/M Service A medical student performed and documented this service in my presence. I reviewed and verified all information documented by the medical student and made modifications to such information, when appropriate. I personally performed the physical exam and medical decision making. Donita Lewis, Jan 27, 2019,17:09 JAYDE SIMON MED STUDENT Jan 27, 2019 10:02 DONITA LEWIS DO Jan 27, 2019 17:09
--- NOTE | 2019-01-27 11:02 | Occupational Ther Daily Note ---
OT Current Status-Daily Note Subjective Pt in bed, requesting shower today. Reports 6/10 pain in right LE and ribs. Mental Status/Objective Attachments: Knee Immobilizer ADL-Treatment Co-treat with PT ([id number]) secondary to need for skilled clinicians due to decreased mobility and strength and NWB status of R UE/LE. OT focusing on bathing, dressing, grooming, and UE management. PT focusing on transfers, balance, and mobility. Pt transferred to shower chair to left side with assist and cues for technique and safety. Able to maintain NWB status. To shower room via shower chair. Pt completed seated bathing using hand held shower and long handled sponge. Upper body bathing completed with set up. Pt able to wash nichol area and bilateral LE. Pt weight shifted left and right to wash buttocks, but required assist for thorough hygiene. Increased time for bathing. Pt donned pullover shirt with set up. Transferred back to bed to left side, able to complete sit to supine without assist. Pt able to pull herself up in bed using bed rails. Pt completed grooming tasks and LE dressing while in bed. Pt brushed teeth, combed and dried hair with set up. Reviewed LE dressing technique. Pt able to use peer health promoter to thread bilateral LE into pant legs and pull up to knee. Has mild difficulty secondary to immobilizer on right knee, but able to complete with increased time. Pt then able to roll left and right to pull pants up over hips. Pt declined to leave pants on at this time secondary to difficulty with toileting. Pt able to doff pants with SBA using peer health promoter. Pt resting in bed with needs met after session. Therapy Code Descriptions/Definitions Functional [place] Measure: 0=Not Assessed/NA 4=Minimal Assistance 1=Total Assistance 5=Supervision or Setup 2=Maximal Assistance 6=Modified [place] 3=Moderate Assistance 7=Complete IndependenceSCALE: Activities may be completed with or without assistive devices. 2-Wumojkfjef-nakxhxe completes the activity by him/herself with no assistance from a helper. 5-Set-up or Clean-up Assistance-helper sets up or cleans up; patient completes activity. [place] assists only prior to or following the activity. 4-Supervision or Touching Assistance-helper provides verbal cues and/or dulce shanique/steadying and/or contact guard assistance as patient completes activity. Assistance may be provided throughout the activity or intermittently. 3-Partial/Moderate Assistance-helper does LESS THAN HALF the effort. [place] lifts, holds or supports trunk or limbs, but provides less than half the effort. 2-Substantial/Maximal Assistance-helper does MORE THAN HALF the effort. [place] lifts or holds trunk or limbs and provides more than half the effort. 8-Kcprsajpv-javsoe does ALL the effort. Patient does none of the effort to complete the activity. Or, the assistance of 2 or more helpers is required for the patient to complete the activity. If activity was not attempted, code reason: 7-Patient Refused. 9-Not Applicable-not attempted and the patient did not perform the activity before the current illness, exacerbation or injury. 10-Not Attempted due to Environmental Limitations-(lack of equipment, weather restraints, etc.). 88-Not Attempted due to Medical Conditions or Safety Concerns. Oral Hygiene (QC): 5 Shower/Bathe Self (QC): 3 Upper Body Dressing (QC): 5 Lower Body Dressing (QC): 3 Education OT Patient Education: Modified ADL techniques Teaching Recipient: Patient Teaching Methods: Discussion Response to Teaching: Verbalize Understanding OT Short Term Goals Short Term Goals Grooming(FIM): 4 (met) Upper Body Dressing(FIM): 3 (met) Lower Body Dressing(FIM): 2 (met) Transfers (B,C,W/C) (FIM): 2 Additional Short Term Goals: 1-Demonstrate ADL Tasks, 2-Verbalize Understanding, 3-ImproveStrength/Mabel 1=Demonstrate adherence to instructed precautions during ADL tasks. 2=Patient will verbalize/demonstrate understanding of assistive devices/modifications for ADL. 3=Patient will improve strength/tolerance for activity to enable patient to perform ADL's. OT Mcfp Goals Passenger Locomotive Engineer Goals Eating (QC): 6 (met) Oral Hygiene (QC): 6 (met) Shower/Bathe Self (QC): 5 Upper Body Dressing (QC): 5 Lower Body Dressing (QC): 3 (met supine in bed) On/Off Footwear (QC): 3 (met) Toileting Hygiene (QC): 3 Toilet/Commode Transfer (QC): 3 Additional Goals: 1-Demonstrate ADL Tasks, 2-Verbalize Understanding, 3-ImproveStrength/Mabel 1=Demonstrate adherence to instructed precautions during ADL tasks. 2=Patient will verbalize/demonstrate understanding of assistive devices/modifications for ADL. 3=Patient will improve strength/tolerance for activity to enable patient to perform ADL's. OT Education/Plan Discharge Recommendations Plan/Recommendations: Continue POC Treatment Plan/Plan of Care Patient would benefit from OT for education, treatment and training to promote independence in ADL's, mobility, safety and/or upper extremity function for ADL's. Plan of Care: ADL Retraining, Caregiver Training, Concurrent Therapy, Functional Mobility, Group Exercise/Act as Ind, Orthotic Fitting/Training, UE Funct Exercise/Act, W/C Management Training Treatment Duration: Jan 31, 2019 Frequency: At least 5 of 7 days/Wk (IRF) Estimated Hrs Per Day: 1.5 hours per day Agreement: Yes Rehab Potential: Guarded Time/GCodes Start Time: 08:00 Stop Time: 09:30 Total Time Billed (hr/min): 90 Billed Treatment Time 1 visit, ADLx6(90minutes) (60minute co-treat with PT.) BHAVNA CALVO OT Jan 27, 2019 11:02
--- NOTE | 2019-01-27 13:34 | Physical Therapy Daily Note ---
PT Daily Note-Current Subjective Pt. smiles and states she feels she is making progress. Less pain and increased indep in mobility. Pain Location: No Pain Reported Mental Status Patient Orientation: Normal For Age Attachments: Other-See Comments (immoblizer RLE) Transfers SCALE: Activities may be completed with or without assistive devices. 9-Sceukcbeea-rzzkobm completes the activity by him/herself with no assistance from a helper. 5-Set-up or Clean-up Assistance-helper sets up or cleans up; patient completes activity. [place] assists only prior to or following the activity. 4-Supervision or Touching Assistance-helper provides verbal cues and/or touching/steadying and/or contact guard assistance as patient completes activity. Assistance may be provided throughout the activity or intermittently. 3-Partial/Moderate Assistance-helper does LESS THAN HALF the effort. [place] lifts, holds or supports trunk or limbs, but provides less than half the effort. 2-Substantial/Maximal Assistance-helper does MORE THAN HALF the effort. [place] lifts or holds trunk or limbs and provides more than half the effort. 9-Nxeuypsxc-tcnjbv does ALL the effort. Patient does none of the effort to complete the activity. Or, the assistance of 2 or more helpers is required for the patient to complete the activity. If activity was not attempted, code reason: 7-Patient Refused. 9-Not Applicable-not attempted and the patient did not perform the activity before the current illness, exacerbation or injury. 10-Not Attempted due to Environmental Limitations-(lack of equipment, weather restraints, etc.). 88-Not Attempted due to Medical Conditions or Safety Concerns. TRF sup to sit with HOB up CGA , slide pivot to BSC right beside bed toward functional side and back leading with NWBing limbs done well without wt bearing on RLE. bed height is adjusted accommodate with gravity both ways Weight Bearing Right Lower Extremity: Right Non Weight Bearing Left Lower Extremity: Left Full Weight Bearing Patient states she is not supposed to bear weight on her right arm due to shoulder issues. Exercises Supine Ex: Ankle pumps, Quad Set, Heel Slides (left), Scooting, Straight leg raise, Hip abd/add Supine Reps: 15 Seated Therapy Exercises: Sit to stand (5-10 sec each) Seated Reps: 3 Treatments pt. on BSC able to cleanse self at back but requires assist after urination to get clean. standing x 3 for 5-10 sec with min assist and good control as pt. held bed rail LUE Assessment Current Status: Good Progress less pain c/o increased funct mob PT Short Term Goals Short Term Goals Time Frame: Jan 24, 2019 Wheelchair Distance: 100' Wheelchair Level of Assist: 5 PT Teacher'S Aide Goals Long-Term Goals PT Teacher'S Aide Goals Time Frame: Feb 07, 2019 Sit to Lying (QC): 3 (min assist) Lying-Sitting on Side/Bed(QC): 3 (min assist) Sit to Stand (QC): 3 (mod assist) Roll Left to Right (QC): 3 (min assist) Chair/Wwz-nb-Pgrwi Xfer(QC): 3 (mod assist) Car Transfer (QC): 3 (mod assist) Distance: 150' Wheel 50 feet with 2 turns (QC: 4 (SBA) PT Plan Treatment/Plan Treatment Plan: Continue Plan of Care Treatment Plan: Bed Mobility, Concurrent Therapy, Education, Functional Activity Mabel, Functional Strength, Group Therapy, Safety, Therapeutic Exercise, Transfers Treatment Duration: Feb 07, 2019 Frequency: At least 5 of 7 days/Wk (IRF) Estimated Hrs Per Day: 1.5 hours per day Patient and/or Family Agrees t: Yes Safety Risks/Education Patient Education: Transfer Techniques, Correct Positioning, Disease Process, Safety Issues Teaching Recipient: Patient Teaching Methods: Demonstration, Discussion Response to Teaching: Verbalize Understanding, Return Demonstration, Reinforcement Needed Time/GCodes Time In: 1300 Time Out: 1330 Total Billed Treatment Time: 30 Total Billed Treatment 1,FA20m,EX10m CHARLENE PALMA PRINCIPAL SECURITY ARCHITECT Jan 27, 2019 13:34
[2019-01-27 17:05] VITALS: BP 114/71
[2019-01-27] MEDS: LIDOCAINE PATCH REMOVAL TP SCH (20:11)
[2019-01-27 21:00] VITALS: BP 118/68
--- NOTE | 2019-01-27 22:35 | NUR ---
TIMELINE NOTE BELOW: 01/27/192234: PT REQUESTED BACLOFEN FOR RLE MUSCLE SPASMS. PT STATES "SPASMS AREN'T BAD BUT I WANT TO STAY ON TOP OF THEM" 01/27/192244: PT REQUESTED HENRYIEN.
[2019-01-27] MEDS: ZOLPIDEM 5 MG (AMBIEN) TAB PO PRN (22:45)
[2019-01-28] MEDS: LEVOTHYROXINE 25 MCG (LEVOTHROID) TAB PO SCH (03:42)
[2019-01-28] MEDS: LEVOTHYROXINE 112 MCG (LEVOTHROID) TAB PO SCH (03:42)
--- NOTE | 2019-01-28 03:42 | NUR ---
PT REQUESTED SYNTHROID 25MCG & SYNTHROID 112MCG. PT STATED THAT SHE USUALLY TAKES IT BETWEEN [id number] ON AN EMPTY STOMACH.
[2019-01-28] MEDS: BACLOFEN 10 MG (LIORESAL) TAB PO PRN ×4 (04:36→23:25)
[2019-01-28 05:43] VITALS: BP 119/63
[2019-01-28] MEDS: CATHETER FLUSH 10 ML SYR IV SCH ×3 (05:47→20:37)
[2019-01-28] MEDS: ENOXAPARIN 40 MG/0.4 ML (LOVENOX) SYR SC SCH ×2 (08:10→20:37)
[2019-01-28] MEDS: LIDOCAINE 4% (SALONPAS) PATCH TOP SCH (08:10)
[2019-01-28] MEDS: SENNA W/DOCUSATE (SENOKOT S) TABLET PO SCH (08:11)
[2019-01-28] MEDS: BISACODYL 10 MG SUPP (DULCOLAX) PR SCH ×2 (08:11→20:37)
[2019-01-28] MEDS: LACTULOSE SYRUP 10GM/15ML (ENULOSE) 30ML UDC PO SCH ×2 (08:11→20:45)
[2019-01-28] MEDS: POLYETHYLENE GLYCOL 17 GM (MIRALAX) PACK PO SCH ×2 (08:11→20:46)
[2019-01-28] MEDS: SERTRALINE 50 MG (ZOLOFT) TABLET PO SCH (08:12)
[2019-01-28] MEDS: OXYBUTYNIN (DITROPAN) 5 MG TAB PO SCH ×2 (08:12→20:37)
[2019-01-28] MEDS: buPROPion SR 150 MG (WELLBUTRIN SR) TAB PO SCH ×2 (08:12→20:37)
[2019-01-28] MEDS: DOCUSATE SODIUM 100 MG (COLACE) CAP PO SCH ×2 (08:12→20:45)
--- NOTE | 2019-01-28 11:46 | Physical Therapy Daily Note ---
PT Daily Note-Current Subjective Pt in bed, agreeable to bed ex. Reports "I maybe slept 2 hours last night because my leg was having spasms." Pt reports "I was able to get myself on and off the BSC with one nurse last night and this morning! That's a big accomplishment". Mental Status Patient Orientation: Person, Place, Time, Situation Attachments: Knee Immobilizer Transfers SCALE: Activities may be completed with or without assistive devices. 7-Tdvbhjuokh-ruhjlsp completes the activity by him/herself with no assistance from a helper. 5-Set-up or Clean-up Assistance-helper sets up or cleans up; patient completes activity. [place] assists only prior to or following the activity. 4-Supervision or Touching Assistance-helper provides verbal cues and/or touching/steadying and/or contact guard assistance as patient completes activity. Assistance may be provided throughout the activity or intermittently. 3-Partial/Moderate Assistance-helper does LESS THAN HALF the effort. [place]ann[place] lifts, holds or supports trunk or limbs, but provides less than half the effort. 2-Substantial/Maximal Assistance-helper does MORE THAN HALF the effort. [place] lifts or holds trunk or limbs and provides more than half the effort. 0-Sdgptdfnw-dfncqt does ALL the effort. Patient does none of the effort to complete the activity. Or, the assistance of 2 or more helpers is required for the patient to complete the activity. If activity was not attempted, code reason: 7-Patient Refused. 9-Not Applicable-not attempted and the patient did not perform the activity before the current illness, exacerbation or injury. 10-Not Attempted due to Environmental Limitations-(lack of equipment, weather restraints, etc.). 88-Not Attempted due to Medical Conditions or Safety Concerns. Weight Bearing Right Lower Extremity: Right Non Weight Bearing Left Lower Extremity: Left Full Weight Bearing Patient states she is not supposed to bear weight on her right arm due to shoulder issues. Exercises Supine Ex: Ankle pumps, Quad Set, Glut sets, Heel Slides ((L) only), Short Arc Quads ((L) only), Straight leg raise (Assist on (R)), Hip abd/add (Assist on (R)) Supine Reps: 20 Treatments (B) LE functional strengthening. In bed with all needs met post treatment. Assessment Current Status: Good Progress Pt tolerated well. Improving strength in (R) hip. PT Short Term Goals Short Term Goals Time Frame: Jan 24, 2019 Wheelchair Distance: 100' Wheelchair Level of Assist: 5 PT Knife Setter Grinder Machine Goals Knife Setter Grinder Machine Goals PT Knife Setter Grinder Machine Goals Time Frame: Feb 07, 2019 Sit to Lying (QC): 3 (min assist) Lying-Sitting on Side/Bed(QC): 3 (min assist) Sit to Stand (QC): 3 (mod assist) Roll Left to Right (QC): 3 (min assist) Chair/Ifz-yh-Lkhhz Xfer(QC): 3 (mod assist) Car Transfer (QC): 3 (mod assist) Distance: 150' Wheel 50 feet with 2 turns (QC: 4 (SBA) PT Plan Problem List Problem List: Activity Tolerance, Functional Strength, Safety, Balance, Gait, Transfer, Bed Mobility, ROM Treatment/Plan Treatment Plan: Continue Plan of Care Treatment Plan: Bed Mobility, Concurrent Therapy, Education, Functional Activity Mabel, Functional Strength, Group Therapy, Safety, Therapeutic Exercise, Transfers Treatment Duration: Feb 07, 2019 Frequency: At least 5 of 7 days/Wk (IRF) Estimated Hrs Per Day: 1.5 hours per day Patient and/or Family Agrees t: Yes Time/GCodes Time In: 1123 Time Out: 1141 Total Billed Treatment Time: 18 Total Billed Treatment 1, ex x 18' CHRISTINE PORTER DPT Jan 28, 2019 11:46
--- NOTE | 2019-01-28 12:30 | PM&R Progress Note ---
Subjective HPI/CC On Admission Date Seen by Provider: Jan 28, 2019 Time Seen by Provider: 12:00 Chief complaint: s/p right femur fracture HPI: This is a 68yoWF clinic Pt of Dr. Hoagn at [facility] who presented to the ER after sustaining a fall at home, apparently she was walking up the stairs outside and caused her to fall into a fence, stated that her right leg was twisted and had pain in her upper left chest, could not move her leg, did not hit her head and did not lose consciousness, but was brought to the ER. Chest/abdomen CT showed non-displaced anterior left fourth and fifth rib fractures, no pneumothorax and femur on the right revealed distal femur fracture. 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 Pt denies any significant heart or lung problems otherwise. Pt had prior level of functioning of independence without use of assistive device so we will admit to inpatient rehab, since she is so fatigued today we will do a 15/7 slow start but begin aggressive bowel movement treatment in addition to IV iron infusion since Hgb has decreased to 7.8 today and will initiated inpatient rehab protocol. Subjective/Events-last exam progressing well and contributing more each day but still completely dependent on nursing care Continence is maintained now Baclofen is working well but still having spasms but will maintain K-pad for muscle spasms when they occur of which she reports is helping her Multiple somatic issues continue Staple removal will be decided on from Dr Bassett on Wednesday Sister at bedside Conferred with RN Reviewed therapy notes Checked meds and labs Review of Systems Musculoskeletal: leg pain Neurological: Weakness Objective Exam Vital Signs Vital Signs Date Time Temp Pulse Resp B/P (MAP) Pulse Ox O2 Delivery O2 Flow Rate FiO2 01/28/19 09:00 Room Air 01/28/19 05:43 36.8 81 16 119/63 (81) 01/27/19 21:00 96 Capillary Refill : Less Than 3 Seconds General Appearance: No Apparent Distress, WD/WN, Chronically ill, Obese HEENT: PERRL/EOMI, Normal ENT Inspection, Pharynx Normal, Moist Mucous Membranes Neck: Full Range of Motion, Normal Inspection, Non Tender, Supple Respiratory: Chest Non Tender, Lungs Clear, Normal Breath Sounds, No Accessory Muscle Use, No Respiratory Distress Cardiovascular: Regular Rate, Rhythm, No Edema, No Gallop, No JVD, No Murmur Gastrointestinal: Normal Bowel Sounds, No Organomegaly, No Pulsatile Mass, Non Tender, Soft Back: Normal Inspection, No CVA Tenderness, No Vertebral Tenderness Extremity: Normal Capillary Refill, Normal Inspection, Normal Range of Motion (except right leg and bilateral shoulders L>R in deficit), Non Tender, No Calf Tenderness, No Pedal Edema Neurologic/Psychiatric: Alert, Oriented x3, No Motor/Sensory Deficits, Normal Mood/Affect Skin: Normal Color, Warm/Dry Lymphatic: No Adenopathy Results/Procedures Lab Patient resulted labs reviewed. FIM Transfers Therapy Code Descriptions/Definitions Functional [place] Measure: 0=Not Assessed/NA 4=Minimal Assistance 1=Total Assistance 5=Supervision or Setup 2=Maximal Assistance 6=Modified [place] 3=Moderate Assistance 7=Complete IndependenceSCALE: Activities may be completed with or without assistive devices. 8-Peyndpbkaw-iiozjiw completes the activity by him/herself with no assistance from a helper. 5-Set-up or Clean-up Assistance-helper sets up or cleans up; patient completes activity. [place] assists only prior to or following the activity. 4-Supervision or Touching Assistance-helper provides verbal cues and/or touching/steadying and/or contact guard assistance as patient completes activity. Assistance may be provided throughout the activity or intermittently. 3-Partial/Moderate Assistance-helper does LESS THAN HALF the effort. [place] lifts, holds or supports trunk or limbs, but provides less than half the effort. 2-Substantial/Maximal Assistance-helper does MORE THAN HALF the effort. [place] lifts or holds trunk or limbs and provides more than half the effort. 6-Kvanovqdt-dqowtb does ALL the effort. Patient does none of the effort to complete the activity. Or, the assistance of 2 or more helpers is required for the patient to complete the activity. If activity was not attempted, code reason: 7-Patient Refused. 9-Not Applicable-not attempted and the patient did not perform the activity before the current illness, exacerbation or injury. 10-Not Attempted due to Environmental Limitations-(lack of equipment, weather restraints, etc.). 88-Not Attempted due to Medical Conditions or Safety Concerns. Transfers (B, C, W/C) (FIM): 4 Roll Left to Right (QC): 6 Sit to Lying (QC): 5 Sit to Stand (QC): 4 Chair/Rkn-is-Eiiew Xfer(QC): 1 Bed to/from Chair: 1 Car Transfer (QC): 88 Gait Training Does the Patient Walk?: No and Walking Goal NOT indicated Walk 10 feet (QC): 88 Walk 50 ft with 2 Turns(QC): 88 Walk 150 ft (QC): 88 Walking 10ft/uneven surface-QC: 88 Wheelchair Training Does the Pt Use a Wheelchair?: Yes Wheelchair Distance: [phone] ft Distance: 100' Wheel 50 ft with 2 turns (QC): 2 Wheel 150 ft (QC): 1 Type of Wheelchair: Manual Stair Training 1 Step (curb) (QC): 88 4 Steps (QC): 88 12 Steps (QC): 88 ADL-Treatment Eating (QC): 6 Oral Hygiene (QC): 5 Shower/Bathe Self (QC): 3 Upper Body Dressing (QC): 5 Lower Body Dressing (QC): 3 On/Off Footwear (QC): 1 (TD L sock) Toileting Hygiene (QC): 2 Toilet Transfer (QC): 2 Assessment/Plan Assessment and Plan Assess & Plan/Chief Complaint Assessment: s/p repair distal right femur fracture Chronic shoulder pain and limitation of activity that will limit recovery until hardware removed 04/2019 then will require recovery time for 8-12 weeks thereafter so will go to skilled facility upon DC TODD on CPAP Post op anemia with severely low iron so started iron infusions HLP Hypothyroidism Post op constipation placed on meds now resolved OAB Plan: BM regimen Home meds Iron infusions Pain control Lovenox for DVT PPx Ortho evaluation of shoulder limitations Lidocaine patch improving status K-pad prn spasms (1) Fracture of femur, right, closed Status: Acute (2) Insomnia Status: Chronic (3) Fall down stairs Status: Acute (4) Depression Status: Chronic Qualifiers: Depression Type: unspecified Qualified Codes: F32.9 - Major depressive disorder, single episode, unspecified (5) Hypothyroidism Status: Chronic Qualifiers: Hypothyroidism type: acquired Qualified Codes: E03.9 - Hypothyroidism, unspecified (6) Rib fractures Status: Acute Qualifiers: Encounter type: subsequent encounter Rib fracture type: multiple ribs Fracture type: closed Laterality: left (7) HLD (hyperlipidemia) Status: Chronic Qualifiers: Hyperlipidemia type: mixed hyperlipidemia Qualified Codes: E78.2 - Mixed hyperlipidemia (8) Postoperative anemia (9) Iron deficiency RAJESH LEWIS DO Jan 28, 2019 12:30
[2019-01-28 18:00] VITALS: BP 118/58
[2019-01-28] MEDS: LIDOCAINE PATCH REMOVAL TP SCH (20:38)
[2019-01-28] MEDS: ZOLPIDEM 5 MG (AMBIEN) TAB PO PRN (22:42)
[2019-01-29] MEDS: LEVOTHYROXINE 25 MCG (LEVOTHROID) TAB PO SCH (03:39)
[2019-01-29] MEDS: LEVOTHYROXINE 112 MCG (LEVOTHROID) TAB PO SCH (03:39)
[2019-01-29 05:07] VITALS: BP 109/70
[2019-01-29] MEDS: BACLOFEN 10 MG (LIORESAL) TAB PO PRN ×4 (05:33→23:59)
[2019-01-29] MEDS: CATHETER FLUSH 10 ML SYR IV SCH ×4 (05:33→21:24)
[2019-01-29] MEDS: buPROPion SR 150 MG (WELLBUTRIN SR) TAB PO SCH ×2 (08:05→21:04)
[2019-01-29] MEDS: OXYBUTYNIN (DITROPAN) 5 MG TAB PO SCH ×2 (08:06→21:04)
[2019-01-29] MEDS: DOCUSATE SODIUM 100 MG (COLACE) CAP PO SCH ×2 (08:06→21:04)
[2019-01-29] MEDS: SERTRALINE 50 MG (ZOLOFT) TABLET PO SCH (08:06)
[2019-01-29] MEDS: LIDOCAINE 4% (SALONPAS) PATCH TOP SCH (08:08)
[2019-01-29] MEDS: ENOXAPARIN 40 MG/0.4 ML (LOVENOX) SYR SC SCH ×2 (08:09→21:05)
[2019-01-29] MEDS: LACTULOSE SYRUP 10GM/15ML (ENULOSE) 30ML UDC PO SCH ×2 (09:33→21:23)
[2019-01-29] MEDS: POLYETHYLENE GLYCOL 17 GM (MIRALAX) PACK PO SCH ×2 (09:33→21:23)
[2019-01-29] MEDS: SENNA W/DOCUSATE (SENOKOT S) TABLET PO SCH (09:33)
[2019-01-29] MEDS: BISACODYL 10 MG SUPP (DULCOLAX) PR SCH ×2 (09:34→21:23)
--- NOTE | 2019-01-29 12:55 | NUR ---
Dressing change to right leg incisions. Incisions are well approximated with susu intact. No redness or drainage noted. Covered with [place] dressings. [place] dressings X2 to posterior thigh where immobilizer has rubbed off top layer of skin. Also, Allevyn to right flank.
--- NOTE | 2019-01-29 13:20 | PM&R Progress Note ---
Subjective HPI/CC On Admission Date Seen by Provider: Jan 29, 2019 Time Seen by Provider: 12:45 Chief complaint: s/p right femur fracture HPI: This is a 68yoWF clinic Pt of Dr. Hogan at [facility] who presented to the ER after sustaining a fall at home, apparently she was walking up the stairs outside and caused her to fall into a fence, stated that her right leg was twisted and had pain in her upper left chest, could not move her leg, did not hit her head and did not lose consciousness, but was brought to the ER. Chest/abdomen CT showed non-displaced anterior left fourth and fifth rib fractures, no pneumothorax and femur on the right revealed distal femur fracture. 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 Pt denies any significant heart or lung problems otherwise. Pt had prior level of functioning of independence without use of assistive device so we will admit to inpatient rehab, since she is so fatigued today we will do a 15/7 slow start but begin aggressive bowel movement treatment in addition to IV iron infusion since Hgb has decreased to 7.8 today and will initiated inpatient rehab protocol. Subjective/Events-last exam Much improved Continence is maintained Baclofen is working well but still having spasms but will maintain K-pad for muscle spasms when they occur of which she reports is helping her Multiple somatic issues continue Staple removal will be decided on from Dr Bassett on Wednesday [facility] placement will be required Venofer completed so will ARGELIA dale Takes Oxycodone regularly Sister at bedside Conferred with RN Reviewed therapy notes Checked meds and labs Review of Systems Musculoskeletal: arm pain, leg pain Objective Exam Vital Signs Vital Signs Date Time Temp Pulse Resp B/P (MAP) Pulse Ox O2 Delivery O2 Flow Rate FiO2 01/29/19 09:41 Room Air 01/29/19 05:07 36.4 72 20 109/70 (83) 95 Capillary Refill : Less Than 3 Seconds General Appearance: No Apparent Distress, WD/WN, Chronically ill, Obese HEENT: PERRL/EOMI, Normal ENT Inspection, Pharynx Normal, Moist Mucous Membranes Neck: Full Range of Motion, Normal Inspection, Non Tender, Supple Respiratory: Chest Non Tender, Lungs Clear, Normal Breath Sounds, No Accessory Muscle Use, No Respiratory Distress Cardiovascular: Regular Rate, Rhythm, No Edema, No Gallop, No JVD, No Murmur Gastrointestinal: Normal Bowel Sounds, No Organomegaly, No Pulsatile Mass, Non Tender, Soft Back: Normal Inspection, No CVA Tenderness, No Vertebral Tenderness Extremity: Normal Capillary Refill, Normal Inspection, Normal Range of Motion (except right leg and bilateral shoulders L>R in deficit), Non Tender, No Calf Tenderness, No Pedal Edema Neurologic/Psychiatric: Alert, Oriented x3, No Motor/Sensory Deficits, Normal Mood/Affect Skin: Normal Color, Warm/Dry Lymphatic: No Adenopathy Results/Procedures Lab Patient resulted labs reviewed. FIM Transfers Therapy Code Descriptions/Definitions Functional [place] Measure: 0=Not Assessed/NA 4=Minimal Assistance 1=Total Assistance 5=Supervision or Setup 2=Maximal Assistance 6=Modified [place] 3=Moderate Assistance 7=Complete IndependenceSCALE: Activities may be completed with or without assistive devices. 2-Okzwddoiqh-fqnqadq completes the activity by him/herself with no assistance from a helper. 5-Set-up or Clean-up Assistance-helper sets up or cleans up; patient completes activity. [place] assists only prior to or following the activity. 4-Supervision or Touching Assistance-helper provides verbal cues and/or touching/steadying and/or contact guard assistance as patient completes activity. Assistance may be provided throughout the activity or intermittently. 3-Partial/Moderate Assistance-helper does LESS THAN HALF the effort. [place] lifts, holds or supports trunk or limbs, but provides less than half the effort. 2-Substantial/Maximal Assistance-helper does MORE THAN HALF the effort. [place] lifts or holds trunk or limbs and provides more than half the effort. 1-Zfmachkkk-gnmmrx does ALL the effort. Patient does none of the effort to complete the activity. Or, the assistance of 2 or more helpers is required for the patient to complete the activity. If activity was not attempted, code reason: 7-Patient Refused. 9-Not Applicable-not attempted and the patient did not perform the activity before the current illness, exacerbation or injury. 10-Not Attempted due to Environmental Limitations-(lack of equipment, weather restraints, etc.). 88-Not Attempted due to Medical Conditions or Safety Concerns. Transfers (B, C, W/C) (FIM): 4 Roll Left to Right (QC): 6 Sit to Lying (QC): 5 Sit to Stand (QC): 4 Chair/Xhz-su-Vakcn Xfer(QC): 1 Bed to/from Chair: 1 Car Transfer (QC): 88 Gait Training Does the Patient Walk?: No and Walking Goal NOT indicated Walk 10 feet (QC): 88 Walk 50 ft with 2 Turns(QC): 88 Walk 150 ft (QC): 88 Walking 10ft/uneven surface-QC: 88 Wheelchair Training Does the Pt Use a Wheelchair?: Yes Wheelchair Distance: 5=461-34 ft Distance: 100' Wheel 50 ft with 2 turns (QC): 2 Wheel 150 ft (QC): 1 Type of Wheelchair: Manual Stair Training 1 Step (curb) (QC): 88 4 Steps (QC): 88 12 Steps (QC): 88 ADL-Treatment Eating (QC): 6 Oral Hygiene (QC): 5 Shower/Bathe Self (QC): 3 Upper Body Dressing (QC): 5 Lower Body Dressing (QC): 3 On/Off Footwear (QC): 1 (TD L sock) Toileting Hygiene (QC): 2 Toilet Transfer (QC): 2 Assessment/Plan Assessment and Plan Assess & Plan/Chief Complaint Assessment: s/p repair distal right femur fracture Chronic shoulder pain and limitation of activity that will limit recovery until hardware removed 04/2019 then will require recovery time for 8-12 weeks thereafter so will go to skilled facility upon DC TODD on CPAP Post op anemia with severely low iron so started iron infusions HLP Hypothyroidism Post op constipation placed on meds now resolved OAB Plan: BM regimen Home meds Iron infusions completed Pain control with Oxycodone Lovenox for DVT PPx Ortho evaluation of shoulder limitations Lidocaine patch improving status K-pad prn spasms (1) Fracture of femur, right, closed Status: Acute (2) Insomnia Status: Chronic (3) Fall down stairs Status: Acute (4) Depression Status: Chronic Qualifiers: Depression Type: unspecified Qualified Codes: F32.9 - Major depressive disorder, single episode, unspecified (5) Hypothyroidism Status: Chronic Qualifiers: Hypothyroidism type: acquired Qualified Codes: E03.9 - Hypothyroidism, unspecified (6) Rib fractures Status: Acute Qualifiers: Encounter type: subsequent encounter Rib fracture type: multiple ribs Fracture type: closed Laterality: left (7) HLD (hyperlipidemia) Status: Chronic Qualifiers: Hyperlipidemia type: mixed hyperlipidemia Qualified Codes: E78.2 - Mixed hyperlipidemia (8) Postoperative anemia (9) Iron deficiency RAJESH LEWIS DO Jan 29, 2019 13:20
--- NOTE | 2019-01-29 14:25 | NUR ---
IV Venofer complete. Saline lock removed per patient's request. Ok to leave out per Dr. Cardenas.
[2019-01-29 17:55] VITALS: BP 113/70
[2019-01-29] MEDS: LIDOCAINE PATCH REMOVAL TP SCH (21:05)
[2019-01-29] MEDS: ZOLPIDEM 5 MG (AMBIEN) TAB PO PRN (22:34)
[2019-01-30 05:02] VITALS: BP 111/67
[2019-01-30] MEDS: LEVOTHYROXINE 112 MCG (LEVOTHROID) TAB PO SCH (05:10)
[2019-01-30] MEDS: LEVOTHYROXINE 25 MCG (LEVOTHROID) TAB PO SCH (05:10)
[2019-01-30] MEDS: BACLOFEN 10 MG (LIORESAL) TAB PO PRN ×3 (06:15→18:46)
[2019-01-30 07:00] LABS: BASOPHILS % (AUTO) 1 % (0-10); EOSINOPHILS # (AUTO) 0.3 10^3/uL (0.0-0.3); EOSINOPHILS % (AUTO) 4 % (0-10); HEMATOCRIT 33 % (35-52); HEMOGLOBIN 10.4 G/DL (11.5-16.0); LYMPHOCYTES # (AUTO) 1.4 X 10^3 (1.0-4.0); LYMPHOCYTES % (AUTO) 23 % (12-44); MEAN CORPUSCULAR HEMOGLOBIN 31 PG (25-34); MEAN CORPUSCULAR HGB CONC 31 G/DL (32-36); MEAN CORPUSCULAR VOLUME 101 FL (80-99); MEAN PLATELET VOLUME 9.8 FL (7.4-10.4); MONOCYTES # (AUTO) 0.7 X 10^3 (0.0-1.0); MONOCYTES % (AUTO) 11 % (0-12); NEUTROPHILS # (AUTO) 3.7 X 10^3 (1.8-7.8); NEUTROPHILS % (AUTO) 61 % (42-75); PLATELET COUNT 352 10^3/uL (130-400); RED CELL DISTRIBUTION WIDTH 17.6 % (10.0-14.5); WHITE BLOOD COUNT 6.1 10^3/uL (4.3-11.0)
[2019-01-30 07:17] LABS: ALANINE AMINOTRANSFERASE 20 U/L (0-55); ALBUMIN 3.3 GM/DL (3.2-4.5); ALKALINE PHOSPHATASE 95 U/L (40-136); BILIRUBIN,TOTAL 0.5 MG/DL (0.1-1.0); BUN/CREATININE RATIO 18; CALCIUM 8.2 MG/DL (8.5-10.1); CARBON DIOXIDE 23 MMOL/L (21-32); CHLORIDE 107 MMOL/L (98-107); CREATININE SERUM 0.71 MG/DL (0.60-1.30); GFR ESTIMATED > 60; GLUCOSE 86 MG/DL (70-105); POTASSIUM 4.1 MMOL/L (3.6-5.0); SODIUM 139 MMOL/L (135-145); TOTAL PROTEIN 6.1 GM/DL (6.4-8.2)
--- NOTE | 2019-01-30 09:02 | Physical Therapy Daily Note ---
PT Daily Note-Current Subjective Patient on commode pre tx, agrees to PT, has 6/10 pain mostly in her left flank (rib pain). Will co-treat with OT this morning due to poor patient mobility, strength, endurance, NWB on right LE and UE, the need to coordinate UE and LE during activity. Appearance Patient in wheelchair in room post tx to finish up with OT with grooming. Mental Status Patient Orientation: Normal For Age leg brace Transfers SCALE: Activities may be completed with or without assistive devices. 6-Uuqqhhiipf-jeqhmcf completes the activity by him/herself with no assistance from a helper. 5-Set-up or Clean-up Assistance-helper sets up or cleans up; patient completes activity. [place] assists only prior to or following the activity. 4-Supervision or Touching Assistance-helper provides verbal cues and/or touching/steadying and/or contact guard assistance as patient completes ac tivity. Assistance may be provided throughout the activity or intermittently. 3-Partial/Moderate Assistance-helper does LESS THAN HALF the effort. [place] lifts, holds or supports trunk or limbs, but provides less than half the effort. 2-Substantial/Maximal Assistance-helper does MORE THAN HALF the effort. [place] lifts or holds trunk or limbs and provides more than half the effort. 6-Ugkchxuqy-ijdenk does ALL the effort. Patient does none of the effort to complete the activity. Or, the assistance of 2 or more helpers is required for the patient to complete the activity. If activity was not attempted, code reason: 7-Patient Refused. 9-Not Applicable-not attempted and the patient did not perform the activity before the current illness, exacerbation or injury. 10-Not Attempted due to Environmental Limitations-(lack of equipment, weather restraints, etc.). 88-Not Attempted due to Medical Conditions or Safety Concerns. Roll Left to Right (QC): 4 Sit to Lying (QC): 4 Sit to Stand (QC): 3 Chair/Fbb-ag-Ahpjg Xfer(QC): 3 Car Transfer (QC): 3 Patient can perform bed mobility with SBA, supine <-> sit with SBA, sit <-> stand with mod assist, transfers with mod assist, car transfer mod assist. Patient performs a stand pivot transfer with mod assist, sliding board transfer with min assist. Weight Bearing Right Lower Extremity: Right Non Weight Bearing Left Lower Extremity: Left Full Weight Bearing Patient states she is not supposed to bear weight on her right arm due to shoulder issues. Gait Training Does the Patient Walk?: No and Walking Goal NOT indicated Wheelchair Training Does the Pt Use a Wheelchair?: Yes Wheel 50 ft with 2 turns (QC): 1 Wheel 150 ft (QC): 1 Type of Wheelchair: Manual Patient does not self-propel due to right shoulder pain. Stair Training 1 Step (curb) (QC): 88 4 Steps (QC): 88 12 Steps (QC): 88 Patient is non-ambulatory Balance Picking up an Object (QC): 88 Exercises sit to stand twice in the parallel bars for about 30 seconds each time with mod assist. Treatments bed mobility and transfers, showering, dressing, standing. PT worked on bed mobility and transfers, standing, WC mobility, OT worked on dressing, bathing, assist with transfers. Assessment Current Status: Fair Progress fair progress with bed mobility and transfers, better strength in left leg to assist with transfers PT Short Term Goals Short Term Goals Time Frame: Jan 24, 2019 Wheelchair Distance: 100' Wheelchair Level of Assist: 5 PT Senior Care Goals Senior Care Goals PT Pattern Clerk Goals Time Frame: Feb 07, 2019 Sit to Lying (QC): 3 (min assist) Lying-Sitting on Side/Bed(QC): 3 (min assist) Sit to Stand (QC): 3 (mod assist) Roll Left to Right (QC): 3 (min assist) Chair/Yiu-dx-Dvhun Xfer(QC): 3 (mod assist) Car Transfer (QC): 3 (mod assist) Distance: 150' Wheel 50 feet with 2 turns (QC: 4 (SBA) PT Plan Problem List Problem List: Activity Tolerance, Functional Strength, Safety, Balance, Gait, Transfer, Bed Mobility, ROM Treatment/Plan Treatment Plan: Continue Plan of Care Treatment Plan: Bed Mobility, Concurrent Therapy, Education, Functional Activity Mabel, Functional Strength, Group Therapy, Safety, Therapeutic Exercise, Transfers Treatment Duration: Feb 07, 2019 Frequency: At least 5 of 7 days/Wk (IRF) Estimated Hrs Per Day: 1.5 hours per day Patient and/or Family Agrees t: Yes Safety Risks/Education Patient Education: Transfer Techniques, Correct Positioning, Safety Issues Teaching Recipient: Patient Teaching Methods: Demonstration, Discussion Response to Teaching: Reinforcement Needed Time/GCodes Time In: 0800 Time Out: 0900 Total Billed Treatment Time: 60 Total Billed Treatment 1 visit FA 60' ANTONI TRAORE PT Jan 30, 2019 09:02
[2019-01-30] MEDS: DOCUSATE SODIUM 100 MG (COLACE) CAP PO SCH ×2 (09:05→21:29)
[2019-01-30] MEDS: POLYETHYLENE GLYCOL 17 GM (MIRALAX) PACK PO SCH ×2 (09:06→21:35)
[2019-01-30] MEDS: SENNA W/DOCUSATE (SENOKOT S) TABLET PO SCH (09:06)
[2019-01-30] MEDS: LACTULOSE SYRUP 10GM/15ML (ENULOSE) 30ML UDC PO SCH ×2 (09:06→21:30)
[2019-01-30] MEDS: BISACODYL 10 MG SUPP (DULCOLAX) PR SCH ×2 (09:07→21:34)
[2019-01-30] MEDS: SERTRALINE 50 MG (ZOLOFT) TABLET PO SCH (09:16)
[2019-01-30] MEDS: buPROPion SR 150 MG (WELLBUTRIN SR) TAB PO SCH ×2 (09:16→21:29)
[2019-01-30] MEDS: ENOXAPARIN 40 MG/0.4 ML (LOVENOX) SYR SC SCH ×2 (09:16→21:30)
[2019-01-30] MEDS: LIDOCAINE 4% (SALONPAS) PATCH TOP SCH (09:16)
[2019-01-30] MEDS: OXYBUTYNIN (DITROPAN) 5 MG TAB PO SCH ×2 (09:16→21:29)
--- NOTE | 2019-01-30 09:35 | Occupational Ther Daily Note ---
OT Current Status-Daily Note Subjective Pt alert, sitting on BSC. Pt agrees to therapy. No c/o pain at this time. Mental Status/Objective Patient Orientation: Person, Place, Time, Situation Attachments: Knee Immobilizer ADL-Treatment Co-treat with PT, skills clinicians due to decreased mobility and strength and NWB status of R UE/LE. PT working on transfers, balance, and mobility. OT working on bathing, dressing, grooming, and UE management. Pt transferred to [facility] with SBA after placement of commode then assist to cleanse thoroughly, assist to manipulate clothing. Pt transferred to shower chair to left side with assist and cues for technique and safety, maintained NWB status. To shower room via shower chair. Pt completed seated bathing using hand held shower and long handled sponge. Upper body bathing completed with set up. Pt able to wash nichol area and bilateral LE (long handle sponge). Pt weight shifted left and right to wash buttocks, but required assist for thorough hygiene. . Pt donned pullover shirt with set up. Transferred back to bed to left side, able to complete sit to supine without assist. Pt able to pull herself up in bed using bed rails. Pt able to use general contractor to thread bilateral LE into pant legs and pull up to knee. Has mild difficulty secondary to immobilizer on right knee, but able to complete with increased time. Pt then able to roll left and right to pull pants up over hips. Pt transferred back into w/c to complete grooming and oral care at sink. Increased time for ADLs. Pt sitting in w/c with call light/phone in reach. Nrsg in room with pt after session. Needs met in room. Therapy Code Descriptions/Definitions Functional [place] Measure: 0=Not Assessed/NA 4=Minimal Assistance 1=Total Assistance 5=Supervision or Setup 2=Maximal Assistance 6=Modified [place] 3=Moderate Assistance 7=Complete IndependenceSCALE: Activities may be completed with or without assistive devices. 6-Ohjthwaxia-hyoozbl completes the activity by him/herself with no assistance from a helper. 5-Set-up or Clean-up Assistance-helper sets up or cleans up; patient completes activity. [place] assists only prior to or following the activity. 4-Supervision or Touching Assistance-helper provides verbal cues and/or touching/steadying and/or contact guard assistance as patient completes activity. Assistance may be provided throughout the activity or intermittently. 3-Partial/Moderate Assistance-helper does LESS THAN HALF the effort. [place] lifts, holds or supports trunk or limbs, but provides less than half the effort. 2-Substantial/Maximal Assistance-helper does MORE THAN HALF the effort. [place] lifts or holds trunk or limbs and provides more than half the effort. 9-Pcogmwewt-cekhuh does ALL the effort. Patient does none of the effort to complete the activity. Or, the assistance of 2 or more helpers is required for the patient to complete the activity. If activity was not attempted, code reason: 7-Patient Refused. 9-Not Applicable-not attempted and the patient did not perform the activity before the current illness, exacerbation or injury. 10-Not Attempted due to Environmental Limitations-(lack of equipment, weather restraints, etc.). 88-Not Attempted due to Medical Conditions or Safety Concerns. Eating (QC): 6 (Pt demonstrates ability to complete own setup and use regular utensils to eat.) Oral Hygiene (QC): 6 Bathing Location: L Arm, R Arm, L Upper Leg, R Upper Leg, L Lower Leg (including foot), R Lower Leg (including foot), Chest, Abdomen, Perineal Area Shower/Bathe Self (QC): 3 Upper Body Dressing (QC): 5 Lower Body Dressing (QC): 3 Toileting Hygiene (QC): 2 Toilet Transfer (QC): 3 (SBA to transfer onto BSC then min A to transfer off of.) OT Short Term Goals Short Term Goals Grooming(FIM): 4 (met) Upper Body Dressing(FIM): 3 (met) Lower Body Dressing(FIM): 2 (met) Transfers (B,C,W/C) (FIM): 2 Additional Short Term Goals: 1-Demonstrate ADL Tasks, 2-Verbalize Understandi ng, 3-ImproveStrength/Mabel 1=Demonstrate adherence to instructed precautions during ADL tasks. 2=Patient will verbalize/demonstrate understanding of assistive devices/modifications for ADL. 3=Patient will improve strength/tolerance for activity to enable patient to perform ADL's. OT Chemical Engineering Technician Goals Chemical Engineering Technician Goals Eating (QC): 6 (met) Oral Hygiene (QC): 6 (met) Shower/Bathe Self (QC): 5 (not met) Upper Body Dressing (QC): 5 (met-01/30/2019) Lower Body Dressing (QC): 3 (met supine in bed) On/Off Footwear (QC): 3 (met) Toileting Hygiene (QC): 3 (not met) Toilet/Commode Transfer (QC): 3 (met-01/30/2019) Additional Goals: 1-Demonstrate ADL Tasks, 2-Verbalize Understanding, 3- ImproveStrength/Mabel 1=Demonstrate adherence to instructed precautions during ADL tasks. 2=Patient will verbalize/demonstrate understanding of assistive devices/modifications for ADL. 3=Patient will improve strength/tolerance for activity to enable patient to perform ADL's. OT Education/Plan Problem List/Assessment Assessment: Impaired Self-Care Skills Discharge Recommendations Plan/Recommendations: Continue POC Treatment Plan/Plan of Care Patient would benefit from OT for education, treatment and training to promote independence in ADL's, mobility, safety and/or upper extremity function for ADL's. Plan of Care: ADL Retraining, Caregiver Training, Concurrent Therapy, Functional Mobility, Group Exercise/Act as Ind, Orthotic Fitting/Training, UE Funct Exercise/Act, W/C Management Training Treatment Duration: Jan 31, 2019 Frequency: At least 5 of 7 days/Wk (IRF) Estimated Hrs Per Day: 1.5 hours per day Agreement: Yes Rehab Potential: Guarded Time/GCodes Start Time: 08:00 Stop Time: 09:30 Total Time Billed (hr/min): 90 Billed Treatment Time 1 visit-ADL 5 (75 min) FA 1 (15 min) Co-treat with PT 60 min and individual 30 min JORGE WELLS Jan 30, 2019 09:35
--- NOTE | 2019-01-30 10:18 | PM&R Progress Note ---
Subjective HPI/CC On Admission Date Seen by Provider: Jan 30, 2019 Time Seen by Provider: 08:30 Chief complaint: s/p right femur fracture HPI: This is a 68yoWF clinic Pt of Dr. Hogan at [place] who presented to the ER after sustaining a fall at home, apparently she was walking up the stairs outside and caused her to fall into a fence, stated that her right leg was twisted and had pain in her upper left chest, could not move her leg, did not hit her head and did not lose consciousness, but was brought to the ER. est/abdomen CT showed non-displaced anterior left fourth and fifth rib fractures, no pneumothorax and femur on the right revealed distal femur fracture. 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 Pt denies any significant heart or lung problems otherwise. Pt had prior level of functioning of independence without use of assistive device so we will admit to inpatient rehab, since she is so fatigued today we will do a 15/7 slow start but begin aggressive bowel movement treatment in addition to IV iron infusion since Hgb has decreased to 7.8 today and will initiated inpatient rehab protocol. Subjective/Events-last exam Hgb is 10.4 DC tomorrow to [facility] on skilled care Muscle spasms continue with Baclofen and K pad Overall feeling much better Conferred with RN Reviewed therapy notes Checked meds and labs Review of Systems General: Fatigue Musculoskeletal: leg pain Objective Exam Vital Signs Vital Signs Date Time Temp Pulse Resp B/P (MAP) Pulse Ox O2 Delivery O2 Flow Rate FiO2 01/30/19 18:00 36.4 76 18 120/77 (91) 95 Room Air Capillary Refill : Less Than 3 Seconds General Appearance: No Apparent Distress, WD/WN, Chronically ill, Obese HEENT: PERRL/EOMI, Normal ENT Inspection, Pharynx Normal, Moist Mucous Membranes Neck: Full Range of Motion, Normal Inspection, Non Tender, Supple Respiratory: Chest Non Tender, Lungs Clear, Normal Breath Sounds, No Accessory Muscle Use, No Respiratory Distress Cardiovascular: Regular Rate, Rhythm, No Edema, No Gallop, No JVD, No Murmur Gastrointestinal: Normal Bowel Sounds, No Organomegaly, No Pulsatile Mass, Non Tender, Soft Back: Normal Inspection, No CVA Tenderness, No Vertebral Tenderness Extremity: Normal Capillary Refill, Normal Inspection, Normal Range of Motion (except right leg and bilateral shoulders L>R in deficit), Non Tender, No Calf Tenderness, No Pedal Edema Neurologic/Psychiatric: Alert, Oriented x3, No Motor/Sensory Deficits, Normal Mood/Affect Skin: Normal Color, Warm/Dry Lymphatic: No Adenopathy Results/Procedures Lab Laboratory Tests 01/30/19 06:10 Patient resulted labs reviewed. FIM Transfers Therapy Code Descriptions/Definitions Functional [place] Measure: 0=Not Assessed/NA 4=Minimal Assistance 1=Total Assistance 5=Supervision or Setup 2=Maximal Assistance 6=Modified [place] 3=Moderate Assistance 7=Complete IndependenceSCALE: Activities may be completed with or without assistive devices. 2-Espymptkbt-pbvchgx completes the activity by him/herself with no assistance from a helper. 5-Set-up or Clean-up Assistance-helper sets up or cleans up; patient completes activity. [place] assists only prior to or following the activity. 4-Supervision or Touching Assistance-helper provides verbal cues and/or touch ing/steadying and/or contact guard assistance as patient completes activity. Assistance may be provided throughout the activity or intermittently. 3-Partial/Moderate Assistance-helper does LESS THAN HALF the effort. [place] lifts, holds or supports trunk or limbs, but provides less than half the effort. 2-Substantial/Maximal Assistance-helper does MORE THAN HALF the effort. [place] lifts or holds trunk or limbs and provides more than half the effort. 6-Yciofqafn-fbnvdw does ALL the effort. Patient does none of the effort to complete the activity. Or, the assistance of 2 or more helpers is required for the patient to complete the activity. If activity was not attempted, code reason: 7-Patient Refused. 9-Not Applicable-not attempted and the patient did not perform the activity bef ore the current illness, exacerbation or injury. 10-Not Attempted due to Environmental Limitations-(lack of equipment, weather restraints, etc.). 88-Not Attempted due to Medical Conditions or Safety Concerns. Transfers (B, C, W/C) (FIM): 4 Roll Left to Right (QC): 4 Sit to Lying (QC): 4 Sit to Stand (QC): 3 Chair/Jsf-xr-Dkpkp Xfer(QC): 3 Bed to/from Chair: 1 Car Transfer (QC): 3 Gait Training Does the Patient Walk?: No and Walking Goal NOT indicated Walk 10 feet (QC): 88 Walk 50 ft with 2 Turns(QC): 88 Walk 150 ft (QC): 88 Walking 10ft/uneven surface-QC: 88 Wheelchair Training Does the Pt Use a Wheelchair?: Yes Wheelchair Distance: 6=258-80 ft Distance: 100' Wheel 50 ft with 2 turns (QC): 1 Wheel 150 ft (QC): 1 Type of Wheelchair: Manual Stair Training 1 Step (curb) (QC): 88 4 Steps (QC): 88 12 Steps (QC): 88 Balance Picking up an Object (QC): 88 ADL-Treatment Eating (QC): 6 Oral Hygiene (QC): 5 Shower/Bathe Self (QC): 3 Upper Body Dressing (QC): 5 Lower Body Dressing (QC): 3 On/Off Footwear (QC): 1 (TD L sock) Toileting Hygiene (QC): 2 Toilet Transfer (QC): 2 Assessment/Plan Assessment and Plan Assess & Plan/Chief Complaint Assessment: s/p repair distal right femur fracture Chronic shoulder pain and limitation of activity that will limit recovery until hardware removed 04/2019 then will require recovery time for 8-12 weeks thereafter so will go to skilled facility upon DC TODD on CPAP Post op anemia with severely low iron so started iron infusions HLP Hypothyroidism Post op constipation placed on meds now resolved OAB Plan: BM regimen Home meds Iron infusions completed Pain control with Oxycodone Lovenox for DVT PPx Ortho evaluation of shoulder limitations Lidocaine patch improving status K-pad prn spasms NHP tomorrow (1) Fracture of femur, right, closed Status: Acute (2) Insomnia Status: Chronic (3) Fall down stairs Status: Acute (4) Depression Status: Chronic Qualifiers: Depression Type: unspecified Qualified Codes: F32.9 - Major depressive disorder, single episode, unspecified (5) Hypothyroidism Status: Chronic Qualifiers: Hypothyroidism type: acquired Qualified Codes: E03.9 - Hypothyroidism, unspecified (6) Rib fractures Status: Acute Qualifiers: Encounter type: subsequent encounter Rib fracture type: multiple ribs Fracture type: closed Laterality: left (7) HLD (hyperlipidemia) Status: Chronic Qualifiers: Hyperlipidemia type: mixed hyperlipidemia Qualified Codes: E78.2 - Mixed hyperlipidemia (8) Postoperative anemia (9) Iron deficiency RAJESH LEWIS DO Jan 30, 2019 10:18
--- NOTE | 2019-01-30 13:00 | Physical Therapy Daily Note ---
PT Daily Note-Current Subjective Pt in bed pre-tx. Pt agrees to PT. Pt reports she is worn out this afternoon. Appearance Pt in bed post-tx. Pt with call light, room phone, tray table, and C-pap in [facility] with all needs met at this time. Mental Status Patient Orientation: Normal For Age R LE brace Transfers SCALE: Activities may be completed with or without assistive devices. 0-Odikltieur-nfsupte completes the activity by him/herself with no assistance from a helper. 5-Set-up or Clean-up Assistance-helper sets up or cleans up; patient completes activity. [place] assists only prior to or following the activity. 4-Supervision or Touching Assistance-helper provides verbal cues and/or touching/steadying and/or contact guard assistance as patient completes activit y. Assistance may be provided throughout the activity or intermittently. 3-Partial/Moderate Assistance-helper does LESS THAN HALF the effort. [place] lifts, holds or supports trunk or limbs, but provides less than half the effort. 2-Substantial/Maximal Assistance-helper does MORE THAN HALF the effort. [place] lifts or holds trunk or limbs and provides more than half the effort. 9-Dkhgnwhgv-swfnve does ALL the effort. Patient does none of the effort to complete the activity. Or, the assistance of 2 or more helpers is required for the patient to complete the activity. If activity was not attempted, code reason: 7-Patient Refused. 9-Not Applicable-not attempted and the patient did not perform the activity before the current illness, exacerbation or injury. 10-Not Attempted due to Environmental Limitations-(lack of equipment, weather restraints, etc.). 88-Not Attempted due to Medical Conditions or Safety Concerns. Pt independently uses UE & L LE to scoot up and self reposition in bed. Weight Bearing Right Lower Extremity: Right Non Weight Bearing Left Lower Extremity: Left Full Weight Bearing Patient states she is not supposed to bear weight on her right arm due to shoulder issues. Exercises Supine Ex: Ankle pumps, Glut sets, Heel Slides (L LE), Short Arc Quads (L LE), Straight leg raise, Hip abd/add Supine Reps: 20 (2 sets. PT gave Carmelo to L LE for ex.) Treatments Pt performed LE strengthening/ endurance ex, bed mobility and education this date. Assessment Current Status: Good Progress Pt performed all exercise without C/O pain. Pt using R LE with increased muscle activation this date from previous session. PT Short Term Goals Short Term Goals Time Frame: Jan 24, 2019 Wheelchair Distance: 100' Wheelchair Level of Assist: 5 PT Correction Goals Correction Goals PT Nursing Informatics Clinical Analyst Goals Time Frame: Feb 07, 2019 Sit to Lying (QC): 3 (min assist) Lying-Sitting on Side/Bed(QC): 3 (min assist) Sit to Stand (QC): 3 (mod assist) Roll Left to Right (QC): 3 (min assist) Chair/Dyz-bd-Racug Xfer(QC): 3 (mod assist) Car Transfer (QC): 3 (mod assist) Distance: 150' Wheel 50 feet with 2 turns (QC: 4 (SBA) PT Plan Problem List Problem List: Activity Tolerance, Functional Strength, Safety, Balance, Gait, Transfer, Bed Mobility, ROM Treatment/Plan Treatment Plan: Continue Plan of Care Treatment Plan: Bed Mobility, Concurrent Therapy, Education, Functional Activity Mabel, Functional Strength, Group Therapy, Safety, Therapeutic Exercise, Transfers Treatment Duration: Feb 07, 2019 Frequency: At least 5 of 7 days/Wk (IRF) Estimated Hrs Per Day: 1.5 hours per day Patient and/or Family Agrees t: Yes Safety Risks/Education Patient Education: Correct Positioning, Safety Issues Teaching Recipient: Patient Teaching Methods: Demonstration, Discussion Response to Teaching: Verbalize Understanding, Return Demonstration, Reinforcement Needed Time/GCodes Time In: 1230 Time Out: 1300 Total Billed Treatment Time: 30 Total Billed Treatment 1 visit 30' EX ANTONI TRAORE PT Jan 30, 2019 13:00
--- NOTE | 2019-01-30 14:15 | NUR ---
Follow up visit and response to call light: pt shared she is "feeling much better" from the time we last visited. She continues to demonstrate resilient attitude, hopefulness, and purpose through meaningful relationships. She said she pressed her call light in request for her muscle relaxer, that she thought the nurse was likely on her way to give it to her, but pushed the call light to be certain. MARIELENA Solorzano responded with pt's medications just minutes after I visited with the pt. The pt said she was thankful for the prompt response. Addendum: 01/30/19 at 1428 by GAMALIEL WALLACE PAST I was still in the pt's room when Jeanine arrived with pt's medications.
[2019-01-30] MEDS: CATHETER FLUSH 10 ML SYR IV SCH ×2 (14:55→22:20)
[2019-01-30 18:00] VITALS: BP 120/77
--- NOTE | 2019-01-30 19:09 | NUR ---
bedside report received from RYNE PEGUERO, assume care of pt
[2019-01-30] MEDS ORDERED: Lidocaine 4% Patch TOP (21:05)
[2019-01-30] MEDS ORDERED: ZOLP10TA5 PO (21:05)
[2019-01-30] MEDS ORDERED: MELA3TAB PO (21:05)
[2019-01-30] MEDS ORDERED: ENOX40DI8 SC (21:05)
[2019-01-30] MEDS ORDERED: POLY17PO31 PO (21:05)
[2019-01-30] MEDS ORDERED: BACL10TA PO (21:05)
[2019-01-30] MEDS ORDERED: OXC5T PO (21:05)
--- NOTE | 2019-01-30 21:06 | Discharge Inst-Skilled Nursing ---
Discharge Inst-Skilled NF Reconcile Patient Problems Problems Reviewed?: Yes Chief Complaint Chief complaint: s/p right femur fracture HPI: This is a 68yoWF clinic Pt of Dr. Hogan at [place] who presented to the ER after sustaining a fall at home, apparently she was walking up the stairs outside and caused her to fall into a fence, stated that her right leg was twisted and had pain in her upper left chest, could not move her leg, did not hit her head and did not lose consciousness, but was brought to the ER. Chest/abdomen CT showed non-displaced anterior left fourth and fifth rib fractures, no pneumothorax and femur on the right revealed distal femur fracture. 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 Pt denies any significant heart or lung problems otherwise. Pt had prior level of functioning of independence without use of assistive device so we will admit to inpatient rehab, since she is so fatigued today we will do a 15/7 slow start but begin aggressive bowel movement treatment in addition to IV iron infusion since Hgb has decreased to 7.8 today and will in itiated inpatient rehab protocol. Patient Instructions Patient Problems: Right distal femur fracture Non-weight bearing Goal: Return to independent living Consult/Follow Up/Orders Follow Up Appt.: DR Hogan in 1 week Skilled NF Admit to: [facility] Certification ([facility]) I certify that SNF services are required to be given on an inpatient basis because of the above named patient's need for correction care on a continuing basis for the conditions(s) for which he/she was receiving inpatient hospital services prior to his/her transfer to the SNF. Senior Living Facility Order: Nursing Services, Nutrition Therapist-Evaluate & Treat, Physical Therapy-Evaluate & Treat Oxygen Delivery Method: Room Air Discharge Diet: No Restrictions Resuscitation Status: Full Code New & Resume Previous Orders New Medications: Baclofen (Baclofen) 10 Mg Tablet 10 MG PO Q6HR PRN for MUSCLE SPASMS, #30 TAB Enoxaparin Sodium (Enoxaparin Sodium) 40 Mg/0.4 Ml Syringe 40 MG SC BID for 30 Days, SYRINGE [Lidocaine 4% Patch] () 1 EA PATCH 1 EA TOP DAILY for 30 Days Melatonin (Melatonin) 3 Mg Tablet 3 MG PO HS PRN for SLEEP for 30 Days, TAB Oxycodone Hcl (Oxyir Tablet) 5 Mg Tab 5 MG PO Q4H PRN for PAIN-SEVERE, #40 TAB Polyethylene Glycol 3350 (Polyethylene Glycol 3350) 17 Gm Powd.pack 34 GM PO BID for 30 Days, EACH Continued Medications: Ascorbate Calcium (Vitamin C) 500 Mg Tablet 500 MG PO DAILY, TAB Aspirin (Aspirin EC) 81 Mg Tablet.dr 81 MG PO DAILY, TAB Bupropion HCl (Bupropion HCl Sr) 150 Mg Tablet.er 150 MG PO BID, TAB Cholecalciferol (Vitamin D3) (Vitamin D3) 1,000 Unit Capsule 1000 UNIT PO DAILY, CAP Colestipol HCl (Colestipol HCl) 1 Gm Tablet 1 GM PO BID PRN for DIARRHEA, TAB Ezetimibe (Ezetimibe) 10 Mg Tablet 10 MG PO HS, TAB Hydrocortisone (Hydrocortisone) 453.6 Gm Cream..g. TOP BID, EA Levothyroxine Sodium (Levothyroxine Sodium) 137 Mcg Tablet 137 MCG PO DAILY, TAB Meloxicam (Meloxicam) 15 Mg Tablet 15 MG PO DAILY, TAB Multivitamin (Multivitamins) 1 Each Tablet 1 TAB PO DAILY, TAB Oxybutynin Chloride (Oxybutynin Chloride) 5 Mg Tablet 5 MG PO BID, TAB Sertraline HCl (Sertraline HCl) 50 Mg Tablet 50 MG PO DAILY, TAB Tizanidine HCl (Tizanidine HCl) 4 Mg Tablet 2-4 MG PO TID PRN for MUSCLE SPASMS, TAB TAKES 1/2 TO 1 (4MG) TABLET Valacyclovir HCl (Valacyclovir) 500 Mg Tablet 500 MG PO BID PRN for COLD SORE, TAB Vitamin E Acetate (Vitamin E) 400 Unit Capsule 400 UNIT PO DAILY, CAP Zolpidem Tartrate (Zolpidem Tartrate) 10 Mg Tablet 10 MG PO HS, #15 TAB (This prescription has been renewed) Discontinued Medications: Ferrous Sulfate, Dried (Slow Release Iron) 160 Mg Tablet.er 160 MG PO DAILY, TAB Donita Cardenas Jan 30, 2019 21:05 DONITA CARDENAS DO Jan 30, 2019 21:06
--- NOTE | 2019-01-30 21:29 | NUR ---
took Colace & Enulose but refused miralax & Dulcolax suppository
[2019-01-30] MEDS: LIDOCAINE PATCH REMOVAL TP SCH (21:35)
--- NOTE | 2019-01-30 22:19 | NUR ---
c/o pain level 6/10 on numeric scale, oxyir 5mg given
--- NOTE | 2019-01-30 22:50 | NUR ---
rates pain level 3/10 on numeric scale
[2019-01-30] MEDS: ZOLPIDEM 5 MG (AMBIEN) TAB PO PRN (23:08)
--- NOTE | 2019-01-30 23:08 | NUR ---
requests muscle relaxer Lioresal 10mg given
--- NOTE | 2019-01-30 23:08 | NUR ---
requests sleeping pill Ambien 5mg given
[2019-01-31] MEDS: BACLOFEN 10 MG (LIORESAL) TAB PO PRN ×2 (00:02→06:04)
[2019-01-31] MEDS: LEVOTHYROXINE 112 MCG (LEVOTHROID) TAB PO SCH (03:49)
[2019-01-31] MEDS: LEVOTHYROXINE 25 MCG (LEVOTHROID) TAB PO SCH (03:49)
--- NOTE | 2019-01-31 03:49 | NUR ---
c/o pain level 6/10 on numeric scale, oxyir 5mg given
--- NOTE | 2019-01-31 04:20 | NUR ---
resting quietly in bed, pain level 0/10 on flacc scale
[2019-01-31 05:30] VITALS: BP 113/71
--- NOTE | 2019-01-31 06:05 | NUR ---
requesting muscle relaxer, Lioresal 10mg given
[2019-01-31] MEDS: CATHETER FLUSH 10 ML SYR IV SCH ×2 (06:06→08:36)
--- NOTE | 2019-01-31 07:45 | NUR ---
bedside report given to SERINA PEGUERO
--- NOTE | 2019-01-31 08:17 | Therapy Team Discharge Summary ---
Therapy Discharge Summary Discharge Recommendations Date of Discharge Physical Therapy Patient came to rehab following a right femur fracture. Upon evaluation patient was dependent for bed mobility and supine <-> sit and sit <-> stand and transfers, and WC mobility. Patient has been performing bed mobility and tra nsfer training, balance and endurance training, functional strengthening, WC mobility training, and education. Patient has made fair progress and has met all of her terminologist goals except for WC mobility. Now, patient performs bed mobility with SBA, supine <-> sit with SBA, sit <-> stand with mod assist, transfers with mod assist, car transfer mod assist. Patient performs a stand pivot transfer with mod assist, sliding board transfer with min assist. Patient does not self-propel WC due to right shoulder pain. Patient is discharging from this facility today and will be discharged from PT at this time. Occupational Therapy Impaired Self-Care Skills PT Care Home Goals Care Home Goals PT Care Home Goals Time Frame: Feb 07, 2019 Roll Left to Right (QC): 3 (min assist) Sit to Lying (QC): 3 (min assist) Lying-Sitting on Side/Bed(QC): 3 (min assist) Sit to Stand (QC): 3 (mod assist) Chair/Xck-xq-Axoqs Xfer(QC): 3 (mod assist) Car Transfer (QC): 3 (mod assist) Distance: 150' Wheel 50 feet with 2 turns (QC: 4 (SBA) OT Drug Abuse Worker Goals Drug Abuse Worker Goals Eating (QC): 6 (met) Oral Hygiene (QC): 6 (met) Shower/Bathe Self (QC): 5 (not met) Upper Body Dressing (QC): 5 (met-01/30/2019) Lower Body Dressing (QC): 3 (met supine in bed) On/Off Footwear (QC): 3 (met) Toileting Hygiene (QC): 3 (not met) Toilet/Commode Transfer (QC): 3 (met-01/30/2019) Additional Goals: 1-Demonstrate ADL Tasks, 2-Verbalize Understanding, 3- ImproveStrength/Mabel 1=Demonstrate adherence to instructed precautions during ADL tasks. 2=Patient will verbalize/demonstrate understanding of assistive de vices/modifications for ADL. 3=Patient will improve strength/tolerance for activity to enable patient to perform ADL's. ANTONI TRAORE PT Jan 31, 2019 08:16
--- NOTE | 2019-01-31 08:23 | Discharge Summary ---
Diagnosis/Chief Complaint Date of Admission Jan 17, 2019 at 11:14 Date of Discharge Discharge Date: Jan 31, 2019 Discharge Diagnosis Assessment: s/p repair distal right femur fracture Chronic shoulder pain and limitation of activity that will limit recovery until hardware removed 04/2019 then will require recovery time for 8-12 weeks thereafter so will go to skilled facility upon DC TODD on CPAP Post op anemia with severely low iron so started iron infusions HLP Hypothyroidism Post op constipation placed on meds now resolved OAB Plan: BM regimen Home meds Iron infusions completed Pain control with Oxycodone Lovenox for DVT PPx Ortho evaluation of shoulder limitations Lidocaine patch improving status K-pad prn spasms NHP tomorrow (1) Fracture of femur, right, closed Status: Acute (2) Insomnia Status: Chronic (3) Fall down stairs Status: Acute (4) Depression Status: Chronic Qualifiers: Depression Type: unspecified Qualified Codes: F32.9 - Major depressive disorder, single episode, unspecified (5) Hypothyroidism Status: Chronic Qualifiers: Hypothyroidism type: acquired Qualified Codes: E03.9 - Hypothyroidism, unspecified (6) Rib fractures Status: Acute Qualifiers: Encounter type: subsequent encounter Rib fracture type: multiple ribs Fracture type: closed Laterality: left (7) HLD (hyperlipidemia) Status: Chronic Qualifiers: Hyperlipidemia type: mixed hyperlipidemia Qualified Codes: E78.2 - Mixed hyperlipidemia (8) Postoperative anemia (9) Iron deficiency Discharge Summary Discharge Physical Examination Allergies: Coded Allergies: Penicillins (Unverified Allergy, Unknown, 01/17/19) Sulfa (Sulfonamide Antibiotics) (Unverified Allergy, Unknown, 01/17/19) lincomycin (Verified Allergy, Unknown, 06/19/17) nitrofurantoin (Unverified Allergy, Unknown, 06/19/17) propoxyphene (Unverified Allergy, Unknown, 06/19/17) Uncoded Allergies: "PRECIOUS" (Allergy, Unknown, 06/19/17) Vitals & I&Os Vital Signs Date Time Temp Pulse Resp B/P (MAP) Pulse Ox O2 Delivery O2 Flow Rate FiO2 01/31/19 13:55 37.0 79 18 113/71 95 Room Air General Appearance: Alert, Oriented X3, Cooperative Respiratory: Clear to Auscultation Cardiovascular: Regular Rate Psych/Mental Status: Mental Status NL, Mood NL Hospital Course Was the Problem List Reviewed?: Yes Pt had an uncomplicated two week hospital course in inpatient rehab after suffering a right distal femur fracture, non weight-bearing and her shoulder being unable to lift more than 10lbs, complicating ehr recovery since she needed her arm function to be able to recovery completely considering her non weight- bearing status. 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 Labs (last 24 hrs) Laboratory Tests 01/17/19 06:17: Iron Level 13L 01/18/19 06:35: White Blood Count 6.2, Red Blood Count 2.41L, Hemoglobin 7.3L, Hematocrit 23L, Mean Corpuscular Volume 94, Mean Corpuscular Hemoglobin 30, Mean Corpuscular Hemoglobin Concent 32, Red Cell Distribution Width 13.2, Platelet Count 210, Mean Platelet Volume 9.5, Neutrophils (%) (Auto) 63, Lymphocytes (%) (Auto) 22, Monocytes (%) (Auto) 10, Eosinophils (%) (Auto) 5, Basophils (%) (Auto) 1, Neutrophils # (Auto) 3.9, Lymphocytes # (Auto) 1.4, Monocytes # (Auto) 0.6, Eosinophils # (Auto) 0.3, Basophils # (Auto) 0.0, Sodium Level 139, Potassium Level 4.1, Chloride Level 105, Carbon Dioxide Level 28, Anion Gap 6, Blood Urea Nitrogen 6L, Creatinine 0.60, Estimat Glomerular Filtration Rate > 60, BUN/Creatinine Ratio 10, Glucose Level 99, Calcium Level 7.9L, Corrected Calcium 8.7, Total Bilirubin 0.6, Aspartate Amino Transf (AST/SGOT) 24, Alanine Aminotransferase (ALT/SGPT) 34, Alkaline Phosphatase 42, Total Protein 5.4L, Albumin 3.0L 01/23/19 04:30: White Blood Count 8.2, Red Blood Count 2.92L, Hemoglobin 8.8#L, Hematocrit 29L, Mean Corpuscular Volume 98, Mean Corpuscular Hemoglobin 30, Mean Corpuscular Hemoglobin Concent 31L, Red Cell Distribution Width 16.6H, Platelet Count 381, Mean Platelet Volume 9.0, Neutrophils (%) (Auto) 63, Lymphocytes (%) (Auto) 22, Monocytes (%) (Auto) 9, Eosinophils (%) (Auto) 5, Basophils (%) (Auto) 1, Neutrophils # (Auto) 5.1, Lymphocytes # (Auto) 1.8, Monocytes # (Auto) 0.8, Eosinophils # (Auto) 0.4H, Basophils # (Auto) 0.0, Sodium Level 139, Potassium Level 3.8, Chloride Level 107, Carbon Dioxide Level 22, Anion Gap 10, Blood Urea Nitrogen 13, Creatinine 0.65, Estimat Glomerular Filtration Rate > 60, BUN/Creatinine Ratio 20, Glucose Level 91, Calcium Level 8.0L, Corrected Calcium 8.6, Total Bilirubin 0.7, Aspartate Amino Transf (AST/SGOT) 18, Alanine Aminotransferase (ALT/SGPT) 21, Alkaline Phosphatase 53, Total Protein 5.9L, Albumin 3.2 01/27/19 05:32: White Blood Count 7.0, Red Blood Count 3.01L, Hemoglobin 9.4L, Hematocrit 30L, Mean Corpuscular Volume 100H, Mean Corpuscular Hemoglobin 31, Mean Corpuscular Hemoglobin Concent 31L, Red Cell Distribution Width 18.0H, Platelet Count 351, Mean Platelet Volume 9.4, Creatinine 0.66 01/30/19 06:10: White Blood Count 6.1, Red Blood Count 3.31L, Hemoglobin 10.4L, Hematocrit 33L, Mean Corpuscular Volume 101H, Mean Corpuscular Hemoglobin 31, Mean Corpuscular Hemoglobin Concent 31L, Red Cell Distribution Width 17.6H, Platelet Count 352, Mean Platelet Volume 9.8, Neutrophils (%) (Auto) 61, Lymphocytes (%) (Auto) 23, Monocytes (%) (Auto) 11, Eosinophils (%) (Auto) 4, Basophils (%) (Auto) 1, Neutrophils # (Auto) 3.7, Lymphocytes # (Auto) 1.4, Monocytes # (Auto) 0.7, Eosinophils # (Auto) 0.3, Basophils # (Auto) 0.0, Sodium Level 139, Potassium Level 4.1, Chloride Level 107, Carbon Dioxide Level 23, Anion Gap 9, Blood Urea Nitrogen 13, Creatinine 0.71, Estimat Glomerular Filtration Rate > 60, BUN/Creatinine Ratio 18, Glucose Level 86, Calcium Level 8.2L, Corrected Calcium 8.8, Total Bilirubin 0.5, Aspartate Amino Transf (AST/SGOT) 20, Alanine Aminotransferase (ALT/SGPT) 20, Alkaline Phosphatase 95, Total Protein 6.1L, Albumin 3.3 Pending Labs Laboratory Tests 01/17/19 06:17: Iron Level 13 01/18/19 06:35: White Blood Count 6.2, Red Blood Count 2.41, Hemoglobin 7.3, Hematocrit 23, Mean Corpuscular Volume 94, Mean Corpuscular Hemoglobin 30, Mean Corpuscular Hemoglobin Concent 32, Red Cell Distribution Width 13.2, Platelet Count 210, Mean Platelet Volume 9.5, Neutrophils (%) (Auto) 63, Lymphocytes (%) (Auto) 22, Monocytes (%) (Auto) 10, Eosinophils (%) (Auto) 5, Basophils (%) (Auto) 1, Neut rophils # (Auto) 3.9, Lymphocytes # (Auto) 1.4, Monocytes # (Auto) 0.6, Eosinophils # (Auto) 0.3, Basophils # (Auto) 0.0, Sodium Level 139, Potassium Level 4.1, Chloride Level 105, Carbon Dioxide Level 28, Anion Gap 6, Blood Urea Nitrogen 6, Creatinine 0.60, Estimat Glomerular Filtration Rate > 60, BUN/Creatinine Ratio 10, Glucose Level 99, Calcium Level 7.9, Corrected Calcium 8.7, Total Bilirubin 0.6, Aspartate Amino Transf (AST/SGOT) 24, Alanine Aminotransferase (ALT/SGPT) 34, Alkaline Phosphatase 42, Total Protein 5.4, Albumin 3.0 01/23/19 04:30: White Blood Count 8.2, Red Blood Count 2.92, Hemoglobin 8.8, Hematocrit 29, Mean Corpuscular Volume 98, Mean Corpuscular Hemoglobin 30, Mean Corpuscular Hemoglobin Concent 31, Red Cell Distribution Width 16.6, Platelet Count 381, Mean Platelet Volume 9.0, Neutrophils (%) (Auto) 63, Lymphocytes (%) (Auto) 22, Monocytes (%) (Auto) 9, Eosinophils (%) (Auto) 5, Basophils (%) (Auto) 1, Neutrophils # (Auto) 5.1, Lymphocytes # (Auto) 1.8, Monocytes # (Auto) 0.8, Eosinophils # (Auto) 0.4, Basophils # (Auto) 0.0, Sodium Level 139, Potassium Level 3.8, Chloride Level 107, Carbon Dioxide Level 22, Anion Gap 10, Blood Urea Nitrogen 13, Creatinine 0.65, Estimat Glomerular Filtration Rate > 60, BUN/Creatinine Ratio 20, Glucose Level 91, Calcium Level 8.0, Corrected Calcium 8.6, Total Bilirubin 0.7, Aspartate Amino Transf (AST/SGOT) 18, Alanine Aminotransferase (ALT/SGPT) 21, Alkaline Phosphatase 53, Total Protein 5.9, Albumin 3.2 01/27/19 05:32: White Blood Count 7.0, Red Blood Count 3.01, Hemoglobin 9.4, Hematocrit 30, Mean Corpuscular Volume 100, Mean Corpuscular Hemoglobin 31, Mean Corpuscular Hemoglobin Concent 31, Red Cell Distribution Width 18.0, Platelet Count 351, Mean Platelet Volume 9.4, Creatinine 0.66 01/30/19 06:10: White Blood Count 6.1, Red Blood Count 3.31, Hemoglobin 10.4, Hematocrit 33, Mean Corpuscular Volume 101, Mean Corpuscular Hemoglobin 31, Mean Corpuscular Hemoglobin Concent 31, Red Cell Distribution Width 17.6, Platelet Count 352, Mean Platelet Volume 9.8, Neutrophils (%) (Auto) 61, Lymphocytes (%) (Auto) 23, Monocytes (%) (Auto) 11, Eosinophils (%) (Auto) 4, Basophils (%) (Auto) 1, Neutrophils # (Auto) 3.7, Lymphocytes # (Auto) 1.4, Monocytes # (Auto) 0.7, Eosinophils # (Auto) 0.3, Basophils # (Auto) 0.0, Sodium Level 139, Potassium Level 4.1, Chloride Level 107, Carbon Dioxide Level 23, Anion Gap 9, Blood Urea Nitrogen 13, Creatinine 0.71, Estimat Glomerular Filtration Rate > 60, BUN/Creatinine Ratio 18, Glucose Level 86, Calcium Level 8.2, Corrected Calcium 8.8, Total Bilirubin 0.5, Aspartate Amino Transf (AST/SGOT) 20, Alanine Aminotransferase (ALT/SGPT) 20, Alkaline Phosphatase 95, Total Protein 6.1, Albumin 3.3 Discharge Home Medications: Active Scripts Active Melatonin 3 Mg Tablet 3 Mg PO HS PRN 30 Days [Lidocaine 4% Patch] 1 EA Patch 1 Ea TOP DAILY 30 Days Polyethylene Glycol 3350 17 Gm Powd.pack 34 Gm PO BID 30 Days Oxyir Tablet (Oxycodone HCl) 5 Mg Tab 5 Mg PO Q4H PRN Enoxaparin Sodium 40 Mg/0.4 Ml Syringe 40 Mg SC BID 30 Days Baclofen 10 Mg Tablet 10 Mg PO Q6HR PRN Zolpidem Tartrate 10 Mg Tablet 10 Mg PO HS Reported Aspirin EC (Aspirin) 81 Mg Tablet.dr 81 Mg PO DAILY Vitamin D3 (Cholecalciferol (Vitamin D3)) 1,000 Unit Capsule 1,000 Unit PO DAILY Vitamin C (Ascorbate Calcium) 500 Mg Tablet 500 Mg PO DAILY Multivitamins (Multivitamin) 1 Each Tablet 1 Tab PO DAILY Vitamin E (Vitamin E Acetate) 400 Unit Capsule 400 Unit PO DAILY Tizanidine HCl 4 Mg Tablet 2-4 Mg PO TID PRN TAKES 1/2 TO 1 (4MG) TABLET Valacyclovir (Valacyclovir HCl) 500 Mg Tablet 500 Mg PO BID PRN Bupropion HCl Sr (Bupropion HCl) 150 Mg Tablet.er 150 Mg PO BID Meloxicam 15 Mg Tablet 15 Mg PO DAILY Oxybutynin Chloride 5 Mg Tablet 5 Mg PO BID Hydrocortisone 453.6 Gm Cream..g. TOP BID Colestipol HCl 1 Gm Tablet 1 Gm PO BID PRN Sertraline HCl 50 Mg Tablet 50 Mg PO DAILY Ezetimibe 10 Mg Tablet 10 Mg PO HS Levothyroxine Sodium 137 Mcg Tablet 137 Mcg PO DAILY Instructions to patient/family Please see electronic discharge instructions given to patient. Diagnosis/Problems Diagnosis/Problems (1) Fracture of femur, right, closed Status: Acute (2) Insomnia Status: Chronic (3) Fall down stairs Status: Acute (4) Depression Status: Chronic Qualifiers: Qualified Codes: F32.9 - Major depressive disorder, single episode, unspecified (5) Hypothyroidism Status: Chronic Qualifiers: Qualified Codes: E03.9 - Hypothyroidism, unspecified (6) Rib fractures Status: Acute Qualifiers: (7) HLD (hyperlipidemia) Status: Chronic Qualifiers: Qualified Codes: E78.2 - Mixed hyperlipidemia (8) Postoperative anemia (9) Iron deficiency Clinical Quality Measures DVT/VTE Risk/Contraindication: Risk Factor Score Per Nursin RFS Level Per Nursing on Admit: 4+=Very High RAJESH LEWIS DO Jan 31, 2019 08:23
[2019-01-31] MEDS: OXYBUTYNIN (DITROPAN) 5 MG TAB PO SCH (08:26)
[2019-01-31] MEDS: DOCUSATE SODIUM 100 MG (COLACE) CAP PO SCH (08:26)
[2019-01-31] MEDS: ENOXAPARIN 40 MG/0.4 ML (LOVENOX) SYR SC SCH (08:26)
[2019-01-31] MEDS: SENNA W/DOCUSATE (SENOKOT S) TABLET PO SCH (08:26)
[2019-01-31] MEDS: SERTRALINE 50 MG (ZOLOFT) TABLET PO SCH (08:26)
[2019-01-31] MEDS: POLYETHYLENE GLYCOL 17 GM (MIRALAX) PACK PO SCH (08:26)
[2019-01-31] MEDS: buPROPion SR 150 MG (WELLBUTRIN SR) TAB PO SCH (08:26)
[2019-01-31] MEDS: LACTULOSE SYRUP 10GM/15ML (ENULOSE) 30ML UDC PO SCH (08:26)
[2019-01-31] MEDS: LIDOCAINE 4% (SALONPAS) PATCH TOP SCH (08:27)
--- NOTE | 2019-01-31 08:34 | NUR ---
IMM discussed with patient. Patient verbalized she is "ready to move on." Patient signed IMM. Patient will be discharging to [facility] today. Attempted to contact Florinda Crouch, nephrology social worker, to complete care assessment; however, she was not her office so message left.
[2019-01-31] MEDS: BISACODYL 10 MG SUPP (DULCOLAX) PR SCH (08:36)
--- NOTE | 2019-01-31 09:54 | NUR ---
Ciompleted CARE assessment with pt who is looking forward to transfer today to [facility] for short-term skilled care and is hoping to be able to regain ambulation and return home within 8 weeks. Copy of Care assessment faxed to [facility] and to [facility].
--- NOTE | 2019-01-31 09:57 | NUR ---
Yolette Crouch, socially responsible investment adviser, has completed care assessment. Waiting for confirmation of transport time from [facility].
--- NOTE | 2019-01-31 10:15 | NUR ---
[facility] will excelsior picker patient at 1100 today. RN notified.
--- NOTE | 2019-01-31 11:35 | NUR ---
RADHA NAJERA demonstrates understanding of discharge instructions and accurately returns instructions upon questioning. 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 RADHA NAJERA is not able to manage continuing needs after discharge and transferred to [place]. Patients belongings returned to . Patient discharged from [facility] on 01-31-19 at 1135. RADHA NAJERA left floor via , accompanied by .
[2019-01-31 13:55] VITALS: BP 113/71
--- NOTE | 2019-02-02 15:18 | Therapy Team Discharge Summary ---
Therapy Discharge Summary Discharge Recommendations Date of Discharge Jan 31, 2019 at 11:35 Occupational Therapy Pt admitted with dx of R distal femur fracture and L rib fractures (R UE and LE NWB status). Pt completes bathing with max A, UB dressing with mod A and LB dressing TD. Pt progressed in many areas, with NWB status and motivation being limiting factors. Pt's tx consisted of ADL activities, UB exercises, and functional transfer training. Pt met goals of oral hygiene, UB dressing, LB dressing, on/off footwear, and toilet transfers. Pt to tx to SNF, recommendat ions of continued OT services to address further functional limitations. D/c OT from [facility]. Impaired Self-Care Skills PT Halfway Goals Halfway Goals PT Halfway Goals Time Frame: Feb 07, 2019 Roll Left to Right (QC): 3 (min assist) Sit to Lying (QC): 3 (min assist) Lying-Sitting on Side/Bed(QC): 3 (min assist) Sit to Stand (QC): 3 (mod assist) Chair/Dzk-qe-Jsfws Xfer(QC): 3 (mod assist) Car Transfer (QC): 3 (mod assist) Distance: 150' Wheel 50 feet with 2 turns (QC: 4 (SBA) OT Offset Assistant Press Operator Goals Halfway Goals Eating (QC): 6 (met) Oral Hygiene (QC): 6 (met) Shower/Bathe Self (QC): 5 (not met) Upper Body Dressing (QC): 5 (met-01/30/2019) Lower Body Dressing (QC): 3 (met supine in bed) On/Off Footwear (QC): 3 (met) Toileting Hygiene (QC): 3 (not met) Toilet/Commode Transfer (QC): 3 (met-01/30/2019) Additional Goals: 1-Demonstrate ADL Tasks, 2-Verbalize Understanding, 3- ImproveStrength/Mabel 1=Demonstrate adherence to instructed precautions during ADL tasks. 2=Patient will verbalize/demonstrate understanding of assistive devices/modifications for ADL. 3=Patient will improve strength/tolerance for activity to enable patient to perform ADL's. KIT SWANSON OTR Feb 02, 2019 15:18
== END 2019-01-31 11:35 | DRG 560 ==
PROVIDERS: ADMIT Internal Medicine; ATTEND Internal Medicine
DX: S72.351D Displaced comminuted fracture of shaft of right femur, subsequent encounter for closed fracture with routine healing (principal); M97.11XD Periprosthetic fracture around internal prosthetic right knee joint, subsequent encounter; S22.42XD Multiple fractures of ribs, left side, subsequent encounter for fracture with routine healing; Z68.42 Body mass index [BMI] 45.0-49.9, adult; E66.9 Obesity, unspecified; D62 Acute posthemorrhagic anemia; E61.1 Iron deficiency; K59.09 Other constipation; T84.11 Breakdown (mechanical) of internal fixation device of bones of limb; M25.511 Pain in right shoulder; N32.81 Overactive bladder; E78.2 Mixed hyperlipidemia; G47.33 Obstructive sleep apnea (adult) (pediatric); G47.00 Insomnia, unspecified; M62.838 Other muscle spasm; M81.0 Age-related osteoporosis without current pathological fracture; M19.91 Primary osteoarthritis, unspecified site; E03.9 Hypothyroidism, unspecified; R53.81 Other malaise; F41.9 Anxiety disorder, unspecified; F32.9 Major depressive disorder, single episode, unspecified; W10.8XXD Fall (on) (from) other stairs and steps, subsequent encounter; Y93.82 Activity, spectator at an event; Y92.39 Other specified sports and athletic area as the place of occurrence of the external cause
CPT/HCPCS: 36415; 80053; 82565; 83540; 85025; 85027

== ENCOUNTER → 2019-04-25 | Outpatient (CLI) | payer MEDICARE ==
[~2019-04-25] MED LIST changes: +BACL10TA PO; +ENOX40DI8 SC; +Lidocaine 4% Patch TOP; +MELA3TAB65 PO; +OXC5T PO; +OXYB5TAB13 PO; -OXYB5TAB9 PO; +POLY17PO31 PO
--- NOTE | 2019-04-25 17:11 | Diagnostic Imaging Report ---
INDICATION: Follow-up right femur fracture. TIME OF EXAM: 02:35 p.m. COMPARISON: Comparison is made with prior radiographs from 01/14/2019. FINDINGS: Since prior study, a lateral plate and numerous screws have been placed to transfix a comminuted supracondylar distal right femur fracture. Overall alignment is anatomic. Fracture lines remain clearly visible without significant callus formation. There are postop changes of right knee arthroplasty. IMPRESSION: ORIF of comminuted distal femur fracture. Alignment is anatomic. Fracture lines remain clearly visible. Dictated by: Dictated on workstation # [id number]
--- NOTE | 2019-04-25 17:12 | Diagnostic Imaging Report ---
INDICATION: Follow-up left rib fractures. TIME OF EXAM: 2:41 p.m. FINDINGS: There appear to be some healing fractures on the left fourth and fifth ribs with some callus formation. No parenchymal contusion or pneumothorax is seen. There are postop changes to the left shoulder. IMPRESSION: Healing left-sided rib fractures. Dictated by: Dictated on workstation # [id number]
== END ==
LOC: RAD 14:06
PROVIDERS: ATTEND Physician Assistant
DX: S72.491D Other fracture of lower end of right femur, subsequent encounter for closed fracture with routine healing (principal); S22.41XD Multiple fractures of ribs, right side, subsequent encounter for fracture with routine healing
CPT/HCPCS: 71100; 73552

== ENCOUNTER 2021-05-05 09:00 | Emergency (ER) | payer MEDICARE ==
[~2021-05-05] VITALS: Ht 165 cm; Wt 117.0 kg
[~2021-05-05 09:00] MED LIST changes: +ASPI-1238 PO; -ASPI-983 PO; +MELA3TAB39 PO; -MELA3TAB65 PO; +MULT-567 PO; -MULT1TAB69 PO; -POLY17PO31 PO; +POLY17PO54 PO; +SERT-413 PO; -SERT50TA9 PO; +TIZA-186 PO; -TIZA4TAB4 PO; -VALA500T PO; +VALA500T7 PO
[2021-05-05] MEDS ORDERED: fentaNYL INJ 100 MCG/2 ML AMP IVP ONE (09:45)
[2021-05-05 09:52] LABS: BASOPHILS # (AUTO) 0.1 10^3/uL (0.0-0.1); BASOPHILS % (AUTO) 1 % (0-10); EOSINOPHILS # (AUTO) 0.1 10^3/uL (0.0-0.3); EOSINOPHILS % (AUTO) 1 % (0-10); HEMATOCRIT 42 % (35-52); HEMOGLOBIN 13.9 g/dL (11.5-16.0); LYMPHOCYTES # (AUTO) 1.4 10^3/uL (1.0-4.0); LYMPHOCYTES % (AUTO) 17 % (12-44); MEAN CORPUSCULAR HEMOGLOBIN 30 pg (25-34); MEAN CORPUSCULAR HGB CONC 33 g/dL (32-36); MEAN CORPUSCULAR VOLUME 89 fL (80-99); MEAN PLATELET VOLUME 9.5 fL (9.0-12.2); MONOCYTES # (AUTO) 0.7 10^3/uL (0.0-1.0); MONOCYTES % (AUTO) 8 % (0-12); NEUTROPHILS # (AUTO) 6.1 10^3/uL (1.8-7.8); NEUTROPHILS % (AUTO) 73 % (42-75); PLATELET COUNT 232 10^3/uL (130-400); WHITE BLOOD COUNT 8.4 10^3/uL (4.3-11.0)
[2021-05-05 10:00] LABS: ALBUMIN 4.2 GM/DL (3.2-4.5)
[2021-05-05 10:01] LABS: POTASSIUM 3.9 MMOL/L (3.6-5.0)
[2021-05-05 10:02] LABS: CALCIUM 8.6 MG/DL (8.5-10.1)
[2021-05-05 10:03] LABS: TOTAL PROTEIN 7.4 GM/DL (6.4-8.2)
[2021-05-05 10:05] LABS: BILIRUBIN,TOTAL 0.7 MG/DL (0.1-1.0)
[2021-05-05 10:07] LABS: CREATININE SERUM 0.66 MG/DL (0.60-1.30)
[2021-05-05] MEDS ORDERED: morphine INJ 10 MG/ML 1ML (SYR OR VIAL) IVP STA (11:17)
[2021-05-05 11:28] LABS: BILIRUBIN,URINE NEGATIVE (NEGATIVE); CLARITY,URINE SL CLOUDY; COLOR,URINE YELLOW; GLUCOSE, URINE (UA) NEGATIVE (NEGATIVE); KETONES,URINE NEGATIVE (NEGATIVE); LEUKOCYTE ESTERASE ,URINE NEGATIVE (NEGATIVE); NITRITE,URINE NEGATIVE (NEGATIVE); PROTEIN,URINE 1+ (NEGATIVE)
[2021-05-05] MEDS ORDERED: ONDANSETRON 4 MG/2 ML (SDV) Z0FRAN IVP ONE (11:30)
[2021-05-05 11:37] LABS: BACTERIA,URINE NEGATIVE /HPF
[2021-05-05] MEDS ORDERED: HOLD METFORMIN - RECEIVED CONTRAST 20 ML VIAL IV SCH (11:45)
[2021-05-05] MEDS ORDERED: NS 100 ML (IVPB) BAG IV ONE (11:45)
[2021-05-05] MEDS ORDERED: IOHEXOL 350 MG/ML 100 ML (OMNIPAQUE 350) VIAL IV ONE (11:45)
--- NOTE | 2021-05-05 12:38 | Diagnostic Imaging Report ---
PROCEDURE: CT chest, abdomen, and pelvis with contrast. TECHNIQUE: Multiple contiguous axial images were obtained through the chest, abdomen, and pelvis after the administration of intravenous contrast. Auto Exposure Controls were utilized during the CT exam to meet ALARA standards for radiation dose reduction. INDICATION: Fall with severe right-sided chest pain and flank pain as well as hematuria and vaginal bleeding. COMPARISON: Comparison is made with prior CT chest from 01/14/[address] abdomen and pelvis study from 06/19/2017. FINDINGS: CT CHEST: No definite mediastinal hematoma or great vessel injury is identified. No pericardial fluid is seen. There is trace right pleural effusion. No pulmonary contusion or pneumothorax is identified. There are right posterolateral sixth and seventh rib fractures. There are several healed bilateral rib fractures. Kyphoplasty changes at T11 are noted. IMPRESSION: Right sixth and seventh posterolateral rib fractures with trace right pleural effusion and right basilar subsegmental atelectasis. CT ABDOMEN AND PELVIS: No focal liver or splenic laceration is seen. Gallbladder is surgically absent. Pancreas is unremarkable. No adrenal mass or hematoma is identified. No definite renal injury is detected. There is however a filling defect in the right renal pelvis on the delayed images measuring 15 mm x 8 mm. Aorta is unremarkable. Bowel loops are normal in caliber. There is no free fluid or evidence of hemoperitoneum. The bladder and uterus are unremarkable. No acute bony abnormality is detected. IMPRESSION: No evidence of abdominal or pelvic visceral injury. There is a filling defect in the right renal pelvis. This could potentially represent a small blood clot or mass. Follow-up could be performed. No other significant abnormality is seen. Dictated by: Dictated on workstation # [id number]
--- NOTE | 2021-05-05 13:22 | ED General ---
General Chief Complaint: Trauma-Non Activation Stated Complaint: FELL,RUQ PAIN/BACK PAIN, VAGINAL BLEEDING Nursing Triage Note: PT TO RM 6 PER W/C PT FELL LAST WEDNESDAY AND INJURED R RIB AND BACK AREA. PT WAS SEEN AT URGENT CARE. DENIES HITTING HEAD OR LOC. PT STATES LAST PM STARTED HAVING LOTS OF BLOOD IN STOOL WHEN URINATING. Source of Information: Patient Exam Limitations: No Limitations History of Present Illness Date Seen by Provider: May 05, 2021 Time Seen by Provider: 09:20 Initial Comments Patient is a 71-year-old female who presents to the emergency room with a chief complaint of right mid lateral chest pain, right flank pain and blood from either her vagina or urine onset yesterday. Patient had a mechanical fall while in her closet on Wednesday of last week. She subsequently went to her doctor [facility] and had a chest x-ray. Patient states she was told she may have rib fractures. She has been alternating Tylenol and ibuprofen without any relief of symptoms. She found some old oxycodone from prior surgeries and has been taking that as well. She is short of breath secondary to pain. She is nauseous due to the pain. It radiates into her back. She denies any numbness tingling or weakness in her legs. No burning with urination no diarrhea. No actual anterior abdominal pain. She did not hit her head or have a loss of consciousness. She did note when she urinated last night that the toilet was filled with blood, she took a picture and send it to her daughter. This was shown to me. She did have quite a significant amount of gross hematuria no prior history of kidney stone. No recent fevers or chills or URI symptoms. All other review of systems reviewed and negative except as stated. Location Injury Occurred: HOME Timing/Duration: 4-5 Days Severity: Severe Modifying Factors: worse with Movement; improves with Rest Associated Systoms: Chest Pain, Nausea/Vomiting, Shortness of Air Allergies and Home Medications Allergies Coded Allergies: Penicillins (Unverified Allergy, Unknown, 01/17/19) Sulfa (Sulfonamide Antibiotics) (Unverified Allergy, Unknown, 01/17/19) lincomycin (Verified Allergy, Unknown, 06/19/17) nitrofurantoin (Unverified Allergy, Unknown, 06/19/17) propoxyphene (Unverified Allergy, Unknown, 06/19/17) Uncoded Allergies: "PRECIOUS" (Allergy, Unknown, 06/19/17) Patient Home Medication List Home Medication List Reviewed: Yes Ascorbate Calcium (Vitamin C) 500 Mg Tablet, 500 MG PO DAILY, (Reported) Entered as Reported by: AUGUSTIN HILLMAN on 01/16/19840 Aspirin (Aspirin EC) 81 Mg Tablet.dr, 81 MG PO DAILY, (Reported) Entered as Reported by: AUGUSTIN HILLMAN on 01/16/19840 Baclofen (Baclofen) 10 Mg Tablet, 10 MG PO Q6HR PRN for MUSCLE SPASMS Prescribed by: RAJESH LEWIS on 01/30/192104 Bupropion HCl (Bupropion HCl Sr) 150 Mg Tablet.er, 150 MG PO BID, (Reported) Entered as Reported by: AUGUSTIN HILLMAN on 01/16/19836 Cholecalciferol (Vitamin D3) (Vitamin D3) 1,000 Unit Capsule, 1,000 UNIT PO DAILY, (Reported) Entered as Reported by: AUGUSTIN HILLMAN on 01/16/19840 Colestipol HCl (Colestipol HCl) 1 Gm Tablet, 1 GM PO BID PRN for DIARRHEA, (Reported) Entered as Reported by: AUGUSTIN HILLMAN on 01/16/19836 Enoxaparin Sodium (Enoxaparin Sodium) 40 Mg/0.4 Ml Syringe, 40 MG SC BID Prescribed by: RAJESH LEWIS on 01/30/192104 Ezetimibe (Ezetimibe) 10 Mg Tablet, 10 MG PO HS, (Reported) Entered as Reported by: TAMMIE SILVERIO on 01/14/191203 Hydrocortisone (Hydrocortisone) 453.6 Gm Cream..g., TOP BID, (Reported) Entered as Reported by: AUGUSTIN HILLMAN on 01/16/19836 Levothyroxine Sodium (Levothyroxine Sodium) 137 Mcg Tablet, 137 MCG PO DAILY, (Reported) Entered as Reported by: TAMMIE SILVERIO on 01/14/191203 Melatonin (Melatonin) 3 Mg Tablet, 3 MG PO HS PRN for SLEEP Prescribed by: RAJESH LEWIS on 01/30/192104 Meloxicam (Meloxicam) 15 Mg Tablet, 15 MG PO DAILY, (Reported) Entered as Reported by: AUGUSTIN HILLMAN on 01/16/19836 Multivitamin (Multivitamins) 1 Each Tablet, 1 TAB PO DAILY, (Reported) Entered as Reported by: AUGUSTIN HILLMAN on 01/16/19840 Ondansetron (Ondansetron Odt) 8 Mg Tab.rapdis, 8 MG PO Q8H PRN for nausea Prescribed by: RICKEY GALINDO on 05/05/21 132 Oxybutynin Chloride (Oxybutynin Chloride) 5 Mg Tablet, 5 MG PO BID, (Reported) Entered as Reported by: AUGUSTIN HILLMAN on 01/16/19836 Oxycodone HCl/Acetaminophen (Percocet 5-325 mg Tablet) 1 Each Tablet, 1 TAB PO Q6H Prescribed by: RICKEY GALINDO on 05/05/21 132 Oxycodone Hcl (Oxycodone IR) 5 Mg Tab, 5 MG PO Q4H PRN for PAIN-SEVERE Prescribed by: RAJESH LEWIS on 01/30/192104 Polyethylene Glycol 3350 (Polyethylene Glycol 3350) 17 Gm Powd.pack, 34 GM PO BID Prescribed by: RAJESH LEWIS on 01/30/192104 Sertraline HCl (Sertraline HCl) 50 Mg Tablet, 50 MG PO DAILY, (Reported) Entered as Reported by: TAMMIE SILVERIO on 01/14/19 120 Tizanidine HCl (Tizanidine HCl) 4 Mg Tablet, 2-4 MG PO TID PRN for MUSCLE SPASMS, (Reported) Entered as Reported by: AUGUSTIN HILLMAN on 01/16/19840 Valacyclovir HCl (Valacyclovir) 500 Mg Tablet, 500 MG PO BID PRN for COLD SORE, (Reported) Entered as Reported by: AUGUSTIN HILLMAN on 01/16/19836 Vitamin E Acetate (Vitamin E) 400 Unit Capsule, 400 UNIT PO DAILY, (Reported) Entered as Reported by: AUGUSTIN HILLMAN on 01/16/19840 Zolpidem Tartrate (Zolpidem Tartrate) 10 Mg Tablet, 10 MG PO HS Prescribed by: RAJESH LEWIS on 01/30/192104 [Lidocaine 4% Patch] 1 EA PATCH, 1 EA TOP DAILY Prescribed by: RAJESH LEWIS on 01/30/192104 Review of Systems Review of Systems Constitutional: see HPI EENTM: no symptoms reported Respiratory: short of breath Cardiovascular: chest pain (right rib) Gastrointestinal: abdominal pain (RUQ) Genitourinary: hematuria : No Musculoskeletal: back pain Skin: no symptoms reported Psychiatric/Neurological: No Symptoms Reported Hematologic/Lymphatic: No Symptoms Reported All Other Systems Reviewed Negative Unless Noted: Yes Past Rygrseb-Tbizrx-Linilk Hx Patient Social History Tobacco Use?: No Substance use?: No Alcohol Use?: No Pt feels they are or have been: No Immunizations Up To Date PED Vaccines UTD: Yes Seasonal Allergies Seasonal Allergies: No Past Medical History Surgeries: Yes (KYPHOPLASTY) Adenoidectomy, Appendectomy, Eye Surgery, Gallbladder, Joint Replacement, Orthopedic, Tonsillectomy, Tubal Ligation Respiratory: Yes Sleep Apnea Currently Using CPAP: Yes Cardiac: Yes High Cholesterol Neurological: No Sexually Transmitted Disease: No HIV/AIDS: No Genitourinary: No Gastrointestinal: Yes Chronic Constipation, Gall Bladder Disease Musculoskeletal: No (KYPHOSIS, RIGH SHOULDER PAIN, RIGHTFEMUR FX) Endocrine: Yes Hypothyroidsim HEENT: Yes (EYE SURGERY) Cancer: No Psychosocial: Yes Sleep Difficulties, Anxiety, Depression Integumentary: No Blood Disorders: No Family Medical History Completed stroke 19 MOTHER Hypercholesterolemia 19 MOTHER maternal grandmother Myocardial infarction maternal grandmother Neoplasm maternal grandfather (LUNG CANCER) paternal grandfather (LUNG CANCER) No Pertinent Family Hx Physical Exam Vital Signs Vital Signs - First Documented Capillary Refill : Less Than 3 Seconds Height, Weight, BMI Height: 5'6.00" Weight: 216lbs. oz. 97.600919tu; 42.00 BMI Method:Stated General Appearance: WD/WN, Anxious, Mild Distress Eyes: Bilateral Eye Normal Inspection, Bilateral Eye PERRL, Bilateral Eye EOMI HEENT: PERRL/EOMI, TMs Normal, Normal ENT Inspection Neck: Full Range of Motion, Normal Inspection, Non Tender Respiratory: Lungs Clear, Normal Breath Sounds, No Accessory Muscle Use, Other (tenderness over the right mid lateral ribs to palpation, no crepitance; no bruising over the chest wall. no swelling; pain appears pleuritic in nature) Cardiovascular: Regular Rate, Rhythm, Normal Peripheral Pulses Gastrointestinal: Normal Bowel Sounds, Soft, Tenderness (RUQ - no Palafox's) Genital/Rectal: Normal Genital Exam, Other (Bimanual exam - greenish brown discharge in the vagina, cervix feels smooth and is closed. no masses - no blood at urethral meatus, no blood at rectum (LAKHWINDER not performed), no CMT) Back: Normal Inspection, No Vertebral Tenderness, CVA Tenderness (R) Extremity: Normal Capillary Refill, Normal Range of Motion, Non Tender, No Calf Tenderness, Other (large area of ecchymoses right lateral thigh) Neurologic/Psychiatric: Alert, Oriented x3, No Motor/Sensory Deficits, Normal Mood/Affect, icu tech II-XII Norm as Tested Skin: Normal Color, Warm/Dry Progress/Results/Core Measures Suspected Sepsis Recent Fever Within 48 Hours: No Infection Criteria Present: None New/Unexplained Altered Menta: No SIRS Temperature: Pulse: 96 Respiratory Rate: 18 Laboratory Tests 05/05/21 09:45: White Blood Count 8.4 Blood Pressure 149 /80 Mean: 103 Laboratory Tests 05/05/21 09:45: Creatinine 0.66, INR Comment 1.0, Platelet Count 232, Total Bilirubin 0.7 Results/Orders Lab Results Laboratory Tests Test 05/05/21 09:45 05/05/21 11:15 Range/Units White Blood Count 8.4 4.3-11.0 10^3/uL Red Blood Count 4.70 3.80-5.11 10^6/uL Hemoglobin 13.9 11.5-16.0 g/dL Hematocrit 42 35-52 % Mean Corpuscular Volume 89 80-99 fL Mean Corpuscular Hemoglobin 30 25-34 pg Mean Corpuscular Hemoglobin Concent 33 32-36 g/dL Red Cell Distribution Width 13.4 10.0-14.5 % Platelet Count 232 130-400 10^3/uL Mean Platelet Volume 9.5 9.0-12.2 fL Immature Granulocyte % (Auto) 1 % Neutrophils (%) (Auto) 73 42-75 % Lymphocytes (%) (Auto) 17 12-44 % Monocytes (%) (Auto) 8 0-12 % Eosinophils (%) (Auto) 1 0-10 % Basophils (%) (Auto) 1 0-10 % Neutrophils # (Auto) 6.1 1.8-7.8 10^3/uL Lymphocytes # (Auto) 1.4 1.0-4.0 10^3/uL Monocytes # (Auto) 0.7 0.0-1.0 10^3/uL Eosinophils # (Auto) 0.1 0.0-0.3 10^3/uL Basophils # (Auto) 0.1 0.0-0.1 10^3/uL Immature Granulocyte # (Auto) 0.0 0.0-0.1 10^3/uL Prothrombin Time 14.0 12.2-14.7 SEC INR Comment 1.0 0.8-1.4 Activated Partial Thromboplast Time 32 24-35 SEC Sodium Level 140 135-145 MMOL/L Potassium Level 3.9 3.6-5.0 MMOL/L Chloride Level 106 98-107 MMOL/L Carbon Dioxide Level 21 21-32 MMOL/L Anion Gap 13 5-14 MMOL/L Blood Urea Nitrogen 13 7-18 MG/DL Creatinine 0.66 0.60-1.30 MG/DL Estimat Glomerular Filtration Rate 93 BUN/Creatinine Ratio 20 Glucose Level 107 H 70-105 MG/DL Calcium Level 8.6 8.5-10.1 MG/DL Corrected Calcium 8.4 L 8.5-10.1 MG/DL Total Bilirubin 0.7 0.1-1.0 MG/DL Aspartate Amino Transf (AST/SGOT) 16 5-34 U/L Alanine Aminotransferase (ALT/SGPT) 16 0-55 U/L Alkaline Phosphatase 39 L 40-136 U/L Total Protein 7.4 6.4-8.2 GM/DL Albumin 4.2 3.2-4.5 GM/DL Urine Color YELLOW Urine Clarity SL CLOUDY Urine pH 7.0 5-9 Urine Specific [place] 1.015 L 1.016-1.022 Urine Protein 1+ H NEGATIVE Urine Glucose (UA) NEGATIVE NEGATIVE Urine Ketones NEGATIVE NEGATIVE Urine Nitrite NEGATIVE NEGATIVE Urine Bilirubin NEGATIVE NEGATIVE Urine Urobilinogen 0.2 < = 1.0 MG/DL Urine Leukocyte Esterase NEGATIVE NEGATIVE Urine RBC (Auto) 3+ H NEGATIVE Urine RBC 5-10 H /HPF Urine WBC NONE /HPF Urine Squamous Epithelial Cells NONE /HPF Urine Crystals NONE /LPF Urine Bacteria NEGATIVE /HPF Urine Casts NONE /LPF Urine Mucus NEGATIVE /LPF Urine Culture Indicated NO My Orders Orders - RICKEY GALINDO MD Ed Iv/Invasive Line Start (05/05/21 09:33) Cbc With Automated Diff (05/05/21 09:33) Comprehensive Metabolic Panel (05/05/21 09:33) Ua Culture If Indicated (05/05/21 09:33) Fentanyl Inj (Sublimaze Injection) (05/05/21 09:45) Protime With Inr (05/05/21 09:33) Partial Thromboplastin Time (05/05/21 09:33) Ct Chest/Abdomen/Pelvis W (05/05/21 11:17) Morphine Injection (Morphine Injection (05/05/21 11:17) Ondansetron Injection (Zofran Injectio (05/05/21 11:30) Iohexol Injection (Omnipaque 350 Mg/Ml 1 (05/05/21 11:45) Ns (Ivpb) (Sodium Chloride 0.9% Ivpb Bag (05/05/21 11:45) Received Contrast (Hold Metformin- Contr (05/05/21 11:45) Oxycodone/Apap 7.5/325mg Tab (Percocet (05/05/21 13:30) Medications Given in ED Vital Signs/I&O 05/05/21 05/05/21 05/05/21 09:15 09:15 13:23 Temp 35.5 35.5 Pulse 96 96 82 Resp 18 18 18 B/P (MAP) 149/80 (103) 149/80 (103) 141/70 Pulse Ox 96 96 96 O2 Delivery Room Air Room Air Room Air Capillary Refill : Less Than 3 Seconds Blood Pressure Mean: 103 Progress Note : Time: 13:18 Progress Note Advised patient of CT findings, broken ribs and small clot at right renal pelvis. She has had some pain meds and nausea meds. sig pain with getting up but once shes up it gets better. Will give percocet for pain, nausea meds. Incentive spirometer. Advised follow up with PCP this week if possible. Encouraged deep breaths and stool softeners with pain meds. return precautions - especially with fever. She is comfortable with plan of care. Daughter is taking her home to her house. All questions are sought and answered. Diagnostic Imaging Diagonstic Imaging: CT Comments [facility] [place], [place] NAME: RADHA NAJERA MED REC#: [id number] PT STATUS: DEP ER : [id number] PHYSICIAN: RICKEY GALINDO MD ADMIT DATE: 05/05/21/ER Signed Date of Exam:05/05/21 CT CHEST/ABDOMEN/PELVIS W PROCEDURE: CT chest, abdomen, and pelvis with contrast. TECHNIQUE: Multiple contiguous axial images were obtained through the chest, abdomen, and pelvis after the administration of intravenous contrast. Auto Exposure Controls were utilized during the CT exam to meet ALARA standards for radiation dose reduction. INDICATION: Fall with severe right-sided chest pain and flank pain as well as hematuria and vaginal bleeding. COMPARISON: Comparison is made with prior CT chest from 01/14/[address] abdomen and pelvis study from 06/19/2017. FINDINGS: CT CHEST: No definite mediastinal hematoma or great vessel injury is identified. No pericardial fluid is seen. There is trace right pleural effusion. No pulmonary contusion or pneumothorax is identified. There are right posterolateral sixth and seventh rib fractures. There are several healed bilateral rib fractures. Kyphoplasty changes at T11 are noted. IMPRESSION: Right sixth and seventh posterolateral rib fractures with trace right pleural effusion and right basilar subsegmental atelectasis. CT ABDOMEN AND PELVIS: No focal liver or splenic laceration is seen. Gallbladder is surgically absent. Pancreas is unremarkable. No adrenal mass or hematoma is identified. No definite renal injury is detected. There is however a filling defect in the right renal pelvis on the delayed images measuring 15 mm x 8 mm. Aorta is unremarkable. Bowel loops are normal in caliber. There is no free fluid or evidence of hemoperitoneum. The bladder and uterus are unremarkable. No acute bony abnormality is detected. IMPRESSION: No evidence of abdominal or pelvic visceral injury. There is a filling defect in the right renal pelvis. This could potentially represent a small blood clot or mass. Follow-up could be performed. No other significant abnormality is seen. Dictated by: Dictated on workstation # [id number] Dict: 05/05/21 1226 Trans: 05/05/21 1530 [id number] Interpreted by: ELE ARRIOLA MD Electronically signed by: ELE ARRIOLA MD 05/05/21 1530 Departure Impression Primary Impression: Multiple fractures of ribs, right side, initial encounter for closed fracture Additional Impressions: Pleural effusion Hematuria Qualified Codes: R31.9 - Hematuria, unspecified Contusion of right thigh Qualified Codes: S70.11XA - Contusion of right thigh, initial encounter Disposition: 01 HOME, SELF-CARE Condition: Stable Departure-Patient Inst. Decision time for Depature: 13:25 Referrals: NO,LOCAL PHYSICIAN (PCP/Family) Primary Care Physician Patient Instructions: Rib Fracture (DC), Blood in Urine (Hematuria), Adult ED Add. Discharge Instructions: Drink lots of fluids to stay well-hydrated and and to help clear out your urine. Use the incentive spirometer as directed, frequently throughout the day. Take the pain medications every 6 hours with food as needed. Also nausea medicines if the pain medications make you sick. Please take stool softeners twice a day while taking pain meds. You can supplement your pain medication with some ibuprofen, 600 mg every 8 hours with food. Return to the emergency department for worsening pain especially with shortness of breath, productive cough, fever over 100.4 or any other emergent concerning symptoms. Please follow-up with your primary care doctor this week. If you cannot see him this week try and schedule an appointment for the first of next week. Scripts Ondansetron (Ondansetron Odt) 8 Mg Tab.rapdis 8 MG PO Q8H PRN for nausea, #20 TAB Prov: RICKEY GALINDO MD 05/05/21 Oxycodone HCl/Acetaminophen (Percocet 5-325 mg Tablet) 1 Each Tablet 1 TAB PO Q6H for PAIN-MODERATE MDD 6 TABS, #20 TAB Prov: RICKEY GALINDO MD 05/05/21 RICKEY GALINDO MD May 05, 2021 13:21
[2021-05-05 13:23] VITALS: BP 141/70
[2021-05-05] MEDS ORDERED: OXYC1TAB87 PO (13:27)
[2021-05-05] MEDS ORDERED: ONDA8TAB13 PO (13:27)
[2021-05-05] MEDS ORDERED: oxyCODONE/APAP 7.5-325 MG (PERCOCET 7.5) TABLET PO ONE (13:30)
== END 2021-05-05 13:45 | disposition home or self-care (01) ==
LOC: EDUNIT# 09:00 → ER 09:04
DX: S22.41XA Multiple fractures of ribs, right side, initial encounter for closed fracture (principal); S70.11XA Contusion of right thigh, initial encounter; J90 Pleural effusion, not elsewhere classified; R31.9 Hematuria, unspecified; G47.30 Sleep apnea, unspecified; E78.00 Pure hypercholesterolemia, unspecified; F41.9 Anxiety disorder, unspecified; F32.9 Major depressive disorder, single episode, unspecified; E03.9 Hypothyroidism, unspecified; Z79.899 Other long term (current) drug therapy; Z79.890 Hormone replacement therapy; Z79.82 Long term (current) use of aspirin; Z79.01 Long term (current) use of anticoagulants; W19.XXXA Unspecified fall, initial encounter
CPT/HCPCS: 36415; 71260; 74177; 80053; 81000; 85025; 85610; 85730

== ENCOUNTER → 2021-05-12 | Outpatient (CLI) | payer MEDICARE ==
[~2021-05-12] MED LIST changes: +CATHETER FLUSH 10 ML SYR IV PRN; +HOLD METFORMIN - RECEIVED CONTRAST 20 ML VIAL IV SCH; +IOHEXOL 350 MG/ML 100 ML (OMNIPAQUE 350) VIAL IV ONE; +NS 100 ML (IVPB) BAG IV ONE; +ONDA8TAB13 PO; +OXYC1TAB87 PO
[2021-05-12 14:42] LABS: BILIRUBIN,URINE NEGATIVE (NEGATIVE); CLARITY,URINE CLEAR; COLOR,URINE YELLOW; GLUCOSE, URINE (UA) NEGATIVE (NEGATIVE); KETONES,URINE NEGATIVE (NEGATIVE); LEUKOCYTE ESTERASE ,URINE NEGATIVE (NEGATIVE); NITRITE,URINE NEGATIVE (NEGATIVE); PH,URINE 5.5 (5-9); PROTEIN,URINE NEGATIVE (NEGATIVE)
[2021-05-12 14:50] LABS: AMORPHOUS SEDIMENT,UR FEW AMOR URATES /LPF; BACTERIA,URINE NEGATIVE /HPF; RBC,URINE RARE /HPF; WBC,URINE RARE /HPF
--- NOTE | 2021-05-12 16:55 | Diagnostic Imaging Report ---
PROCEDURE: CT abdomen and pelvis with and without contrast. TECHNIQUE: Precontrast acquisitions were acquired through the abdomen and pelvis. Multiple contiguous axial images were obtained through the abdomen and pelvis after the administration of intravenous contrast. Auto Exposure Controls were utilized during the CT exam to meet ALARA standards for radiation dose reduction. INDICATION: Gross hematuria. COMPARISON: 05/05/2021. FINDINGS: Lower chest: The lung bases are clear. No pericardial or pleural effusion. Peritoneum: No free intraperitoneal air or fluid. Liver and biliary system: The liver is normal. Cholecystectomy has likely been performed. No biliary duct dilatation. Spleen and Pancreas: Spleen is normal. The pancreas enhances normally without mass lesion or peripancreatic inflammatory changes. Adrenals: Normal. tract: No solid renal mass is present. The previously noted filling defect within the renal pelvis on the right has resolved. No renal or ureteral stones. Urinary bladder is decompressed. Uterus is normal in appearance. GI tract: Stomach is partially filled with fluid and there is no wall thickening. No bowel obstruction. No pericolonic inflammatory changes. The appendix is not seen and could be surgically absent but there are no features that would suggest acute appendicitis. Vasculature and Lymph nodes: Normal caliber aorta. No abdominal or pelvic lymphadenopathy. Musculoskeletal: Unchanged grade 2 anterolisthesis of L4 on L5 due to chronic bilateral pars defects. IMPRESSION: 1. Resolution of the filling defect in the proximal right ureter which was likely due to blood clot. No renal mass on either side. 2. No urinary tract calculi. Dictated by: Dictated on workstation # [id number]
== END ==
LOC: RAD 14:21
PROVIDERS: ATTEND Nurse Practitioner Women's Health
DX: R31.0 Gross hematuria (principal); R93.41 Abnormal radiologic findings on diagnostic imaging of renal pelvis, ureter, or bladder
CPT/HCPCS: 74178; 81000

== ENCOUNTER 2021-09-30 16:37 | Emergency (ER) | payer MEDICARE ==
[~2021-09-30] VITALS: Ht 165.1 cm; Wt 124.7 kg
[~2021-09-30 16:37] MED LIST changes: +BUPR-105 PO; -BUPR150T14 PO; -CATHETER FLUSH 10 ML SYR IV PRN; -HOLD METFORMIN - RECEIVED CONTRAST 20 ML VIAL IV SCH; -IOHEXOL 350 MG/ML 100 ML (OMNIPAQUE 350) VIAL IV ONE; -NS 100 ML (IVPB) BAG IV ONE
--- NOTE | 2021-09-30 17:12 | ED Fall/Injury ---
General Chief Complaint: Trauma-Non Activation Stated Complaint: FALL Nursing Triage Note: [place] this am [place] 1015 [place] same [place] fall where she tripped and fell hitting head on wooden counter landing flat on her stomach. Did NOT loc. took tylenol at 1400. currently c/o posterior headache and pain in neck and shoulders. Source: patient Exam Limitations: no limitations History of Present Illness Date Seen by Provider: Sep 30, 2021 Time Seen by Provider: 16:58 Initial Comments This is a 55-year-old female who presented to the ER via POV with complaints of headache and neck pain. States that she tripped and stumbled forward around 1015 this morning and hit her head into a wooden counter. States that she fell forward flat on her stomach after fall. Did not have any loss of consciousness. States that she drove herself home and attempted to follow-up with express care however they recommended she present to the ER for further evaluation. She took Tylenol around 1400 this evening but states that this is not helping. Pain is currently located left side of neck and of the back of her head. Denies changes in vision, numbness, tingling, loss of balance, slurred speech, cough, chest pain, shortness of breath, nausea, vomiting, abdominal pain. Denies any other injuries sustained from fall. Allergies and Home Medications Allergies Coded Allergies: Penicillins (Unverified Allergy, Unknown, 09/30/21) Sulfa (Sulfonamide Antibiotics) (Unverified Allergy, Unknown, 09/30/21) lincomycin (Verified Allergy, Unknown, 09/30/21) nitrofurantoin (Unverified Allergy, Unknown, 09/30/21) propoxyphene (Unverified Allergy, Unknown, 09/30/21) Uncoded Allergies: "PRECIOUS" (Allergy, Unknown, 06/19/17) Patient Home Medication List Home Medication List Reviewed: Yes Ascorbate Calcium (Vitamin C) 500 Mg Tablet, 500 MG PO DAILY, (Reported) Entered as Reported by: AUGUSTIN HILLMAN on 01/16/19840 Aspirin (Aspirin EC) 81 Mg Tablet.dr, 81 MG PO DAILY, (Reported) Entered as Reported by: AUGUSTIN HILLMAN on 01/16/19840 Baclofen (Baclofen) 10 Mg Tablet, 10 MG PO Q6HR PRN for MUSCLE SPASMS Prescribed by: RAJESH LEWIS on 01/30/192104 Bupropion HCl (Bupropion HCl Sr) 150 Mg Tablet.er, 150 MG PO BID, (Reported) Entered as Reported by: AUGUSTIN HILLMAN on 01/16/19836 Cholecalciferol (Vitamin D3) (Vitamin D3) 1,000 Unit Capsule, 1,000 UNIT PO DAILY, (Reported) Entered as Reported by: AUGUSTIN HILLMAN on 01/16/19840 Colestipol HCl (Colestipol HCl) 1 Gm Tablet, 1 GM PO BID PRN for DIARRHEA, (Reported) Entered as Reported by: AUGUSTIN HILLMAN on 01/16/19836 Enoxaparin Sodium (Enoxaparin Sodium) 40 Mg/0.4 Ml Syringe, 40 MG SC BID Prescribed by: RAJESH LEWIS on 01/30/192104 Ezetimibe (Ezetimibe) 10 Mg Tablet, 10 MG PO HS, (Reported) Entered as Reported by: TAMMIE SILVERIO on 01/14/191203 Hydrocortisone (Hydrocortisone) 453.6 Gm Cream..g., TOP BID, (Reported) Entered as Reported by: AUGUSTIN HILLMAN on 01/16/19836 Levothyroxine Sodium (Levothyroxine Sodium) 137 Mcg Tablet, 137 MCG PO DAILY, (Reported) Entered as Reported by: TAMMIE SILVERIO on 01/14/191203 Melatonin (Melatonin) 3 Mg Tablet, 3 MG PO HS PRN for SLEEP Prescribed by: RAJESH LEWIS on 01/30/192104 Meloxicam (Meloxicam) 15 Mg Tablet, 15 MG PO DAILY, (Reported) Entered as Reported by: AUGUSTIN HILLMAN on 01/16/19836 Multivitamin (Multivitamins) 1 Each Tablet, 1 TAB PO DAILY, (Reported) Entered as Reported by: AUGUSTIN HILLMAN on 01/16/19840 Ondansetron (Ondansetron Odt) 8 Mg Tab.rapdis, 8 MG PO Q8H PRN for nausea Prescribed by: RICKEY GALINDO on 05/05/21 1327 Oxybutynin Chloride (Oxybutynin Chloride) 5 Mg Tablet, 5 MG PO BID, (Reported) Entered as Reported by: AUGUSTIN HILLMAN on 01/16/19836 Oxycodone HCl/Acetaminophen (Percocet 5-325 mg Tablet) 1 Each Tablet, 1 TAB PO Q6H Prescribed by: RICKEY GALINDO on 05/05/21 1328 Oxycodone Hcl (Oxycodone IR) 5 Mg Tab, 5 MG PO Q4H PRN for PAIN-SEVERE Prescribed by: RAJESH LEWIS on 01/30/192104 Polyethylene Glycol 3350 (Polyethylene Glycol 3350) 17 Gm Powd.pack, 34 GM PO BID Prescribed by: RAJESH LEWIS on 01/30/192104 Sertraline HCl (Sertraline HCl) 50 Mg Tablet, 50 MG PO DAILY, (Reported) Entered as Reported by: TAMMIE SILVERIO on 01/14/19 1204 Tizanidine HCl (Tizanidine HCl) 4 Mg Tablet, 2-4 MG PO TID PRN for MUSCLE SPASMS, (Reported) Entered as Reported by: AUGUSTIN HILLMAN on 01/16/19 08 Valacyclovir HCl (Valacyclovir) 500 Mg Tablet, 500 MG PO BID PRN for COLD SORE, (Reported) Entered as Reported by: AUGUSTIN HILLMAN on 01/16/19 0837 Vitamin E Acetate (Vitamin E) 400 Unit Capsule, 400 UNIT PO DAILY, (Reported) Entered as Reported by: AUGUSTIN HILLMAN on 01/16/19 08 Zolpidem Tartrate (Zolpidem Tartrate) 10 Mg Tablet, 10 MG PO HS Prescribed by: RAJESH LEWIS on 01/30/192104 [Lidocaine 4% Patch] 1 EA PATCH, 1 EA TOP DAILY Prescribed by: RAJESH LEWIS on 01/30/192104 Review of Systems Review of Systems Constitutional: no symptoms reported Eyes: No Symptoms Reported Ears, Nose, Mouth, Throat: no symptoms reported Respiratory: no symptoms reported Cardiovascular: no symptoms reported Gastrointestinal: no symptoms reported Genitourinary: no symptoms reported Musculoskeletal: see HPI Skin: no symptoms reported Psychiatric/Neurological: No Symptoms Reported Past Gynpkzq-Pwkwyv-Ohvyyj Hx Immunizations Up To Date PED Vaccines UTD: Yes Seasonal Allergies Seasonal Allergies: No Past Medical History Surgeries: Yes (KYPHOPLASTY) Adenoidectomy, Appendectomy, Eye Surgery, Gallbladder, Joint Replacement, Orthopedic, Tonsillectomy, Tubal Ligation Respiratory: Yes Sleep Apnea Currently Using CPAP: Yes Cardiac: Yes High Cholesterol Neurological: No Sexually Transmitted Disease: No HIV/AIDS: No Genitourinary: No Gastrointestinal: Yes Chronic Constipation, Gall Bladder Disease Musculoskeletal: No (KYPHOSIS, RIGH SHOULDER PAIN, RIGHTFEMUR FX) Endocrine: Yes Hypothyroidsim HEENT: Yes (EYE SURGERY) Cancer: No Psychosocial: Yes Sleep Difficulties, Anxiety, Depression Integumentary: No Blood Disorders: No Family Medical History Completed stroke 19 MOTHER Hypercholesterolemia 19 MOTHER maternal grandmother Myocardial infarction maternal grandmother Neoplasm maternal grandfather (LUNG CANCER) paternal grandfather (LUNG CANCER) No Pertinent Family Hx Physical Exam Vital Signs Vital Signs - First Documented Capillary Refill : Less Than 3 Seconds Height, Weight, BMI Height: 5'6.00" Weight: 216lbs. oz. [id number]; 45.00 BMI Method:Stated General Appearance: WD/WN, no apparent distress HEENT: PERRL/EOMI, normal ENT inspection, TMs normal (negative hemotympanum ), pharynx normal Neck: supple, normal inspection, limited range of motion, tender lateral (left side tenderness ) Cardiovascular: regular rate, rhythm, no murmur Respiratory: lungs clear, normal breath sounds, no respiratory distress Gastrointestinal: normal bowel sounds, non tender, soft Back: normal inspection Extremities: No normal range of motion (limited from prior surgery ); non- tender, normal inspection, no pedal edema, other (neurovascular intact. ) Neurologic/Psychiatric: no motor/sensory deficits, alert, normal mood/affect, oriented x 3 Skin: normal color, warm/dry Lymphatic: no adenopathy [place] Coma Score Best Eye Response: (4) Open Spontaneously Best Verbal Response: (5) Oriented Best Motor Response: (6) Obeys Commands Justine Total: 15 Progress/Results/Core Measures Results/Orders Lab Results Laboratory Tests Test 09/30/21 17:57 Range/Units White Blood Count 8.6 4.3-11.0 10^3/uL Red Blood Count 4.63 3.80-5.11 10^6/uL Hemoglobin 14.1 11.5-16.0 g/dL Hematocrit 42 35-52 % Mean Corpuscular Volume 92 80-99 fL Mean Corpuscular Hemoglobin 31 25-34 pg Mean Corpuscular Hemoglobin Concent 33 32-36 g/dL Red Cell Distribution Width 12.6 10.0-14.5 % Platelet Count 228 130-400 10^3/uL Mean Platelet Volume 9.3 9.0-12.2 fL Immature Granulocyte % (Auto) 0 % Neutrophils (%) (Auto) 77 H 42-75 % Lymphocytes (%) (Auto) 13 12-44 % Monocytes (%) (Auto) 8 0-12 % Eosinophils (%) (Auto) 1 0-10 % Basophils (%) (Auto) 1 0-10 % Neutrophils # (Auto) 6.6 1.8-7.8 10^3/uL Lymphocytes # (Auto) 1.2 1.0-4.0 10^3/uL Monocytes # (Auto) 0.7 0.0-1.0 10^3/uL Eosinophils # (Auto) 0.1 0.0-0.3 10^3/uL Basophils # (Auto) 0.1 0.0-0.1 10^3/uL Immature Granulocyte # (Auto) 0.0 0.0-0.1 10^3/uL Sodium Level 138 135-145 MMOL/L Potassium Level 4.4 3.6-5.0 MMOL/L Chloride Level 105 98-107 MMOL/L Carbon Dioxide Level 25 21-32 MMOL/L Anion Gap 8 5-14 MMOL/L Blood Urea Nitrogen 20 H 7-18 MG/DL Creatinine 0.79 0.60-1.30 MG/DL Estimat Glomerular Filtration Rate 79 BUN/Creatinine Ratio 25 Glucose Level 96 70-105 MG/DL Calcium Level 8.9 8.5-10.1 MG/DL Corrected Calcium 8.8 8.5-10.1 MG/DL Total Bilirubin 0.4 0.1-1.0 MG/DL Aspartate Amino Transf (AST/SGOT) 20 5-34 U/L Alanine Aminotransferase (ALT/SGPT) 24 0-55 U/L Alkaline Phosphatase 43 40-136 U/L Total Protein 7.4 6.4-8.2 GM/DL Albumin 4.1 3.2-4.5 GM/DL My Orders Orders - SONG VOGT APRN Ct Head/Cervical Spine Wo (09/30/21 17:06) Ed Iv/Invasive Line Start (09/30/21 17:06) Orphenadrine Inj (Ed Only) (Norflex Inje (09/30/21 17:15) Ct Angio Head/Neck (09/30/21 17:48) Fentanyl Inj (Sublimaze Injection) (09/30/21 18:00) Cbc With Automated Diff (09/30/21 17:52) Comprehensive Metabolic Panel (09/30/21 17:52) Iohexol Injection (Omnipaque 350 Mg/Ml 1 (09/30/21 18:15) Received Contrast (Hold Metformin- Contr (09/30/21 18:15) Ns (Ivpb) (Sodium Chloride 0.9% Ivpb Bag (09/30/21 18:15) Fentanyl Inj (Sublimaze Injection) (09/30/21 19:30) Medications Given in ED Current Medications Medications Dose Ordered Sig/Heather Route Start Time Stop Time Status Last Admin Dose Admin Fentanyl Citrate 25 mcg ONCE ONCE IVP 09/30/21 18:00 09/30/21 18:01 DC 09/30/21 17:58 25 MCG Iohexol 100 ml ONCE ONCE IV 09/30/21 18:15 09/30/21 18:16 DC 09/30/21 18:14 75 ML Orphenadrine Citrate 60 mg ONCE ONCE IVP 09/30/21 17:15 09/30/21 17:16 DC 09/30/21 17:19 60 MG Sodium Chloride 100 ml ONCE ONCE IV 09/30/21 18:15 09/30/21 18:16 DC 09/30/21 18:15 80 ML Vital Signs/I&O 09/30/21 09/30/21 16:43 16:43 Temp 36.1 36.1 Pulse 88 88 Resp 20 20 B/P (MAP) 139/100 (113) 139/100 (113) Pulse Ox 96 96 O2 Delivery Room Air Room Air Blood Pressure Mean: 113 Progress Progress Note : Progress Note Patient examined and in no acute distress. On exam states that most of her pain is on the left side of her neck and radiates up into the back of her head. We will go ahead and place orders for CT head and cervical spine at this time. Orders placed for Norflex 60 mg IV push. While in CT, patient was placed in cervical spine as she was noted to have fracture of her C2 vertebral body. No other fractures identified. Initial report called by Dr. Loja, recommended CT angio head and neck to further evaluate vertebral artery involvement. Orders placed for fentanyl IV push. CT angio head and neck are unremarkable, no arterial involvement identified. Discussed findings with patient, states that she would like to transfer to [facility] as that is where most of her care has been in the past. Diagnostic Imaging Diagonstic Imaging: CT Comments [facility]. [place], [place] NAME: RADHA NAJERA [facility] REC#: [id number] PT STATUS: REG ER : 1950 PHYSICIAN: SONG VOGT [employer] REDEVELOPMENT SPECIALIST ADMIT DATE: 09/30/21/ER Draft Date of Exam:09/30/21 CT HEAD/CERVICAL SPINE WO PROCEDURE: CT head and CT cervical spine without contrast. TECHNIQUE: Multiple contiguous axial images were obtained through the brain and cervical spine without the use of intravenous contrast. Sagittal and coronal reformations through the cervical spine were then performed. Auto Exposure Controls were utilized during the CT exam to meet ALARA standards for radiation dose reduction. INDICATION: Fall with head and neck injury. COMPARISON: No prior studies are available for comparison. CT HEAD: The ventricles and sulci are appropriate for the patient's age. There is moderate periventricular low attenuation consistent with chronic microvascular ischemia. No sulcal effacement is identified. There is no midline shift. No acute intra-axial or extra-axial hemorrhage is detected. The cisterns are patent. The visualized paranasal sinuses are clear. IMPRESSION: 1. Changes of chronic microvascular ischemia. No acute intracranial process is detected. CT CERVICAL SPINE: Alignment of the cervical spine is normal apart from minimal anterolisthesis of C2 on C3. There is a fracture through the C2 vertebral body both on the right and left sides. The fracture lines do appear to extend and communicate with the transverse foramen both on the right and left sides. There does not appear to be involvement of the odontoid. No other cervical spine fractures are seen. There is multilevel degenerative disc disease with variable disc space narrowing and spurring noted. The bony canal is patent. IMPRESSION: 1. C2 vertebral body fracture with involvement of the transverse foramina bilaterally. CT angiography would be recommended to evaluate vertebral arteries. No other cervical spine fractures are identified. Results were called to the emergency department prior to this dictation. Dictated on workstation # [id number] Dict: 09/30/211741 Trans: 09/30/211750 [facility] [id number] Interpreted by: ELE LOJA MD Electronically signed by: Reviewed: Reviewed by Me Diagonstic Imaging: CT Comments [facility] [place] [place] NAME: RADHA NAJERA [facility] REC#: [id number] PT STATUS: REG ER : 1950 PHYSICIAN: SONG VOGT BROWN[employer] REDEVELOPMENT SPECIALIST ADMIT DATE: 09/30/21/ER Draft Date of Exam:09/30/21 CT HEAD/CERVICAL SPINE WO PROCEDURE: CT head and CT cervical spine without contrast. TECHNIQUE: Multiple contiguous axial images were obtained through the brain and cervical spine without the use of intravenous contrast. Sagittal and coronal reformations through the cervical spine were then performed. Auto Exposure Controls were utilized during the CT exam to meet ALARA standards for radiation dose reduction. INDICATION: Fall with head and neck injury. COMPARISON: No prior studies are available for comparison. CT HEAD: The ventricles and sulci are appropriate for the patient's age. There is moderate periventricular low attenuation consistent with chronic microvascular ischemia. No sulcal effacement is identified. There is no midline shift. No acute intra-axial or extra-axial hemorrhage is detected. The cisterns are patent. The visualized paranasal sinuses are clear. IMPRESSION: 1. Changes of chronic microvascular ischemia. No acute intracranial process is detected. CT CERVICAL SPINE: Alignment of the cervical spine is normal apart from minimal anterolisthesis of C2 on C3. There is a fracture through the C2 vertebral body both on the right and left sides. The fracture lines do appear to extend and communicate with the transverse foramen both on the right and left sides. There does not appear to be involvement of the odontoid. No other cervical spine fractures are seen. There is multilevel degenerative disc disease with variable disc space narrowing and spurring noted. The bony canal is patent. IMPRESSION: 1. C2 vertebral body fracture with involvement of the transverse foramina bilaterally. CT angiography would be recommended to evaluate vertebral arteries. No other cervical spine fractures are identified. Results were called to the emergency department prior to this dictation. Dictated on workstation # [id number] Dict: 09/30/211741 Trans: 09/30/211750 [facility] [id number] Interpreted by: ELE LOJA MD Electronically signed by: Reviewed: Reviewed by Me Departure Communication (Admissions) Time/Spoke to Consulting Phy: 18:38 Dr. Lazo-Neurosurgeon Impression Primary Impression: Fracture of C2 vertebra, closed Disposition: 02 XFER SHT-TRM HOSP Condition: Stable Transfer Transfer Reason: Exceeds level of care Time Spoke to Accepting Phy: 18:[address] Lazo with Neurosurgery accepted transfer. Dr. Balderas ER provider accepted transfer. Transfer Facility: [facility] Method of Transfer: EMS Departure-Patient Inst. Referrals: NO,LOCAL PHYSICIAN (PCP/Family) Primary Care Physician SONG VOGT BROWNFIELD REDEVELOPMENT SPECIALIST Sep 30, 2021 17:12
[2021-09-30] MEDS ORDERED: ORPHENADRINE 60 MG/2 ML (NORFLEX) AMP (ED ONLY) IVP ONE (17:15)
--- NOTE | 2021-09-30 17:51 | Diagnostic Imaging Report ---
PROCEDURE: CT head and CT cervical spine without contrast. TECHNIQUE: Multiple contiguous axial images were obtained through the brain and cervical spine without the use of intravenous contrast. Sagittal and coronal reformations through the cervical spine were then performed. Auto Exposure Controls were utilized during the CT exam to meet ALARA standards for radiation dose reduction. INDICATION: Fall with head and neck injury. COMPARISON: No prior studies are available for comparison. CT HEAD: The ventricles and sulci are appropriate for the patient's age. There is moderate periventricular low attenuation consistent with chronic microvascular ischemia. No sulcal effacement is identified. There is no midline shift. No acute intra-axial or extra-axial hemorrhage is detected. The cisterns are patent. The visualized paranasal sinuses are clear. IMPRESSION: 1. Changes of chronic microvascular ischemia. No acute intracranial process is detected. CT CERVICAL SPINE: Alignment of the cervical spine is normal apart from minimal anterolisthesis of C2 on C3. There is a fracture through the C2 vertebral body both on the right and left sides. The fracture lines do appear to extend and communicate with the transverse foramen both on the right and left sides. There does not appear to be involvement of the odontoid. No other cervical spine fractures are seen. There is multilevel degenerative disc disease with variable disc space narrowing and spurring noted. The bony canal is patent. IMPRESSION: 1. C2 vertebral body fracture with involvement of the transverse foramina bilaterally. CT angiography would be recommended to evaluate vertebral arteries. No other cervical spine fractures are identified. Results were called to the emergency department prior to this dictation. Dictated by: Dictated on workstation # [id number]
[2021-09-30 18:00] LABS: BASOPHILS # (AUTO) 0.1 10^3/uL (0.0-0.1); BASOPHILS % (AUTO) 1 % (0-10); EOSINOPHILS # (AUTO) 0.1 10^3/uL (0.0-0.3); EOSINOPHILS % (AUTO) 1 % (0-10); HEMATOCRIT 42 % (35-52); HEMOGLOBIN 14.1 g/dL (11.5-16.0); LYMPHOCYTES # (AUTO) 1.2 10^3/uL (1.0-4.0); LYMPHOCYTES % (AUTO) 13 % (12-44); MEAN CORPUSCULAR HEMOGLOBIN 31 pg (25-34); MEAN CORPUSCULAR HGB CONC 33 g/dL (32-36); MEAN CORPUSCULAR VOLUME 92 fL (80-99); MEAN PLATELET VOLUME 9.3 fL (9.0-12.2); MONOCYTES # (AUTO) 0.7 10^3/uL (0.0-1.0); MONOCYTES % (AUTO) 8 % (0-12); NEUTROPHILS # (AUTO) 6.6 10^3/uL (1.8-7.8); NEUTROPHILS % (AUTO) 77 % (42-75); PLATELET COUNT 228 10^3/uL (130-400); WHITE BLOOD COUNT 8.6 10^3/uL (4.3-11.0)
[2021-09-30] MEDS ORDERED: fentaNYL INJ 100 MCG/2 ML AMP IVP ONE ×2 (18:00→19:30)
[2021-09-30] MEDS ORDERED: HOLD METFORMIN - RECEIVED CONTRAST 20 ML VIAL IV SCH (18:15)
[2021-09-30] MEDS ORDERED: IOHEXOL 350 MG/ML 100 ML (OMNIPAQUE 350) VIAL IV ONE (18:15)
[2021-09-30] MEDS ORDERED: NS 100 ML (IVPB) BAG IV ONE (18:15)
[2021-09-30 18:17] LABS: ALBUMIN 4.1 GM/DL (3.2-4.5)
[2021-09-30 18:18] LABS: POTASSIUM 4.4 MMOL/L (3.6-5.0)
[2021-09-30 18:19] LABS: CALCIUM 8.9 MG/DL (8.5-10.1)
[2021-09-30 18:20] LABS: TOTAL PROTEIN 7.4 GM/DL (6.4-8.2)
[2021-09-30 18:22] LABS: BILIRUBIN,TOTAL 0.4 MG/DL (0.1-1.0)
[2021-09-30 18:24] LABS: CREATININE SERUM 0.79 MG/DL (0.60-1.30)
--- NOTE | 2021-09-30 18:31 | Diagnostic Imaging Report ---
PROCEDURE: CT angiography of the head and CT angiography of the neck with and without contrast. TECHNIQUE: Contiguous noncontrast images were obtained from the skull base through the vertex. After intravenous contrast administration, helical CT angiography of the neck was performed. Source data was reformatted into 3D MIP projections. Delayed post contrast acquisition was also obtained. Auto Exposure Controls were utilized during the CT exam to meet ALARA standards for radiation dose reduction. INDICATION: Cervical spine fracture. Study is performed to evaluate vertebral arteries. Correlation is made with the CT cervical spine study earlier same evening. There is a three-vessel branching pattern to the aortic arch. The right common carotid artery as well as the right internal carotid artery is widely patent. Left common carotid artery is patent. There is calcified plaque at the left carotid bifurcation. Left internal carotid artery is widely patent. The left vertebral artery is dominant. Fracture at C2 with involvement of the transverse foramen is again noted. No definite vertebral artery injury is identified. Both vertebral arteries are patent to the basilar. The basilar artery is well opacified. There is a hypoplastic P1 segment on the right with origin of the right CULLET WASHER. The left CULLET WASHER is widely patent. A right and left anterior cerebral as well as the right and left middle cerebral arteries are widely patent. IMPRESSION: C2 fracture. No definite vertebral artery injury is identified. CTA of the head and neck are unremarkable. Dictated by: Dictated on workstation # [id number]
[2021-09-30 20:10] VITALS: BP 155/96
== END 2021-09-30 20:10 | disposition short-term general hospital (02) ==
LOC: EDUNIT# 16:37 → ER 16:39
DX: S12.190A Other displaced fracture of second cervical vertebra, initial encounter for closed fracture (principal); R51.9 Headache, unspecified; G47.30 Sleep apnea, unspecified; Z99.89 Dependence on other enabling machines and devices; W01.198A Fall on same level from slipping, tripping and stumbling with subsequent striking against other object, initial encounter
CPT/HCPCS: 36415; 70450; 70496; 70498; 72125; 80053; 85025